=== PATIENT | male | born 1970 | race Caucasian/White ===

== ENCOUNTER → 2016-10-15 | Outpatient (CLI) | payer OTHER ==
[~2016-10-15] MED LIST: ALL300 PO; GLC500 PO; NAPR-1169 PO; [UNRECOGNIZED DRUG - CODE] PO
[2016-10-15 09:17] LABS: URINE APPEARANCE CLEAR (CLEAR); URINE BILIRUBIN NEG (NEG); URINE COLOR YELLOW; URINE EPITHELIAL CELL AUTO >30 /lpf (0-5); URINE NITRITE NEG (NEG); URINE SPECIFIC GRAVITY 1.029 (1.000-1.030); UROBILINOGEN NEG (NEG)
[2016-10-15 09:23] LABS: MANUAL MICROSCOPIC REQUIRED? NO; REVIEW REQ? NO
[2016-10-16 07:01] LABS: ESTIMATED AVERAGE GLUCOSE 249 mg/dl; HA1C FLAG Normal (Normal)
== END | disposition home or self-care (01) ==
LOC: C.LAB 08:41
PROVIDERS: ATTEND Internal Medicine
DX: N18.9 Chronic kidney disease, unspecified (principal); R05 Cough

== ENCOUNTER → 2017-09-14 | Outpatient (CLI) | payer OTHER ==
[2017-09-14 12:26] LABS: BLOOD UREA NITROGEN 13 mg/dl (7-18); BUN/CREATININE RATIO 10.1 (10-20)
[2017-09-14 12:32] LABS: ESTIMATED AVERAGE GLUCOSE 252 mg/dl; HA1C FLAG Normal (Normal)
== END | disposition home or self-care (01) ==
LOC: C.LABBFT 10:25
PROVIDERS: ATTEND Physician Assistant
DX: E11.9 Type 2 diabetes mellitus without complications (principal); E78.5 Hyperlipidemia, unspecified

== ENCOUNTER → 2017-12-24 | Outpatient (CLI) | payer OTHER ==
[2017-12-24 16:35] LABS: BASO % 0.3 %; BASO ABS # 0.03 K/uL (0-0.2); EOS % 4.2 %; EOS ABS # 0.48 K/uL (0-0.5); HEMATOCRIT 49.1 % (42-52); HEMOGLOBIN 16.9 g/dL (14.0-18.0); IG# 0.07 K/uL (0.00-0.02); LYMPH % 33.4 %; MEAN CELL VOLUME 89.8 fL (80-100); MEAN CORPUSCULAR HEMOGLOBIN 30.9 pg (25-34); MEAN CORPUSCULAR HGB CONC 34.4 g/dl (32-36); MEAN PLATELET VOLUME 10.3 fL (7.4-10.4); MONO % 5.5 %; MONO ABS # 0.63 K/uL (0.11-0.59); NEUT ABS # 6.38 K/uL (1.4-6.5); PLATELET COUNT 245 K/uL (130-400); RED CELL DISTRIBUTION WIDTH CV 13.9 % (11.5-14.5); RED CELL DISTRIBUTION WIDTH SD 45.3 fL (36.4-46.3); WHITE BLOOD COUNT 11.39 K/uL (4.8-10.8)
[2017-12-24 17:08] LABS: ALT/SGPT 30 U/L (12-78); AST/SGOT 12 U/L (15-37); BLOOD UREA NITROGEN 20 mg/dl (7-18); CALCIUM 9.6 mg/dl (8.5-10.1); CARBON DIOXIDE 25 mmol/L (21-32); CREATININE 1.31 mg/dl (0.60-1.40); GLUCOSE 181 mg/dl (70-99); POTASSIUM 3.9 mmol/L (3.5-5.1); SODIUM 135 mmol/L (136-145)
[2017-12-25 07:05] LABS: HEMOGLOBIN A1C 10.2 % (4.5-5.6)
== END | disposition home or self-care (01) ==
LOC: C.LAB1850 15:59
PROVIDERS: ATTEND Internal Medicine
DX: E11.9 Type 2 diabetes mellitus without complications (principal); E78.5 Hyperlipidemia, unspecified

== ENCOUNTER 2020-07-02 16:37 | Inpatient (IN) ==
[2020-07-02] MEDS ORDERED: MEROPENEM 500 MG in SYRINGE 0 ML IV STA (17:05)
[2020-07-02] MEDS ORDERED: SODIUM CHLORIDE 0.9% 1000ML 1,000 ML IV SCH ×2 (17:15→18:01)
[2020-07-02] MEDS ORDERED: VANCOMYCIN HCL 2,000 MG in SODIUM CHLORIDE 0.9% 500 ML IV ONE (17:15)
[2020-07-02] MEDS ORDERED: ONDANSETRON INJ 2 MG/ML 2 ML VIAL IV STA (17:25)
[2020-07-02 17:29] LABS: Hematocrit (blood only) 43.2 % (42-52); Hemoglobin 14.9 g/dL (14.0-18.0); Mean Corpuscular Hemoglobin 30.3 pg (25-34); Mean Corpuscular Hgb Conc 34.5 g/dL (32-36); Mean Corpuscular Volume 87.8 fL (80-100); Mean Platelet Volume 10.8 fL (7.4-10.4); Platelet Count 239 K/uL (130-400); RDW Standard Deviation 44.9 fL (36.4-46.3); Red Blood Count 4.92 M/uL (4.7-6.1); White Blood Count 15.45 K/uL (4.8-10.8)
[2020-07-02] MEDS: fentaNYL citrate 100 MCG/2 ML VIAL IV STA ×2 (17:30→21:57)
[2020-07-02] MEDS ORDERED: CLINDAMYCIN 900 MG in DEXTROSE 5% 50 ML IV ONE (17:30)
--- NOTE | 2020-07-02 17:30 | Emergency Department Note ---
History of Present Illness General Chief complaint: Skin Problem Stated complaint: ABSCESS Time Seen by Provider: 07/02/20 16:51 History of Present Illness Maximum Pain Intensity: 8 This is a 50-year-old male that presents to the emergency department via private vehicle referred by PCP with complaints of "abscess". 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 He then notes that there was some small drainage from the area and it seemed to drain little bit. He then notes that Sunday the drainage seemed to decrease and then Sunday and drained more. He notes that that was when it seemed to involve the scrotum. It has persisted quite quickly and spread quickly since that time he notes. As of about 7 PM yesterday the infection then really began to spread. He notes that he did have an appointment earlier today with PCP and referred here for further evaluation and management. The patient does note a history of Goodpastures syndrome as well as diabetes. Home Medications Home Medications Medication Instructions Recorded Confirmed Type lancets #50 ea 05/12/19 04/01/20 History allopurinol 300 mg tablet 300 mg PO DAILY #90 tab 06/30/19 07/02/20 Rx furosemide 40 mg tablet 40 mg PO DAILY PRN #90 tab 06/30/19 07/02/20 Rx indomethacin 50 mg capsule 50 mg PO DAILY PRN #90 cap 06/30/19 07/02/20 Rx losartan 100 1 tab PO DAILY #90 tab 06/30/19 07/02/20 Rx mg-hydrochlorothiazide 25 mg tablet pioglitazone 30 mg tablet 30 mg PO DAILY #90 tab 06/30/19 07/02/20 Rx glipizide 10 mg tablet 10 mg PO BID #180 tab 09/01/19 07/02/20 Rx metformin 1,000 mg tablet 1,000 mg PO BID #180 tab 09/01/19 07/02/20 Rx niacin 1,000 mg tablet,extended 1,000 mg PO DAILY #90 tab 09/01/19 07/02/20 Rx release 24 hr naproxen 500 mg tablet 500 mg PO BID PRN #180 tab 02/25/20 07/02/20 Rx tramadol 50 mg tablet 50 mg PO Q4H PRN #84 tab 04/01/20 07/02/20 Rx blood sugar diagnostic #180 ea 06/28/20 Rx Allergies Allergy/AdvReac Type Severity Reaction Status Date / Time amoxicillin [From Augmentin] Allergy Severe Anaphylaxis Verified 07/02/20 18:13 clavulanic acid Allergy Severe Anaphylaxis Verified 07/02/20 18:13 [From Augmentin] Past Med/Surg History Medical History Back pain Blurry vision, right eye Chronic kidney disease Diabetes mellitus Dyslipidemia Fourniers gangrene Goodpastures syndrome Gout, joint Hypertension Left lumbosacral radiculopathy Necrotizing fasciitis Obstructive sleep apnea Sepsis Social History Smoking Status: Former smoker Tobacco Type: Cigarettes Do You Dip or Chew Tobacco: No; Hx Alcohol Use: No Hx Substance Use: No Preferred Language: Telugu Communication Ability: Unable 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 Beliefs That Will Affect Care: None Current Living Situation: Significant Other Other Information That Helps Us Care for You: No Feels Safe at Home: Yes Safety Concerns: Feels Safe At This Time Assistive Devices: CPAP Review of Systems A total of 10 systems reviewed and were otherwise negative Physical Exam Vital Signs Vital Signs - 24 hr 07/02/20 16:46 07/02/20 17:11 07/02/20 17:16 Temperature 36.6 C Temperature Source Oral Pulse Rate 119 H 115 H 115 H Pulse Rate [Apical] Pulse Rate from SpO2 Sensor 114 H 115 H Pulse Rhythm [Apical] Respiratory Rate 20 14 21 Respiratory Effort / Characteristics Non-Labored Spontaneous Respiratory Depth Normal Respiratory Pattern Regular Blood Pressure 115/73 77/57 L 90/57 L Blood Pressure [Left Radial Artery] Blood Pressure [Right Arm] Blood Pressure Mean 87 62 72 Blood Pressure Mean [Left Radial Artery] Blood Pressure Mean [Right Arm] Blood Pressure Position Sitting Blood Pressure Position [Left Radial Artery] Blood Pressure Position [Right Arm] Pulse Oximetry 98 96 96 Oxygen Delivery Method Room Air Room Air Room Air Fraction of Inspired Oxygen SaO2/FiO2 Ratio Sepsis Recent Fever Within 48 Hours No Sepsis New/Unexplained Change in Mental Status N/A Sepsis Action Taken by Nursing No Action Required Arterial BP Systolic Arterial BP Diastolic Arterial BP Mean Arterial Pulse Rate End-Tidal CO2 07/02/20 17:30 07/02/20 17:32 07/02/20 17:36 Temperature Temperature Source Pulse Rate 104 H 101 H 105 H Pulse Rate [Apical] Pulse Rate from SpO2 Sensor 104 H 101 H 105 H Pulse Rhythm [Apical] Respiratory Rate 13 12 15 Respiratory Effort / Characteristics Respiratory Depth Respiratory Pattern Blood Pressure 66/51 L 89/68 L 95/59 L Blood Pressure [Left Radial Artery] Blood Pressure [Right Arm] Blood Pressure Mean 59 73 72 Blood Pressure Mean [Left Radial Artery] Blood Pressure Mean [Right Arm] Blood Pressure Position Blood Pressure Position [Left Radial Artery] Blood Pressure Position [Right Arm] Pulse Oximetry 96 96 95 Oxygen Delivery Method Room Air Room Air Room Air Fraction of Inspired Oxygen SaO2/FiO2 Ratio Sepsis Recent Fever Within 48 Hours Sepsis New/Unexplained Change in Mental Status Sepsis Action Taken by Nursing Arterial BP Systolic Arterial BP Diastolic Arterial BP Mean Arterial Pulse Rate End-Tidal CO2 07/02/20 17:41 07/02/20 17:42 07/02/20 17:45 Temperature Temperature Source Pulse Rate 98 H 99 H Pulse Rate [Apical] Pulse Rate from SpO2 Sensor 99 H 98 H Pulse Rhythm [Apical] Respiratory Rate 20 17 Respiratory Effort / Characteristics Respiratory Depth Respiratory Pattern Blood Pressure 95/70 L 96/59 L Blood Pressure [Left Radial Artery] Blood Pressure [Right Arm] Blood Pressure Mean 77 68 Blood Pressure Mean [Left Radial Artery] Blood Pressure Mean [Right Arm] Blood Pressure Position Blood Pressure Position [Left Radial Artery] Blood Pressure Position [Right Arm] Pulse Oximetry 95 95 95 Oxygen Delivery Method Room Air Room Air Fraction of Inspired Oxygen SaO2/FiO2 Ratio Sepsis Recent Fever Within 48 Hours Sepsis New/Unexplained Change in Mental Status Sepsis Action Taken by Nursing Arterial BP Systolic Arterial BP Diastolic Arterial BP Mean Arterial Pulse Rate End-Tidal CO2 07/02/20 17:50 07/02/20 17:55 07/02/20 18:00 Temperature Temperature Source Pulse Rate 96 H 97 H 100 H Pulse Rate [Apical] Pulse Rate from SpO2 Sensor 96 H 98 H 98 H Pulse Rhythm [Apical] Respiratory Rate 14 21 15 Respiratory Effort / Characteristics Respiratory Depth Respiratory Pattern Blood Pressure 97/52 L 95/55 L 108/62 Blood Pressure [Left Radial Artery] Blood Pressure [Right Arm] Blood Pressure Mean 68 62 74 Blood Pressure Mean [Left Radial Artery] Blood Pressure Mean [Right Arm] Blood Pressure Position Blood Pressure Position [Left Radial Artery] Blood Pressure Position [Right Arm] Pulse Oximetry 95 94 94 Oxygen Delivery Method Fraction of Inspired Oxygen SaO2/FiO2 Ratio Sepsis Recent Fever Within 48 Hours Sepsis New/Unexplained Change in Mental Status Sepsis Action Taken by Nursing Arterial BP Systolic Arterial BP Diastolic Arterial BP Mean Arterial Pulse Rate End-Tidal CO2 07/02/20 18:05 07/02/20 18:10 07/02/20 18:15 Temperature Temperature Source Pulse Rate 99 H 98 H 98 H Pulse Rate [Apical] Pulse Rate from SpO2 Sensor 100 H 98 H Pulse Rhythm [Apical] Respiratory Rate 14 16 15 Respiratory Effort / Characteristics Respiratory Depth Respiratory Pattern Blood Pressure 91/64 L 97/65 L 90/59 L Blood Pressure [Left Radial Artery] Blood Pressure [Right Arm] Blood Pressure Mean 75 77 76 Blood Pressure Mean [Left Radial Artery] Blood Pressure Mean [Right Arm] Blood Pressure Position Blood Pressure Position [Left Radial Artery] Blood Pressure Position [Right Arm] Pulse Oximetry 95 94 96 Oxygen Delivery Method Fraction of Inspired Oxygen SaO2/FiO2 Ratio Sepsis Recent Fever Within 48 Hours Sepsis New/Unexplained Change in Mental Status Sepsis Action Taken by Nursing Arterial BP Systolic Arterial BP Diastolic Arterial BP Mean Arterial Pulse Rate End-Tidal CO2 07/02/20 18:20 07/02/20 20:35 07/02/20 20:45 Temperature 36.6 C Temperature Source Axillary Pulse Rate 102 H Pulse Rate [Apical] 88 89 Pulse Rate from SpO2 Sensor Pulse Rhythm [Apical] Regular Regular Respiratory Rate 16 16 16 Respiratory Effort / Characteristics Non-Labored Spontaneous Non-Labored Spontaneous Respiratory Depth Normal Normal Respiratory Pattern Regular Regular Blood Pressure 104/72 Blood Pressure [Left Radial Artery] 136/61 101/53 L Blood Pressure [Right Arm] 116/74 104/69 Blood Pressure Mean 83 Blood Pressure Mean [Left Radial Artery] 86 69 Blood Pressure Mean [Right Arm] 88 80 Blood Pressure Position Blood Pressure Position [Left Radial Artery] Lying Lying Blood Pressure Position [Right Arm] Lying Lying Pulse Oximetry 100 95 Oxygen Delivery Method Mechanical Vent Mechanical Vent Fraction of Inspired Oxygen 30 30 SaO2/FiO2 Ratio 333 316 Sepsis Recent Fever Within 48 Hours Sepsis New/Unexplained Change in Mental Status Sepsis Action Taken by Nursing Arterial BP Systolic Arterial BP Diastolic Arterial BP Mean Arterial Pulse Rate End-Tidal CO2 07/02/20 20:55 07/02/20 21:00 07/02/20 21:05 Temperature Temperature Source Pulse Rate 97 H Pulse Rate [Apical] 89 90 Pulse Rate from SpO2 Sensor Pulse Rhythm [Apical] Regular Regular Respiratory Rate 16 18 16 Respiratory Effort / Characteristics Non-Labored Spontaneous Non-Labored Spontaneous Respiratory Depth Normal Normal Respiratory Pattern Regular Regular Blood Pressure Blood Pressure [Left Radial Artery] 101/50 L 102/48 L Blood Pressure [Right Arm] 106/63 103/60 Blood Pressure Mean Blood Pressure Mean [Left Radial Artery] 67 66 Blood Pressure Mean [Right Arm] 77 74 Blood Pressure Position Blood Pressure Position [Left Radial Artery] Lying Lying Blood Pressure Position [Right Arm] Lying Lying Pulse Oximetry 92 95 92 Oxygen Delivery Method Mechanical Vent Mechanical Vent Fraction of Inspired Oxygen 30 40 30 SaO2/FiO2 Ratio 306 306 Sepsis Recent Fever Within 48 Hours Sepsis New/Unexplained Change in Mental Status Sepsis Action Taken by Nursing Arterial BP Systolic Arterial BP Diastolic Arterial BP Mean Arterial Pulse Rate End-Tidal CO2 41 07/02/20 21:30 07/02/20 21:31 07/02/20 21:34 Temperature Temperature Source Pulse Rate 126 H 127 H 129 H Pulse Rate [Apical] Pulse Rate from SpO2 Sensor 125 H 128 H 129 H Pulse Rhythm [Apical] Respiratory Rate Respiratory Effort / Characteristics Mechanically Ventilated Respiratory Depth Respiratory Pattern Regular Blood Pressure 223/143 H 225/129 H Blood Pressure [Left Radial Artery] Blood Pressure [Right Arm] Blood Pressure Mean 176 183 Blood Pressure Mean [Left Radial Artery] Blood Pressure Mean [Right Arm] Blood Pressure Position Blood Pressure Position [Left Radial Artery] Blood Pressure Position [Right Arm] Pulse Oximetry 95 96 95 Oxygen Delivery Method Fraction of Inspired Oxygen 30 SaO2/FiO2 Ratio Sepsis Recent Fever Within 48 Hours Sepsis New/Unexplained Change in Mental Status Sepsis Action Taken by Nursing Arterial BP Systolic 250 269 300 Arterial BP Diastolic 95 99 109 Arterial BP Mean 142 151 168 Arterial Pulse Rate 125 H 127 H 129 H End-Tidal CO2 40 47 44 07/02/20 21:36 07/02/20 21:41 07/02/20 21:44 Temperature 36.8 C Temperature Source Oral Pulse Rate 125 H 131 H Pulse Rate [Apical] 126 H Pulse Rate from SpO2 Sensor 127 H 131 H Pulse Rhythm [Apical] Respiratory Rate 20 Respiratory Effort / Characteristics Respiratory Depth Normal Respiratory Pattern Blood Pressure 219/124 H 243/124 H Blood Pressure [Left Radial Artery] 237/94 H Blood Pressure [Right Arm] 243/124 H Blood Pressure Mean 185 176 Blood Pressure Mean [Left Radial Artery] 141 Blood Pressure Mean [Right Arm] 163 Blood Pressure Position Blood Pressure Position [Left Radial Artery] Blood Pressure Position [Right Arm] Pulse Oximetry 95 94 95 Oxygen Delivery Method Mechanical Vent Fraction of Inspired Oxygen SaO2/FiO2 Ratio Sepsis Recent Fever Within 48 Hours Sepsis New/Unexplained Change in Mental Status Sepsis Action Taken by Nursing Arterial BP Systolic 262 277 Arterial BP Diastolic 96 91 Arterial BP Mean 144 154 Arterial Pulse Rate 127 H 130 H End-Tidal CO2 45 41 07/02/20 21:47 Temperature Temperature Source Pulse Rate 125 H Pulse Rate [Apical] Pulse Rate from SpO2 Sensor 125 H Pulse Rhythm [Apical] Respiratory Rate Respiratory Effort / Characteristics Respiratory Depth Respiratory Pattern Blood Pressure 170/111 H Blood Pressure [Left Radial Artery] Blood Pressure [Right Arm] Blood Pressure Mean 138 Blood Pressure Mean [Left Radial Artery] Blood Pressure Mean [Right Arm] Blood Pressure Position Blood Pressure Position [Left Radial Artery] Blood Pressure Position [Right Arm] Pulse Oximetry 95 Oxygen Delivery Method Fraction of Inspired Oxygen SaO2/FiO2 Ratio Sepsis Recent Fever Within 48 Hours Sepsis New/Unexplained Change in Mental Status Sepsis Action Taken by Nursing Arterial BP Systolic 221 Arterial BP Diastolic 89 Arterial BP Mean 128 Arterial Pulse Rate 125 H End-Tidal CO2 40 VITAL SIGNS - Vital signs and nursing notes were reviewed. Stable and afebrile. GENERAL -50-year-old male appearing his stated age who is in no acute distress. Communicates well with provider and answers questions appropriately. SKIN -patient is mildly diaphoretic. Examination of the scrotal and suprapubic region reveals a tremendous amount of erythema, edema with left scrotal darkening with skin sloughing. The region is quite malodorous. HEAD - NC/AT. EYES - Sclera anicteric. Palpebral conjunctiva pink and moist with no injection noted. EARS - No deformities of external structures noted on gross examination bilaterally. NOSE - Midline and without cyanosis. MOUTH/OROPHARYNX - Without perioral cyanosis. Buccal mucosa pink and moist and without leukoplakia. Tongue midline with equal elevation of palate bilaterally. No tonsillar hypertrophy, erythema, or exudates noted. Good dentition noted. NECK - Neck with FROM. No nuchal rigidity. LUNGS - Chest wall symmetric without accessory muscle use, intercostals retractions, or central cyanosis. Normal vesicular breath sounds CTA B/L. No wheezes, rales, or rhonchi appreciated. CARDIAC - RRR with S1/S2. No murmur, rubs, or gallops appreciated. ABDOMEN - Abdominal contour normal without pulsations or visible masses. BS normoactive all four quadrants. Tenderness in the suprapubic and genital region. Skin as above. There is malodorous drainage noted EXTREMITIES - No clubbing or peripheral cyanosis. +5/5 strength noted in UE/LE bilaterally. NEUROLOGIC - Cranial nerves II through XII grossly intact. PSYCH - A&O, and cooperates fully with examiner. Pt is very pleasant and interacts well with examiner. Course Administered Medications Propofol (Diprivan) 1,000 mg in 100 mls @ 3.102 mls/hr IV .Q24H MITZI; Protocol Stop: 07/05/20 21:29 Last Admin: 07/03/20 12:42 Dose: 5 mcg/kg/min, 3.1 mls/hr Documented by: [id number] Cosigned by: [id number] Titration: 07/03/20 12:42 Dose: 15 mcg/kg/min, 9.3 mls/hr Documented by: [id number] Cosigned by: [id number] Titration: 07/03/20 00:45 Dose: 5 mcg/kg/min, 3.1 mls/hr Documented by: [id number] Titration: 07/03/20 00:15 Dose: 10 mcg/kg/min, 6.2 mls/hr Documented by: [id number] Titration: 07/03/20 00:01 Dose: 15 mcg/kg/min, 9.3 mls/hr Documented by: [id number] Titration: 07/02/20 23:30 Dose: 20 mcg/kg/min, 12.4 mls/hr Documented by: [id number] Titration: 07/02/20 23:15 Dose: 25 mcg/kg/min, 15.5 mls/hr Documented by: [id number] Titration: 07/02/20 22:30 Dose: 30 mcg/kg/min, 18.6 mls/hr Documented by: [id number] Titration: 07/02/20 22:00 Dose: 25 mcg/kg/min, 15.5 mls/hr Documented by: [id number] Admin: 07/02/20 21:30 Dose: 20 mcg/kg/min, 12.4 mls/hr Documented by: [id number] Cosigned by: [id number] Fentanyl Citrate (Fentanyl Drip) 1,250 mcg in 250 mls @ 5 mls/hr IV .Q50H MITZI; Protocol Stop: 07/16/20 21:29 Last Admin: 07/02/20 21:40 Dose: 25 mcg/hr, 5 mls/hr Documented by: [id number] Cosigned by: [id number] Sodium Chloride (Nss 1000ml) 1,000 mls @ 120 mls/hr IV .Q8H20M MITZI Stop: 08/01/20 21:29 Last Admin: 07/03/20 10:20 Dose: 120 mls/hr Documented by: [id number] Infusion: 07/03/20 06:21 Dose: 120 mls/hr Documented by: [id number] Admin: 07/02/20 22:01 Dose: 120 mls/hr Documented by: [id number] Vancomycin HCl 1,500 mg/ (Sodium Chloride) 530 mls @ 200 mls/hr IV Q18H [facility] Stop: 07/10/20 07:59 Last Admin: 07/03/20 08:49 Dose: 200 mls/hr Documented by: [id number] Insulin Aspart (Insulin Aspart 100 Units/Ml 3 Ml Pen) 0 units SC Q6 [facility] Stop: 08/01/20 21:59 Last Admin: 07/03/20 12:28 Dose: Not Given Documented by: [id number] Cosigned by: [id number] Admin: 07/03/20 05:56 Dose: Not Given Documented by: [id number] Cosigned by: [id number] Admin: 07/02/20 23:10 Dose: 3 units Documented by: [id number] Cosigned by: [id number] Discontinued Medications Bacitracin (Bacitracin Inj 50,000 Unit Vial) Confirm Administered Dose 50,000 units .ROUTE .STK-MED ONE Stop: 07/02/20 18:21 Last Admin: 07/02/20 20:12 Dose: 50,000 units Documented by: [id number] Fentanyl Citrate (Fentanyl Citrate 100 Mcg/2 Ml Vial) 50 mcg IV NOW [facility] Stop: 07/02/20 17:26 Last Admin: 07/02/20 21:57 Dose: Not Given Documented by: [id number] Fentanyl Citrate (Fentanyl Citrate 1250mcg/250ml Nss) Confirm Administered Dose 1,250 mcg IV .STK-MED ONE Stop: 07/02/20 21:31 Last Admin: 07/02/20 21:59 Dose: Not Given Documented by: [id number] Meropenem 500 mg/ Syringe 10 mls @ 2 mls/min IV NOW STA; Protocol Stop: 07/02/20 17:09 Last Admin: 07/02/20 17:30 Dose: 2 mls/min Documented by: [id number] Vancomycin HCl 2,000 mg/ (Sodium Chloride) 540 mls @ 200 mls/hr IV NOW ONE Stop: 07/02/20 19:56 Last Infusion: 07/02/20 21:40 Dose: 0 mls/hr Documented by: [id number] Admin: 07/02/20 17:19 Dose: 200 mls/hr Documented by: [id number] Clindamycin Phosphate 900 mg/ (Dextrose) 56 mls @ 112 mls/hr IV NOW ONE Stop: 07/02/20 17:59 Last Infusion: 07/02/20 17:49 Dose: 0 mls/hr Documented by: [id number] Admin: 07/02/20 17:19 Dose: 112 mls/hr Documented by: [id number] Sodium Chloride (Nss 1000ml) 1,000 mls @ 999 mls/hr IV .Q1H1M [facility] Stop: 07/02/20 18:01 Last Infusion: 07/02/20 18:20 Dose: 0 mls/hr Documented by: [id number] Admin: 07/02/20 17:19 Dose: 999 mls/hr Documented by: [id number] Sodium Chloride (Nss 1000ml) 1,000 mls @ 999 mls/hr IV .Q1H1M [facility] Stop: 07/02/20 19:00 Last Infusion: 07/02/20 21:40 Dose: 0 mls/hr Documented by: [id number] Admin: 07/02/20 18:21 Dose: 999 mls/hr Documented by: [id number] Clindamycin Phosphate 900 mg/ (Dextrose) 56 mls @ 112 mls/hr IV Q8H [facility] Stop: 07/10/20 01:59 Last Infusion: 07/03/20 03:34 Dose: 0 mls/hr Documented by: [id number] Admin: 07/03/20 02:20 Dose: 112 mls/hr Documented by: [id number] Meropenem 1,000 mg/ Syringe 20 mls @ 2 mls/min IV Q12H [facility]; Protocol Stop: 07/10/20 00:00 Last Admin: 07/03/20 12:28 Dose: 2 mls/min Documented by: [id number] Admin: 07/02/20 23:47 Dose: 2 mls/min Documented by: [id number] Potassium Chloride (K eSun / Wtr) 10 meq in 100 mls @ 100 mls/hr IV Q1H [facility] Stop: 07/03/20 01:14 Last Infusion: 07/03/20 02:33 Dose: 0 mls/hr Documented by: [id number] Admin: 07/03/20 00:34 Dose: 100 mls/hr Documented by: [id number] Infusion: 07/03/20 00:34 Dose: 100 mls/hr Documented by: [id number] Admin: 07/02/20 23:47 Dose: 100 mls/hr Documented by: [id number] Sodium Chloride (Nss 1000ml) 500 mls @ 999 mls/hr IV .Q31M ONE Stop: 07/03/20 01:22 Last Infusion: 07/03/20 02:34 Dose: 0 mls/hr Documented by: [id number] Admin: 07/03/20 01:00 Dose: 999 mls/hr Documented by: [id number] Potassium Chloride (K Seun / Wtr) 10 meq in 100 mls @ 100 mls/hr IV Q1H [facility] Stop: 07/03/20 08:39 Last Admin: 07/03/20 08:51 Dose: 100 mls/hr Documented by: [id number] Infusion: 07/03/20 07:50 Dose: 100 mls/hr Documented by: [id number] Admin: 07/03/20 06:50 Dose: 100 mls/hr Documented by: [id number] Calcium Gluconate 1,000 mg/ (Sodium Chloride) 60 mls @ 240 mls/hr IV NOW ONE Stop: 07/03/20 10:14 Last Admin: 07/03/20 10:19 Dose: 240 mls/hr Documented by: [id number] Lidocaine/Epinephrine (Lidocaine/Epinephrine 1% 20 Ml Vial) Confirm Administered Dose 20 ml .ROUTE .STK-MED ONE Stop: 07/02/20 18:21 Last Admin: 07/02/20 20:13 Dose: 14 ml Documented by: [id number] Ondansetron HCl (Ondansetron Inj 2 Mg/Ml 2 Ml Vial) 4 mg IV NOW STA Stop: 07/02/20 17:26 Last Admin: 07/02/20 17:30 Dose: 4 mg Documented by: [id number] Propofol (Propofol Iv Emulsion 10 Mg/Ml 100 Ml Vial) Confirm Administered Dose 1,000 mg IV .STK-MED ONE Stop: 07/02/20 21:22 Last Admin: 07/02/20 21:58 Dose: Not Given Documented by: [id number] Vancomycin HCl (Vancomycin Hcl 1000mg/20ml Vial) Confirm Administered Dose 50 mg .ROUTE .STK-MED ONE Stop: 07/02/20 18:21 Last Admin: 07/02/20 20:14 Dose: 1,000 mg Documented by: [id number] Vancomycin HCl (Vancomycin Hcl 1000mg/20ml Vial) Confirm Administered Dose 50 mg .ROUTE .STK-MED ONE Stop: 07/02/20 19:15 Last Admin: 07/02/20 20:15 Dose: Not Given Documented by: [id number] Critical Care Time Critical Care Time: Yes Patient presents with a life-threatening illness, 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 I have personally spent 45 minutes of critical care time in the direct management of this patient. This includes bedside care, interpretation of diagnostic studies, and testing, discussion with consultants, patient, and family members, and other required patient management activities. This 45 minutes is in excess of all separately billable procedures. Medical Decision Making Laboratory Data Result diagrams: 07/03/20 04:25 07/03/20 04:25 Lab Results 07/02/20 07/02/20 07/02/20 Range/Units 17:12 17:12 17:12 WBC 15.45 H (4.8-10.8) K/uL RBC 4.92 (4.7-6.1) M/uL Hgb 14.9 (14.0-18.0) g/dL POC Hgb (14.0-18.0) g/dl Hct 43.2 (42-52) % POC Hct (42-52) % MCV 87.8 (80-100) fL MCH 30.3 (25-34) pg MCHC 34.5 (32-36) g/dL RDW Std Deviation 44.9 (36.4-46.3) fL RDW Coeff of Sara 14.0 (11.5-14.5) % Plt Count 239 (130-400) K/uL MPV 10.8 H (7.4-10.4) fL Immature Gran % (Auto) 7.1 % Neut % (Auto) 75.1 % Lymph % (Auto) 7.8 % Glascock % (Auto) 8.7 % Eos % (Auto) 1.2 % Baso % (Auto) 0.1 % Neut # (Auto) 11.61 H (1.4-6.5) K/uL Lymph # (Auto) 1.20 (1.2-3.4) K/uL Glascock # (Auto) 1.34 H (0.11-0.59) K/uL Eos # (Auto) 0.19 (0-0.5) K/uL Baso # (Auto) 0.02 (0-0.2) K/uL Immature Gran # (Auto) 1.09 H (0.00-0.02) K/uL Toxic Granulation 1+ Toxic Vacuolation 1+ ESR (0-14) mm/hr PT 11.5 (9.0-12.0) Seconds INR 1.1 (0.9-1.1) APTT 34.2 H (21.0-31.0) Seconds PTT Ratio 1.2 Sample Site POC pH (7.35-7.45) POC pCO2 (35-46) mmHg POC pO2 (80-95) mmHg POC HCO3 (19-24) mina/L POC Base Excess (-9-1.8) mina/L POC ABG O2 Sat (90-95) % Lance Test O2 Delivery Device POC O2 Rate Minute Ventilation POC FiO2 % Tidal Volume PEEP POC Sodium (135-144) mmol/L Sodium 127 L (136-145) mmol/L POC Potassium (3.3-5.0) mmol/L Potassium 3.3 L (3.5-5.1) mmol/L POC Chloride (101-112) mmol/L Chloride 92 L (98-107) mmol/L Carbon Dioxide 24 (21-32) mmol/L POC Total CO2 (24-31) mmol/L Anion Gap 12.0 H (3-11) POC Anion Gap (16-25) mmol/L POC BUN (7-18) mg/dl BUN 38 H (7-18) mg/dl Creatinine 2.28 H (0.6-1.4) mg/dl POC Creatinine (0.6-1.3) mg/dl Est Cr Clr Drug Dosing 44.0 ml/min Est GFR ( Amer) 37.1 Est GFR (Non-Af Amer) 32.0 BUN/Creatinine Ratio 17.6 (10-20) Glucose 211 H (70-99) mg/dl POC Glucose (other) (70-99) mg/dl Lactate Calcium 9.7 (8.5-10.1) mg/dl POC Ioniz Calcium Zahira (1.12-1.32) mmol/l Magnesium 2.2 (1.8-2.4) mg/dl Total Bilirubin 1.3 H (0.2-1) mg/dl AST 21 (15-37) U/L ALT 28 (12-78) U/L Alkaline Phosphatase 167 H (45-117) U/L C-Reactive Protein 43.50 H (0-0.29) mg/dl Total Protein 7.5 (6.4-8.2) gm/dl Albumin 2.5 L (3.4-5.0) gm/dl Globulin 5.0 H (2.5-4.0) gm/dl Albumin/Globulin Ratio 0.5 L (0.9-2) Procalcitonin (0-0.5) ng/ml Specimen Hemolysis Blood Type Antibody Screen Crossmatch 07/02/20 07/02/20 07/02/20 Range/Units 17:12 17:12 17:12 WBC (4.8-10.8) K/uL RBC (4.7-6.1) M/uL Hgb (14.0-18.0) g/dL POC Hgb (14.0-18.0) g/dl Hct (42-52) % POC Hct (42-52) % MCV (80-100) fL MCH (25-34) pg MCHC (32-36) g/dL RDW Std Deviation (36.4-46.3) fL RDW Coeff of Sara (11.5-14.5) % Plt Count (130-400) K/uL MPV (7.4-10.4) fL Immature Gran % (Auto) % Neut % (Auto) % Lymph % (Auto) % Glascock % (Auto) % Eos % (Auto) % Baso % (Auto) % Neut # (Auto) (1.4-6.5) K/uL Lymph # (Auto) (1.2-3.4) K/uL Glascock # (Auto) (0.11-0.59) K/uL Eos # (Auto) (0-0.5) K/uL Baso # (Auto) (0-0.2) K/uL Immature Gran # (Auto) (0.00-0.02) K/uL Toxic Granulation Toxic Vacuolation ESR > 90 H (0-14) mm/hr PT (9.0-12.0) Seconds INR (0.9-1.1) APTT (21.0-31.0) Seconds PTT Ratio Sample Site POC pH (7.35-7.45) POC pCO2 (35-46) mmHg POC pO2 (80-95) mmHg POC HCO3 (19-24) mina/L POC Base Excess (-9-1.8) mina/L POC ABG O2 Sat (90-95) % Lance Test O2 Delivery Device POC O2 Rate Minute Ventilation POC FiO2 % Tidal Volume PEEP POC Sodium (135-144) mmol/L Sodium (136-145) mmol/L POC Potassium (3.3-5.0) mmol/L Potassium (3.5-5.1) mmol/L POC Chloride (101-112) mmol/L Chloride (98-107) mmol/L Carbon Dioxide (21-32) mmol/L POC Total CO2 (24-31) mmol/L Anion Gap (3-11) POC Anion Gap (16-25) mmol/L POC BUN (7-18) mg/dl BUN (7-18) mg/dl Creatinine (0.6-1.4) mg/dl POC Creatinine (0.6-1.3) mg/dl Est Cr Clr Drug Dosing ml/min Est GFR ( Amer) Est GFR (Non-Af Amer) BUN/Creatinine Ratio (10-20) Glucose (70-99) mg/dl POC Glucose (other) (70-99) mg/dl Lactate Cancelled Calcium (8.5-10.1) mg/dl POC Ioniz Calcium Zahira (1.12-1.32) mmol/l Magnesium (1.8-2.4) mg/dl Total Bilirubin (0.2-1) mg/dl AST (15-37) U/L ALT (12-78) U/L Alkaline Phosphatase (45-117) U/L C-Reactive Protein (0-0.29) mg/dl Total Protein (6.4-8.2) gm/dl Albumin (3.4-5.0) gm/dl Globulin (2.5-4.0) gm/dl Albumin/Globulin Ratio (0.9-2) Procalcitonin 11.88 H (0-0.5) ng/ml Specimen Hemolysis Blood Type Antibody Screen Crossmatch 07/02/20 07/02/20 07/02/20 Range/Units 18:17 19:24 21:25 WBC (4.8-10.8) K/uL RBC (4.7-6.1) M/uL Hgb (14.0-18.0) g/dL POC Hgb 13.9 L (14.0-18.0) g/dl Hct (42-52) % POC Hct 41 L (42-52) % MCV (80-100) fL MCH (25-34) pg MCHC (32-36) g/dL RDW Std Deviation (36.4-46.3) fL RDW Coeff of Sara (11.5-14.5) % Plt Count (130-400) K/uL MPV (7.4-10.4) fL Immature Gran % (Auto) % Neut % (Auto) % Lymph % (Auto) % Glascock % (Auto) % Eos % (Auto) % Baso % (Auto) % Neut # (Auto) (1.4-6.5) K/uL Lymph # (Auto) (1.2-3.4) K/uL Glascock # (Auto) (0.11-0.59) K/uL Eos # (Auto) (0-0.5) K/uL Baso # (Auto) (0-0.2) K/uL Immature Gran # (Auto) (0.00-0.02) K/uL Toxic Granulation Toxic Vacuolation ESR (0-14) mm/hr PT (9.0-12.0) Seconds INR (0.9-1.1) APTT (21.0-31.0) Seconds PTT Ratio Sample Site Art Line POC pH 7.23 L (7.35-7.45) POC pCO2 44 (35-46) mmHg POC pO2 83 (80-95) mmHg POC HCO3 18 L (19-24) mina/L POC Base Excess -9.0 (-9-1.8) mnia/L POC ABG O2 Sat 94.0 (90-95) % Lance Test NA O2 Delivery Device Ventilator POC O2 Rate 16 Minute Ventilation 8 POC FiO2 40 % Tidal Volume 500 PEEP 8 POC Sodium 129 L (135-144) mmol/L Sodium (136-145) mmol/L POC Potassium 3.3 (3.3-5.0) mmol/L Potassium (3.5-5.1) mmol/L POC Chloride 94 L (101-112) mmol/L Chloride (98-107) mmol/L Carbon Dioxide (21-32) mmol/L POC Total CO2 21 L 20 L (24-31) mmol/L Anion Gap (3-11) POC Anion Gap 19.0 (16-25) mmol/L POC BUN 34 H (7-18) mg/dl BUN (7-18) mg/dl Creatinine (0.6-1.4) mg/dl POC Creatinine 2.1 H (0.6-1.3) mg/dl Est Cr Clr Drug Dosing ml/min Est GFR ( Amer) Est GFR (Non-Af Amer) BUN/Creatinine Ratio (10-20) Glucose (70-99) mg/dl POC Glucose (other) 218 H (70-99) mg/dl Lactate Calcium (8.5-10.1) mg/dl POC Ioniz Calcium Zahira 1.05 L (1.12-1.32) mmol/l Magnesium (1.8-2.4) mg/dl Total Bilirubin (0.2-1) mg/dl AST (15-37) U/L ALT (12-78) U/L Alkaline Phosphatase (45-117) U/L C-Reactive Protein (0-0.29) mg/dl Total Protein (6.4-8.2) gm/dl Albumin (3.4-5.0) gm/dl Globulin (2.5-4.0) gm/dl Albumin/Globulin Ratio (0.9-2) Procalcitonin (0-0.5) ng/ml Specimen Hemolysis Blood Type A Positive Antibody Screen NEGATIVE Crossmatch See Detail Imaging Data Radiologist's Impression: XR chest 1V portable HISTORY: 50 years-old Male SEPSIS acute sepsis COMPARISON: Chest radiograph 01/16/2019 TECHNIQUE: Portable semierect AP view of the chest FINDINGS: Cardiac silhouette is upper limits of normal in size. No pneumothorax, pleural effusion, airspace consolidation or overt pulmonary edema. Healed remote fracture of the lateral right 10th rib. Degenerative changes of the shoulders and spine. IMPRESSION: No acute process. ACT 112: Negative or not required by law. The above report was generated using voice recognition software. It may contain grammatical, syntax or spelling errors. Electronically signed by: Emerson Mcneil M.D. 07/02/2020 5:37 PM [address] AND PELVIS CT WITHOUT CONTRAST CT DOSE: 1691.69 mGy.cm HISTORY: Acute left groin pain with soft tissue infection Infection in groin TECHNIQUE: Multiaxial CT images of the abdomen and pelvis were performed without contrast. A dose lowering technique was utilized adhering to the principles of ALARA. COMPARISON STUDY: Chest radiograph of same day, CT abdomen 04/24/2010 FINDINGS: Lung bases are generally clear. There is no pneumatosis or p neumoperitoneum. The imaged inferior cardiac chambers are unremarkable. Trace pericardial effusion. Hepatosplenomegaly with hepatic steatosis. The spleen measures up to 18.3 cm in length. Mild gallbladder distention. No biliary ductal dilation. Unremarkable pancreas and right adrenal gland. There is mild thickening of the left adrenal gland. Mild nonspecific bilateral perinephric stranding. No hydronephrosis. Unremarkable urinary bladder. Mildly prominent prostate. Calcified plaque of the aorta without aneurysm. Prominent inguinal and iliac chain lymph nodes measuring up to 9 mm, likely reactive. Small hiatal hernia. No bowel obstruction or bowel wall thickening. Mild colonic diverticulosis. Normal appendix. There are a few calcifications of the right lower quadrant mesentery measuring up to 3.3 cm. Moderate atrophy of the rectus sheath. There is moderate subcutaneous edema of the mons pubis, (CM and superior left hemiscrotum with associated skin thickening. Moderate subcutaneous/deep tissue emphysema. No focal fluid collection. Degenerative changes of the spine, pelvis and hips. Include severe left hip osteoarthritis with chronic remodeling changes. Mild superior plate compression deformity at L1, likely chronic. IMPRESSION: 1. Cellulitis of the left inguinal tissues, perineum and mons pubis extends into the superior left hemiscrotum. Moderate subcutaneous/deep tissue emphysema is suggestive of associated fasciitis. No fluid collection to suggest abscess. Surgical consultation is recommended. 2. No bowel obstruction or bowel wall thickening. Normal appendix. 3. Hepatosplenomegaly with hepatic steatosis. 4. Additional findings as above. ACT 112: Negative or not required by law. The above report was generated using voice recognition software. It may contain grammatical, syntax or spelling errors. Electronically signed by: Emerson Mcneil M.D. 07/02/2020 6:51 PM MDM Narrative Patient was seen and evaluated as above in room A2. Review was performed of nursing notes and vital signs. I did review pertinent previous visits and patient history. After obtaining a thorough history and physical examination the above work up was performed. He presents to us today over concern of groin infection. 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 Stat page was made to general surgery who came to bedside immediately. Recommendation was for urology evaluation and if urology felt he required a higher level of care than transfer would be recommended. I then immediately paged the urologist and Dr. Guy then came to bedside. Simultaneously while the pages were being made to specialists, sepsis order set was started noting multiple several large bore IVs, broad- spectrum antibiotics covering the suspected Ted's gangrene infection and fluid resuscitation. Care was taken so as to not give the patient too much fluid but he responded quite well to the fluids. Patient was taken to the CT suite and directly from there to the operative suite as it was felt that management ROSANNA was warranted by urology and depending upon findings while in the OR will determine level of care either ICU care here Transfer. Patient will then go to the ICU and I did speak with the ICU attending. In review of his labs, there is leukocytosis at 15.45 without significant anemia. There is hyponatremia, hypokalemia, creatinine of 2.28 as well as procalcitonin markedly elevated as well as CRP and ESR. While in the department, I personally reevaluated the patient several times. The patient and female at bedside were educated upon management, educated upon todays recommendation, educated upon the seriousness of today's findings and diagnosis. Questions were answered. Case was discussed with the attending physician who also personally evaluated the patient just minutes after my initial evaluation. EKG was obtained per sepsis order set and reveals sinus tachycardia rate of [address] elevation. QTc 438. In the evaluation and treatment of this patient the following differential diagnoses were entertained: Necrotizing fasciitis, Ted's gangrene, UTI, yeast infection, cellulitis, testicular torsion, among others. 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 I discussed the case with the physician regulatory affairs assistant, examined the patient, and agree with the findings and plan as documented in PAC Son's note.
--- NOTE | 2020-07-02 17:39 | XRay Report ---
XR chest 1V portable HISTORY: 50 years-old Male SEPSIS acute sepsis COMPARISON: Chest radiograph 01/16/2019 TECHNIQUE: Portable semierect AP view of the chest FINDINGS: Cardiac silhouette is upper limits of normal in size. No pneumothorax, pleural effusion, airspace con solidation or overt pulmonary edema. Healed remote fracture of the lateral right 10th rib. Degenerati ve changes of the shoulders and spine. IMPRESSION: No acute process. ACT 112: Negative or not required by law. The above report was generated using voice recognition software. It may contain grammatical, syntax o r spelling errors. Electronically signed by: Emerson Mcneil M.D. 07/02/2020 5:37 PM
[2020-07-02 17:43] LABS: INR 1.1 (0.9-1.1); Partial Thromboplastin Ratio 1.2; Partial Thromboplastin Time 34.2 Seconds (21.0-31.0); Prothrombin Time 11.5 Seconds (9.0-12.0)
[2020-07-02 17:58] LABS: Basophils # (auto) 0.02 K/uL (0-0.2); Basophils % (auto) 0.1 %; Eosinophils # (auto) 0.19 K/uL (0-0.5); Eosinophils % (auto) 1.2 %; Immature Granulocytes # (auto) 1.09 K/uL (0.00-0.02); Immature Granulocytes % (auto) 7.1 %; Lymphocytes % (auto) 7.8 %; Monocytes # (auto) 1.34 K/uL (0.11-0.59); Monocytes % (auto) 8.7 %; Neutrophils # (auto) 11.61 K/uL (1.4-6.5); Neutrophils % (auto) 75.1 %; Toxic Granulation 1+; Toxic Vacuolation 1+
[2020-07-02] MEDS ORDERED: ALBUMIN HUMAN 5% 12.5 GM/250 ML VIAL IV ONE (18:19)
[2020-07-02] MEDS ORDERED: BACITRACIN INJ 50,000 UNIT VIAL ONE (18:20)
[2020-07-02] MEDS ORDERED: LIDOCAINE/EPINEPHRINE 1% 20 ML VIAL ONE (18:20)
[2020-07-02] MEDS ORDERED: VANCOMYCIN HCL 1000MG/20ML VIAL ONE ×2 (18:20→19:14)
[2020-07-02] MEDS ORDERED: LIDOCAINE HCL 2% 2 ML VIAL/AMP(20MG/ML) INFIL ONE (18:23)
[2020-07-02] MEDS ORDERED: PROPOFOL IV EMULSION 10 MG/ML 20 ML VIAL IV ONE (18:23)
[2020-07-02] MEDS ORDERED: ONDANSETRON INJ 2 MG/ML 2 ML VIAL ONE (18:23)
[2020-07-02] MEDS ORDERED: fentaNYL citrate 100 MCG/2 ML VIAL ONE ×2 (18:24→19:47)
[2020-07-02] MEDS ORDERED: MIDAZOLAM HCL 1 MG/ML 2ML VIAL ONE ×2 (18:24→20:08)
[2020-07-02 18:30] LABS: iSTAT Creatinine 2.1 mg/dl (0.6-1.3); iSTAT Hemoglobin 13.9 g/dl (14.0-18.0); iSTAT Ionized Calcium 1.05 mmol/l (1.12-1.32); iSTAT Potassium 3.3 mmol/L (3.3-5.0)
--- NOTE | 2020-07-02 18:38 | Urology Consultation ---
Date of Consultation July 02, 2020 Assessment & Plan (1) Fourniers gangrene: Emergent transport to OR for immediate debridement washout and wound care. Risk and benefits were discussed verbally with patient and family who are present. Patient was agreeable. Critical care team and anesthesia alerted (2) Necrotizing fasciitis: (3) Sepsis: History of Present Illness History of Present Illness New consultation for patient with signs of necrotizing fasciitis/Severe skin infection of groin. Patient states this happened incredibly quickly he noticed worsening issue with a skin infection and thought he had some sort of abscess. This quickly developed into a more severe infection. Patient has a known history of chronic renal disease as well as diabetes and history of Goodpasture syndrome. Patient started to become hypotensive and increasing illness. Was seen in the ER where concern for a necrotizing fasciitis was immediately identified. General surgery was initially consulted and they recommended ur ologic assessment. Patient denies significant major issues. No bleeding issues or concerns. No previous major groin surgeries. Does have known history of renal disease and was near renal failure 20 years ago when he was first diagnosed with Goodpasture syndrome. Patient does have issues with discomfort going down and radiating into groin and back in waves comes and goes. Can be severe at times. Discussed and reviewed patient's family history for any history of issues, infections, and disease. Also, discussed patient's medical/surgery history especially related to any history of urinary issues or stone disease. No known family history of severe skin or groin infections Patient is being admitted to the critical care team for life-threatening illness with critical management with broad spectrum IV antibiotics and supportive care. Allergies Allergy/AdvReac Type Severity Reaction Status Date / Time amoxicillin [From Augmentin] Allergy Severe Anaphylaxis Verified 07/02/20 18:13 clavulanic acid Allergy Severe Anaphylaxis Verified 07/02/20 18:13 [From Augmentin] Home Medications Home Medications Medication Instructions Recorded Confirmed Type lancets #50 ea 05/12/19 04/01/20 History allopurinol 300 mg tablet 300 mg PO DAILY #90 tab 06/30/19 07/02/20 Rx furosemide 40 mg tablet 40 mg PO DAILY PRN #90 tab 06/30/19 07/02/20 Rx indomethacin 50 mg capsule 50 mg PO DAILY PRN #90 cap 06/30/19 07/02/20 Rx losartan 100 1 tab PO DAILY #90 tab 06/30/19 07/02/20 Rx mg-hydrochlorothiazide 25 mg tablet pioglitazone 30 mg tablet 30 mg PO DAILY #90 tab 06/30/19 07/02/20 Rx glipizide 10 mg tablet 10 mg PO BID #180 tab 09/01/19 07/02/20 Rx metformin 1,000 mg tablet 1,000 mg PO BID #180 tab 09/01/19 07/02/20 Rx niacin 1,000 mg tablet,extended 1,000 mg PO DAILY #90 tab 09/01/19 07/02/20 Rx release 24 hr naproxen 500 mg tablet 500 mg PO BID PRN #180 tab 02/25/20 07/02/20 Rx tramadol 50 mg tablet 50 mg PO Q4H PRN #84 tab 04/01/20 07/02/20 Rx blood sugar diagnostic #180 ea 06/28/20 Rx Patient History Medical History (Updated 07/02/20 @ 18:38 by Logan Guy, ) Back pain Blurry vision, right eye Chronic kidney disease Diabetes mellitus Dyslipidemia Goodpastures syndrome Gout, joint Hypertension Left lumbosacral radiculopathy Obstructive sleep apnea Social History Smoking Status: Current every day smoker Tobacco Type: Cigarettes Preferred Language: Persian Feels Safe at Home: Yes Review of Systems Review of Systems: All systems reviewed & are unremarkable except as noted in HPI & below and Unobtainable due to mental health condition Limited due to patient's acute illness Physical Exam Physical Exam: General: Alert but acutely ill. HEENT: Normocephalic Atraumatic. Inspection normal. Cranial Nerves 2-12 Grossly intact. Nares are clear. Neck is supple. Normal inspection of face. Normal inspection of neck. Neurologic: No deficits on inspection. Baseline for motor function and sensory. Psychologic: Normal affect. Respiratory: Nonlabored. No use of accessory muscles. Moderate tachypnea Cardiovascular: Mild tachycardia Skin: Necrotizing necrotic wound of groin/mons/penile tissue and erythema of scrotum Extremities: Moving without issues. No motor deficits on inspection Lymphatics: Mild lower extremity edema Abdomen: Morbid obesity. Mild distended. No acites. No rebound or guarding. : Large necrotic wounds throughout groin. Results & Data ([facility]) Vital Signs (Past 12 Hours) Vital Signs Temp Pulse Resp BP Pulse Ox 07/02/20 18:20 102 H 16 104/72 07/02/20 18:15 98 H 15 90/59 L 96 07/02/20 18:10 98 H 16 97/65 L 94 07/02/20 18:05 99 H 14 91/64 L 95 07/02/20 18:00 100 H 15 108/62 94 07/02/20 17:55 97 H 21 95/55 L 94 07/02/20 17:50 96 H 14 97/52 L 95 07/02/20 17:45 99 H 17 96/59 L 95 07/02/20 17:42 95 07/02/20 17:41 98 H 20 95/70 L 95 07/02/20 17:36 105 H 15 95/59 L 95 07/02/20 17:32 101 H 12 89/68 L 96 07/02/20 17:30 104 H 13 66/51 L 96 07/02/20 17:16 115 H 21 90/57 L 96 07/02/20 17:11 115 H 14 77/57 L 96 07/02/20 16:46 36.6 C 119 H 20 115/73 98 PG Care Time/CCT Total # of Minutes Spent Total Time Spent with Patient: Total time spent is greater than 50% in coordination of care (as documented) at patient's floor/unit and/or counseling patient: Coding Level of Care Code 69750 Inpt Consult Level 5 Diagnoses Fourniers gangrene N49.3 Necrotizing fasciitis M72.6 Sepsis A41.9
--- NOTE | 2020-07-02 18:53 | CT Scan Report ---
ABDOMEN AND PELVIS CT WITHOUT CONTRAST CT DOSE: 1691.69 mGy.cm HISTORY: Acute left groin pain with soft tissue infection Infection in groin TECHNIQUE: Multiaxial CT images of the abdomen and pelvis were performed without contrast. A dose lo wering technique was utilized adhering to the principles of ALARA. COMPARISON STUDY: Chest radiograph of same day, CT abdomen 04/24/2010 FINDINGS: Lung bases are generally clear. There is no pneumatosis or pneumoperitoneum. The imaged inf erior cardiac chambers are unremarkable. Trace pericardial effusion. Hepatosplenomegaly with hepatic steatosis. The spleen measures up to 18.3 cm in length. Mild gallbladder distention. No biliary ducta l dilation. Unremarkable pancreas and right adrenal gland. There is mild thickening of the left adren al gland. Mild nonspecific bilateral perinephric stranding. No hydronephrosis. Unremarkable urinary b ladder. Mildly prominent prostate. Calcified plaque of the aorta without aneurysm. Prominent inguinal and iliac chain lymph nodes measuring up to 9 mm, likely reactive. Small hiatal hernia. No bowel obstruction or bowel wall thickening. Mild colonic diverticulosis. Norm al appendix. There are a few calcifications of the right lower quadrant mesentery measuring up to 3.3 cm. Moderate atrophy of the rectus sheath. There is moderate subcutaneous edema of the mons pubis, ( CM and superior left hemiscrotum with associated skin thickening. Moderate subcutaneous/deep tissue e mphysema. No focal fluid collection. Degenerative changes of the spine, pelvis and hips. Include josse re left hip osteoarthritis with chronic remodeling changes. Mild superior plate compression deformity at L1, likely chronic. IMPRESSION: 1. Cellulitis of the left inguinal tissues, perineum and mons pubis extends into the superior left he miscrotum. Moderate subcutaneous/deep tissue emphysema is suggestive of associated fasciitis. No flui d collection to suggest abscess. Surgical consultation is recommended. 2. No bowel obstruction or bowel wall thickening. Normal appendix. 3. Hepatosplenomegaly with hepatic steatosis. 4. Additional findings as above. ACT 112: Negative or not required by law. The above report was generated using voice recognition software. It may contain grammatical, syntax o r spelling errors. Electronically signed by: Emerson Mcneil M.D. 07/02/2020 6:51 PM
[2020-07-02 19:02] LABS: BUN Creatinine Ratio 17.6 (10-20)
[2020-07-02] MEDS ORDERED: SODIUM CHLORIDE 0.9% 250 ML IV PRN (19:18)
--- NOTE | 2020-07-02 19:21 | Anesthesiology Consultation ---
Date of Service July 02, 2020 Assessment & Plan (1) Encounter for pre-operative examination: Chart Review Chart Review: Acceptable Risk for Surgery and Patient NOT seen in Pre Admission Testing Consults Requested none History Surgery Operation Date: 07/02/20 19:00 Proposed Procedures p Orchiectomy Inguinal Radical - Logan Guy, Height/Weight Height: 5 ft 4 in Weight: 103.4 kg Allergies Allergy/AdvReac Type Severity Reaction Status Date / Time amoxicillin [From Augmentin] Allergy Severe Anaphylaxis Verified 07/02/20 18:13 clavulanic acid Allergy Severe Anaphylaxis Verified 07/02/20 18:13 [From Augmentin] Medications Home Medications Medication Instructions Recorded Confirmed Last Taken lancets #50 ea 05/12/19 04/01/20 Unknown allopurinol 300 mg tablet 300 mg PO DAILY #90 tab 06/30/19 07/02/20 Unknown furosemide 40 mg tablet 40 mg PO DAILY PRN #90 tab 06/30/19 07/02/20 Unknown indomethacin 50 mg capsule 50 mg PO DAILY PRN #90 cap 06/30/19 07/02/20 Unknown losartan 100 1 tab PO DAILY #90 tab 06/30/19 07/02/20 Unknown mg-hydrochlorothiazide 25 mg tablet pioglitazone 30 mg tablet 30 mg PO DAILY #90 tab 06/30/19 07/02/20 Unknown glipizide 10 mg tablet 10 mg PO BID #180 tab 09/01/19 07/02/20 Unknown metformin 1,000 mg tablet 1,000 mg PO BID #180 tab 09/01/19 07/02/20 Unknown niacin 1,000 mg tablet,extended 1,000 mg PO DAILY #90 tab 09/01/19 07/02/20 Unknown release 24 hr naproxen 500 mg tablet 500 mg PO BID PRN #180 tab 02/25/20 07/02/20 Unknown tramadol 50 mg tablet 50 mg PO Q4H PRN #84 tab 04/01/20 07/02/20 Unknown blood sugar diagnostic #180 ea 06/28/20 Unknown Active Medications Generic Name Dose Route Start Last Admin Trade Name Freq PRN Reason Stop Dose Admin Vancomycin HCl 2,000 mg/ 540 mls @ 200 mls/hr 07/02/20 17:15 07/02/20 17:19 Sodium Chloride IV 07/02/20 19:56 200 mls/hr NOW ONE Administration Past Medical History Medical History (Updated 07/02/20 @ 19:22 by Yovanny Cantor MD) Back pain Blurry vision, right eye Chronic kidney disease Diabetes mellitus Dyslipidemia Fourniers gangrene Goodpastures syndrome Gout, joint Hypertension Left lumbosacral radiculopathy Necrotizing fasciitis Obstructive sleep apnea Sepsis Exercise / Class Metabolic Activity II 4-5 Yardwork/Stairs/Walk up hill Past Anesthesia History No Hx of Anesthesia Complications and No Family Hx of Anesthesia Complications History of PONV No Hx of PONV and No Hx of Motion Sickness Social History Smoking Status: Current every day smoker Do You Dip or Chew Tobacco: No Hx Alcohol Use: Yes Hx Substance Use: No Physical Exam Vital Signs Last Vital Signs Temp 36.6 C 07/02/20 16:46 Pulse 102 H 07/02/20 18:20 Resp 16 07/02/20 18:20 BP 104/72 07/02/20 18:20 Pulse Ox 96 07/02/20 18:15 Testing Laboratory Results 07/02/20 17:12 07/02/20 17:12 PT 11.5 Seconds (9.0-12.0) 07/02/20 17:12 INR 1.1 (0.9-1.1) 07/02/20 17:12 APTT 34.2 Seconds (21.0-31.0) H 07/02/20 17:12 07/02/20 18:17 POC Glucose (other) 218 H Chest X-Ray Date: 07/02/20 Findings: + NAD
[2020-07-02] MEDS ORDERED: PHENYLEPHRINE 100MCG/ML 5ML SYR ONE (19:26)
[2020-07-02 19:48] LABS: Albumin Globulin Ratio 0.5 (0.9-2); Albumin Level 2.5 gm/dl (3.4-5.0); Bilirubin,Total 1.3 mg/dl (0.2-1); C Reactive Protein 43.5 mg/dl (0-0.29); Calcium 9.7 mg/dl (8.5-10.1); Est GFR (African American) 37.1; Magnesium 2.2 mg/dl (1.8-2.4); Potassium 3.3 mmol/L (3.5-5.1); Total Protein 7.5 gm/dl (6.4-8.2)
[2020-07-02] MEDS ORDERED: ROCURONIUM BROMIDE 10 MG/ML 5 ML VIAL IV ONE (20:09)
[2020-07-02] MEDS ORDERED: SUCCINYLCHOLINE CHLORIDE 20 MG/ML 10 ML VIAL IV ONE (20:14)
--- NOTE | 2020-07-02 20:35 | Post Operative Brief Note ---
PG Immediate Post Op with CF Date of Surgery July 02, 2020 Pre & Post Diagnosis Operation Date: 07/02/20 19:00 Pre-Op Diagnosis: Gangrene, Ted's Gangrene/Fasciitis Post-Op Diagnosis: Same I identified the patient and participated in the time-out.: Yes Procedure Operation Date: 07/02/20 19:00 Actual Procedures p Excisional Debridement and washout of gangrene.(Bilateral) - Logan Guy, DO Surgeon Logan Guy, II, DO Effervescent Salts Compounder None Estimated Blood Loss 50 Findings Consistent with Post-Op Diagnosis Gangrene with large necrotic tissue. Total debridement 15.3 cm x 15.2 cm x 8.1 cm. Necrotic tissue along spermatic cord and adductor muscles. Specimens Specimen Description: Culture set #1 Deep wound scrotum. Aero/Carmen culture and gram stain. Culture set #2 Deep tissue scrotum. Aero/Carmen culture and gram stain. A. Necrotic tissue. Drains Enriquez Catheter Anesthesia Type General Complications none Disposition Disposition: Recovery Room Overlapping Procedure I was present for: the critical portions of procedure. I was immediately available: during the entire case. Back up surgeon: was not required during procedure.
--- NOTE | 2020-07-02 21:04 | Operative Report ---
PG Post Operative Report Pre & Post Diagnosis Operation Date: 07/02/20 19:00 Pre-Op Diagnosis: ABSCESS, Ted's Gangrene and necrotizing fasciitis Post-Op Diagnosis: Same I identified the patient and participated in the time-out.: Yes Procedure Operation Date: 07/02/20 19:00 Actual Procedures Excisional Debridement and washout of gangrene.(Bilateral) - Logan Guy DO Surgeon Logan Guy, II, DO Concrete Tile Machine Operator None Estimated Blood Loss 50 Findings Consistent with Post-Op Diagnosis Total debrided tissues from right mons pubis around base of penis to left inguinal region down to left buttocks including entire left hemiscrotum. Deep to adductor muscles. Specimens Deep Wound Tissue Culture Culture Wound Debridement of Necrotic Tissue Anesthesia Type General Complications none Disposition Disposition: Recovery Room Indications Necrotizing fasciitis of the left scrotum, mons pubis, and inguinal region. Sepsis and multiorgan failure. Emergent procedure. Description of Procedure Patient was consented verbally and emergently due to severe sepsis with necrotizing fasciitis. Patient was seen emergently in the ER and brought back to the operating room as soon as his imaging was completed. Patient was placed under general anesthesia in the supine position. Patient then placed in dorsal lithotomy. Patient was prepped and draped in the regular sterile fashion. A time out was completed. With the time out completed and the patient prepped, a jewell was placed. The necrotic tissue was assessed. Multiple areas had been noted. An incision was made with a scalpel and the deep tissues were dissected with bovie electrocautery. Necrotic tissue was found tracking under the skin between the individual areas. An extremely large area of nonviable, necrotic, and infected tissues were noted. Dissection started at the mons approximately 2 cm on the right lateral side and removing tissues up to the inguinal region of the left inguinal latia. This was dissected inferiorly and deep. The penile skin along the dorsum was resected and debrided. The underlying tissues were spared. The left hemiscrotum was resected from the midline and deep. The testicle was delivered and found to have necrotic tissues attached to the hydrocele sac surrounding the testicle. This was opened and the hydrocele sac debrided of necrotic tissues. The spermatic cord was cleared of necrotic tissues including necrotic tissue involving the cremasteric muscles. With the left testicle exposed, All important structures and landmarks were identified and Excess tissue was dissected and sent for analysis with the specimen. The entire testicle and epididymis were examined. It was wrapped in a towel soaked in warm saline with vancomycin and placed aside. The necrotic tissues were dissected deep along the cord. Dissection then continued inferior along the peritoneum and the left buttocks. Deep along the inguinal canal the necrotic tissues tracked down to the adductor muscles. Some necrotic tissue was noted to include muscle fibers from these groups. Throughout dissection, small vessels were cauterized. All bleeding was controlled. In the inguinal region some larger venous vessels were tied with silk ties. The bulk tissue was sent for pathologic analysis. The deep tissues near adductor muscle was sent for a deep tissue culture. Swabs were taken immediately upon opening the tissue at the beginning of the case. Additional tissues were freed that looked nonviable and removed. Clearly bleeding healthy tissues were exposed in all regions. The irrigating vacuum device with bacitracin irrigation was then used to pressure irrigate the entire wound bed. The scrotum was irrigated and all bleeding controlled. The right hemiscrotum was spared during the process. The edges of the tissues in the inguinal region was injected with local anesthetic. The entire area was examined. Small bleeding vessels were ligated with vicryl sutures. The right hemiscrotum was approximated to the mons. The right inferior and posterior hemiscrotum was approximated to the perineum. The area was washed out again. The testicle was wrapped in xeroform petroleum bandage and then in a kerlix bandage soaked in vancomycin solution. Kerlix bandage was then used to pack the wound. The area was then covered with fluff bandages and a scrotal support. The testicle had appeared viable without lesions or other areas of concern. The area was cleaned. The scrotal support was was adjusted to hold the dressings. The patient was cleaned, aroused from anesthesia, and transferred to the ICU in critical condition having tolerated the procedure well with no complications. I was present and participated in all aspects of the procedure. Total area was 15.3 cm x 15.2 cm and deep to the adductor muscles. The necrotic tissues did not appear to track towards the rectum. Patient will maintain packed dressing and likely change tomorrow afternoon. May need further washout and debridement in 24-48hours. Will likely need to be assessed with wound/plastics to discuss reconstruction due to loss of tissue. I attest to the content of the Intraoperative Record and any orders documented therein. Any exceptions are noted below.
[2020-07-02] MEDS ORDERED: STAT IV Infusion **Titration per Protocol STA (21:17)
[2020-07-02] MEDS ORDERED: PROPOFOL BOLUS FROM BAG IV PRN (21:17)
[2020-07-02] MEDS ORDERED: VANCOMYCIN CONSULT ACTIVE PRN (21:17)
--- NOTE | 2020-07-02 21:18 | Anesthesiology Progress Note ---
Date of Service July 02, 2020 Anesthesia Post Procedure Vital Signs Vital Signs: Temp Pulse Pulse Resp BP BP BP 07/02/20 21:05 90 16 102/48 L 103/60 07/02/20 20:55 89 16 101/50 L 106/63 07/02/20 20:45 89 16 101/53 L 104/69 07/02/20 20:35 36.6 C 88 16 136/61 116/74 07/02/20 18:20 102 H 16 104/72 07/02/20 18:15 98 H 15 90/59 L 07/02/20 18:10 98 H 16 97/65 L 07/02/20 18:05 99 H 14 91/64 L 07/02/20 18:00 100 H 15 108/62 07/02/20 17:55 97 H 21 95/55 L 07/02/20 17:50 96 H 14 97/52 L 07/02/20 17:45 99 H 17 96/59 L 07/02/20 17:42 07/02/20 17:41 98 H 20 95/70 L 07/02/20 17:36 105 H 15 95/59 L 07/02/20 17:32 101 H 12 89/68 L 07/02/20 17:30 104 H 13 66/51 L 07/02/20 17:16 115 H 21 90/57 L 07/02/20 17:11 115 H 14 77/57 L 07/02/20 16:46 36.6 C 119 H 20 115/73 Pulse Ox 07/02/20 21:05 92 07/02/20 20:55 92 07/02/20 20:45 95 07/02/20 20:35 100 07/02/20 18:20 07/02/20 18:15 96 07/02/20 18:10 94 07/02/20 18:05 95 07/02/20 18:00 94 07/02/20 17:55 94 07/02/20 17:50 95 07/02/20 17:45 95 07/02/20 17:42 95 07/02/20 17:41 95 07/02/20 17:36 95 07/02/20 17:32 96 07/02/20 17:30 96 07/02/20 17:16 96 07/02/20 17:11 96 07/02/20 16:46 98 Transfer of Care Handoff Completed per policy Notes Mental Status: see notes below Patient Amnestic to Procedure: Yes Nausea / Vomiting: adequately controlled Pain: adequately controlled Airway Patency, RR, SpO2: see Notes below BP & HR: stable & adequate Hydration State: stable & adequate Anesthetic Complications: no major complications apparent and Pt Satisfied with anesthetic care Notes: pt remained intubated in stable condition in ICU. report given to icu team.
[2020-07-02] MEDS ORDERED: PROPOFOL IV EMULSION 10 MG/ML 100 ML VIAL IV ONE (21:21)
[2020-07-02] MEDS ORDERED: MEROPENEM CONSULT ACITVE PRN (21:22)
[2020-07-02] MEDS ORDERED: ICU PROTOCOL FOR HYPERGLYCEMIA PRN ×2 (21:28→21:48)
[2020-07-02] MEDS ORDERED: ALBUT/IPRATROP 3MG/0.5MG NEB 3 ML VIAL INH PRN (21:28)
[2020-07-02] MEDS: propofoL 1,000 MG/100 ML VIAL IV SCH (21:30)
[2020-07-02] MEDS ORDERED: DEXTROSE 50% 50 ML SYRINGE IV PRN (21:33)
[2020-07-02] MEDS ORDERED: CARBOHYDRATES FOR HYPOGLYCEMIA PO PRN (21:33)
[2020-07-02] MEDS ORDERED: GLUCOSE 40% GEL 15 GM TUBE PO PRN (21:33)
[2020-07-02] MEDS ORDERED: GLUCAGON FOR INJ 1 MG VIAL SQ PRN (21:33)
[2020-07-02] MEDS ORDERED: GLUCOSE 10 TABS/TUBE PO PRN (21:33)
[2020-07-02 21:40] LABS: iSTAT Arterial Blood Gas HCO3 18 meg/L (19-24); iSTAT Arterial Blood Gas pCO2 44 mmHg (35-46); iSTAT Arterial Blood Gas pH 7.23 (7.35-7.45); iSTAT Arterial Blood Gas pO2 83 mmHg (80-95); iSTAT Carbon Dioxide 20 mmol/L (24-31); iSTAT FiO2 40 %; iSTAT Site Art Line
[2020-07-02] MEDS: fentaNYL DRIP 1,250 MCG/250 ML BAG IV SCH (21:40)
[2020-07-02] MEDS: SODIUM CHLORIDE 0.9% 1000ML 1,000 ML IV SCH (22:01)
--- NOTE | 2020-07-02 22:27 | Critical Care Consultation ---
Date of Consultation July 02, 2020 Assessment & Plan (1) Necrotizing fasciitis: Reason Critically Ill: 50-year-old male presents to the ICU mechanically ventilated, postoperatively following incision and debridement of gangrenous wound to the scrotum and groin. Neuro - Sedation: Propofol/fentanyl Cardiac - Currently hemodynamically stable without use of vasopressors Normal sinus rhythm on monitor Currently no signs of septic shock, would be low threshold for transfer to tertiary center in the event he were to decompensate Continuous monitoring on telemetry and continuous hemodynamic monitoring with a line Respiratory - Mechanically ventilatedhistory of TONIE and current smoker -Vent settings: 20/500/5/40 percent, trend ABGs and wean as indicated -PRN DuoNeb -Continuous monitoring pulse ox -Plan to leave intubated overnight, patient reported to be difficult airway due to his anatomy per anesthesia GI - N.p.o. RENAL/LYTES - YARA on CKD/Goodpasture's syndromecreatinine on prior admission 1.4, currently 2.28 -YARA likely prerenal as patient was hypotensive prior to fluid resuscitation and surgical intervention likely due to sepsis -Continue IV fluid resuscitation -Maintain maps greater than 65 -Avoid nephrotoxins and renally adjust meds -Trend creatinine with routine BMPs -Strict I's and O's - Enriquez-strict I's and this ENDO - DM type IIuncontrolled per prior hemoglobin A1c's, will repeat in a.m. -Normally takes glipizide, metformin; transition to sliding scale while inpatient -ICU hyperglycemic protocol HEME - H&H stable, monitor routine CBCs Reported EBL 50 in OR ID - Gangrenous wound of groin/scrotum -Abdominal/pelvis CTcellulitis of the left inguinal tissues, perineum, and mons pubis extending to the superior left hemiscrotum, subcu tissue emphysema suggesting associated fasciitis -Now post extensive excisional debridement and washout of gangrene per urology -Patient will likely require additional washouts and likely skin grafting requiring multiple procedures per conversation with urology -Surgical specimen cultures pending, blood cultures pending -Procalcitonin of 10, lactate pending, CPK within normal limits -Continue clindamycin, vancomycin, meropenem LINES/IV ACCESS - Peripheral IVs, A-line, ETT, OGT, Enriquez DVT PROPHYLAXIS - SCDs, hold anticoagulation for the time being following surgical intervention I have personally spent 45 minutes of critical care time in the direct management of this patient. This is a life/limb threatening event. This includes time spent evaluating patient, direct bedside care, chart review, placing orders, interpretation of diagnostic studies, discussion with consultants, patient, and family members, as well as other required patient management activities. This time is exclusive of all separately billable procedures, and teaching time and separate from and in addition to any other critical care service time. Thank you for allowing us to participate in the care of this patient. Please refer to my attending physician's documentation for any further recommendations. 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 Please see my documentation from 07/03/2020. History of Present Illness Attending Physician: Pablo Mar MD History of Present Illness 50-year-old male with past medical history Goodpasture syndrome, CKD, DM type II who presented to the emergency department earlier today with worsening of a skin infection/abscess of his groin area. Patient reported in the ED that he first noticed the infection on Sunday night and had some groin discomfort, and it became increasingly worse throughout the week. He was referred by his primary care provider to come to the emergency department at that time. CT abdomen pelvis showed subcutaneous tissue emphysema suggestive of fasciitis and cellulitis of left inguinal tissues, perineum and mons pubis and extending into the superior left hemiscrotum. General surgery initially consulted for concerns for necrotizing fasciitis but surgical intervention deferred to urology. He was given vancomycin, meropenem, clindamycin in the emergency department and taken to the OR for emergent debridement. Patient now presents to the ICU intubated, and sedated. He was reported by anesthesia to be a difficult airway due to anatomy. Patient to be left intubated overnight following surgical procedure to the groin. He is currently normotensive without use of vasopressors. Patient underwent excisional debridement and washout of gangrene/fasciitis to his groin. Patient to remain in ICU for further management at this time. Allergies Allergy/AdvReac Type Severity Reaction Status Date / Time amoxicillin [From Augmentin] Allergy Severe Anaphylaxis Verified 07/02/20 18:13 clavulanic acid Allergy Severe Anaphylaxis Verified 07/02/20 18:13 [From Augmentin] Home Medications Home Medications Medication Instructions Recorded Confirmed Type lancets #50 ea 05/12/19 04/01/20 History allopurinol 300 mg tablet 300 mg PO DAILY #90 tab 06/30/19 07/02/20 Rx furosemide 40 mg tablet 40 mg PO DAILY PRN #90 tab 06/30/19 07/02/20 Rx indomethacin 50 mg capsule 50 mg PO DAILY PRN #90 cap 06/30/19 07/02/20 Rx losartan 100 1 tab PO DAILY #90 tab 06/30/19 07/02/20 Rx mg-hydrochlorothiazide 25 mg tablet pioglitazone 30 mg tablet 30 mg PO DAILY #90 tab 06/30/19 07/02/20 Rx glipizide 10 mg tablet 10 mg PO BID #180 tab 09/01/19 07/02/20 Rx metformin 1,000 mg tablet 1,000 mg PO BID #180 tab 09/01/19 07/02/20 Rx niacin 1,000 mg tablet,extended 1,000 mg PO DAILY #90 tab 09/01/19 07/02/20 Rx release 24 hr naproxen 500 mg tablet 500 mg PO BID PRN #180 tab 02/25/20 07/02/20 Rx tramadol 50 mg tablet 50 mg PO Q4H PRN #84 tab 04/01/20 07/02/20 Rx blood sugar diagnostic #180 ea 06/28/20 Rx Patient History Medical History Back pain Blurry vision, right eye Chronic kidney disease Diabetes mellitus Dyslipidemia Fourniers gangrene Goodpastures syndrome Gout, joint Hypertension Left lumbosacral radiculopathy Necrotizing fasciitis Obstructive sleep apnea Sepsis Social History Smoking Status: Former smoker Tobacco Type: Cigarettes Do You Dip or Chew Tobacco: No; Hx Alcohol Use: No Hx Substance Use: No Preferred Language: Azerbaijani Communication Ability: Effective Regional Facilities Specialist Required: No Beliefs That Will Affect Care: None Current Living Situation: Significant Other Other Information That Helps Us Care for You: No Feels Safe at Home: Yes Safety Concerns: Feels Safe At This Time Assistive Devices: CPAP Review of Systems Review of Systems: Unobtainable due to endotracheal tube and Unobtainable due to reduced consciousness Physical Exam Constitutional: + mechanically ventilated Eyes: PERRL, conjunctivae normal, anicteric sclerae ENMT: external ear and nose normal, oropharynx normal Neck: trachea midline, no thyromegaly Respiratory: normal respiratory effort, lungs clear to auscultation symmetric chest movement Auscultation: no crackles and no wheezes Cardiovascular: RRR, no murmur, no edema Heart Sounds: normal S1 and normal S2 Vessels: no JVD Extremities: normal capillary refill; no edema Gastrointestinal (Abdomen): Abdomen obese and edematous, soft. Unable to assess tenderness due to sedation. Normal active bowel sounds Skin: no rashes, warm and dry Wound at groin site is currently packed, dressing intact Neurologic: Intubated and sedated, cough gag corneals intact, PERRLA Psychiatric: Unable to assess due to sedation Genitourinary: Indwelling Enriquez catheter present Results & Data Results & Data ([facility]) Vital Signs (Past 12 Hours) Vital Signs Temp Pulse Pulse Resp BP BP BP 07/02/20 21:44 36.8 C 126 H 20 237/94 H 243/124 H 07/02/20 21:05 90 16 102/48 L 103/60 07/02/20 21:00 97 H 18 07/02/20 20:55 89 16 101/50 L 106/63 07/02/20 20:45 89 16 101/53 L 104/69 07/02/20 20:35 36.6 C 88 16 136/61 116/74 07/02/20 18:20 102 H 16 104/72 07/02/20 18:15 98 H 15 90/59 L 07/02/20 18:10 98 H 16 97/65 L 07/02/20 18:05 99 H 14 91/64 L 07/02/20 18:00 100 H 15 108/62 07/02/20 17:55 97 H 21 95/55 L 07/02/20 17:50 96 H 14 97/52 L 07/02/20 17:45 99 H 17 96/59 L 07/02/20 17:42 07/02/20 17:41 98 H 20 95/70 L 07/02/20 17:36 105 H 15 95/59 L 07/02/20 17:32 101 H 12 89/68 L 07/02/20 17:30 104 H 13 66/51 L 07/02/20 17:16 115 H 21 90/57 L 07/02/20 17:11 115 H 14 77/57 L 07/02/20 16:46 36.6 C 119 H 20 115/73 Pulse Ox 07/02/20 21:44 95 07/02/20 21:05 92 07/02/20 21:00 95 07/02/20 20:55 92 07/02/20 20:45 95 07/02/20 20:35 100 07/02/20 18:20 07/02/20 18:15 96 07/02/20 18:10 94 07/02/20 18:05 95 07/02/20 18:00 94 07/02/20 17:55 94 07/02/20 17:50 95 07/02/20 17:45 95 07/02/20 17:42 95 07/02/20 17:41 95 07/02/20 17:36 95 07/02/20 17:32 96 07/02/20 17:30 96 07/02/20 17:16 96 07/02/20 17:11 96 07/02/20 16:46 98 Coding Level of Care Code Critical Care 1st 30-74 mins Diagnoses Necrotizing fasciitis M72.6 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
[2020-07-02 23:00] LABS: BUN Creatinine Ratio 18.6 (10-20); Calcium 7.4 mg/dl (8.5-10.1); Est GFR (African American) 40.8; Est GFR (Non-African American) 35.2; Magnesium 1.9 mg/dl (1.8-2.4); Potassium 3.6 mmol/L (3.5-5.1)
[2020-07-02 23:04] LABS: Basophils # (auto) 0.01 K/uL (0-0.2); Basophils % (auto) 0.1 %; Eosinophils # (auto) 0.16 K/uL (0-0.5); Eosinophils % (auto) 1.7 %; Hematocrit (blood only) 34.4 % (42-52); Hemoglobin 11.5 g/dL (14.0-18.0); Immature Granulocytes # (auto) 0.28 K/uL (0.00-0.02); Immature Granulocytes % (auto) 2.9 %; Lymphocytes # (auto) 0.89 K/uL (1.2-3.4); Lymphocytes % (auto) 9.3 %; Mean Corpuscular Hemoglobin 29.7 pg (25-34); Mean Corpuscular Hgb Conc 33.4 g/dL (32-36); Mean Corpuscular Volume 88.9 fL (80-100); Mean Platelet Volume 10.2 fL (7.4-10.4); Monocytes # (auto) 0.76 K/uL (0.11-0.59); Monocytes % (auto) 7.9 %; Neutrophils % (auto) 78.1 %; Platelet Count 199 K/uL (130-400); RDW Coefficient of Variation 14.1 % (11.5-14.5); RDW Standard Deviation 46.3 fL (36.4-46.3); Red Blood Count 3.87 M/uL (4.7-6.1)
[2020-07-02] MEDS: INSULIN ASPART 100 UNITS/ML 3 ML PEN SC SCH (23:10)
--- NOTE | 2020-07-02 23:34 | History & Physical Report ---
Date of Service July 02, 2020 Assessment & Plan (1) Admitted to intensive care unit: Admitted on ventilator status post urologic surgery and debridement. Consult test preparer Dr. Little and staff Present on Admission?: Yes (2) Necrotizing fasciitis: Status post surgical debridement by urology Dr. Guy. Broad-spectrum antibiotic coverage with clindamycin IV, meropenem IV and vancomycin IV. Present on Admission?: Yes (3) Sepsis: IV fluid rehydration. No need for pressors at this time. IV antibiotics as noted above. 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 Present on Admission?: Yes (6) Chronic kidney disease: See above Present on Admission?: Yes (7) Diabetes mellitus: Holding glipizide, metformin and pioglitazone while n.p.o. and on ventilator. Accu-Cheks and coverage per ICU protocol Present on Admission?: Yes (8) Dyslipidemia: Niacin on hold while n.p.o. Present on Admission?: Yes (9) Hypertension: Meds on hold while on ventilator Present on Admission?: Yes Admission and Anticipated Discharge Date Admission Date: July 02, 2020 History of Present Illness Chief Complaint: The patient presented to the emergency department after being referred by his PCP for complaint of an abscess with a small amount of drainage on the left side of his groin. 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 The patient notes that he initially developed some groin discomfort on his left side 4 days ago upon returning from a trip. Drainage was noted on that day, and improved the following day. 2 days after the initial symptom, there was additional drainage and then seemed to involve the scrotal area. He reports over the last 24 hours, in particular since 7 PM last evening, the infection has spread quickly, and was referred to the ED by his PCP. After being seen by the ED staff, the patient was taken by urology Dr. Guy to the OR, where he had significant debridement performed, and was then admitted to the ICU still intubated post surgery Allergies Allergy/AdvReac Type Severity Reaction Status Date / Time amoxicillin [From Augmentin] Allergy Severe Anaphylaxis Verified 07/02/20 18:13 clavulanic acid Allergy Severe Anaphylaxis Verified 07/02/20 18:13 [From Augmentin] Home Medications Home Medications Medication Instructions Recorded Confirmed Type lancets #50 ea 05/12/19 04/01/20 History allopurinol 300 mg tablet 300 mg PO DAILY #90 tab 06/30/19 07/02/20 Rx furosemide 40 mg tablet 40 mg PO DAILY PRN #90 tab 06/30/19 07/02/20 Rx indomethacin 50 mg capsule 50 mg PO DAILY PRN #90 cap 06/30/19 07/02/20 Rx losartan 100 1 tab PO DAILY #90 tab 06/30/19 07/02/20 Rx mg-hydrochlorothiazide 25 mg tablet pioglitazone 30 mg tablet 30 mg PO DAILY #90 tab 06/30/19 07/02/20 Rx glipizide 10 mg tablet 10 mg PO BID #180 tab 09/01/19 07/02/20 Rx metformin 1,000 mg tablet 1,000 mg PO BID #180 tab 09/01/19 07/02/20 Rx niacin 1,000 mg tablet,extended 1,000 mg PO DAILY #90 tab 09/01/19 07/02/20 Rx release 24 hr naproxen 500 mg tablet 500 mg PO BID PRN #180 tab 02/25/20 07/02/20 Rx tramadol 50 mg tablet 50 mg PO Q4H PRN #84 tab 04/01/20 07/02/20 Rx blood sugar diagnostic #180 ea 06/28/20 Rx Past Med/Surg History Medical History Back pain Blurry vision, right eye Chronic kidney disease Diabetes mellitus Dyslipidemia Fourniers gangrene Goodpastures syndrome Gout, joint Hypertension Left lumbosacral radiculopathy Necrotizing fasciitis Obstructive sleep apnea Sepsis Social History Smoking Status: Former smoker Tobacco Type: Cigarettes Do You Dip or Chew Tobacco: No; Hx Alcohol Use: No Hx Substance Use: No Preferred Language: Turkmen Communication Ability: Effective First Line Supervisor Required: No Beliefs That Will Affect Care: None Current Living Situation: Significant Other Other Information That Helps Us Care for You: No Feels Safe at Home: Yes Safety Concerns: Feels Safe At This Time Assistive Devices: CPAP Review of Systems Review of Systems: Unobtainable due to endotracheal tube Physical Exam Physical Exam: The patient is intubated and sedated, normocephalic and atraumatic, lying in bed on the ventilator. HEENT--PERRL, EOMI, mucous membranes and oropharynx normal. Neck--supple. No JVD. No bruits. Thyroid normal, trachea midline, no adenopathy. Heart--normal S1 and S2. No murmurs, rubs or gallops. Lungs--clear bilaterally, no respiratory distress, no accessory muscle use. Abdomen--normal bowel sounds and soft. Nondistended. Surgical area dressed. Extremities--no cyanosis or clubbing. No edema. Dermatologic--as noted Neurologic--deferred Rheumatologic--deferred Psychiatric--deferred. Results & Data Results & Data ([facility]) Vital Signs (Past 12 Hours) Vital Signs Temp Pulse Pulse Resp BP BP BP 07/02/20 22:55 99 H 28 H 07/02/20 21:44 98.2 F 126 H 20 237/94 H 243/124 H 07/02/20 21:05 90 16 102/48 L 103/60 07/02/20 21:00 97 H 18 07/02/20 20:55 89 16 101/50 L 106/63 07/02/20 20:45 89 16 101/53 L 104/69 07/02/20 20:35 97.9 F 88 16 136/61 116/74 07/02/20 18:20 102 H 16 104/72 07/02/20 18:15 98 H 15 90/59 L 07/02/20 18:10 98 H 16 97/65 L 07/02/20 18:05 99 H 14 91/64 L 07/02/20 18:00 100 H 15 108/62 07/02/20 17:55 97 H 21 95/55 L 07/02/20 17:50 96 H 14 97/52 L 07/02/20 17:45 99 H 17 96/59 L 07/02/20 17:42 07/02/20 17:41 98 H 20 95/70 L 07/02/20 17:36 105 H 15 95/59 L 07/02/20 17:32 101 H 12 89/68 L 07/02/20 17:30 104 H 13 66/51 L 07/02/20 17:16 115 H 21 90/57 L 07/02/20 17:11 115 H 14 77/57 L 07/02/20 16:46 97.9 F 119 H 20 115/73 Pulse Ox 07/02/20 22:55 100 07/02/20 21:44 95 07/02/20 21:05 92 07/02/20 21:00 95 07/02/20 20:55 92 07/02/20 20:45 95 07/02/20 20:35 100 07/02/20 18:20 07/02/20 18:15 96 07/02/20 18:10 94 07/02/20 18:05 95 07/02/20 18:00 94 07/02/20 17:55 94 07/02/20 17:50 95 07/02/20 17:45 95 07/02/20 17:42 95 07/02/20 17:41 95 07/02/20 17:36 95 07/02/20 17:32 96 07/02/20 17:30 96 07/02/20 17:16 96 07/02/20 17:11 96 07/02/20 16:46 98 Laboratory Results Laboratory Results WBC 9.60 K/uL (4.8-10.8) 07/02/20 22:22 RBC 3.87 M/uL (4.7-6.1) L 07/02/20 22:22 Hgb 11.5 g/dL (14.0-18.0) L D 07/02/20 22:22 POC Hgb 13.9 g/dl (14.0-18.0) L 07/02/20 18:17 Hct 34.4 % (42-52) L 07/02/20 22:22 POC Hct 41 % (42-52) L 07/02/20 18:17 MCV 88.9 fL (80-100) 07/02/20 22:22 MCH 29.7 pg (25-34) 07/02/20 22:22 MCHC 33.4 g/dL (32-36) 07/02/20 22: RDW Std Deviation 46.3 fL (36.4-46.3) 07/02/20: RDW Coeff of Sara 14.1 % (11.5-14.5) 07/02/20: Plt Count 199 K/uL (130-400) 07/02/20 22:22 MPV 10.2 fL (7.4-10.4) 07/02/20 22:22 Immature Gran % (Auto) 2.9 % 07/02/20 22:22 Neut % (Auto) 78.1 % 07/02/20:22 Lymph % (Auto) 9.3 % 07/02/20: Foard % (Auto) 7.9 % 07/02/20: Eos % (Auto) 1.7 % 07/02/20: Baso % (Auto) 0.1 % 07/02/20: Neut # (Auto) 7.50 K/uL (1.4-6.5) H 07/02/20 22:22 Lymph # (Auto) 0.89 K/uL (1.2-3.4) L 07/02/20 22:22 Foard # (Auto) 0.76 K/uL (0.11-0.59) H 07/02/20 22:22 Eos # (Auto) 0.16 K/uL (0-0.5) 07/02/20 22:22 Baso # (Auto) 0.01 K/uL (0-0.2) 07/02/20: Immature Gran # (Auto) 0.28 K/uL (0.00-0.02) H 07/02/20 22:22 Toxic Granulation 1+ 07/02/20 17:12 Toxic Vacuolation 1+ 07/02/20 17:12 ESR > 90 mm/hr (0-14) H 07/02/20 17:12 PT 11.5 Seconds (9.0-12.0) 07/02/20 17:12 INR 1.1 (0.9-1.1) 07/02/20 17:12 APTT 34.2 Seconds (21.0-31.0) H 07/02/20 17:12 PTT Ratio 1.2 07/02/20 17:12 Sample Site Art Line 07/02/20 21:25 POC pH 7.23 (7.35-7.45) L 07/02/20 21:25 POC pCO2 44 mmHg (35-46) 07/02/20 21:25 POC pO2 83 mmHg (80-95) 07/02/20 21:25 POC HCO3 18 mina/L (19-24) L 07/02/20 21:25 POC Total CO2 20 mmol/L (24-31) L 07/02/20 21:25 POC Base Excess -9.0 mina/L (-9-1.8) 07/02/20 21:25 POC ABG O2 Sat 94.0 % (90-95) 07/02/20 21:25 Lance Test NA 07/02/20 21:25 O2 Delivery Device Ventilator 07/02/20 21:25 POC O2 Rate 16 07/02/20 21:25 Minute Ventilation 8 07/02/20 21:25 POC FiO2 40 % 07/02/20 21:25 Tidal Volume 500 07/02/20 21:25 PEEP 8 07/02/20 21:25 POC Sodium 129 mmol/L (135-144) L 07/02/20 18:17 Sodium 131 mmol/L (136-145) L 07/02/20 22:22 POC Potassium 3.3 mmol/L (3.3-5.0) 07/02/20 18:17 Potassium 3.6 mmol/L (3.5-5.1) 07/02/20 22:22 POC Chloride 94 mmol/L (101-112) L 07/02/20 18:17 Chloride 101 mmol/L (98-107) 07/02/20 22:22 Carbon Dioxide 22 mmol/L (21-32) 07/02/20 22:22 POC Total CO2 21 mmol/L (24-31) L 07/02/20 18:17 Anion Gap 8.0 (3-11) 07/02/20 22:22 POC Anion Gap 19.0 mmol/L (16-25) 07/02/20 18:17 POC BUN 34 mg/dl (7-18) H 07/02/20 18:17 BUN 39 mg/dl (7-18) H 07/02/20 22:22 Creatinine 2.11 mg/dl (0.6-1.4) H 07/02/20 22:22 POC Creatinine 2.1 mg/dl (0.6-1.3) H 07/02/20 18:17 Est Cr Clr Drug Dosing 45.0 ml/min 07/02/20 22:22 Est GFR ( Amer) 40.8 07/02/20 22:22 Est GFR (Non-Af Amer) 35.2 07/02/20 22:22 BUN/Creatinine Ratio 18.6 (-20) 07/02/20 22:22 Glucose 235 mg/dl (70-99) H 07/02/20 22:22 POC Glucose 238 mg/dl (70-99) H 07/02/20 23:00 POC Glucose (other) 218 mg/dl (70-99) H 07/02/20 18:17 Lactate mmol/L (0.4-2.0) 07/02/20 23:42 Calcium 7.4 mg/dl (8.5-10.1) L D 07/02/20 22:22 POC Ioniz Calcium Zahira 1.05 mmol/l (1.12-1.32) L 07/02/20 18:17 Phosphorus 4.0 mg/dl (2.5-4.9) 07/02/20 22:22 Magnesium 1.9 mg/dl (1.8-2.4) 07/02/20 22:22 Total Bilirubin 1.3 mg/dl (0.2-1) H 07/02/20 17:12 AST 21 U/L (15-37) 07/02/20 17:12 ALT 28 U/L (12-78) 07/02/20 17:12 Alkaline Phosphatase 167 U/L (45-117) H 07/02/20 17:12 Total Creatine Kinase 49 U/L (39-308) 07/02/20 22:22 C-Reactive Protein 43.50 mg/dl (0-0.29) H 07/02/20 17:12 Total Protein 7.5 gm/dl (6.4-8.2) 07/02/20 17:12 Albumin 2.5 gm/dl (3.4-5.0) L 07/02/20 17:12 Globulin 5.0 gm/dl (2.5-4.0) H 07/02/20 17:12 Albumin/Globulin Ratio 0.5 (0.9-2) L 07/02/20 17:12 Procalcitonin 11.88 ng/ml (0-0.5) H 07/02/20 17:12 Specimen Hemolysis 07/02/20 17:12 Nasal Screen MRSA (PCR) Negative (Negative) 07/03/20 00:01 Blood Type A Positive 07/02/20 19:24 Antibody Screen NEGATIVE 07/02/20 19:24 Crossmatch See Detail 07/02/20 19:24 Diagnostic Findings [facility] [place], [place] [phone] XRay Report Patient: QUEENIE CRAWLEY Date: 07/02/20 MR#: [id number]: [address] Acct ID:[id number]: [address] Date: 1970City Zip: [place] [address] Age: 50Location: ED Sex: MRoom/Bed: Att Phy:Diagnosis: ABSCESS Radha Phy: Eber Kiran MDService Date: 07/02/20 Fam Phy:Interpreting Phy: Vu Mcneil Admit Phy: Ordering Phy: Tayo Cline PA-C cc: ~ XR chest 1V portable HISTORY: 50 years-old Male SEPSIS acute sepsis COMPARISON: Chest radiograph 01/16/2019 TECHNIQUE: Portable semierect AP view of the chest FINDINGS: Cardiac silhouette is upper limits of normal in size. No pneumothorax, pleural effusion, airspace consolidation or overt pulmonary edema. Healed remote fracture of the lateral right 10th rib. Degenerative changes of the shoulders and spine. IMPRESSION: No acute process. ACT 112: Negative or not required by law. The above report was generated using voice recognition software. It may contain grammatical, syntax or spelling errors. Electronically signed by: Emerson Mcneil M.D. 07/02/2020 5:37 PM Dictated: 07/02/201735 Transcribed: 07/02/201735 [facility] [place], [place] [phone] CT Scan Report Patient: QUEENIE CRAWLEY Date: 07/02/20 MR#: [id number]: [address] Acct ID:[id number]: [address] Date: 1970City Zip: [place] [address] Age: 50Location: OR Sex: MRoom/Bed: Att Phy: Logan Guy, II, DODiagnosis: ABSCESS Radha Phy: Eber Kiran MDService Date: 07/02/20 Fam Phy:Interpreting Phy: Vu Mcneil Admit Phy: Ordering Phy: Tayo Cline PA-C cc: ~ ABDOMEN AND PELVIS CT WITHOUT CONTRAST CT DOSE: 1691.69 mGy.cm HISTORY: Acute left groin pain with soft tissue infection Infection in groin TECHNIQUE: Multiaxial CT images of the abdomen and pelvis were performed without contrast. A dose lowering technique was utilized adhering to the principles of ALARA. COMPARISON STUDY: Chest radiograph of same day, CT abdomen 04/24/2010 FINDINGS: Lung bases are generally clear. There is no pneumatosis or pneumoperitoneum. The imaged inferior cardiac chambers are unremarkable. Trace pericardial effusion. Hepatosplenomegaly with hepatic steatosis. The spleen measures up to 18.3 cm in length. Mild gallbladder distention. No biliary ductal dilation. Unremarkable pancreas and right adrenal gland. There is mild thickening of the left adrenal gland. Mild nonspecific bilateral perinephric stranding. No hydronephrosis. Unremarkable urinary bladder. Mildly prominent prostate. Calcified plaque of the aorta without aneurysm. Prominent inguinal and iliac chain lymph nodes measuring up to 9 mm, likely reactive. Small hiatal hernia. No bowel obstruction or bowel wall thickening. Mild colonic diverticulosis. Normal appendix. There are a few calcifications of the right lower quadrant mesentery measuring up to 3.3 cm. Moderate atrophy of the rectus sheath. There is moderate subcutaneous edema of the mons pubis, (CM and superior left hemiscrotum with associated skin thickening. Moderate subcutaneous/deep tissue emphysema. No focal fluid collection. Degenerative changes of the spine, pelvis and hips. Include severe left hip osteoarthritis with chronic remodeling changes. Mild superior plate compression deformity at L1, likely chronic. IMPRESSION: 1. Cellulitis of the left inguinal tissues, perineum and mons pubis extends into the superior left hemiscrotum. Moderate subcutaneous/deep tissue emphysema is suggestive of associated fasciitis. No fluid collection to suggest abscess. Surgical consultation is recommended. 2. No bowel obstruction or bowel wall thickening. Normal appendix. 3. Hepatosplenomegaly with hepatic steatosis. 4. Additional findings as above. ACT 112: Negative or not required by law. The above report was generated using voice recognition software. It may contain grammatical, syntax or spelling errors. Electronically signed by: Emerson Mcneil M.D. 07/02/2020 6:51 PM Dictated: 07/02/201841 Transcribed: 07/02/201841 Code Status & VTE Plan Code Status Full code VTE Prophylaxis Plan VTE Prophylaxis will be ordered: Yes Critical Care Time Critical Care Time: Yes Total Critical Care Time: 35 PG Care Time/CCT Total # of Minutes Spent Total Time Spent with Patient: Total time spent is greater than 50% in coordination of care (as documented) at patient's floor/unit and/or counseling patient: Critical Care Time: Yes Total Critical Care Time: 35 Coding Level of Care Code 96389 Initial Inpt Care Lvl 3 Diagnoses Admitted to intensive care unit Z78.9 Necrotizing fasciitis M72.6 Sepsis A41.9 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
[2020-07-02] MEDS: MEROPENEM 1,000 MG in SYRINGE 0 ML IV SCH (23:47)
[2020-07-02] MEDS: POTASSIUM CHLORIDE / WTR 10 MEQ/100 ML PLCT IV SCH (23:47)
[2020-07-03] MEDS: POTASSIUM CHLORIDE / WTR 10 MEQ/100 ML PLCT IV SCH ×3 (00:34→08:51)
[2020-07-03] MEDS ORDERED: SODIUM CHLORIDE 0.9% 1000ML 500 ML IV ONE (00:52)
[2020-07-03] MEDS: CLINDAMYCIN 900 MG in DEXTROSE 5% 50 ML IV SCH (02:20)
[2020-07-03 04:35] LABS: Basophils # (auto) 0.01 K/uL (0-0.2); Basophils % (auto) 0.1 %; Eosinophils # (auto) 0.14 K/uL (0-0.5); Eosinophils % (auto) 1.6 %; Hematocrit (blood only) 31.7 % (42-52); Hemoglobin 10.7 g/dL (14.0-18.0); Immature Granulocytes # (auto) 0.15 K/uL (0.00-0.02); Immature Granulocytes % (auto) 1.7 %; Lymphocytes # (auto) 1.18 K/uL (1.2-3.4); Lymphocytes % (auto) 13.6 %; Mean Corpuscular Hemoglobin 29.9 pg (25-34); Mean Corpuscular Hgb Conc 33.8 g/dL (32-36); Mean Corpuscular Volume 88.5 fL (80-100); Mean Platelet Volume 9.5 fL (7.4-10.4); Monocytes # (auto) 0.57 K/uL (0.11-0.59); Monocytes % (auto) 6.6 %; Neutrophils # (auto) 6.64 K/uL (1.4-6.5); Neutrophils % (auto) 76.4 %; Platelet Count 185 K/uL (130-400); RDW Coefficient of Variation 14.1 % (11.5-14.5); Red Blood Count 3.58 M/uL (4.7-6.1); White Blood Count 8.69 K/uL (4.8-10.8)
[2020-07-03 04:54] LABS: Albumin Level 2.1 gm/dl (3.4-5.0); BUN Creatinine Ratio 19.5 (10-20); Calcium 7.4 mg/dl (8.5-10.1); Creatinine Clr Calc Pharmacy 44.4 ml/min; Est GFR (African American) 40.1; Est GFR (Non-African American) 34.6; Potassium 3.7 mmol/L (3.5-5.1)
[2020-07-03 04:56] LABS: Albumin Globulin Ratio 0.6 (0.9-2); Globulin 3.6 gm/dl (2.5-4.0); Phosphorus 4.3 mg/dl (2.5-4.9); Total Protein 5.7 gm/dl (6.4-8.2)
[2020-07-03 04:57] LABS: Appearance Urine Turbid (Clear); Bacteria Urine Automated Negative (Negative); Blood Urine 3+ (Negative); Color Urine Orange; Epithelial Cell Urine Auto >30 /lpf (0-5); Glucose Urine UA Negative (Negative); Ketones Urine Trace (Negative); Leukocyte Esterase Urine 1+ (Negative); Nitrite Urine Positive (Negative); Protein Urine 2+ (Negative); Urobilinogen Urine Positive (Negative)
[2020-07-03 05:18] LABS: iSTAT Art Bld Gas pCO2 Correct 38 mmHg (35-46); iSTAT Arterial Blood Gas HCO3 22 meg/L (19-24); iSTAT Arterial Blood Gas pCO2 38 mmHg (35-46); iSTAT Arterial Blood Gas pH 7.37 (7.35-7.45); iSTAT Arterial Blood Gas pO2 143 mmHg (80-95); iSTAT Arterial Blood Gas pO2 C 146; iSTAT Carbon Dioxide 23 mmol/L (24-31); iSTAT FiO2 40 %; iSTAT Hematocrit 31 % (42-52); iSTAT Hemoglobin 10.5 g/dl (14.0-18.0); iSTAT Potassium 3.6 mmol/L (3.3-5.0); iSTAT Site Art Line; iSTAT Sodium 131 mmol/L (135-144)
[2020-07-03 05:22] LABS: Bilirubin Urine Negative (Negative); Ictotest Urine Negative (Negative)
[2020-07-03 05:24] LABS: Amorphous Sediment Urine Present (None Prsent)
[2020-07-03] MEDS: INSULIN ASPART 100 UNITS/ML 3 ML PEN SC SCH ×3 (05:56→18:06)
[2020-07-03 07:35] LABS: Estimated Average Glucose 189 mg/dl; Hemoglobin A1C 8.2 % (4.5-5.6)
[2020-07-03] MEDS: VANCOMYCIN HCL 1,500 MG in SODIUM CHLORIDE 0.9% 500 ML IV SCH (08:49)
--- NOTE | 2020-07-03 09:18 | Critical Care Progress Note ---
Date of Service July 03, 2020 Assessment & Plan (1) Admitted to intensive care unit: Impression: 50-year-old diabetic with history of Goodpasture syndrome admitted with Ted's gangrene status post extensive debridement last night. He is remained intubated in the ICU. He is hemodynamically stable and not requiring vasopressor agents. 24-hour events: Patient presented to the emergency room. He was diagnosed with Ted's gangrene. He received antibiotics in the form of clindamycin, meropenem, and vancomycin. He was taken to the OR by urology and had wide debridement performed. The wound was packed and he returned to the ICU intubated. He has been hemodynamically stable overnight. Recommendations: 1. Neuro: Patient is currently sedated on propofol and fentanyl. He will require pain medications for the dressing changes. He appears able to wake up and follow commands. Will defer weaning sedation additionally until we have been able to define his surgical plan. 2. Cardiovascular: Patient is hemodynamically stable currently and not requiring vasopressor agents. He is certainly at risk of clinical deterioration. Holding all of his outpatient hypertensives as well as diuretics. He appears to be adequately volume resuscitated. We have been unable to get a lactate for reasons that are not entirely clear but may be complicated by his outpatient use of metformin. 3. Pulmonary: Initial chest x-ray was clear. His vent settings are currently minimal. Could consider extubation however I would like to define whether or not the patient is going back to the OR for additional debridement today prior to extubating him. I suspect his dressing changes may require significant sedation as well. We will have his family try and bring in his home CPAP unit as he does have underlying sleep disordered breathing. If we can get it, empiric settings will need to be used when the patient is sleeping. Narcotics may potentially worsen his sleep disordered breathing. Pulmonary toilet will also be required. 4. ID: Necrotizing fasciitis/Ted's gangrene status post initial debridement. Cultures are currently pending. Patient is currently day #2 clind amycin, meropenem, and vancomycin. Await cultures. Discussed with ID at [facility]. They recommended continuing meropenem and vancomycin pending cultures. Discussed with urology. Patient likely to return to the OR this evening or tomorrow for additional debridement. He will discuss with plastics as to whether or not we have capabilities to manage this wound long-term. Duration of antimicrobial therapy will likely be 10 days after optimal debridement has been conducted. 5. Renal: Renal function has been stable overnight here. He has a history of Goodpasture syndrome. Does not appear that he was on steroids in the outpatient setting. We will continue to follow with low threshold for involving nephrology should his kidney function worsen. Acid-base status, electrolytes, and volume status currently acceptable. 6. GI: N.p.o. for now. Will likely start enteral tube feeding relatively soon 7. Endo: Patient is currently being maintained on sliding scale insulin. Would like to target blood sugars less than 150. If we have difficulty maintaining this with sliding scale, would have low threshold for transitioning to insulin infusion. 8. Heme-onc: No current issues. Continue to trend hemoglobin hematocrit. Patient is critically ill with significant possibility of clinical deterioration at this point in time. Will follow closely in the ICU. No family currently available. Discussed with ICU nurse and urology at bedside. 45 minutes critical care time evaluating and managing life-threatening illness (2) Necrotizing fasciitis: (3) Sepsis: (4) Diabetes mellitus: (5) Renal failure: Admission and Anticipated Discharge Date Admission Date: July 02, 2020 Subjective Patient is intubated and sedated. Review of Systems Review of Systems: Unobtainable due to endotracheal tube Results & Data Results & [facility]) Vital Signs (Past 12 Hours) Vital Signs Temp Pulse Pulse Resp BP BP BP 07/03/20 06:18 37.7 C H 87 135/67 07/03/20 06:03 37.7 C H 87 106/95 07/03/20 06:00 37.7 C H 86 07/03/20 05:48 37.6 C H 87 127/74 07/03/20 05:33 37.5 C 85 108/60 07/03/20 05:30 37.5 C 87 07/03/20 05:18 37.4 C 88 122/71 07/03/20 05:03 37.4 C 94 H 117/95 07/03/20 05:00 37.4 C 86 07/03/20 04:58 84 21 07/03/20 04:49 37.3 C 85 07/03/20 04:48 37.3 C 81 110/58 L 07/03/20 04:33 37.3 C 86 114/55 L 07/03/20 04:30 37.3 C 85 07/03/20 04:18 37.2 C 89 114/70 07/03/20 04:03 37.1 C 83 107/68 07/03/20 04:00 37.1 C 84 07/03/20 03:48 37.0 C 81 101/66 07/03/20 03:33 36.9 C 83 110/64 07/03/20 03:30 36.9 C 83 07/03/20 03:18 36.9 C 81 93/66 L 07/03/20 03:03 36.8 C 81 100/61 07/03/20 03:00 36.8 C 82 07/03/20 02:48 36.8 C 80 107/69 07/03/20 02:33 36.7 C 81 93/63 L 07/03/20 02:30 36.7 C 80 07/03/20 02:19 36.8 C 82 07/03/20 02:18 36.8 C 82 98/63 L 07/03/20 02:04 81 23 07/03/20 02:03 87 125/77 07/03/20 02:00 99 H 07/03/20 01:48 82 126/81 07/03/20 01:32 76 131/83 07/03/20 01:30 77 07/03/20 01:19 78 07/03/20 01:18 77 118/80 07/03/20 01:03 77 114/79 07/03/20 01:00 77 07/03/20 00:47 77 112/73 07/03/20 00:32 74 106/71 07/03/20 00:30 76 07/03/20 00:18 77 105/66 07/03/20 00:02 85 129/82 07/03/20 00:00 36.7 C 87 07/02/20 23:47 77 112/73 07/02/20 23:32 78 93/58 L 07/02/20 23:30 80 07/02/20 23:17 82 86/57 L 07/02/20 23:02 96 H 112/78 07/02/20 23:00 94 H 07/02/20 22:57 98 H 138/98 07/02/20 22:55 99 H 28 H 07/02/20 22:51 95 H 99/63 L 07/02/20 22:46 90 97/63 L 07/02/20 22:41 91 H 90/59 L 07/02/20 22:36 91 H 95/55 L 07/02/20 22:31 89 87/52 L 07/02/20 22:30 90 07/02/20 22:26 92 H 84/53 L 07/02/20 22:21 92 H 90/54 L 07/02/20 22:16 94 H 90/54 L 07/02/20 22:11 103 H 127/75 07/02/20 22:09 96 H 94/54 L 07/02/20 22:06 97 H 87/56 L 07/02/20 22:01 106 H 116/72 07/02/20 22:00 118 H 07/02/20 21:56 115 H 156/127 H 07/02/20 21:51 115 H 159/104 H 07/02/20 21:47 125 H 170/111 H 07/02/20 21:44 36.8 C 126 H 20 237/94 H 243/124 H 07/02/20 21:41 131 H 243/124 H 07/02/20 21:36 125 H 219/124 H 07/02/20 21:34 129 H 225/129 H 07/02/20 21:31 127 H 223/143 H 07/02/20 21:30 126 H Pulse Ox 07/03/20 06:18 97 07/03/20 06:03 96 07/03/20 06:00 96 07/03/20 05:48 96 07/03/20 05:33 96 07/03/20 05:30 96 07/03/20 05:18 96 07/03/20 05:03 100 07/03/20 05:00 100 07/03/20 04:58 100 07/03/20 04:49 100 07/03/20 04:48 100 07/03/20 04:33 99 07/03/20 04:30 100 07/03/20 04:18 100 07/03/20 04:03 100 07/03/20 04:00 100 07/03/20 03:48 100 07/03/20 03:33 100 07/03/20 03:30 99 07/03/20 03:18 100 07/03/20 03:03 100 07/03/20 03:00 98 07/03/20 02:48 98 07/03/20 02:33 98 07/03/20 02:30 98 07/03/20 02:19 97 07/03/20 02:18 97 07/03/20 02:04 99 07/03/20 02:03 95 07/03/20 02:00 93 07/03/20 01:48 100 07/03/20 01:32 100 07/03/20 01:30 100 07/03/20 01:19 100 07/03/20 01:18 100 07/03/20 01:03 99 07/03/20 01:00 100 07/03/20 00:47 99 07/03/20 00:32 99 07/03/20 00:30 99 07/03/20 00:18 98 07/03/20 00:02 100 07/03/20 00:00 99 07/02/20 23:47 100 07/02/20 23:32 99 07/02/20 23:30 99 07/02/20 23:17 99 07/02/20 23:02 99 07/02/20 23:00 100 07/02/20 22:57 100 07/02/20 22:55 100 07/02/20 22:51 99 07/02/20 22:46 98 07/02/20 22:41 97 07/02/20 22:36 96 07/02/20 22:31 97 07/02/20 22:30 97 07/02/20 22:26 97 07/02/20 22:21 96 07/02/20 22:16 94 07/02/20 22:11 94 07/02/20 22:09 94 07/02/20 22:06 95 07/02/20 22:01 94 07/02/20 22:00 96 07/02/20 21:56 95 07/02/20 21:51 98 07/02/20 21:47 95 07/02/20 21:44 95 07/02/20 21:41 94 07/02/20 21:36 95 07/02/20 21:34 95 07/02/20 21:31 96 07/02/20 21:30 95 Laboratory Results 07/03/20 04:25 07/03/20 04:25 Cultures: No growth to date Most recent blood gas 7.3 7/143/22 Hemoglobin A1c 8.2 Calcium 7.4 Albumin 2.1 Procalcitonin down to 8.84 from Diagnostic Findings Chest x-ray from 07/02/2020 was reviewed. Portable film but no acute airspace opacities identified. CT the abdomen and pelvis from 07/02/2020 showed cellulitis of the left inguinal areas with subcutaneous and deep tissue emphysema Coding Level of Care Code Critical Care 1st 30-74 mins Diagnoses Admitted to intensive care unit Z78.9 Necrotizing fasciitis M72.6 Sepsis A41.9 Diabetes mellitus E11.9 Renal failure N19
[2020-07-03] MEDS ORDERED: CALCIUM GLUCONATE 10% 10 ML VIAL IV STA (09:35)
--- NOTE | 2020-07-03 09:52 | Urology Progress Note ---
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 Gangrene did cross midline superiorly. Patient is currently packed. Testicle had been exposed and is currently wrapped in bandage. Discussed with patient as well as critical care team different options. Will likely need to be washed out and possible further debridement either this evening or tomorrow. Patient is currently n.p.o. and intubated. Will monitor through day. Plan for likely debridement later this evening. May try to apply wound VAC with next debridement and washout. We will also try to reapproximate tissues in anticipation of repair and reconstruction. Will likely need to coordinate with plastics and/or general surgery for reconstruction. We will also need to monitor deep wound as it did seem to encroach upon the medial thigh musculature. We will need to watch closely for further advancement of necrotizing tissue along these planes. Maintain catheter. (2) Necrotizing fasciitis: (3) Sepsis: Admission and Anticipated Discharge Date Admission Date: July 02, 2020 Subjective Patient acutely ill in critical care unit after debridement and washout for foreign years gangrene. Patient is intubated with sedation. He is no longer on tolerating broad-spectrum antibiotics and supportive care. Patient is responsive and interactive. Unable to answer questions due to intubation. Vitals have stabilized. He is currently being volume support and monitor closely. pressors for hypotension. He has been Review of Systems Review of Systems: Unobtainable due to endotracheal tube Physical Exam Physical Exam: General: Alert but critically ill. Patient intubated with mild sedation. Responding to questions appropriately HEENT: Normocephalic. Inspection normal. Cranial Nerves 2-12 Grossly intact with some hearing issues. Normal inspection of face. Normal inspection of neck. Endotracheal tube in place. Mild facial edema. Psychologic: Normal affect and reacting and responding to questions appropriat shaw though limited due to intubation. Baseline issues with memory. Respiratory: Nonlabored. On ventilator with no use of accessory muscles. No tachypnea or dyspnea. Cardiovascular: No tachycardia Skin: [place] and Dry. No rashes or visible lesions. Extremities/Lymphatics: Minor Mobility issues. Patient restrained to protect lines. Mild edema of the extremities Abdomen: Obese with mild-distended. No rebound or guarding. : Wound open and packed. No obvious necrotic tissue on wound edges. Enriquez catheter in place draining clear yellow urine Results & Data ([facility]) Vital Signs (Past 12 Hours) Vital Signs Temp Pulse Resp BP Pulse Ox 07/03/20 06:18 37.7 C H 87 135/67 97 07/03/20 06:03 37.7 C H 87 106/95 96 07/03/20 06:00 37.7 C H 86 96 07/03/20 05:48 37.6 C H 87 127/74 96 07/03/20 05:33 37.5 C 85 108/60 96 07/03/20 05:30 37.5 C 87 96 07/03/20 05:18 37.4 C 88 122/71 96 07/03/20 05:03 37.4 C 94 H 117/95 100 07/03/20 05:00 37.4 C 86 100 07/03/20 04:58 84 21 100 07/03/20 04:49 37.3 C 85 100 07/03/20 04:48 37.3 C 81 110/58 L 100 07/03/20 04:33 37.3 C 86 114/55 L 99 07/03/20 04:30 37.3 C 85 100 07/03/20 04:18 37.2 C 89 114/70 100 07/03/20 04:03 37.1 C 83 107/68 100 07/03/20 04:00 37.1 C 84 100 07/03/20 03:48 37.0 C 81 101/66 100 07/03/20 03:33 36.9 C 83 110/64 100 07/03/20 03:30 36.9 C 83 99 07/03/20 03:18 36.9 C 81 93/66 L 100 07/03/20 03:03 36.8 C 81 100/61 100 07/03/20 03:00 36.8 C 82 98 07/03/20 02:48 36.8 C 80 107/69 98 07/03/20 02:33 36.7 C 81 93/63 L 98 07/03/20 02:30 36.7 C 80 98 07/03/20 02:19 36.8 C 82 97 07/03/20 02:18 36.8 C 82 98/63 L 97 07/03/20 02:04 81 23 99 07/03/20 02:03 87 125/77 95 07/03/20 02:00 99 H 93 07/03/20 01:48 82 126/81 100 07/03/20 01:32 76 131/83 100 07/03/20 01:30 77 100 07/03/20 01:19 78 100 07/03/20 01:18 77 118/80 100 07/03/20 01:03 77 114/79 99 07/03/20 01:00 77 100 07/03/20 00:47 77 112/73 99 07/03/20 00:32 74 106/71 99 07/03/20 00:30 76 99 07/03/20 00:18 77 105/66 98 07/03/20 00:02 85 129/82 100 07/03/20 00:00 36.7 C 87 99 07/02/20 23:47 77 112/73 100 07/02/20 23:32 78 93/58 L 99 07/02/20 23:30 80 99 07/02/20 23:17 82 86/57 L 99 07/02/20 23:02 96 H 112/78 99 07/02/20 23:00 94 H 100 07/02/20 22:57 98 H 138/98 100 07/02/20 22:55 99 H 28 H 100 07/02/20 22:51 95 H 99/63 L 99 07/02/20 22:46 90 97/63 L 98 07/02/20 22:41 91 H 90/59 L 97 07/02/20 22:36 91 H 95/55 L 96 07/02/20 22:31 89 87/52 L 97 07/02/20 22:30 90 97 07/02/20 22:26 92 H 84/53 L 97 07/02/20 22:21 92 H 90/54 L 96 07/02/20 22:16 94 H 90/54 L 94 07/02/20 22:11 103 H 127/75 94 07/02/20 22:09 96 H 94/54 L 94 07/02/20 22:06 97 H 87/56 L 95 07/02/20 22:01 106 H 116/72 94 07/02/20 22:00 118 H 96 07/02/20 21:56 115 H 156/127 H 95 07/02/20 21:51 115 H 159/104 H 98 PG Care Time/CCT Total # of Minutes Spent Total Time Spent with Patient: Total time spent is greater than 50% in coordination of care (as documented) at patient's floor/unit and/or counseling patient: Coding Level of Care Code 83865 Subseq Hosp Care Lvl 3 Diagnoses Fourniers gangrene N49.3 Necrotizing fasciitis M72.6 Sepsis A41.9
[2020-07-03] MEDS ORDERED: CALCIUM GLUCONATE 10% 1,000 MG in SODIUM CHLORIDE 0.9% 50 ML IV ONE (10:00)
[2020-07-03] MEDS: SODIUM CHLORIDE 0.9% 1000ML 1,000 ML IV SCH ×2 (10:20→22:07)
--- NOTE | 2020-07-03 11:10 | Pharmacy Report ---
Pharmacy Abx Initial Consult - Date of Service July 03, 2020 - Pharmacy Dosing Scope Date of Consult: 07/02 Consultation requested by: Tayo Neal Pharmacy is consulted to initiate vancomycin/meropenem IV/PO dosing therapy, order appropriate labs and adjust drug dose/frequency. - Subjective The patient is a 50 year old M admitted on 07/02/20 21:49. - Objective Height: 5 ft 4 in Weight: 118.6 kg Vital Signs (Past 12hrs): Vital Signs Temp Pulse Resp BP Pulse Ox 07/03/20 11:00 37.5 C 81 98 07/03/20 10:49 37.5 C 83 117/66 99 07/03/20 10:45 37.5 C 83 99 07/03/20 10:33 37.6 C H 86 89/70 L 98 07/03/20 10:30 37.6 C H 85 96 07/03/20 10:18 37.6 C H 88 118/83 96 07/03/20 10:15 37.6 C H 84 100 07/03/20 10:03 37.6 C H 84 124/66 100 07/03/20 10:00 37.6 C H 84 99 07/03/20 09:48 37.6 C H 84 131/69 99 07/03/20 09:45 37.6 C H 84 98 07/03/20 09:33 37.7 C H 83 124/69 98 07/03/20 09:30 37.7 C H 81 99 07/03/20 09:18 37.7 C H 86 104/63 99 07/03/20 09:15 37.7 C H 85 98 07/03/20 09:03 37.7 C H 84 112/69 99 07/03/20 09:00 37.7 C H 83 99 07/03/20 08:48 37.7 C H 83 127/65 99 07/03/20 08:45 37.7 C H 85 98 07/03/20 08:33 37.7 C H 85 104/62 98 07/03/20 08:30 37.8 C H 84 98 07/03/20 08:18 37.8 C H 83 125/71 99 07/03/20 08:15 37.8 C H 86 98 07/03/20 08:03 37.8 C H 88 115/71 99 07/03/20 08:00 37.8 C H 87 98 07/03/20 07:48 37.8 C H 87 127/69 99 07/03/20 07:45 37.8 C H 86 99 07/03/20 07:33 37.8 C H 87 117/72 99 07/03/20 07:30 37.8 C H 89 99 07/03/20 07:18 37.9 C H 87 105/75 98 07/03/20 07:15 37.9 C H 87 98 07/03/20 07:03 37.8 C H 84 115/58 L 98 07/03/20 07:00 37.8 C H 86 97 07/03/20 06:58 86 20 97 07/03/20 06:18 37.7 C H 87 135/67 97 07/03/20 06:03 37.7 C H 87 106/95 96 07/03/20 06:00 37.7 C H 86 96 07/03/20 05:48 37.6 C H 87 127/74 96 07/03/20 05:33 37.5 C 85 108/60 96 07/03/20 05:30 37.5 C 87 96 07/03/20 05:18 37.4 C 88 122/71 96 07/03/20 05:03 37.4 C 94 H 117/95 100 07/03/20 05:00 37.4 C 86 100 07/03/20 04:58 84 21 100 07/03/20 04:49 37.3 C 85 100 07/03/20 04:48 37.3 C 81 110/58 L 100 07/03/20 04:33 37.3 C 86 114/55 L 99 07/03/20 04:30 37.3 C 85 100 07/03/20 04:18 37.2 C 89 114/70 100 07/03/20 04:03 37.1 C 83 107/68 100 07/03/20 04:00 37.1 C 84 100 07/03/20 03:48 37.0 C 81 101/66 100 07/03/20 03:33 36.9 C 83 110/64 100 07/03/20 03:30 36.9 C 83 99 07/03/20 03:18 36.9 C 81 93/66 L 100 07/03/20 03:03 36.8 C 81 100/61 100 07/03/20 03:00 36.8 C 82 98 07/03/20 02:48 36.8 C 80 107/69 98 07/03/20 02:33 36.7 C 81 93/63 L 98 07/03/20 02:30 36.7 C 80 98 07/03/20 02:19 36.8 C 82 97 07/03/20 02:18 36.8 C 82 98/63 L 97 07/03/20 02:04 81 23 99 07/03/20 02:03 87 125/77 95 07/03/20 02:00 99 H 93 07/03/20 01:48 82 126/81 100 07/03/20 01:32 76 131/83 100 07/03/20 01:30 77 100 07/03/20 01:19 78 100 07/03/20 01:18 77 118/80 100 07/03/20 01:03 77 114/79 99 07/03/20 01:00 77 100 07/03/20 00:47 77 112/73 99 07/03/20 00:32 74 106/71 99 07/03/20 00:30 76 99 07/03/20 00:18 77 105/66 98 07/03/20 00:02 85 129/82 100 07/03/20 00:00 36.7 C 87 99 07/02/20 23:47 77 112/73 100 07/02/20 23:32 78 93/58 L 99 07/02/20 23:30 80 99 07/02/20 23:17 82 86/57 L 99 Lab Results (24hrs): Laboratory Tests (24 Hours) 07/03/20 07/03/20 07/03/20 04:25 04:25 04:25 WBC 8.69 Neut # (Auto) 6.64 H ESR Creatinine 2.14 H Est Cr Clr Drug Dosing 44.4 Total Creatine Kinase 73 C-Reactive Protein Procalcitonin 8.84 H 07/02/20 07/02/20 07/02/20 22:22 22:22 17:12 WBC 9.60 Neut # (Auto) 7.50 H ESR > 90 H Creatinine 2.11 H Est Cr Clr Drug Dosing 45.0 Total Creatine Kinase 49 C-Reactive Protein Procalcitonin 07/02/20 07/02/20 07/02/20 17:12 17:12 17:12 WBC 15.45 H Neut # (Auto) 11.61 H ESR Creatinine 2.28 H Est Cr Clr Drug Dosing 44.0 Total Creatine Kinase C-Reactive Protein 43.50 H Procalcitonin 11.88 H Micro Results: 07/02/20 19:05 Gram Stain - Final Scrotum 07/02/20 19:41 Gram Stain - Final Scrotum Aerobic and Anaerobic Culture - Pending 07/03/20 04:18 Urine Culture - Pending Urine,Clean Catch 07/02/20 17:19 Aerobic Blood Culture - Pending Blood Anaerobic Blood Culture - Pending 07/02/20 17:12 Aerobic Blood Culture - Pending Blood Anaerobic Blood Culture - Pending - Assessment & Plan Assessment 50 year old male with concern for necrotizing fasciitis/lakhwinder's gangrene s/p debridement, POD 1. Cultures still pending. Per provider notes, case discussed with ID and they recommend continuing meropenem and vancomycin pending cultures. Patient in ICU/intubated at this time. Likely will return to OR this evening or tomorrow for additional debridement Plan Vancomycin IV * Received 2000 mg (~20 mg/kg) x 1 loading dose yesterday * Started on vancomycin 1500 (~13 mg/kg) iv q 18 hrs dosing to achieve estimated trough ~15-20 mcg/ml * Estimated kinetics: t 1/2~16 hrs, ke~0.044, CrCl ~47 ml/min * Patient's weight reported today increasing - had nurse reweigh patient to confirm weight accurate. Vancomycin dosing appropriate with updated weight, will continue same dosing for now Pharmacy will continue to follow and will adjust dose/frequency as necessary. Thank you.
--- NOTE | 2020-07-03 12:04 | Electrocardiogram Report ---
Test Reason : Blood Pressure : / mmHG Vent. Rate : 114 BPM Atrial Rate : 114 BPM P-R Int : 144 ms QRS Dur : 082 ms QT Int : 318 ms P-R-T Axes : 048 041 040 degrees QTc Int : 438 ms Poor data quality, interpretation may be adversely affected Sinus tachycardia Possible Left atrial enlargement Borderline ECG When compared with ECG of 26-FEB-2009 03:13, No significant change was found Confirmed by Lars Wu ([id number]) on 07/03/2020 12:04:04 PM Referred By: REFERRED SELF Confirmed By:Lars Wu
[2020-07-03] MEDS: MEROPENEM 1,000 MG in SYRINGE 0 ML IV SCH (12:28)
[2020-07-03] MEDS: propofoL 1,000 MG/100 ML VIAL IV SCH (12:42)
[2020-07-03] MEDS: fentaNYL DRIP 1,250 MCG/250 ML BAG IV SCH (18:07)
--- NOTE | 2020-07-03 18:15 | Anesthesiology Consultation ---
Date of Service July 03, 2020 Assessment & Plan Chart Review Chart Review: Acceptable Risk for Surgery and Patient NOT seen in Pre Admission Testing Consults Requested none ASA ASA4 Proposed Anesthesia Anesthesia Type: General History Surgery Operation Date: 07/02/20 19:00 Proposed Procedures p Orchiectomy Inguinal Radical - Logan Guy DO Operation Date: 07/03/20 18:00 Proposed Procedures p Orchiectomy Inguinal Radical - Logan Guy DO Height/Weight Height: 5 ft 4 in Weight: 117.3 kg Allergies Allergy/AdvReac Type Severity Reaction Status Date / Time amoxicillin [From Augmentin] Allergy Severe Anaphylaxis Verified 07/02/20 18:13 clavulanic acid Allergy Severe Anaphylaxis Verified 07/02/20 18:13 [From Augmentin] Medications Home Medications Medication Instructions Recorded Confirmed Last Taken lancets #50 ea 05/12/19 04/01/20 Unknown allopurinol 300 mg tablet 300 mg PO DAILY #90 tab 06/30/19 07/02/20 Unknown furosemide 40 mg tablet 40 mg PO DAILY PRN #90 tab 06/30/19 07/02/20 Unknown indomethacin 50 mg capsule 50 mg PO DAILY PRN #90 cap 06/30/19 07/02/20 Unknown losartan 100 1 tab PO DAILY #90 tab 06/30/19 07/02/20 Unknown mg-hydrochlorothiazide 25 mg tablet pioglitazone 30 mg tablet 30 mg PO DAILY #90 tab 06/30/19 07/02/20 Unknown glipizide 10 mg tablet 10 mg PO BID #180 tab 09/01/19 07/02/20 Unknown metformin 1,000 mg tablet 1,000 mg PO BID #180 tab 09/01/19 07/02/20 Unknown niacin 1,000 mg tablet,extended 1,000 mg PO DAILY #90 tab 09/01/19 07/02/20 Unknown release 24 hr naproxen 500 mg tablet 500 mg PO BID PRN #180 tab 02/25/20 07/02/20 Unknown tramadol 50 mg tablet 50 mg PO Q4H PRN #84 tab 04/01/20 07/02/20 Unknown blood sugar diagnostic #180 ea 06/28/20 Unknown Active Medications Generic Name Dose Route Start Last Admin Trade Name Freq PRN Reason Stop Dose Admin Propofol 1,000 mg in 100 mls @ 3.102 mls/hr 07/02/20 21:30 07/03/20 12:42 Diprivan IV 07/05/20 21:29 5 mcg/kg/min .Q24H MITZI 3.1 mls/hr Administration Protocol 5 MCG/KG/MIN Fentanyl Citrate 1,250 mcg in 250 mls @ 5 mls/hr 07/02/20 21:30 07/03/20 18:07 Fentanyl Drip IV 07/16/20 21:29 25 mcg/hr .Q50H MITZI 5 mls/hr Administration Protocol 25 MCG/HR Sodium Chloride 1,000 mls @ 120 mls/hr 07/02/20 21:30 07/03/20 10:20 Nss 1000ml IV 08/01/20 21:29 120 mls/hr .Q8H20M MITZI Administration Vancomycin HCl 1,500 mg/ 530 mls @ 200 mls/hr 07/03/20 08:00 07/03/20 11:55 Sodium Chloride IV 07/10/20 07:59 Infused Q18H MITZI Infusion Insulin Aspart 0 units 07/02/20 22:00 07/03/20 18:06 Insulin Aspart 100 Units/Ml 3 Ml Pen SC 08/01/20 21:59 Not Given Q6 MITZI NPO Date Last Intake of Fluids: 07/02/20 Time Last Intake of Fluids: 16:00 Date Last Intake of Solids: 07/02/20 Time Last Intake of Solids: 15:00 Past Medical History Medical History Back pain Blurry vision, right eye Chronic kidney disease Diabetes mellitus Dyslipidemia Fourniers gangrene Goodpastures syndrome Gout, joint Hypertension Left lumbosacral radiculopathy Necrotizing fasciitis Obstructive sleep apnea Sepsis Exercise / Class Metabolic Activity III < 4 Walking/Shop/Light housework Past Anesthesia History No Hx of Anesthesia Complications and No Family Hx of Anesthesia Complications History of PONV No Hx of PONV and No Hx of Motion Sickness Social History Smoking Status: Former smoker tobacco type: cigarettes Do You Dip or Chew Tobacco: No Hx Alcohol Use: No Hx Substance Use: No Physical Exam Vital Signs Last Vital Signs Temp 36.8 C 07/03/20 17:30 Pulse 79 07/03/20 17:30 Resp 26 H 07/03/20 13:26 BP 131/101 H 10/10/20 11:33 Pulse Ox 100 07/03/20 17:30 Constitutional + morbidly obese, + altered mental status (sedated) and + mechanically ventilated ENMT Mouth: + dentition abnormality and + poor dentition Thyromental Distance: < 3.5 Finger Breadths Mallampati Class: IV Neck normal visual inspection, trachea midline, + shortened thyromental distance, + short neck, + thick neck and + facial hair; neck extension not limited Respiratory normal respiratory effort Auscultation: + diminished lung sounds Cardiovascular Rate/Rhythm: regular rate and regular rhythm Heart Sounds: no murmur Musculoskeletal Spine: normal cervical ROM Extremities: full ROM of extremities Neurologic moves all extremities Motor/Sensory: + sensory deficit Psychiatric Orientation: + not alert (sedated) and + not oriented x 3 Testing Laboratory Results 07/03/20 04:25 07/03/20 04:25 PT 11.5 Seconds (9.0-12.0) 07/02/20 17:12 INR 1.1 (0.9-1.1) 07/02/20 17:12 APTT 34.2 Seconds (21.0-31.0) H 07/02/20 17:12 Hemoglobin A1c 8.2 % (4.5-5.6) H 07/03/20 04:25 Urine Color [place] 07/03/20 04:18 Urine Appearance Turbid (Clear) A 07/03/20 04:18 Urine pH 5.0 (4.5-7.5) 07/03/20 04:18 Ur Specific [place] 1.030 (1.000-1.030) 07/03/20 04:18 Urine Protein 2+ (Negative) H 07/03/20 04:18 Urine Glucose (UA) Negative (Negative) 07/03/20 04:18 Urine Ketones Trace (Negative) H 07/03/20 04:18 Urine Nitrite Positive (Negative) A 07/03/20 04:18 Ur Leukocyte Esterase 1+ (Negative) H 07/03/20 04:18 Urine WBC (Auto) 10-30 /hpf (0-5) H 07/03/20 04:18 Urine RBC (Auto) 10-30 /hpf (0-4) H 07/03/20 04:18 U Hyaline Cast (Auto) 1-5 /lpf (0-5) 07/03/20 04:18 U Epithel Cells (Auto) >30 /lpf (0-5) H 07/03/20 04:18 Urine Bacteria (Auto) Negative (Negative) 07/03/20 04:18 Blood Type A Positive 07/02/20 19:24 Antibody Screen NEGATIVE 07/02/20 19:24 07/02/20 17:19 Aerobic Blood Culture - Preliminary Blood No growth in Aerobic bottle after 24 hours. Anaerobic Blood Culture - Preliminary No growth in Anaerobic bottle after 24 hours. 07/02/20 17:12 Aerobic Blood Culture - Preliminary Blood No growth in Aerobic bottle after 24 hours. Anaerobic Blood Culture - Preliminary No growth in Anaerobic bottle after 24 hours. 07/02/20 19:41 Gram Stain - Final Scrotum Aerobic and Anaerobic Culture - Preliminary Pin-point growth present, reincubating. 07/02/20 19:05 Gram Stain - Final Scrotum Aerobic and Anaerobic Culture - Preliminary No growth to date. 07/03/20 07/03/20 17:42 12:10 POC Glucose 110 H 114 H
[2020-07-03] MEDS ORDERED: MIDAZOLAM HCL 1 MG/ML 2ML VIAL ONE ×2 (18:28→18:30)
[2020-07-03] MEDS ORDERED: CISATRACURIUM BESYLATE IV SOLN 2 MG/ML 10 ML VIAL IV ONE ×2 (18:28→20:40)
[2020-07-03] MEDS ORDERED: PROPOFOL IV EMULSION 10 MG/ML 20 ML VIAL IV ONE (18:28)
[2020-07-03] MEDS ORDERED: ePHEDrine sulfate 50 MG/ML SYR ONE (18:28)
[2020-07-03] MEDS ORDERED: BACITRACIN INJ 50,000 UNIT VIAL ONE ×2 (18:36→19:18)
[2020-07-03] MEDS ORDERED: fentaNYL citrate 100 MCG/2 ML VIAL ONE ×2 (19:01→20:28)
[2020-07-03] MEDS ORDERED: HYDROmorphone INJ 1 MG/ML SYRINGE IV PRN (19:06)
[2020-07-03] MEDS ORDERED: FLUMAZENIL 0.1 MG/1 ML 10 ML VIAL IV PRN (19:06)
[2020-07-03] MEDS ORDERED: ATROPINE SULFATE 0.1 MG/ML 10ML SYR IV PRN (19:06)
[2020-07-03] MEDS ORDERED: NALOXONE HCL 0.4 MG/1 ML VIAL/CARP IV PRN (19:06)
[2020-07-03] MEDS ORDERED: ePHEDrine sulfate 50 MG/ML AMP IV PRN (19:06)
[2020-07-03] MEDS ORDERED: LABETALOL HCL IV 5 MG/ML 20ML IV PRN (19:06)
[2020-07-03] MEDS ORDERED: PROMETHAZINE HCL 12.5 MG in SODIUM CHLORIDE 0.9% 50 ML IV PRN (19:06)
[2020-07-03] MEDS ORDERED: ONDANSETRON INJ 2 MG/ML 2 ML VIAL IV PRN (19:06)
[2020-07-03] MEDS ORDERED: fentaNYL citrate 100 MCG/2 ML VIAL IV PRN (19:06)
--- NOTE | 2020-07-03 21:08 | Operative Report ---
PG Post Operative Report Pre & Post Diagnosis Operation Date: 07/02/20 19:00 Pre-Op Diagnosis: ABSCESS Post-Op Diagnosis: ABSCESS Operation Date: 07/03/20 18:00 Pre-Op Diagnosis: TED'S GANGRENE Post-Op Diagnosis: TED'S GANGRENE I identified the patient and participated in the time-out.: Yes Procedure Operation Date: 07/03/20 18:00 Actual Procedures p Irrigation and Debridement and washout of necrotizing fasciitis and gangrene with reconstruction and placement of wound VAC - Logan Guy DO Surgeon Logan Guy, II, DO Workforce Planner None Estimated Blood Loss 10 Findings Consistent with Post-Op Diagnosis Necrotic tissue found superiorly into the inguinal region, deep along the abductor muscles, laterally on the right to scrotum around base of penis, and inferior/posteriorly along left buttocks. Wound dimensions were triangular configuration with a superior length of 21 cm by laterally 24 cm by oblique along the scrotum 9 cm with a depth of approximately 7 cm Specimens 1.) Deep tissue for culture 2.) Necrotic tissue 3.) Culture swab of deep tissues Drains Wound VAC placed with multiple pieces of foam. 20 silicone catheter. Xeroform and Adaptic dressing wrapped around testicle and spermatic cord and the penile tissues Anesthesia Type General Complications none Disposition Disposition: Recovery Room Indications Ted's gangrene with a second look for washout and further debridement as well as attempted wound VAC and initiation of reconstruction. Patient's fianc and mother both consented and agreeable to proceed after discussing risk and benefits. Patient is sedated and intubated and unable to give consent Description of Procedure Patient transferred from ICU after discussing consent with the patient's fianc and mother who are both agreeable to proceeding with second look with washout and further debridement and possible reconstruction and VAC placement. Patient was brought back to the operating room. Patient was already intubated and sedated and was transitioned to general anesthesia in the supine position. Patient was then placed in dorsal lithotomy. The wound packing and dressings were removed. Patient was prepped and draped in the regular sterile fashion. A time out was completed. With the time out completed and the patient painted/reprepped with Betadine. The entire wound was assessed. Necrotic tissue on the borders superior and right laterally and inferiorly/posteriorly were all further debrided. Deep along the abductor muscles necrotic tissue was once again appreciated. This was resected and sent as a deep tissue culture and further debridement tissue was sent separately for pathologic analysis. A deep culture was taken from the inguinal region by swab. Washout was then commenced with the Pleur-evac and bacitracin solution. The on-call general surgeon Dr. Celaya was notified and came to the OR to assess the necrotic tissue along the adductor muscles. At this point adequate adequate debridement had been completed. After final washout. The scrotal tissues as well as the inferior perineal tissue were brought into closer proximity utilizing a 1-0 Vicryl suture. The tissue on the right mons, base of the penis, right scrotum, and midline mons pubis were approximated. The skin around the buttocks was reapproximated as well. These tissues were placed in such a way to be under minimal tension. This allowed better placement of the wound VAC at the end of the procedure. No further necrotic or concerning areas were noted. A 20 [place] Enriquez catheter had been exchange at the very beginning of the case. This was done in the sterile fashion and this new catheter was attached to a Enriquez bag. The wound was measured and as noted above had a triangular shape with dimensions as noted above. The spermatic cord and testicle were assessed. No considerable areas of concern or other bother. Attempts were made to partially cover/place the left testicle testicle within a dartos fascial pocket utilizing tissue and skin from the right hemiscrotum. This was moderately successful. The testicle had been wrapped in Adaptic dressing and then a Xeroform dressing. The deep portions of the wound were then packed with the wound VAC foam. Care was taken to ensure the testicle was completely covered so no testicular or other tissue of the spermatic cord were placed directly against the wound VAC foam. Multiple small pieces of the foam tissue were utilized to adequately fill wound. After placement of the wrapping the wound VAC was placed on and small regions of leak or assessed and dealt with. The perineum and tissues around the penis or reinforced with Tegaderms. This allowed a good seal and suction. The wound VAC was then placed on. The patient was further cleaned. The patient was cleaned, aroused from general anesthesia and converted to a sedation anesthesia, and transferred to the ICU in stable condition having tolerated the procedure well with no complications. I was present and participated in all aspects of the procedure. I attest to the content of the Intraoperative Record and any orders documented therein. Any exceptions are noted below.
--- NOTE | 2020-07-03 21:11 | Hospitalist Progress Note ---
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 Consult autocad draftsman Dr. Little and staff Defer all management to ICU and urology Remains on ventilator and went back to surgery this evening (2) Necrotizing fasciitis: Status post surgical debridement by urology Dr. Guy on 07/02 emergently. Returned for repeat debridement on the evening of 07/03 Continue broad-spectrum antibiotic coverage with clindamycin IV, meropenem IV and vancomycin IV. Follow-up on wound cultures-Gram stain's with gram-negative bacilli and gram- positive cocci Follow-up blood cultures Pain control with fentanyl and Dilaudid as needed (3) Sepsis: Blood pressures are stable not on vasopressors Secondary to Ted's gangrene as above Continue IV antibiotics broad-spectrum as above Continue IV fluid rehydration. 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 and on ventilator. Accu-Cheks and coverage per ICU protocol (8) Dyslipidemia: Niacin on hold while n.p.o. (9) Hypertension: Meds from home to include furosemide, losartan/HCT on hold while on ventilator (10) Gout, joint: Holding home allopurinol (11) Obstructive sleep apnea: Will need CPAP once of ventilator (12) DVT prophylaxis: SCDs Disposition-continued stay in ICU Admission and Anticipated Discharge Date Admission Date: July 02, 2020 Subjective Patient not seen today as he remains in intensive care unit. Review of Systems Review of Systems: Unobtainable due to endotracheal tube Physical Exam Constitutional: + mechanically ventilated Results & Data Results & Data ([facility]) Vital Signs (Past 12 Hours) Vital Signs Temp Pulse Resp BP Pulse Ox 07/03/20 17:30 36.8 C 79 100 07/03/20 17:00 36.9 C 76 97 07/03/20 16:40 81 21 96 07/03/20 16:30 37.3 C 81 98 07/03/20 16:00 37.3 C 83 100 07/03/20 15:30 37.1 C 82 99 07/03/20 15:00 37.0 C 79 100 07/03/20 14:30 37.1 C 83 99 07/03/20 14:00 37.1 C 82 98 07/03/20 13:30 37.2 C 86 97 07/03/20 13:26 81 26 H 98 07/03/20 13:00 37.2 C 87 96 07/03/20 12:30 36.1 C L 88 95 07/03/20 12:00 28.8 C L 107 H 93 07/03/20 11:33 37.6 C H 93 H 131/101 H 99 07/03/20 11:30 37.5 C 81 98 07/03/20 11:18 37.5 C 82 122/66 97 07/03/20 11:03 37.5 C 81 125/69 97 07/03/20 11:00 37.5 C 81 98 07/03/20 10:49 37.5 C 83 117/66 99 07/03/20 10:45 37.5 C 83 99 07/03/20 10:33 37.6 C H 86 89/70 L 98 07/03/20 10:32 85 23 98 07/03/20 10:30 37.6 C H 85 96 07/03/20 10:18 37.6 C H 88 118/83 96 07/03/20 10:15 37.6 C H 84 100 07/03/20 10:03 37.6 C H 84 124/66 100 07/03/20 10:00 37.6 C H 84 99 07/03/20 09:48 37.6 C H 84 131/69 99 07/03/20 09:45 37.6 C H 84 98 07/03/20 09:33 37.7 C H 83 124/69 98 07/03/20 09:30 37.7 C H 81 99 07/03/20 09:18 37.7 C H 86 104/63 99 07/03/20 09:15 37.7 C H 85 98 07/03/20 09:03 37.7 C H 84 112/69 99 Laboratory Results Laboratory results reviewed PG Care Time/CCT Total # of Minutes Spent Total Time Spent with Patient: Total time spent is greater than 50% in coordination of care (as documented) at patient's floor/unit and/or counseling patient: Coding Level of Care Code None Diagnoses Admitted to intensive care unit Z78.9 Necrotizing fasciitis M72.6 Sepsis A41.9 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
[2020-07-03] MEDS: MEROPENEM 500 MG in SYRINGE 0 ML IV SCH (22:08)
[2020-07-04] MEDS: INSULIN ASPART 100 UNITS/ML 3 ML PEN SC SCH ×5 (00:19→20:15)
[2020-07-04] MEDS: VANCOMYCIN HCL 1,500 MG in SODIUM CHLORIDE 0.9% 500 ML IV SCH ×2 (01:48→16:29)
[2020-07-04] MEDS: propofoL 1,000 MG/100 ML VIAL IV SCH (01:49)
[2020-07-04] MEDS: MEROPENEM 500 MG in SYRINGE 0 ML IV SCH ×4 (03:36→23:06)
[2020-07-04 05:14] LABS: Basophils # (auto) 0.02 K/uL (0-0.2); Basophils % (auto) 0.3 %; Eosinophils # (auto) 0.13 K/uL (0-0.5); Eosinophils % (auto) 1.6 %; Immature Granulocytes # (auto) 0.13 K/uL (0.00-0.02); Immature Granulocytes % (auto) 1.6 %; Lymphocytes # (auto) 1.12 K/uL (1.2-3.4); Lymphocytes % (auto) 14.1 %; Mean Corpuscular Hemoglobin 29.9 pg (25-34); Mean Corpuscular Hgb Conc 33.3 g/dL (32-36); Mean Corpuscular Volume 89.6 fL (80-100); Mean Platelet Volume 9.5 fL (7.4-10.4); Monocytes # (auto) 0.56 K/uL (0.11-0.59); Neutrophils # (auto) 6.01 K/uL (1.4-6.5); Neutrophils % (auto) 75.4 %; Platelet Count 193 K/uL (130-400); RDW Coefficient of Variation 14.5 % (11.5-14.5); RDW Standard Deviation 47.9 fL (36.4-46.3); Red Blood Count 3.35 M/uL (4.7-6.1); White Blood Count 7.97 K/uL (4.8-10.8)
[2020-07-04 05:27] LABS: iSTAT Art Bld Gas pCO2 Correct 39 mmHg (35-46); iSTAT Arterial Blood Gas HCO3 21 meg/L (19-24); iSTAT Arterial Blood Gas pCO2 37 mmHg (35-46); iSTAT Arterial Blood Gas pH 7.37 (7.35-7.45); iSTAT Arterial Blood Gas pO2 84 mmHg (80-95); iSTAT Arterial Blood Gas pO2 C 91; iSTAT Carbon Dioxide 22 mmol/L (24-31); iSTAT FiO2 30 %; iSTAT Hematocrit 30 % (42-52); iSTAT Hemoglobin 10.2 g/dl (14.0-18.0); iSTAT Potassium 3.7 mmol/L (3.3-5.0); iSTAT Site Art Line; iSTAT Sodium 134 mmol/L (135-144)
[2020-07-04] MEDS: SODIUM CHLORIDE 0.9% 1000ML 1,000 ML IV SCH ×3 (05:37→22:15)
[2020-07-04 06:05] LABS: Albumin Globulin Ratio 0.4 (0.9-2); Albumin Level 1.7 gm/dl (3.4-5.0); Calcium 7.7 mg/dl (8.5-10.1); Creatinine Clr Calc Pharmacy 84.7 ml/min; Est GFR (African American) 79.1; Est GFR (Non-African American) 68.2; Globulin 4.1 gm/dl (2.5-4.0); Magnesium 2.1 mg/dl (1.8-2.4); Phosphorus 3.6 mg/dl (2.5-4.9); Potassium 3.8 mmol/L (3.5-5.1); Total Protein 5.8 gm/dl (6.4-8.2)
--- NOTE | 2020-07-04 07:28 | XRay Report ---
XR chest 1V portable CLINICAL HISTORY: hypoxia COMPARISON STUDY: Chest radiograph July 02, 2020. FINDINGS: Tip of endotracheal tube is 6.8 cm above the klaudia. Tip of nasogastric tube is below lower aspect of this image but at least within the proximal body of the stomach. Mild cardiomegaly is note d. There is no pneumothorax or pleural effusion. Interstitial thickening and mild bilateral opacities have developed. There is no pneumothorax. IMPRESSION: 1. Tip of endotracheal tube 6.8 cm above the klaudia. 2. Interval development of interstitial thickening and bilateral opacities. The findings may reflect pulmonary edema or an infectious process. ACT 112: Negative or not required by law. Electronically signed by: Victor Hugo Shah M.D. 07/04/2020 7:27 AM
--- NOTE | 2020-07-04 08:37 | Pharmacy Report ---
Pharmacy Abx Dose Short Note - Date of Service July 04, 2020 - Assessment & Plan Assessment 50 year old M receiving vancomycin and meropenem for necrotizing fascitis/lakhwinder's gangrene Day #3 of antimicrobial therapy. Plan Vancomycin * Scr rapidly changing from 2.14 to 1.22 mg/dL - appears to be closer to baseline Scr. Plan to hold doses and get a random level ~12 hours after last vancomycin dose to ensure therapeutic / plan to redose if <20 mcg/ml. Anticip ate dosing interval will need adjusted * Appears patient went to OR last night for 2nd debridement - cultures pending. ID following case * Level came back this afternoon at ~11 mcg/ml - plan to adjust vancomycin dosing to start now and adjust interval to Q12 hr dosing since clearance much improved * Patient with elevated BMI, therefore anticipate vancomycin to accumulate - could consider changing to daptomycin if plan is to continue for extended period of time. Cultures however only positive for Gm neg species, group B strep. Will determine if vancomycin coverage necessary once cultures finalize Meropenem * adjusted to 500 mg iv q 6 hrs - targeting dose of 1gm iv q 8 hrs (appropriate for CrCl >50) Pharmacy will continue to follow and will adjust dose/frequency as necessary. Thank you.
--- NOTE | 2020-07-04 10:09 | Critical Care Progress Note ---
Date of Service July 04, 2020 Assessment & Plan (1) Admitted to intensive care unit: Impression: 50-year-old diabetic with history of Goodpasture syndrome admitted with Ted's gangrene status post extensive debridement last night. He is remained intubated in the ICU. He is hemodynamically stable and not requiring vasopressor agents. 24-hour events: Patient remained hemodynamically stable. Elected to keep him intubated as he was going back to the OR yesterday for a second look and additional debridement. Please refer to urology's note. Additional necrotic tissue was debrided and a wound VAC was placed. He was brought back to the ICU intubated last evening. He is hemodynamically stable with normal lactate and improved kidney function. Discussed case with ID at [facility] and antibiotics were adjusted. Currently on SBT and doing well Recommendations: 1. Neuro: Patient is currently sedated on propofol and fentanyl. Sedation now on hold for SBT and anticipate we will be able to extubate the patient later today. Will reassess neuro status off sedatives and narcotics although he will likely require some pain medications for dressing changes and his significant wound. 2. Cardiovascular: Patient is hemodynamically stable currently and not requiring vasopressor agents. He is certainly at risk of clinical deterioration. Lactate is now normal. He may be slightly volume up. Kidney function is normal. Will start low-dose of diuretics. Keep Enriquez catheter for now. Okay to discontinue arterial line 3. Pulmonary: SBT and probable extubation. He has a history of sleep disordered breathing and will continue CPAP empirically at 12 cm of water when sleeping and nightly. The patient's x-ray does demonstrate asymmetric densities, right greater than left of unclear etiology. This could be atypical pulmonary edema. Pulmonary vascular disease would also be on the differential but the patient is oxygenating well with no hemodynamic instability. Will diurese and follow x-ray in the a.m. 4. ID: Necrotizing fasciitis/Ted's gangrene status post initial debridement. Cultures are currently pending. Patient is currently day #3 meropenem, and vancomycin. Await cultures. Discussed with ID at [facility]. Depending when cultures are finalized, can likely discontinue vancomycin. It appears that the patient has been adequately debrided so we will likely need 10 days of antimicrobial therapy going forward. Urology will discuss with plastics as to whether or not we have capabilities to manage this wound long-term. 5. Renal: Renal function has been stable overnight here. He has a history of Goodpasture syndrome. Does not appear that he was on steroids in the outpatient setting. Start low-dose diuretics 6. GI: N.p.o. for now. If he does well, can likely advance to liquid diet later today 7. Endo: Patient is currently being maintained on sliding scale insulin. Would like to target blood sugars less than 150. If we have difficulty maintaining this with sliding scale, would have low threshold for transitioning to insulin infusion. 8. Heme-onc: No current issues. Continue to trend hemoglobin hematocrit. We will observe in the ICU today but if he does well, we may be able to transition him out of the ICU within the next 24 hours depending on surgical plans (2) Necrotizing fasciitis: (3) Sepsis: (4) Diabetes mellitus: (5) Renal failure: Admission and Anticipated Discharge Date Admission Date: July 02, 2020 Subjective Patient seen and examined. EMR reviewed. Discussed with critical care [place]. Patient was sedated and intubated this morning. Review of Systems Review of Systems: Unobtainable due to endotracheal tube Physical Exam Constitutional: + morbidly obese and + mechanically ventilated Intubated and sedated Neck: trachea midline, no thyromegaly Respiratory: normal respiratory effort, lungs clear to auscultation Cardiovascular: RRR, no murmur, no edema Gastrointestinal (Abdomen): normal bowel sounds, soft, nontender, no hepatosplenomegaly Musculoskeletal: Extremities: extremities normal to inspection Skin: Wound VAC in place Neurologic: Nonfocal exam Lymphatic: no cervical lymphadenopathy Results & Data Results & Data ([facility]) Vital Signs (Past 12 Hours) Vital Signs Temp Pulse Resp BP Pulse Ox 07/04/20 09:17 92 H 24 170/98 H 99 07/04/20 09:00 94 H 95 07/04/20 08:47 93 H 20 141/81 H 98 07/04/20 08:30 94 H 100 07/04/20 08:17 94 H 150/79 H 97 07/04/20 08:00 92 H 93 07/04/20 07:47 91 H 133/88 97 07/04/20 07:42 92 H 23 96 07/04/20 07:30 83 98 07/04/20 07:17 84 145/77 H 98 10/11/20 07:00 89 97 07/04/20 06:47 86 128/65 97 07/04/20 06:30 86 20 127/65 98 07/04/20 06:00 87 108/60 98 07/04/20 05:30 88 125/71 96 07/04/20 05:05 85 21 96 07/04/20 05:00 86 20 106/63 97 07/04/20 04:30 89 20 130/84 95 07/04/20 04:00 36.8 C 89 20 103/62 96 07/04/20 03:30 93 H 20 109/62 97 07/04/20 03:00 81 20 112/67 97 07/04/20 02:30 79 20 109/67 98 07/04/20 02:00 79 20 113/61 98 07/04/20 01:30 77 20 105/64 98 07/04/20 01:00 74 20 115/64 97 07/04/20 00:43 77 22 98 07/04/20 00:30 75 20 120/76 99 07/04/20 00:00 36.7 C 75 20 116/71 98 07/03/20 23:30 77 20 121/60 98 07/03/20 23:00 77 20 118/68 98 07/03/20 22:30 81 20 117/70 98 Laboratory Results 07/04/20 05:04 07/04/20 05:04 Blood gas this morning showed pH 7.37 with PCO2 37 PO2 of 84 and bicarb of 21 Lactate normal Calcium 7.7 LFTs normal with exception of alk phos elevated at 149 Albumin 1.7 Procalcitonin down to 3.59 Surgical cultures pending. Gram stain's with polymicrobial gram-positive cocci and gram-negative rods Diagnostic Findings Chest x-ray from today was reviewed. Endotracheal tube was in good position. Elevation of the left hemidiaphragm was noted. Hazy opacities throughout the right lung field which were asymmetric were noted however the diaphragm was well visualized without any silhouetting. Coding Level of Care Code 11659 Subseq Hosp Care Lvl 3 Diagnoses Admitted to intensive care unit Z78.9 Necrotizing fasciitis M72.6 Sepsis A41.9 Diabetes mellitus E11.9 Renal failure N19
--- NOTE | 2020-07-04 13:21 | Urology Progress Note ---
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 Gangrene did cross midline superiorly. Further tissue had been resected on second washout. Mainly in the perineal/left buttocks as well as the deep tissue along the abductor muscles as well as the superior margin at the inguinal region. Wound VAC is functioning well. Testicle had been exposed and is currently wrapped in bandage with Adaptic and Xeroform dressing. Discussed with patient and patient's family as well as critical care team different options. Will likely need to be washed out and wound VAC replaced either this tomorrow evening or Sunday. Patient has been started on diet. He has tolerated extubation well without major issues or problems. Overall has been clinically improving drastically. Need to begin planning for possible reconstruction with plans to reapproximate tissues in anticipation of repair and reconstruction. The entire right hemiscrotum had been preserved which should allow development of a dartos pocket to place testicle. Will likely need to coordinate with plastics and/or general surgery for reconstruction. We will also need to monitor deep wound as it did seem to encroach upon the medial thigh musculature. We will need to watch closely for further advancement of necrotizing tissue along these planes. Maintain catheter. (2) Necrotizing fasciitis: (3) Sepsis: Admission and Anticipated Discharge Date Admission Date: July 02, 2020 Subjective Postop day 1 from debridement and washout with closure and wound VAC placement and postop day 2 status post debridement and washout for foreign years gangrene/necrotizing fasciitis. Patient is in ICU. Has been extubated. Is responding appropriately to questions. Is dealing with pain and discomfort. Has been positionally having some issues. Wound VAC is functioning well without leak. Patient had extremely large area debrided in total. The majority of the left mons pubis, perineal, inguinal, and left hemiscrotum. No considerable pain. Patient has not had bowel movement. Is been improving. Blood pressures and vitals are considerably better. Is undergoing broad- spectrum antibiotics. Is bedside with his fiance Review of Systems Review of Systems: All systems reviewed & are unremarkable except as noted in HPI & below Physical Exam Physical Exam: General: Alert in no acute distress. Obese chronic Medical issues. HEENT: Normocephalic. Inspection normal. Cranial Nerves 2-12 Grossly intact with some hearing issues. Normal inspection of face. Normal inspection of neck. Psychologic: Normal affect. Baseline issues with memory. Respiratory: Nonlabored. No use of accessory muscles. No tachypnea or dyspnea. Cardiovascular: No tachycardia Skin: [place] and Dry. No rashes or visible lesions. Extremities/Lymphatics: Minor Mobility issues. Slow Gait. Abdomen: Obese and moderately distended. No rebound or guarding. : Wound VAC in place without issues Results & Data ([facility]) Vital Signs (Past 12 Hours) Vital Signs Temp Pulse Resp BP Pulse Ox 07/04/20 09:17 92 H 24 170/98 H 99 07/04/20 09:00 94 H 95 07/04/20 08:47 93 H 20 141/81 H 98 07/04/20 08:30 94 H 100 07/04/20 08:17 94 H 150/79 H 97 07/04/20 08:00 92 H 93 07/04/20 07:47 91 H 133/88 97 07/04/20 07:42 92 H 23 96 07/04/20 07:30 83 98 07/04/20 07:17 84 145/77 H 98 07/04/20 07:00 89 97 07/04/20 06:47 86 128/65 97 07/04/20 06:30 86 20 127/65 98 07/04/20 06:00 87 108/60 98 07/04/20 05:30 88 125/71 96 07/04/20 05:05 85 21 96 07/04/20 05:00 86 20 106/63 97 07/04/20 04:30 89 20 130/84 95 07/04/20 04:00 36.8 C 89 20 103/62 96 07/04/20 03:30 93 H 20 109/62 97 07/04/20 03:00 81 20 112/67 97 07/04/20 02:30 79 20 109/67 98 07/04/20 02:00 79 20 113/61 98 07/04/20 01:30 77 20 105/64 98 PG Care Time/CCT Total # of Minutes Spent Total Time Spent with Patient: Total time spent is greater than 50% in coordination of care (as documented) at patient's floor/unit and/or counseling patient: Coding Level of Care Code 09142 Subseq Hosp Care Lvl 3 Diagnoses Fourniers gangrene N49.3 Necrotizing fasciitis M72.6 Sepsis A41.9
[2020-07-04] MEDS: HEPARIN SOD 5,000 UNIT/0.5 ML VIAL SQ SCH ×2 (14:44→20:16)
[2020-07-04] MEDS ORDERED: Nursing to Pharmacy Communication SCH (16:45)
--- NOTE | 2020-07-04 18:59 | Hospitalist Progress Note ---
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 Consult therapy tech Dr. Little and staff Defer all management to ICU and urology Was kept on ventilator for repeat debridement in the OR on the evening of 07/03, but has since been extubated on 07/04 Remains in ICU for overnight but will likely be stable for downgrade to PCU on Sunday (2) Necrotizing fasciitis: Status post surgical debridement by urology Dr. Guy on 07/02 emergently. 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 His left testicle is exposed and currently wrapped in a dressing. He returned for repeat debridement on the evening of 07/03 and had wound VAC placed -Plans for return to OR again on 07/05 for further debridement, possible plastic surgery evaluation, and replacement of wound VAC Hvac/R Instructor consulted infectious disease at [facility] and recommended continued meropenem and vancomycin for now, but will likely discontinue vancomycin after cultures returned Wound culture growing probable anaerobic gram-negative bacilli and group B beta strep-final ID and sensitivity pending Follow-up blood cultures-no growth to date Urine culture negative Pain control with fentanyl and oxycodone as needed Greatly appreciate urology management (3) Sepsis: Blood pressures are stable not on vasopressors Secondary to Ted's gangrene as above Continue IV antibiotics as above Continue IV fluid rehydration. 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 as noted Follow culture and sensitivities (5) Acute respiratory failure with hypoxia: Was on the ventilator mostly for pain control and management of repeated surgeries for Ted's gangrene as above Now extubated and on oxygen 3 L nasal cannula, BiPAP at night for sleep apnea Chest x-ray with interstitial thickening in bilateral asymmetric densities, right greater than left-could be atypical pulmonary edema (6) Chronic kidney disease: With acute kidney injury in the setting of CKD stage II-III Hypotension and sepsis Now much improved Creatinine down to 1.22 which is around his baseline after IV fluids and improvement of blood pressure, placement of Enriquez catheter Follow BMP Renally dose medications (7) Goodpastures syndrome: Goodpasture's syndrome/CKD-creatinine back to baseline today, other electrolytes fairly stable Making urine (8) Diabetes mellitus: Holding glipizide, metformin and pioglitazone from home Continue basal and bolus insulin Accu-Cheks and diabetic diet when tolerating p.o. (9) Dyslipidemia: Niacin on hold while n.p.o.-restart when able to (10) Hypertension: Blood pressures were low initially and are now moderately elevated since extubation -Meds from home to include furosemide, losartan/HCT remain on hold due to acute kidney injury Follow blood pressures (11) Gout, joint: Holding home allopurinol (12) Obstructive sleep apnea: Can use home nasal CPAP (13) Anemia: Hemoglobin now 10.0 down from 14.9 on admission, normocytic, RDW mildly elevated Some likely due to blood loss from surgery and some is hemodilution as he was hemoconcentrated when he presented Follow CBC (14) DVT prophylaxis: SCDs, SQ heparin added today Disposition-continued stay in ICU, but possible downgrade out of the ICU tomorrow if remains stable Admission and Anticipated Discharge Date Admission Date: July 02, 2020 Subjective Patient was extubated earlier today and is doing well. He was on nasal cannula and on his nasal BiPAP for nighttime. He denies any pain at this time. Review of Systems Review of Systems: All systems reviewed & are unremarkable except as noted in HPI & below Physical Exam Constitutional: WD/WN, vitals as above + morbidly obese Eyes: + anicteric sclerae ENMT: Ears: no hearing impairment Hoarse voice, nasal CPAP in place Obese neck Neck: trachea midline, no thyromegaly Respiratory: normal respiratory effort, lungs clear to auscultation Cardiovascular: Rate/Rhythm: regular rate and regular rhythm Heart Sounds: no murmur Extremities: + edema (1+ pitting edema of the feet and legs bilaterally) Chest (Breasts): Chest: normal inspection of chest Gastrointestinal (Abdomen): normal bowel sounds, soft, nontender, no hepatosplenomegaly Musculoskeletal: Extremities: extremities normal to inspection; no cyanosis and no clubbing Skin: no rashes, warm and dry Neurologic: moves all extremities and awake; no focal motor deficits Psychiatric: A+Ox3, euthymic affect Genitourinary: Enriquez catheter in place draining dark yellow clear urine, wound VAC visible in the perineum Results & Data Results & Data ([facility]) Vital Signs (Past 12 Hours) Vital Signs Temp Pulse Resp BP Pulse Ox 07/04/20 17:00 94 H 29 H 92 07/04/20 16:48 96 H 17 170/101 H 95 07/04/20 16:30 89 13 100 07/04/20 16:17 37.1 C 86 23 143/89 H 99 07/04/20 16:00 95 H 23 99 07/04/20 15:47 91 H 18 154/85 H 100 07/04/20 15:30 87 20 100 07/04/20 15:17 88 10 L 135/83 97 07/04/20 15:00 86 25 H 100 07/04/20 14:47 84 137/82 100 07/04/20 14:30 85 100 07/04/20 14:18 85 147/90 H 100 07/04/20 14:00 87 99 07/04/20 13:48 87 192/98 H 99 07/04/20 13:30 91 H 100 07/04/20 13:17 92 H 169/100 H 99 07/04/20 13:00 93 H 99 07/04/20 12:48 93 H 146/71 H 100 07/04/20 12:30 94 H 99 07/04/20 12:18 94 H 140/96 99 07/04/20 12:00 36.9 C 96 H 99 07/04/20 11:30 89 97 07/04/20 11:17 87 186/94 H 91 07/04/20 11:00 87 94 07/04/20 10:47 90 150/91 H 100 07/04/20 10:30 89 07/04/20 10:17 90 128/78 97 07/04/20 10:00 89 94 07/04/20 09:47 91 H 136/88 100 07/04/20 09:30 93 H 100 07/04/20 09:17 92 H 24 170/98 H 99 07/04/20 09:00 94 H 95 07/04/20 08:47 93 H 20 141/81 H 98 07/04/20 08:30 94 H 100 07/04/20 08:17 94 H 150/79 H 97 07/04/20 08:00 92 H 93 07/04/20 07:47 91 H 133/88 97 07/04/20 07:42 92 H 23 96 07/04/20 07:30 83 98 07/04/20 07:17 84 145/77 H 98 07/04/20 07:00 89 97 Laboratory Results 07/04/20 07/04/20 07/04/20 Range/Units 16:33 13:55 11:33 WBC (4.8-10.8) K/uL RBC (4.7-6.1) M/uL Hgb (14.0-18.0) g/dL POC Hgb (14.0-18.0) g/dl Hct (42-52) % POC Hct (42-52) % MCV (80-100) fL MCH (25-34) pg MCHC (32-36) g/dL RDW Std Deviation (36.4-46.3) fL RDW Coeff of Sara (11.5-14.5) % Plt Count (130-400) K/uL MPV (7.4-10.4) fL Immature Gran % (Auto) % Neut % (Auto) % Lymph % (Auto) % [place] % (Auto) % Eos % (Auto) % Baso % (Auto) % Neut # (Auto) (1.4-6.5) K/uL Lymph # (Auto) (1.2-3.4) K/uL [place] # (Auto) (0.11-0.59) K/uL Eos # (Auto) (0-0.5) K/uL Baso # (Auto) (0-0.2) K/uL Immature Gran # (Auto) (0.00-0.02) K/uL Sample Site POC pH (7.35-7.45) POC pCO2 (35-46) mmHg POC pO2 (80-95) mmHg POC HCO3 (19-24) mian/L POC Total CO2 (24-31) mmol/L POC Base Excess (-9-1.8) mina/L ABG pH (Temp Correct) (7.35-7.45) ABG pCO2 (Temp Corrct (35-46) mmHg POC ABG pO2 at Pt Temp POC ABG O2 Sat (90-95) % Lance Test O2 Delivery Device POC O2 Rate Minute Ventilation POC FiO2 % Tidal Volume PEEP POC Sodium (135-144) mmol/L Sodium (136-145) mmol/L POC Potassium (3.3-5.0) mmol/L Potassium (3.5-5.1) mmol/L Chloride (98-107) mmol/L Carbon Dioxide (21-32) mmol/L Anion Gap (3-11) BUN (7-18) mg/dl Creatinine (0.6-1.4) mg/dl Est Cr Clr Drug Dosing ml/min Est GFR ( Amer) Est GFR (Non-Af Amer) BUN/Creatinine Ratio (-20) Glucose (70-99) mg/dl POC Glucose 177 H 138 H (70-99) mg/dl Lactate (0.4-2.0) mmol/L Calcium (8.5-10.1) mg/dl Phosphorus (2.5-4.9) mg/dl Magnesium (1.8-2.4) mg/dl Total Bilirubin (0.2-1) mg/dl AST (15-37) U/L ALT (12-78) U/L Alkaline Phosphatase (45-117) U/L Total Protein (6.4-8.2) gm/dl Albumin (3.4-5.0) gm/dl Globulin (2.5-4.0) gm/dl Albumin/Globulin Ratio (0.9-2) Procalcitonin (0-0.5) ng/ml Random Vancomycin 10.9 mcg/ml 07/04/20 07/04/20 07/04/20 Range/Units 05:13 05:07 05:04 WBC (4.8-10.8) K/uL RBC (4.7-6.1) M/uL Hgb (14.0-18.0) g/dL POC Hgb 10.2 L (14.0-18.0) g/dl Hct (42-52) % POC Hct 30 L (42-52) % MCV (80-100) fL MCH (25-34) pg MCHC (32-36) g/dL RDW Std Deviation (36.4-46.3) fL RDW Coeff of Sara (11.5-14.5) % Plt Count (130-400) K/uL MPV (7.4-10.4) fL Immature Gran % (Auto) % Neut % (Auto) % Lymph % (Auto) % [place] % (Auto) % Eos % (Auto) % Baso % (Auto) % Neut # (Auto) (1.4-6.5) K/uL Lymph # (Auto) (1.2-3.4) K/uL [place] # (Auto) (0.11-0.59) K/uL Eos # (Auto) (0-0.5) K/uL Baso # (Auto) (0-0.2) K/uL Immature Gran # (Auto) (0.00-0.02) K/uL Sample Site Art Line POC pH 7.37 (7.35-7.45) POC pCO2 37 (35-46) mmHg POC pO2 84 (80-95) mmHg POC HCO3 21 (19-24) mina/L POC Total CO2 22 L (24-31) mmol/L POC Base Excess -4.0 (-9-1.8) mina/L ABG pH (Temp Correct) 7.350 (7.35-7.45) ABG pCO2 (Temp Corrct 39 (35-46) mmHg POC ABG pO2 at Pt Temp 91 POC ABG O2 Sat 96.0 H (90-95) % Lance Test NA O2 Delivery Device Ventilator POC O2 Rate 20 Minute Ventilation 10 POC FiO2 30 % Tidal Volume 500 PEEP 5 POC Sodium 134 L (135-144) mmol/L Sodium (136-145) mmol/L POC Potassium 3.7 (3.3-5.0) mmol/L Potassium (3.5-5.1) mmol/L Chloride (98-107) mmol/L Carbon Dioxide (21-32) mmol/L Anion Gap (3-11) BUN (7-18) mg/dl Creatinine (0.6-1.4) mg/dl Est Cr Clr Drug Dosing ml/min Est GFR ( Amer) Est GFR (Non-Af Amer) BUN/Creatinine Ratio (10-20) Glucose (70-99) mg/dl POC Glucose 133 H (70-99) mg/dl Lactate (0.4-2.0) mmol/L Calcium (8.5-10.1) mg/dl Phosphorus (2.5-4.9) mg/dl Magnesium (1.8-2.4) mg/dl Total Bilirubin (0.2-1) mg/dl AST (15-37) U/L ALT (12-78) U/L Alkaline Phosphatase (45-117) U/L Total Protein (6.4-8.2) gm/dl Albumin (3.4-5.0) gm/dl Globulin (2.5-4.0) gm/dl Albumin/Globulin Ratio (0.9-2) Procalcitonin 3.59 H (0-0.5) ng/ml Random Vancomycin mcg/ml 07/04/20 07/04/20 07/04/20 Range/Units 05:04 05:04 05:04 WBC 7.97 (4.8-10.8) K/uL RBC 3.35 L (4.7-6.1) M/uL Hgb 10.0 L (14.0-18.0) g/dL POC Hgb (14.0-18.0) g/dl Hct 30.0 L (42-52) % POC Hct (42-52) % MCV 89.6 (80-100) fL MCH 29.9 (25-34) pg MCHC 33.3 (32-36) g/dL RDW Std Deviation 47.9 H (36.4-46.3) fL RDW Coeff of Sara 14.5 (11.5-14.5) % Plt Count 193 (130-400) K/uL MPV 9.5 (7.4-10.4) fL Immature Gran % (Auto) 1.6 % Neut % (Auto) 75.4 % Lymph % (Auto) 14.1 % [place] % (Auto) 7.0 % Eos % (Auto) 1.6 % Baso % (Auto) 0.3 % Neut # (Auto) 6.01 (1.4-6.5) K/uL Lymph # (Auto) 1.12 L (1.2-3.4) K/uL [place] # (Auto) 0.56 (0.11-0.59) K/uL Eos # (Auto) 0.13 (0-0.5) K/uL Baso # (Auto) 0.02 (0-0.2) K/uL Immature Gran # (Auto) 0.13 H (0.00-0.02) K/uL Sample Site POC pH (7.35-7.45) POC pCO2 (35-46) mmHg POC pO2 (80-95) mmHg POC HCO3 (19-24) mina/L POC Total CO2 (24-31) mmol/L POC Base Excess (-9-1.8) mina/L ABG pH (Temp Correct) (7.35-7.45) ABG pCO2 (Temp Corrct (35-46) mmHg POC ABG pO2 at Pt Temp POC ABG O2 Sat (90-95) % Lance Test O2 Delivery Device POC O2 Rate Minute Ventilation POC FiO2 % Tidal Volume PEEP POC Sodium (135-144) mmol/L Sodium 135 L (136-145) mmol/L POC Potassium (3.3-5.0) mmol/L Potassium 3.8 (3.5-5.1) mmol/L Chloride 106 (98-107) mmol/L Carbon Dioxide 23 (21-32) mmol/L Anion Gap 6.0 (3-11) BUN 28 H (7-18) mg/dl Creatinine 1.22 D (0.6-1.4) mg/dl Est Cr Clr Drug Dosing 84.7 ml/min Est GFR ( Amer) 79.1 Est GFR (Non-Af Amer) 68.2 BUN/Creatinine Ratio 23.0 H (10-20) Glucose 120 H (70-99) mg/dl POC Glucose (70-99) mg/dl Lactate < 0.1 L (0.4-2.0) mmol/L Calcium 7.7 L (8.5-10.1) mg/dl Phosphorus 3.6 (2.5-4.9) mg/dl Magnesium 2.1 (1.8-2.4) mg/dl Total Bilirubin 1.0 (0.2-1) mg/dl AST 37 (15-37) U/L ALT 30 (12-78) U/L Alkaline Phosphatase 149 H (45-117) U/L Total Protein 5.8 L (6.4-8.2) gm/dl Albumin 1.7 L (3.4-5.0) gm/dl Globulin 4.1 H (2.5-4.0) gm/dl Albumin/Globulin Ratio 0.4 L (0.9-2) Procalcitonin (0-0.5) ng/ml Random Vancomycin mcg/ml 07/03/20 Range/Units 23:19 WBC (4.8-10.8) K/uL RBC (4.7-6.1) M/uL Hgb (14.0-18.0) g/dL POC Hgb (14.0-18.0) g/dl Hct (42-52) % POC Hct (42-52) % MCV (80-100) fL MCH (25-34) pg MCHC (32-36) g/dL RDW Std Deviation (36.4-46.3) fL RDW Coeff of Sara (11.5-14.5) % Plt Count (130-400) K/uL MPV (7.4-10.4) fL Immature Gran % (Auto) % Neut % (Auto) % Lymph % (Auto) % [place] % (Auto) % Eos % (Auto) % Baso % (Auto) % Neut # (Auto) (1.4-6.5) K/uL Lymph # (Auto) (1.2-3.4) K/uL [place] # (Auto) (0.11-0.59) K/uL Eos # (Auto) (0-0.5) K/uL Baso # (Auto) (0-0.2) K/uL Immature Gran # (Auto) (0.00-0.02) K/uL Sample Site POC pH (7.35-7.45) POC pCO2 (35-46) mmHg POC pO2 (80-95) mmHg POC HCO3 (19-24) mina/L POC Total CO2 (24-31) mmol/L POC Base Excess (-9-1.8) mina/L ABG pH (Temp Correct) (7.35-7.45) ABG pCO2 (Temp Corrct (35-46) mmHg POC ABG pO2 at Pt Temp POC ABG O2 Sat (90-95) % Lance Test O2 Delivery Device POC O2 Rate Minute Ventilation POC FiO2 % Tidal Volume PEEP POC Sodium (135-144) mmol/L Sodium (136-145) mmol/L POC Potassium (3.3-5.0) mmol/L Potassium (3.5-5.1) mmol/L Chloride (98-107) mmol/L Carbon Dioxide (21-32) mmol/L Anion Gap (3-11) BUN (7-18) mg/dl Creatinine (0.6-1.4) mg/dl Est Cr Clr Drug Dosing ml/min Est GFR ( Amer) Est GFR (Non-Af Amer) BUN/Creatinine Ratio (10-20) Glucose (70-99) mg/dl POC Glucose 155 H (70-99) mg/dl Lactate (0.4-2.0) mmol/L Calcium (8.5-10.1) mg/dl Phosphorus (2.5-4.9) mg/dl Magnesium (1.8-2.4) mg/dl Total Bilirubin (0.2-1) mg/dl AST (15-37) U/L ALT (12-78) U/L Alkaline Phosphatase (45-117) U/L Total Protein (6.4-8.2) gm/dl Albumin (3.4-5.0) gm/dl Globulin (2.5-4.0) gm/dl Albumin/Globulin Ratio (0.9-2) Procalcitonin (0-0.5) ng/ml Random Vancomycin mcg/ml PG Care Time/CCT Total # of Minutes Spent Total Time Spent with Patient: Total time spent is greater than 50% in coordination of care (as documented) at patient's floor/unit and/or counseling patient: Coding Level of Care Code 10851 Subseq Hosp Care Lvl 3 Diagnoses Admitted to intensive care unit Z78.9 Necrotizing fasciitis M72.6 Sepsis A41.9 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
[2020-07-04] MEDS: fentaNYL citrate 100 MCG/2 ML VIAL IV PRN (20:02)
[2020-07-04] MEDS ORDERED: HYDROCORTISONE 1% CRM 30 GM TUBE EXT PRN (20:05)
[2020-07-04] MEDS ORDERED: hydrOXYzine HCl 25 MG TAB PO STA (20:05)
[2020-07-04] MEDS: oxyCODONE/ACETAMINOPHEN 5mg/325mg TAB PO PRN (23:05)
[2020-07-05] MEDS: VANCOMYCIN HCL 1,500 MG in SODIUM CHLORIDE 0.9% 500 ML IV SCH (02:30)
[2020-07-05 04:36] LABS: Hematocrit (blood only) 33.4 % (42-52); Mean Corpuscular Hemoglobin 29.5 pg (25-34); Mean Corpuscular Hgb Conc 32.9 g/dL (32-36); Mean Corpuscular Volume 89.5 fL (80-100); Mean Platelet Volume 9.3 fL (7.4-10.4); Platelet Count 206 K/uL (130-400); RDW Coefficient of Variation 14.6 % (11.5-14.5); Red Blood Count 3.73 M/uL (4.7-6.1); White Blood Count 9.98 K/uL (4.8-10.8)
[2020-07-05 05:10] LABS: Basophils # (auto) 0.02 K/uL (0-0.2); Basophils % (auto) 0.2 %; Eosinophils # (auto) 0.17 K/uL (0-0.5); Eosinophils % (auto) 1.7 %; Immature Granulocytes # (auto) 0.49 K/uL (0.00-0.02); Immature Granulocytes % (auto) 4.9 %; Monocytes # (auto) 0.71 K/uL (0.11-0.59); Monocytes % (auto) 7.1 %; Neutrophils # (auto) 6.79 K/uL (1.4-6.5); Neutrophils % (auto) 68.1 %; RBC Morphology Unremarkable
[2020-07-05 05:12] LABS: Albumin Globulin Ratio 0.4 (0.9-2); Albumin Level 1.7 gm/dl (3.4-5.0); BUN Creatinine Ratio 19.3 (10-20); Bilirubin,Total 0.7 mg/dl (0.2-1); Calcium 8.1 mg/dl (8.5-10.1); Creatinine Clr Calc Pharmacy 118.7 ml/min; Est GFR (African American) 115.8; Est GFR (Non-African American) 99.9; Globulin 4.4 gm/dl (2.5-4.0); Magnesium 1.7 mg/dl (1.8-2.4); Phosphorus 2.7 mg/dl (2.5-4.9); Potassium 3.7 mmol/L (3.5-5.1); Total Protein 6.1 gm/dl (6.4-8.2)
[2020-07-05] MEDS: fentaNYL citrate 100 MCG/2 ML VIAL IV PRN ×5 (05:15→21:11)
[2020-07-05] MEDS: MEROPENEM 500 MG in SYRINGE 0 ML IV SCH ×4 (05:50→23:43)
[2020-07-05] MEDS: HEPARIN SOD 5,000 UNIT/0.5 ML VIAL SQ SCH ×3 (05:50→20:32)
[2020-07-05] MEDS: SODIUM CHLORIDE 0.9% 1000ML 1,000 ML IV SCH (06:40)
[2020-07-05] MEDS: MAGNESIUM SULFATE / D5W 1 GM/100 ML BAG IV SCH ×2 (06:52→09:51)
--- NOTE | 2020-07-05 07:38 | XRay Report ---
XR chest 1V portable CLINICAL HISTORY: hypoxemia COMPARISON STUDY: 07/04/2020 FINDINGS: The nasogastric tube and endotracheal tubes have been removed. The heart is mildly enlarged . There are minor left basilar opacities, likely atelectatic. There is no failure. There are no signi ficant pleural effusions.[ IMPRESSION: 1. Minor left basilar opacities likely atelectatic 2. Interval removal of the endotracheal tube and nasogastric tubes. ACT 112: Negative or not required by law. Electronically signed by: William Zabala M.D. 07/05/2020 7:37 AM
[2020-07-05] MEDS: INSULIN ASPART 100 UNITS/ML 3 ML PEN SC SCH ×4 (08:27→20:31)
--- NOTE | 2020-07-05 08:34 | Anesthesiology Consultation ---
Date of Service July 05, 2020 Assessment & Plan (1) Encounter for pre-operative examination: Chart Review Chart Review: Acceptable Risk for Surgery and Patient NOT seen in Pre Admission Testing Consults Requested none ASA ASA3 History Surgery Operation Date: 07/02/20 19:00 Proposed Procedures p Orchiectomy Inguinal Radical - Logan Guy DO Operation Date: 07/03/20 18:00 Proposed Procedures p Orchiectomy Inguinal Radical - Logan Guy DO Operation Date: 07/05/20 08:05 Proposed Procedures p Scrotal Debridement and Washout with Change of Wound Vac - Logan Guy DO Height/Weight Height: 5 ft 4 in Weight: 118.4 kg Allergies Allergy/AdvReac Type Severity Reaction Status Date / Time amoxicillin [From Augmentin] Allergy Severe Anaphylaxis Verified 07/02/20 18:13 clavulanic acid Allergy Severe Anaphylaxis Verified 07/02/20 18:13 [From Augmentin] Medications Home Medications Medication Instructions Recorded Confirmed Last Taken lancets #50 ea 05/12/19 04/01/20 Unknown allopurinol 300 mg tablet 300 mg PO DAILY #90 tab 06/30/19 07/02/20 Unknown furosemide 40 mg tablet 40 mg PO DAILY PRN #90 tab 06/30/19 07/02/20 Unknown indomethacin 50 mg capsule 50 mg PO DAILY PRN #90 cap 06/30/19 07/02/20 Unknown losartan 100 1 tab PO DAILY #90 tab 06/30/19 07/02/20 Unknown mg-hydrochlorothiazide 25 mg tablet pioglitazone 30 mg tablet 30 mg PO DAILY #90 tab 06/30/19 07/02/20 Unknown glipizide 10 mg tablet 10 mg PO BID #180 tab 09/01/19 07/02/20 Unknown metformin 1,000 mg tablet 1,000 mg PO BID #180 tab 09/01/19 07/02/20 Unknown niacin 1,000 mg tablet,extended 1,000 mg PO DAILY #90 tab 09/01/19 07/02/20 Unknown release 24 hr naproxen 500 mg tablet 500 mg PO BID PRN #180 tab 02/25/20 07/02/20 Unknown tramadol 50 mg tablet 50 mg PO Q4H PRN #84 tab 04/01/20 07/02/20 Unknown blood sugar diagnostic #180 ea 06/28/20 Unknown Active Medications Generic Name Dose Route Start Last Admin Trade Name Freq PRN Reason Stop Dose Admin Fentanyl Citrate 25 mcg 07/04/20 10:19 07/05/20 05:15 Fentanyl Citrate 100 Mcg/2 Ml Vial IV 07/18/20 10:18 25 mcg Q4 PRN Administration Pain Heparin Sodium (Porcine) 5,000 units 07/04/20 14:00 07/05/20 05:50 Heparin Sod 5,000 Unit/0.5 Ml Vial SQ 08/03/20 13:59 5,000 units Q8 MITZI Administration Hydrocortisone 1 appln 07/04/20 20:05 07/04/20 20:31 Hydrocortisone 1% Crm 30 Gm Tube EXT 08/03/20 20:04 1 appln BID PRN Administration Rash Meropenem 500 mg/ Syringe 10 mls @ 2 mls/min 07/04/20 10:00 07/05/20 05:50 IV 07/10/20 09:59 2 mls/min Q6H MITZI Administration Protocol Magnesium Sulfate/Dextrose 1 gm in 100 mls @ 50 mls/hr 07/05/20 06:45 07/05/20 09:51 Magnesium Sulfate / D5w IV 07/05/20 10:44 50 mls/hr Q2H MITZI Administration Insulin Aspart 0 units 07/04/20 21:00 07/05/20 08:27 Insulin Aspart 100 Units/Ml 3 Ml Pen SC 08/03/20 20:59 1 units ACHS MITZI Administration Oxycodone/Acetaminophen 1 tab 07/04/20 10:19 07/04/20 23:05 Oxycodone/Acetaminophen 5mg/325mg Tab PO 07/18/20 10:18 1 tab Q4H PRN Administration Pain NPO Date Last Intake of Fluids: 07/02/20 Time Last Intake of Fluids: 16:00 Date Last Intake of Solids: 07/02/20 Time Last Intake of Solids: 15:00 Past Medical History Medical History Back pain Blurry vision, right eye Chronic kidney disease Diabetes mellitus Dyslipidemia [place] gangrene Goodpastures syndrome Gout, joint Hypertension Left lumbosacral radiculopathy Necrotizing fasciitis Obstructive sleep apnea Sepsis Social History Smoking Status: Former smoker tobacco type: cigarettes Do You Dip or Chew Tobacco: No Hx Alcohol Use: No Hx Substance Use: No Physical Exam Vital Signs Last Vital Signs Temp 37.2 C 07/05/20 04:00 Pulse 88 07/05/20 06:30 Resp 19 07/05/20 06:30 BP 151/88 H 07/05/20 06:00 Pulse Ox 95 07/05/20 06:30 Testing Laboratory Results 07/05/20 04:22 07/05/20 04:22 PT 11.5 Seconds (9.0-12.0) 07/02/20 17:12 INR 1.1 (0.9-1.1) 07/02/20 17:12 APTT 34.2 Seconds (21.0-31.0) H 07/02/20 17:12 Hemoglobin A1c 8.2 % (4.5-5.6) H 07/03/20 04:25 Urine Color [place] 07/03/20 04:18 Urine Appearance Turbid (Clear) A 07/03/20 04:18 Urine pH 5.0 (4.5-7.5) 07/03/20 04:18 Ur Specific [place] 1.030 (1.000-1.030) 07/03/20 04:18 Urine Protein 2+ (Negative) H 07/03/20 04:18 Urine Glucose (UA) Negative (Negative) 07/03/20 04:18 Urine Ketones Trace (Negative) H 07/03/20 04:18 Urine Nitrite Positive (Negative) A 07/03/20 04:18 Ur Leukocyte Esterase 1+ (Negative) H 07/03/20 04:18 Urine WBC (Auto) 10-30 /hpf (0-5) H 07/03/20 04:18 Urine RBC (Auto) 10-30 /hpf (0-4) H 07/03/20 04:18 U Hyaline Cast (Auto) 1-5 /lpf (0-5) 07/03/20 04:18 U Epithel Cells (Auto) >30 /lpf (0-5) H 07/03/20 04:18 Urine Bacteria (Auto) Negative (Negative) 07/03/20 04:18 Blood Type A Positive 07/02/20 19:24 Antibody Screen NEGATIVE 07/02/20 19:24 07/03/20 Unknown Gram Stain - Final Scrotum Aerobic and Anaerobic Culture - Preliminary Pin-point growth present, reincubating. 07/03/20 Unknown Gram Stain - Final Scrotum Aerobic and Anaerobic Culture - Preliminary Pin-point growth present, reincubating. 07/03/20 04:18 Urine Culture - Final Urine,Clean Catch No growth - less than 1,000 colonies/mL. 07/02/20 19:41 Gram Stain - Final Scrotum Aerobic and Anaerobic Culture - Preliminary Group B Beta Strep Probable jordin gram neg bacilli 07/02/20 17:19 Aerobic Blood Culture - Preliminary Blood No growth in Aerobic bottle after 48 hours. Anaerobic Blood Culture - Preliminary No growth in Anaerobic bottle after 48 hours. 07/02/20 17:12 Aerobic Blood Culture - Preliminary Blood No growth in Aerobic bottle after 48 hours. Anaerobic Blood Culture - Preliminary No growth in Anaerobic bottle after 48 hours. 07/02/20 19:05 Gram Stain - Final Scrotum Aerobic and Anaerobic Culture - Preliminary Probable jordin gram neg bacilli 07/05/20 07:23 POC Glucose 194 H Electrocardiogram Date: 07/02/20 Findings: + ST @ (114) Possible Left atrial enlargement Borderline ECG When compared with ECG of 26-FEB-2009 03:13, No significant change was found
--- NOTE | 2020-07-05 09:28 | Critical Care Progress Note ---
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 He is remained intubated in the ICU. He is hemodynamically stable and not requiring vasopressor agents. 24-hour events: Hemodynamically stable. Making good amount of urine. 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 Hypomagnesemia being replaced. Patient is supposed to go for debridement today. We will get plastics involved for possible intervention as per urology recommendation Patient is +11 L since coming to the hospital. We will start the patient on Lasix on a daily basis. I have personally spent 41 minutes of critical care time in the direct management of this patient. This is a life/limb threatening event. This includes time spent evaluating patient, direct bedside care, chart review, placing orders, interpretation of diagnostic studies, discussion with consultants, patient, and family members, as well as other required patient management activities. This time is exclusive of all separately billable procedures, and teaching time and separate from and in addition to any other critical care service time. Please note the above document was generated using voice recognition software. It may contain grammatical, syntax or spelling errors. (2) Necrotizing fasciitis: (3) Sepsis: (4) Diabetes mellitus: (5) Renal failure: Admission and Anticipated Discharge Date Admission Date: July 02, 2020 Subjective Patient seen and examined at bedside. No acute distress, no adverse events overnight. Patient was on CPAP at the time of examination. Patient denies any significant pain. Denies any abdominal pain, no nausea vomiting. No chest pain, no shortness of breath. Patient having bowel movements. Review of Systems Review of Systems: All systems reviewed & are unremarkable except as noted in Subjective Physical Exam Physical Exam: Constitutional: No acute distress HEENT: EOMI, PERRLA Respiratory system: Decreased air entry bilaterally, no wheeze, no rhonchi, no crackles CVS: S1-S2 positive, no murmurs or gallops Abdomen: Soft, nontender, nondistended, positive bowel sounds x4, obese Extremities: +2 pulses bilaterally radialis/ dorsalis pedis, no cyanosis, no edema Neuro: Awake alert oriented x3 Psych: Normal mood and affect G/U: Positive Enriquez Skin: no rashes, warm and dry Lymphatic: no cervical or axillary lymphadenopathy Results & Data Results & Data ([facility]) Vital Signs (Past 12 Hours) Vital Signs Temp Pulse Resp BP Pulse Ox 07/05/20 06:30 88 19 95 07/05/20 06:00 87 20 151/88 H 96 07/05/20 05:30 93 H 18 148/94 H 95 07/05/20 05:00 88 20 152/92 H 94 07/05/20 04:30 87 21 144/92 H 97 07/05/20 04:00 37.2 C 86 19 147/88 H 96 07/05/20 03:30 87 14 150/91 H 95 07/05/20 03:00 85 19 150/86 H 96 07/05/20 02:30 88 17 143/85 H 96 07/05/20 02:00 89 17 142/84 H 95 07/05/20 01:30 87 18 157/91 H 94 07/05/20 01:00 86 20 151/90 H 94 07/05/20 00:30 89 17 156/91 H 94 07/05/20 00:00 37.7 C H 91 H 13 161/88 H 93 07/04/20 23:30 92 H 17 146/92 H 97 07/04/20 23:00 95 H 19 165/95 H 95 07/04/20 22:30 97 H 19 95 07/04/20 22:00 96 H 13 93 07/04/20 21:30 94 H 20 154/88 H 93 07/05/20 04:22 07/05/20 04:22 Coding Level of Care Code Critical Care 1st 30-74 mins Diagnoses Admitted to intensive care unit Z78.9 Necrotizing fasciitis M72.6 Sepsis A41.9 Diabetes mellitus E11.9 Renal failure N19 Time Spent (min) 41
[2020-07-05] MEDS ORDERED: FUROSEMIDE 20 MG in SYRINGE 0 ML IV ONE (09:30)
[2020-07-05] MEDS ORDERED: PHARMACY GLYCEMIC MGMT CONSULT PRN (10:20)
[2020-07-05] MEDS ORDERED: INSULIN GLARGINE SOLOSTAR 100 UNITS/ML 3 ML PEN SC ONE (10:30)
--- NOTE | 2020-07-05 10:30 | Hospitalist Progress Note ---
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 POD #2 s/p Irrigation/Debridement and washout of necrotizing fasciitis and gangrene with reconstruction and placement of wound VAC - also by Dr Guy. To OR today for additional debridement and closure by Dr Guy. Wound cultures with group B strep and anaerobes -- continue meropenem IV. Await final results. Blood cultures negative. (2) Necrotizing fasciitis: Scrotum/lower abdominal wall - as above in "Ted's". (3) Sepsis: 2nd to Ted's Gangrene. Continue IV Meropenem. Continue supportive care. Appreciate patient safety coordinator and urology management/assistance. (4) ATN (acute tubular necrosis): YARA 2nd to sepsis-associated ATN. IMPROVING. Cr now 0.87; peak 2.2. Cont supportive care. (5) Acute respiratory failure with hypoxia: 2nd to volume overload in setting of significant volume resuscitation for sepsis/Ted's. Also [facility] ventilation was performed due to multiple surgeries being required. s/p extubation yesterday to NC O2 during the day and nasal CPAP at HS. 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 Creatinine normal today. BMP in am. (7) Goodpastures syndrome: (8) Diabetes mellitus: Holding glipizide, metformin and pioglitazone. Continue basal and bolus insulin with pharmacy managing. (9) Dyslipidemia: Niacin on hold (10) Hypertension: Incrementally resume home meds now that sepsis/hypotension are improved (11) Gout, joint: Resume allopurinol when taking PO (12) Obstructive sleep apnea: nasal CPAP (13) Anemia: some acute blood loss anemia in setting of multiple surgeries for Ted's CBC in am (14) Abdominal distension: severe on exam but patient had multiple BMs overnight. follow carefully. could still be ileus or aerophagia from nasal CPAP. Keep K and mag wnl. (15) DVT prophylaxis: heparin 5000 TID Admission and Anticipated Discharge Date Admission Date: July 02, 2020 Subjective patient resting comfortably on nasal CPAP this am during my rounds. he c/o being thirsty and wanting water. he was quite groggy. he denied chest pain, abd pain. mild scrotal pain. Review of Systems Constitutional: + fatigue Respiratory: no cough and no dyspnea Cardiovascular: no chest pain Gastrointestinal: no abdominal pain, no nausea and no vomiting Physical Exam Constitutional: + morbidly obese; no acute distress and no altered mental status (but sleepy/groggy) ENMT: external ear and nose normal, oropharynx normal Respiratory: normal respiratory effort, lungs clear to auscultation Cardiovascular: Rate/Rhythm: regular rate and regular rhythm Heart Sounds: normal S1 and normal S2; no murmur Vessels: posterior tibial pulses present and dorsalis pedis pulses present; no JVD Extremities: no edema Gastrointestinal (Abdomen): Inspection/Auscultation: + abdomen distended (marked ); + abnormal bowel sounds (decreased ) Percussion/Palpation: + abdomen tender (lower abdomen ); no guarding and no hepatosplenomegaly Skin: evidence of prior debridement lower left abdominal wall, scrotal region; wound vac in place Results & Data Results & Data ([facility]) Vital Signs (Past 12 Hours) Vital Signs Temp Pulse Resp BP Pulse Ox 07/05/20 06:30 88 19 95 07/05/20 06:00 87 20 151/88 H 96 07/05/20 05:30 93 H 18 148/94 H 95 07/05/20 05:00 88 20 152/92 H 94 07/05/20 04:30 87 21 144/92 H 97 07/05/20 04:00 37.2 C 86 19 147/88 H 96 07/05/20 03:30 87 14 150/91 H 95 07/05/20 03:00 85 19 150/86 H 96 07/05/20 02:30 88 17 143/85 H 96 07/05/20 02:00 89 17 142/84 H 95 07/05/20 01:30 87 18 157/91 H 94 07/05/20 01:00 86 20 151/90 H 94 07/05/20 00:30 89 17 156/91 H 94 07/05/20 00:00 37.7 C H 91 H 13 161/88 H 93 07/04/20 23:30 92 H 17 146/92 H 97 07/04/20 23:00 95 H 19 165/95 H 95 Laboratory Results Laboratory Results - last 24 hr 07/04/20 07/04/20 07/04/20 11:33 13:55 16:33 WBC RBC Hgb Hct MCV MCH MCHC RDW Std Deviation RDW Coeff of Sara Plt Count MPV Immature Gran % (Auto) Neut % (Auto) Lymph % (Auto) Bucks % (Auto) Eos % (Auto) Baso % (Auto) Neut # (Auto) Lymph # (Auto) Bucks # (Auto) Eos # (Auto) Baso # (Auto) Immature Gran # (Auto) RBC Morphology Sodium Potassium Chloride Carbon Dioxide Anion Gap BUN Creatinine Est Cr Clr Drug Dosing Est GFR ( Amer) Est GFR (Non-Af Amer) BUN/Creatinine Ratio Glucose POC Glucose 138 H 177 H Calcium Phosphorus Magnesium Total Bilirubin AST ALT Alkaline Phosphatase Total Protein Albumin Globulin Albumin/Globulin Ratio Random Vancomycin 10.9 07/04/20 07/05/20 07/05/20 20:11 04:22 04:22 WBC 9.98 RBC 3.73 L Hgb 11.0 L Hct 33.4 L MCV 89.5 MCH 29.5 MCHC 32.9 RDW Std Deviation 48.0 H RDW Coeff of Sara 14.6 H Plt Count 206 MPV 9.3 Immature Gran % (Auto) 4.9 Neut % (Auto) 68.1 Lymph % (Auto) 18.0 Bucks % (Auto) 7.1 Eos % (Auto) 1.7 Baso % (Auto) 0.2 Neut # (Auto) 6.79 H Lymph # (Auto) 1.80 Bucks # (Auto) 0.71 H Eos # (Auto) 0.17 Baso # (Auto) 0.02 Immature Gran # (Auto) 0.49 H RBC Morphology Unremarkable Sodium 134 L Potassium 3.7 Chloride 103 Carbon Dioxide 24 Anion Gap 7.0 BUN 17 Creatinine 0.87 D Est Cr Clr Drug Dosing 118.7 Est GFR ( Amer) 115.8 Est GFR (Non-Af Amer) 99.9 BUN/Creatinine Ratio 19.3 Glucose 149 H POC Glucose 178 H Calcium 8.1 L Phosphorus 2.7 Magnesium 1.7 L Total Bilirubin 0.7 AST 35 ALT 35 Alkaline Phosphatase 188 H Total Protein 6.1 L Albumin 1.7 L Globulin 4.4 H Albumin/Globulin Ratio 0.4 L Random Vancomycin 07/05/20 07:23 WBC RBC Hgb Hct MCV MCH MCHC RDW Std Deviation RDW Coeff of Sara Plt Count MPV Immature Gran % (Auto) Neut % (Auto) Lymph % (Auto) Bucks % (Auto) Eos % (Auto) Baso % (Auto) Neut # (Auto) Lymph # (Auto) Bucks # (Auto) Eos # (Auto) Baso # (Auto) Immature Gran # (Auto) RBC Morphology Sodium Potassium Chloride Carbon Dioxide Anion Gap BUN Creatinine Est Cr Clr Drug Dosing Est GFR ( Amer) Est GFR (Non-Af Amer) BUN/Creatinine Ratio Glucose POC Glucose 194 H Calcium Phosphorus Magnesium Total Bilirubin AST ALT Alkaline Phosphatase Total Protein Albumin Globulin Albumin/Globulin Ratio Random Vancomycin wound cultures from scrotum - group B strep, gram negative anaerobes blood cultures negative PG Care Time/CCT Total # of Minutes Spent Total Time Spent with Patient: Total time spent is greater than 50% in coordination of care (as documented) at patient's floor/unit and/or counseling patient: Coding Level of Care Code 99119 Subseq Hosp Care Lvl 1 Diagnoses 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
--- NOTE | 2020-07-05 11:24 | Urology Progress Note ---
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 Patient does have wound VAC in place. Discussed options moving forward. Plan will be to consider different options for surgical reconstruction and plans moving forward for further management of wound and further wound care. Major considerations include plans for reconstruction of scrotum and placement of testicle. Discuss further management. Discussed possible interventions. Discussed further reconstruction options. Plan will be to take patient to the OR later today for another washout possible debridement and possible reconstruction. We will plan for wound VAC exchange. Risks and benefits were discussed at length. All questions were answered. Patient and family are in agreement. No concerns or issues. Maintain catheter. (2) Necrotizing fasciitis: (3) Sepsis: Admission and Anticipated Discharge Date Admission Date: July 02, 2020 Subjective Postop day 2 from debridement and washout with closure and wound VAC placement and postop day 3 status post debridement and washout for foreign years gangrene/necrotizing fasciitis. Patient is in ICU. Has been extubated. Is responding appropriately to questions. Is dealing with pain and discomfort. Has been positionally having some issues. Wound VAC is functioning well without leak. Patient had extremely large area debrided in total. The majority of the left mons pubis, perineal, inguinal, and left hemiscrotum. No considerable pain. Patient has not had bowel movement. Is been improving. Blood pressures and vitals are considerably better. Is undergoing broad- spectrum antibiotics. Is bedside with his fiance Discussed shortly different options for reconstruction. Patient and family are cautiously improving. Review of Systems Review of Systems: Limited due to patient's acute illness Physical Exam Physical Exam: General: Alert in no acute distress. Obese chronic Medical issues. HEENT: Normocephalic. Inspection normal. Cranial Nerves 2-12 Grossly intact with some hearing issues. Normal inspection of face. Normal inspection of neck. Psychologic: Normal affect. Baseline issues with memory. Respiratory: Nonlabored. No use of accessory muscles. No tachypnea or dyspnea. Cardiovascular: No tachycardia Skin: [place] and Dry. No rashes or visible lesions. Extremities/Lymphatics: Minor Mobility issues. Slow Gait. Abdomen: Obese and moderately distended. No rebound or guarding. : Wound VAC in place without issues Results & Data ([facility]) Vital Signs (Past 12 Hours) Vital Signs Temp Pulse Resp BP Pulse Ox 10/12/20 06:30 88 19 95 07/05/20 06:00 87 20 151/88 H 96 07/05/20 05:30 93 H 18 148/94 H 95 07/05/20 05:00 88 20 152/92 H 94 07/05/20 04:30 87 21 144/92 H 97 07/05/20 04:00 37.2 C 86 19 147/88 H 96 07/05/20 03:30 87 14 150/91 H 95 07/05/20 03:00 85 19 150/86 H 96 07/05/20 02:30 88 17 143/85 H 96 07/05/20 02:00 89 17 142/84 H 95 07/05/20 01:30 87 18 157/91 H 94 07/05/20 01:00 86 20 151/90 H 94 07/05/20 00:30 89 17 156/91 H 94 07/05/20 00:00 37.7 C H 91 H 13 161/88 H 93 07/04/20 23:30 92 H 17 146/92 H 97 PG Care Time/CCT Total # of Minutes Spent Total Time Spent with Patient: Total time spent is greater than 50% in coordination of care (as documented) at patient's floor/unit and/or counseling patient: Coding Level of Care Code 73911 Subseq Hosp Care Lvl 3 Diagnoses Fourniers gangrene N49.3 Necrotizing fasciitis M72.6 Sepsis A41.9
[2020-07-05] MEDS ORDERED: fentaNYL citrate 100 MCG/2 ML VIAL ONE (12:24)
[2020-07-05] MEDS ORDERED: ONDANSETRON INJ 2 MG/ML 2 ML VIAL ONE (12:24)
[2020-07-05] MEDS ORDERED: LIDOCAINE HCL 2% 2 ML VIAL/AMP(20MG/ML) INFIL ONE (12:24)
[2020-07-05] MEDS ORDERED: MIDAZOLAM HCL 1 MG/ML 2ML VIAL ONE (12:24)
[2020-07-05] MEDS ORDERED: PROPOFOL IV EMULSION 10 MG/ML 20 ML VIAL IV ONE (12:24)
[2020-07-05] MEDS ORDERED: ATROPINE SULFATE 0.1 MG/ML 10ML SYR IV PRN (12:29)
[2020-07-05] MEDS ORDERED: ONDANSETRON INJ 2 MG/ML 2 ML VIAL IV PRN (12:29)
[2020-07-05] MEDS ORDERED: ePHEDrine sulfate 50 MG/ML AMP IV PRN (12:29)
[2020-07-05] MEDS ORDERED: BACITRACIN INJ 50,000 UNIT VIAL ONE (12:34)
--- NOTE | 2020-07-05 13:11 | Surgery Consultation ---
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 Pictures will be taken intraoperatively so Dr. Ozuna can better asses the wound. Will discuss findings with urology following surgery and follow along with patient. Ideally, wound can be partially closed today and wound vac will allow for additional granulation tissue allowing for patient to be a skin graft candidate in the future. (3) Admitted to intensive care unit: (4) Goodpastures syndrome: Supervising Physician Co-Signing Physician Notes Agree with Ms. Haider's history, physical and plan. I personally discussed the case with Dr. Guy, feel that we can adequately reconstruct the patient here locally assuming no critical structures are exposed. Would plan for a wound VAC, followed by split-thickness skin graft in the future to close the wound. Plan was briefly discussed with the patient's fianc and mother at the bedside and will depend on intraoperative findings today. History of Present Illness Attending Physician: Colt is being seen today in consultation regarding Ted's gangrene. He presented to the ED on 07/02/2020 with concerns of an abscess in his left groin area. 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 He has comorbidities of DM, Goodpastures syndrome, TONIE, tobacco use and obesity. The patient was emergently taken to the OR with urology for immediate debridement, washout and wound care. Findings during first debridement include: Gangrene with large necrotic tissue. Total debridement 15.3 cm x 15.2 cm x 8.1 cm. Necrotic tissue along spermatic cord and adductor muscles. Patient was transferred to ICU and kept intubated. He returned to the OR on 07/03 with urology for second washout and debridement. Necrotic tissue found superiorly into the inguinal region, deep along the abductor muscles, laterally on the right to scrotum around base of penis, and inferior/posteriorly along left buttocks. Wound dimensions were triangular configuration with a superior length of 21 cm by laterally 24 cm by oblique along the scrotum 9 cm with a depth of approximately 7 cm. Left testicle is out and covered with dressing. Patient extubated due to intolerance of sedation. He is scheduled to return to the OR today with urology for additional washout and debridement, possible tucking of testicle into right scrotum and replacement of wound vac. He is responsive at bedside but patient's level of pain limits his ability to converse. Allergies Allergy/AdvReac Type Severity Reaction Status Date / Time amoxicillin [From Augmentin] Allergy Severe Anaphylaxis Verified 07/02/20 18:13 clavulanic acid Allergy Severe Anaphylaxis Verified 07/02/20 18:13 [From Augmentin] Home Medications Home Medications Medication Instructions Recorded Confirmed Type lancets #50 ea 05/12/19 04/01/20 History allopurinol 300 mg tablet 300 mg PO DAILY #90 tab 06/30/19 07/02/20 Rx furosemide 40 mg tablet 40 mg PO DAILY PRN #90 tab 06/30/19 07/02/20 Rx indomethacin 50 mg capsule 50 mg PO DAILY PRN #90 cap 06/30/19 07/02/20 Rx losartan 100 1 tab PO DAILY #90 tab 06/30/19 07/02/20 Rx mg-hydrochlorothiazide 25 mg tablet pioglitazone 30 mg tablet 30 mg PO DAILY #90 tab 06/30/19 07/02/20 Rx glipizide 10 mg tablet 10 mg PO BID #180 tab 09/01/19 07/02/20 Rx metformin 1,000 mg tablet 1,000 mg PO BID #180 tab 09/01/19 07/02/20 Rx niacin 1,000 mg tablet,extended 1,000 mg PO DAILY #90 tab 09/01/19 07/02/20 Rx release 24 hr naproxen 500 mg tablet 500 mg PO BID PRN #180 tab 02/25/20 07/02/20 Rx tramadol 50 mg tablet 50 mg PO Q4H PRN #84 tab 04/01/20 07/02/20 Rx blood sugar diagnostic #180 ea 06/28/20 Rx Patient History Medical History Back pain Blurry vision, right eye Chronic kidney disease Diabetes mellitus Dyslipidemia Fourniers gangrene Goodpastures syndrome Gout, joint Hypertension Left lumbosacral radiculopathy Necrotizing fasciitis Obstructive sleep apnea Sepsis Social History Smoking Status: Former smoker Tobacco Type: Cigarettes Do You Dip or Chew Tobacco: No; Hx Alcohol Use: No Hx Substance Use: No Preferred Language: Polish Communication Ability: Unable Whiskey Regauger Required: No Beliefs That Will Affect Care: None Current Living Situation: Significant Other Other Information That Helps Us Care for You: No Feels Safe at Home: Yes Safety Concerns: Feels Safe At This Time Assistive Devices: Oxygen - Continuous Review of Systems Review of Systems: All systems reviewed & are unremarkable except as noted in HPI & below Physical Exam Physical Exam: wound vac in place with significant output in container. Constitutional: WD/WN, vitals as above Skin: no rashes, warm and dry Results & Data ([facility]) Vital Signs (Past 12 Hours) Vital Signs Temp Pulse Pulse Resp BP BP Pulse Ox 07/05/20 12:47 37.1 C 88 20 163/100 H 97 07/05/20 06:30 88 19 95 07/05/20 06:00 87 20 151/88 H 96 07/05/20 05:30 93 H 18 148/94 H 95 07/05/20 05:00 88 20 152/92 H 94 07/05/20 04:30 87 21 144/92 H 97 07/05/20 04:00 37.2 C 86 19 147/88 H 96 07/05/20 03:30 87 14 150/91 H 95 07/05/20 03:00 85 19 150/86 H 96 07/05/20 02:30 88 17 143/85 H 96 07/05/20 02:00 89 17 142/84 H 95 07/05/20 01:30 87 18 157/91 H 94 PG Care Time/CCT Total # of Minutes Spent Total Time Spent with Patient: Total time spent is greater than 50% in coordination of care (as documented) at patient's floor/unit and/or counseling patient: Coding Level of Care Code 79499 Inpt Consult Level 2 Diagnoses Necrotizing fasciitis M72.6 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
[2020-07-05] MEDS ORDERED: HYDROmorphone INJ 2 MG/ML SYR/VIAL ONE (13:18)
[2020-07-05] MEDS ORDERED: LABETALOL HCL IV 5 MG/ML 20ML IV ONE (14:02)
[2020-07-05] MEDS ORDERED: HYDROmorphone INJ 1 MG/ML SYRINGE IV PRN (14:03)
--- NOTE | 2020-07-05 15:35 | Operative Report ---
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 Change of Wound Vac(Not Applicable) - Logan Guy DO Surgeon Logan Guy, II, DO Data Warehousing Engineer None Estimated Blood Loss 5 Findings Consistent with Post-Op Diagnosis Placement of wound VAC. Closure of the scrotum by flap from right hemiscrotum. Closures of left buttocks and perineum. Closure of right mons pubis. Wound dimensions after closure were 17 cm superior x 20 cm lateral by 8 cm deep and 13 cm oblique. The wound tract inferiorly under closure/tissue approximately 12 cm. Along the right scrotum 4 cm. 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 Patient was agreeable. Family who were at bedside also agreeable. Description of Procedure Patient transferred from ICU after discussing consent with the patient as well as the patient's fianc who are both agreeable to proceeding with another look with washout and further debridement and possible reconstruction and VAC exchange/placement. Patient was brought back to the operating room. Patient was intubated and placed under general anesthesia in the supine position. Patient was then placed in dorsal lithotomy. The wound packing and VAC dressings were removed. Patient was prepped and draped in the regular sterile fashion. A time out was completed. Images were taken per the request of the plastic surgeon to assist with reconstruction and planning. Images were taken throughout the pr ocess with final closure images taken. With the time out completed and the patient painted/reprepped with Betadine. The entire wound was assessed. Very minor amounts of necrotic tissue and fibrinous exudate on the borders superior and right laterally and inferiorly/posteriorly were all further debrided. Very minimal dissection was necessary. Deep along the abductor muscles a minimal amount of necrotic tissue was once again appreciated. The tissue resected was sent for pathologic analysis. Washout was then commenced with the Pulsavac and bacitracin solution. At this point no further debridement. Necessary. After final washout. The scrotal tissues as well as the inferior perineal tissue were brought into closer proximity utilizing a 1-0 Vicryl suture. The tissue on the right mons, base of the penis, right scrotum, and midline mons pubis were approximated. The skin around the buttocks was reapproximated as well. These tissues were placed in such a way to be under minimal tension. The right hemiscrotum was then assessed and a dartos fascia pouch was formed. The underlying tissues were bluntly dissected. The testicle was washed out and fully assessed. This was placed inside the formed pouch. The excess inferior of scrotal tissue were then assessed and marked. This was then mobilized and a flap was created to form a scrotal covering. Once placed inside the dartos pouch additional scrotal subcutaneous tissues were also mobilized and the testicle was covered using a running 0 Vicryl. The skin edges of the flap right hemiscrotum were then approximated to the median raphae to allow closure and formation of a scrotal. Subcutaneous and adipose tissue in the mons region was also approximated as a covering along the spermatic cord. Tissue along the base of the penis was also tacked into position. The Catheter which is been replaced with an 20 [place]an silicone was attached drainage and the penis wrapped in Coban. This was done in the sterile fashion and this new catheter was attached to a Enriquez bag. The entire area after closure of the scrotum, right scrotum, perineum, left buttocks, and inferior portion of the inguinal area was further assessed and further imaging was taken. No further necrotic or concerning areas were noted. The wound was measured and as noted above had a triangular shape with dimensions as noted above. The spermatic cord and testicle were assessed and found to be covered and not under any considerable tension. No considerable areas of concern or other bother. The exposed portion of the base of the penis had been wrapped in Adaptic dressing. The deep portions of the wound were then packed with the wound VAC foam. Care was taken to ensure the testicle was completely covered so no testicular or other tissue of the spermatic cord were placed directly against the wound VAC foam. One larger piece and 4 small pieces of the foam tissue were utilized to adequately fill wound. After placement of the wrapping the wound VAC was placed on and small regions of leak or assessed and dealt with. The perineum and tissues around the penis or reinforced with Tegaderms. This allowed a good seal and suction. The wound VAC was then placed on. The patient was further cleaned. Final images were captured after placement of the VAC. The patient was cleaned, aroused from general anesthesia, and transferred to the ICU in stable condition having tolerated the procedure well with no complications. I was present and participated in all aspects of the procedure. I attest to the content of the Intraoperative Record and any orders documented therein. Any exceptions are noted below. I attest to the content of the Intraoperative Record and any orders documented therein. Any exceptions are noted below.
[2020-07-05] MEDS: HYDROmorphone INJ 1 MG/ML SYRINGE IV PRN ×4 (16:05→16:20)
--- NOTE | 2020-07-05 16:16 | Anesthesiology Progress Note ---
Date of Service July 05, 2020 Anesthesia Post Procedure Vital Signs Vital Signs: Temp Pulse Pulse Resp BP BP BP 07/05/20 15:41 36.1 C L 96 H 20 193/119 H 07/05/20 12:47 37.1 C 88 20 163/100 H 07/05/20 06:30 88 19 07/05/20 06:00 87 20 151/88 H 07/05/20 05:30 93 H 18 148/94 H 07/05/20 05:00 88 20 152/92 H 07/05/20 04:30 87 21 144/92 H 07/05/20 04:00 37.2 C 86 19 147/88 H 07/05/20 03:30 87 14 150/91 H 07/05/20 03:00 85 19 150/86 H 07/05/20 02:30 88 17 143/85 H 07/05/20 02:00 89 17 142/84 H 07/05/20 01:30 87 18 157/91 H 07/05/20 01:00 86 20 151/90 H 07/05/20 00:30 89 17 156/91 H 07/05/20 00:00 37.7 C H 91 H 13 161/88 H 07/04/20 23:30 92 H 17 146/92 H 07/04/20 23:00 95 H 19 165/95 H 07/04/20 22:30 97 H 19 07/04/20 22:00 96 H 13 07/04/20 21:30 94 H 20 154/88 H 07/04/20 21:00 89 12 146/91 H 07/04/20 20:30 93 H 20 147/98 H 07/04/20 20:00 37.3 C 88 18 161/93 H 07/04/20 19:30 86 22 07/04/20 19:00 84 18 150/94 H 07/04/20 17:00 94 H 29 H 07/04/20 16:48 96 H 17 170/101 H 07/04/20 16:30 89 13 07/04/20 16:17 37.1 C 86 23 143/89 H Pulse Ox 07/05/20 15:41 98 07/05/20 12:47 97 07/05/20 06:30 95 07/05/20 06:00 96 07/05/20 05:30 95 07/05/20 05:00 94 07/05/20 04:30 97 07/05/20 04:00 96 07/05/20 03:30 95 07/05/20 03:00 96 07/05/20 02:30 96 07/05/20 02:00 95 07/05/20 01:30 94 07/05/20 01:00 94 07/05/20 00:30 94 07/05/20 00:00 93 07/04/20 23:30 97 07/04/20 23:00 95 07/04/20 22:30 95 07/04/20 22:00 93 07/04/20 21:30 93 07/04/20 21:00 97 07/04/20 20:30 95 07/04/20 20:00 97 07/04/20 19:30 96 07/04/20 19:00 95 07/04/20 17:00 92 07/04/20 16:48 95 07/04/20 16:30 100 07/04/20 16:17 99 Pain Intensity Generalized: Pain Intensity: 5 Scrotal: Pain Intensity: 8 Transfer of Care Handoff Completed per policy Notes Mental Status: alert / awake / arousable Patient Amnestic to Procedure: Yes Nausea / Vomiting: adequately controlled Pain: adequately controlled Airway Patency, RR, SpO2: stable & adequate BP & HR: stable & adequate Hydration State: stable & adequate Anesthetic Complications: no major complications apparent
[2020-07-05] MEDS: DOCUSATE SODIUM/SENNA 50/8.6MG TAB PO SCH (18:09)
[2020-07-05] MEDS: INSULIN GLARGINE SOLOSTAR 100 UNITS/ML 3 ML PEN SC SCH (20:30)
[2020-07-05] MEDS: oxyCODONE/ACETAMINOPHEN 5mg/325mg TAB PO PRN (22:27)
[2020-07-05] MEDS ORDERED: LABETALOL HCL IV 5 MG/ML 20ML IV STA (23:03)
[2020-07-06] MEDS: fentaNYL citrate 100 MCG/2 ML VIAL IV PRN (01:04)
[2020-07-06] MEDS ORDERED: hydrALAZINE HCL 20 MG/ML VIAL IV STA (01:58)
[2020-07-06] MEDS: oxyCODONE/ACETAMINOPHEN 5mg/325mg TAB PO PRN ×4 (04:02→21:26)
[2020-07-06 04:33] LABS: Hematocrit (blood only) 35.2 % (42-52); Hemoglobin 11.8 g/dL (14.0-18.0); Mean Corpuscular Hemoglobin 29.9 pg (25-34); Mean Corpuscular Hgb Conc 33.5 g/dL (32-36); Mean Corpuscular Volume 89.1 fL (80-100); Mean Platelet Volume 9.2 fL (7.4-10.4); Platelet Count 196 K/uL (130-400); RDW Coefficient of Variation 14.2 % (11.5-14.5); RDW Standard Deviation 46.5 fL (36.4-46.3); Red Blood Count 3.95 M/uL (4.7-6.1); White Blood Count 12.12 K/uL (4.8-10.8)
[2020-07-06 05:05] LABS: BUN Creatinine Ratio 18.9 (10-20); Calcium 8.5 mg/dl (8.5-10.1); Creatinine Clr Calc Pharmacy 129.7 ml/min; Est GFR (African American) 120.5; Magnesium 1.8 mg/dl (1.8-2.4); Potassium 3.8 mmol/L (3.5-5.1)
[2020-07-06 05:21] LABS: Basophils # (auto) 0.03 K/uL (0-0.2); Basophils % (auto) 0.2 %; Dohle Bodies Occasional; Eosinophils # (auto) 0.15 K/uL (0-0.5); Eosinophils % (auto) 1.2 %; Immature Granulocytes # (auto) 0.82 K/uL (0.00-0.02); Immature Granulocytes % (auto) 6.8 %; Lymphocytes # (auto) 1.76 K/uL (1.2-3.4); Lymphocytes % (auto) 14.5 %; Monocytes # (auto) 0.82 K/uL (0.11-0.59); Monocytes % (auto) 6.8 %; Neutrophils # (auto) 8.54 K/uL (1.4-6.5); Neutrophils % (auto) 70.5 %
[2020-07-06] MEDS: MEROPENEM 500 MG in SYRINGE 0 ML IV SCH ×4 (05:58→23:47)
[2020-07-06] MEDS: HEPARIN SOD 5,000 UNIT/0.5 ML VIAL SQ SCH ×3 (05:59→21:53)
[2020-07-06] MEDS ORDERED: MAGNESIUM SULFATE / D5W 1 GM/100 ML BAG IV ONE (06:07)
[2020-07-06] MEDS: POTASSIUM CHLORIDE / WTR 10 MEQ/100 ML PLCT IV SCH ×2 (06:17→08:01)
[2020-07-06] MEDS ORDERED: POTASSIUM CHLORIDE 20 MEQ TABCR PO ONE (07:45)
[2020-07-06] MEDS ORDERED: FUROSEMIDE 40 MG in SYRINGE 0 ML IV ONE (07:45)
[2020-07-06] MEDS: INSULIN GLARGINE SOLOSTAR 100 UNITS/ML 3 ML PEN SC SCH ×2 (08:04→21:52)
[2020-07-06] MEDS: DOCUSATE SODIUM/SENNA 50/8.6MG TAB PO SCH (08:04)
[2020-07-06] MEDS: INSULIN ASPART 100 UNITS/ML 3 ML PEN SC SCH ×4 (08:08→21:51)
--- NOTE | 2020-07-06 09:13 | Critical Care Progress Note ---
Date of Service July 06, 2020 Assessment & Plan (1) Admitted to intensive care unit: Impression: 50-year-old diabetic with history of Goodpasture syndrome admitted with Ted's gangrene status post extensive debridement last night. He is remained intubated in the ICU. He is hemodynamically stable and not requiring vasopressor agents. 24-hour events: Hemodynamically stable. Making good amount of urine. --Sepsis Secondary to Ted's gangrene Status post debridement by urology Continue with antibiotics meropenem Wound VAC in place Plastics to be consulted Pain management --TONIE Patient compliant with CPAP --Diabetes type 2 Continue with ICU hypoglycemic protocol --History of Goodpasture syndrome --Morbid obesity --Prophylaxis VTE: Heparin GI: None Lines: Peripheral Diet: Cardiac Plan: In/out: -2.2 L, urine output 4.4 L Magnesium and potassium being replaced. We will give another dose of Lasix today. Patient is hemodynamically stable to be sent to a medical floor today. Resume patient's antihypertensive medications. Please note the above document was generated using voice recognition software. It may contain grammatical, syntax or spelling errors. (2) Necrotizing fasciitis: (3) Sepsis: (4) Diabetes mellitus: (5) Renal failure: Admission and Anticipated Discharge Date Admission Date: July 02, 2020 Subjective Patient seen and examined at bedside. No acute distress, no adverse events overnight. Patient was again taken to the OR on 07/05/2020 debridement and changing of wound VAC Patient denies any significant pain. No shortness of breath, no chest pain, no nausea or vomiting. He has good appetite, good bowel movements. Patient has been hypertensive. Review of Systems Review of Systems: All systems reviewed & are unremarkable except as noted in Subjective Physical Exam Physical Exam: Constitutional: No acute distress HEENT: EOMI, PERRLA Respiratory system: Decreased air entry bilaterally, no wheeze, no rhonchi, no crackles CVS: S1-S2 positive, no murmurs or gallops Abdomen: Soft, nontender, nondistended, positive bowel sounds x4, obese Extremities: +2 pulses bilaterally radialis/ dorsalis pedis, no cyanosis, no edema Neuro: Awake alert oriented x3 Psych: Normal mood and affect G/U: Positive Enriquez, wound VAC in place Skin: no rashes, warm and dry Lymphatic: no cervical or axillary lymphadenopathy Results & Data Results & Data ([facility] Vital Signs (Past 12 Hours) Vital Signs Temp Pulse Resp BP Pulse Ox 07/06/20 08:52 88 11 L 144/101 H 98 07/06/20 08:30 96 H 12 98 07/06/20 08:00 89 25 H 93 07/06/20 07:57 36.5 C 07/06/20 07:52 82 16 173/97 H 98 07/06/20 07:30 88 21 96 07/06/20 07:00 87 26 H 95 07/06/20 06:00 87 22 178/99 H 95 07/06/20 05:30 89 21 95 07/06/20 05:00 95 H 19 165/92 H 94 07/06/20 04:30 96 H 18 95 07/06/20 04:00 90 22 151/88 H 95 07/06/20 03:30 87 21 96 07/06/20 03:00 86 19 146/85 H 97 07/06/20 02:30 87 16 95 07/06/20 02:00 85 17 185/107 H 94 07/06/20 01:30 87 17 94 07/06/20 01:00 86 20 171/101 H 96 07/06/20 00:30 83 15 95 07/06/20 00:00 37.7 C H 86 17 164/104 H 96 07/05/20 23:30 86 16 92 07/05/20 23:00 94 H 16 181/108 H 94 07/05/20 22:30 97 H 18 97 07/05/20 22:00 94 H 19 159/94 H 95 07/05/20 21:30 95 H 18 94 07/06/20 04:21 07/06/20 04:21 Coding Level of Care Code 64402 Subseq Hosp Care Lvl 3 Diagnoses Admitted to intensive care unit Z78.9 Necrotizing fasciitis M72.6 Sepsis A41.9 Diabetes mellitus E11.9 Renal failure N19
[2020-07-06] MEDS ORDERED: LOSARTAN POTASSIUM 50 MG TAB PO ONE (09:45)
--- NOTE | 2020-07-06 10:00 | Urology Progress Note ---
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: Has been to the operating room 3 times now for treatment Seems to be progressing appropriately Incisions/dressings holding suction, no signs of expanding or recurring infection Continue supportive care, ultimately will likely require additional surgery for closure/wound VAC changes Admission and Anticipated Discharge Date Admission Date: July 02, 2020 Subjective He reports he is feeling somewhat better today Still with significant discomfort He reports he also was not particularly ambulatory prior to this hospitalization and fears that he will be completely incapacitated after the surgeries Tolerated return to the OR well yesterday Physical Exam Physical Exam: Inspection of his perineum/scrotum reveals a VAC holding suction, no surrounding erythema or crepitus Scrotal closure appears to be holding appropriately and healing appropriately Somewhat tender, no skin discoloration, no purulent drainage No skin sloughing Results & Data ([facility]) Vital Signs (Past 12 Hours) Vital Signs Temp Pulse Resp BP Pulse Ox 07/06/20 08:52 88 11 L 144/101 H 98 07/06/20 08:30 96 H 12 98 07/06/20 08:00 89 25 H 93 07/06/20 07:57 36.5 C 07/06/20 07:52 82 16 173/97 H 98 07/06/20 07:30 88 21 96 07/06/20 07:00 87 26 H 95 07/06/20 06:00 87 22 178/99 H 95 07/06/20 05:30 89 21 95 07/06/20 05:00 95 H 19 165/92 H 94 07/06/20 04:30 96 H 18 95 07/06/20 04:00 90 22 151/88 H 95 07/06/20 03:30 87 21 96 07/06/20 03:00 86 19 146/85 H 97 07/06/20 02:30 87 16 95 07/06/20 02:00 85 17 185/107 H 94 07/06/20 01:30 87 17 94 07/06/20 01:00 86 20 171/101 H 96 07/06/20 00:30 83 15 95 07/06/20 00:00 37.7 C H 86 17 164/104 H 96 07/05/20 23:30 86 16 92 07/05/20 23:00 94 H 16 181/108 H 94 07/05/20 22:30 97 H 18 97 07/05/20 22:00 94 H 19 159/94 H 95 PG Care Time/CCT Total # of Minutes Spent Total Time Spent with Patient: Total time spent is greater than 50% in coordination of care (as documented) at patient's floor/unit and/or counseling patient: Coding Level of Care Code 15542 Subseq Hosp Care Lvl 2 Diagnoses 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
[2020-07-06] MEDS ORDERED: PHARMACY GLYCEMIC MGMT CONSULT PRN (10:23)
--- NOTE | 2020-07-06 10:47 | Pharmacy Report ---
Pharmacy Glycemic Short Note 2 - Date of Service July 06, 2020 - Glycemic Short BSG Results (Last 24 hours): 07/05/20 07/05/20 07/05/20 11:55 15:50 20:25 Glucose POC Glucose 201 H 162 H 185 H 07/06/20 07/06/20 07/06/20 04:21 06:26 07:38 Glucose 177 H POC Glucose 234 H 214 H OUTPATIENT ANTIDIABETIC REGIMEN: * Glipizide 10mg PO BID * Metformin 1gm PO BID * Pioglitazone 30mg PO daily * A1c = 8.2% 07/03/20 ASSESSMENT: * Type 2 diabetic admitted with Ted's gangrene requiring extensive debridement x 3 and IV abx therapy * Patient's last debridement yesterday * BSGs have been trending up over the last 48 hrs, however pt's diet has also advanced * Fasting BSGs > 180 yesterday prompting addition of basal insulin. Fasting BSG 214 this AM with 25 units basal on board. I am told however that the patient was given ice cream last evening. Regardless, will titrate basal insulin upwards but dose BID per scale using weight and moderate-severe stress levels. Novolog doses will also be adjusted, again based upon weight and mod-severe stress level PLAN FOR INPATIENT GLYCEMIC CONTROL: * Hold outpatient oral diabetes medications (glipizide, metformin, pioglitazone) * Basal insulin * Lantus, give 10 units x 1 w/ next BSG check then SQ BID per scale: * 0 units if BSG less than 110 * 10 units if BSG 110-139 * 20 units if BSG 140-200 * 25 units if BSG greater than 200 * Bolus insulin * NovoLog per scale ACHS or Q6hrs while NPO * Goal Range: Low 110 mg/dL - High 140 mg/dL * Correction Factor: 20 mg/dL/unit * Nutritional / Prandial insulin per carb ratio of 1 unit per 7 grams CHO consumed PLAN FOR DISCHARGE: * to be determined.
[2020-07-06] MEDS ORDERED: INSULIN GLARGINE SOLOSTAR 100 UNITS/ML 3 ML PEN SC ONE (11:30)
--- NOTE | 2020-07-06 20:24 | Hospitalist Progress Note ---
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 POD #2 s/p Irrigation/Debridement and washout of necrotizing fasciitis and gangrene with reconstruction and placement of wound VAC - also by Dr Guy. POD #1 s/p Scrotal Debridement and Washout with Complex closure and creation of dartos pouch with flap from right hemiscrotum. Change of Wound Vac - Dr Guy. Continue meropenem IV. Blood cultures negative. Likely to need additional debridement and other procedures later on. (2) Necrotizing fasciitis: Scrotum/lower abdominal wall - as above in "Ted's". s/p 3 debridement procedures as noted above. (3) Sepsis: 2nd to Ted's Gangrene. Improving. Continue IV Meropenem. Continue supportive care. Appreciate battery charger tester and urology management/assistance. (4) ATN (acute tubular necrosis): YARA 2nd to sepsis-associated ATN. Resolved. Cr now 0.7; peak 2.2. (5) Acute respiratory failure with hypoxia: 2nd to volume overload in setting of significant volume resuscitation for sepsis/Ted's. Also [facility] ventilation was performed due to multiple surgeries being required. s/p extubation 07/04/20. Stable in RA. Using Nasal CPAP for sleep (chronic, uses at home). 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 Creatinine normal again today. BMP in am. (7) Goodpastures syndrome: Goodpasture's syndrome/CKD. Known diagnosis. (8) Diabetes mellitus: Holding glipizide, metformin and pioglitazone. Continue basal and bolus insulin with pharmacy managing. appreciate their assistance. (9) Dyslipidemia: Niacin on hold (10) Hypertension: Resume losartan. Add metoprolol 25mg BID. (11) Gout, joint: Resume allopurinol. (12) Obstructive sleep apnea: nasal CPAP (13) Anemia: some acute blood loss anemia in setting of multiple surgeries for Ted's Hb 11.8 and stable. CBC am. (14) Abdominal distension: much improved. moving bowels. no emesis. (15) DVT prophylaxis: heparin 5000 TID spoke with battery charger tester - ok to d/c ICU status and move to PCU spoke with pt's significant other by phone, gave update today Admission and Anticipated Discharge Date Admission Date: July 02, 2020 Subjective patient c/o pain in operative sites. otherwise breathing is comfortable. using his nasal CPAP for naps/sleep. no chest pain. moving bowels. no nausea. eating w/o difficulty. tele normal overnight. Review of Systems Constitutional: + fatigue; no fever Respiratory: no cough and no dyspnea Cardiovascular: no chest pain Gastrointestinal: as per Subjective / HPI and + abdominal pain; no nausea, no vomiting, no constipation and no diarrhea/loose stools Physical Exam Constitutional: + morbidly obese; no acute distress and no altered mental sta tus ENMT: external ear and nose normal, oropharynx normal Respiratory: normal respiratory effort, lungs clear to auscultation Auscultation: + diminished lung sounds (right base only ) Cardiovascular: Rate/Rhythm: regular rate and regular rhythm Heart Sounds: normal S1 and normal S2; no murmur Vessels: posterior tibial pulses present and dorsalis pedis pulses present; no JVD Extremities: no edema Gastrointestinal (Abdomen): Inspection/Auscultation: + abdomen distended (much improved today ); + abnormal bowel sounds (decreased ) Percussion/Palpation: + abdomen tender (LLQ near the operative sites ); no guarding and no hepatosplenomegaly Skin: areas of skin debridement in left groin extending onto the left scrotum; wound vac in place Psychiatric: Orientation: alert and oriented x 3 Results & Data Results & Data ([facility]) Vital Signs (Past 12 Hours) Vital Signs Temp Pulse Pulse Resp BP BP Pulse Ox 07/06/20 18:00 91 H 24 98 07/06/20 17:52 94 H 25 H 156/115 H 99 07/06/20 17:00 96 H 13 97 07/06/20 16:56 93 H 16 152/102 H 97 07/06/20 16:00 88 21 96 07/06/20 15:52 85 20 178/111 H 97 07/06/20 15:43 36.6 C 85 22 159/94 H 96 07/06/20 15:00 87 19 97 07/06/20 14:52 89 10 L 159/94 H 98 07/06/20 14:00 87 21 97 07/06/20 13:52 88 18 150/105 H 96 07/06/20 13:00 88 9 L 97 07/06/20 12:52 89 12 165/102 H 97 07/06/20 12:06 37.3 C 90 18 150/97 H 96 07/06/20 12:00 96 H 17 97 07/06/20 11:52 93 H 21 147/98 H 97 07/06/20 11:27 93 H 16 150/97 H 96 07/06/20 11:25 89 16 183/114 H 97 07/06/20 11:00 97 H 21 97 07/06/20 10:52 91 H 17 163/62 H 98 07/06/20 10:00 91 H 19 97 07/06/20 09:52 88 13 157/95 H 98 07/06/20 09:00 91 H 10 L 99 07/06/20 08:52 88 11 L 144/101 H 98 07/06/20 08:30 96 H 12 98 Laboratory Results Laboratory Results - last 24 hr 07/05/20 07/06/20 07/06/20 20:25 04:21 04:21 WBC 12.12 H RBC 3.95 L Hgb 11.8 L Hct 35.2 L MCV 89.1 MCH 29.9 MCHC 33.5 RDW Std Deviation 46.5 H RDW Coeff of Sara 14.2 Plt Count 196 MPV 9.2 Immature Gran % (Auto) 6.8 Neut % (Auto) 70.5 Lymph % (Auto) 14.5 [place] % (Auto) 6.8 Eos % (Auto) 1.2 Baso % (Auto) 0.2 Neut # (Auto) 8.54 H Lymph # (Auto) 1.76 [place] # (Auto) 0.82 H Eos # (Auto) 0.15 Baso # (Auto) 0.03 Immature Gran # (Auto) 0.82 H Dohle Bodies Occasional Sodium 131 L Potassium 3.8 Chloride 98 Carbon Dioxide 26 Anion Gap 7.0 BUN 15 Creatinine 0.79 Est Cr Clr Drug Dosing 129.7 Est GFR ( Amer) 120.5 Est GFR (Non-Af Amer) 104.0 BUN/Creatinine Ratio 18.9 Glucose 177 H POC Glucose 185 H Calcium 8.5 Magnesium 1.8 07/06/20 07/06/20 07/06/20 06:26 07:38 11:30 WBC RBC Hgb Hct MCV MCH MCHC RDW Std Deviation RDW Coeff of Sara Plt Count MPV Immature Gran % (Auto) Neut % (Auto) Lymph % (Auto) [place] % (Auto) Eos % (Auto) Baso % (Auto) Neut # (Auto) Lymph # (Auto) [place] # (Auto) Eos # (Auto) Baso # (Auto) Immature Gran # (Auto) Dohle Bodies Sodium Potassium Chloride Carbon Dioxide Anion Gap BUN Creatinine Est Cr Clr Drug Dosing Est GFR ( Amer) Est GFR (Non-Af Amer) BUN/Creatinine Ratio Glucose POC Glucose 234 H 214 H 193 H Calcium Magnesium 07/06/20 16:18 WBC RBC Hgb Hct MCV MCH MCHC RDW Std Deviation RDW Coeff of Sara Plt Count MPV Immature Gran % (Auto) Neut % (Auto) Lymph % (Auto) [place] % (Auto) Eos % (Auto) Baso % (Auto) Neut # (Auto) Lymph # (Auto) [place] # (Auto) Eos # (Auto) Baso # (Auto) Immature Gran # (Auto) Dohle Bodies Sodium Potassium Chloride Carbon Dioxide Anion Gap BUN Creatinine Est Cr Clr Drug Dosing Est GFR ( Amer) Est GFR (Non-Af Amer) BUN/Creatinine Ratio Glucose POC Glucose 166 H Calcium Magnesium wound cultures - group B strep; Prevotella; Peptoniphilus asaccharolyticus blood cultures negative PG Care Time/CCT Total # of Minutes Spent Total Time Spent with Patient: Total time spent is greater than 50% in coordination of care (as documented) at patient's floor/unit and/or counseling patient: Coding Level of Care Code 46205 Subseq Hosp Care Lvl 3 Diagnoses 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
[2020-07-06] MEDS: METOPROLOL TARTRATE 25 MG TAB PO SCH (21:49)
[2020-07-06] MEDS: LACTOBACILLUS ACIDOPHILUS (FLORANEX) TAB PO SCH (21:52)
[2020-07-06] MEDS: allopurinoL 300 MG TAB PO SCH (21:53)
[2020-07-06] MEDS: propofoL 1,000 MG/100 ML VIAL IV SCH (22:32)
[2020-07-06] MEDS: CLINDAMYCIN 900 MG in DEXTROSE 5% 50 ML IV SCH (22:33)
[2020-07-07 05:06] LABS: Hematocrit (blood only) 36.6 % (42-52); Hemoglobin 12.2 g/dL (14.0-18.0); Mean Corpuscular Hemoglobin 29.6 pg (25-34); Mean Corpuscular Hgb Conc 33.3 g/dL (32-36); Mean Corpuscular Volume 88.8 fL (80-100); Mean Platelet Volume 9.6 fL (7.4-10.4); Platelet Count 217 K/uL (130-400); RDW Standard Deviation 45.8 fL (36.4-46.3); Red Blood Count 4.12 M/uL (4.7-6.1); White Blood Count 12.51 K/uL (4.8-10.8)
[2020-07-07 05:34] LABS: BUN Creatinine Ratio 20.6 (10-20); Calcium 8.5 mg/dl (8.5-10.1); Creatinine Clr Calc Pharmacy 131.8 ml/min; Est GFR (African American) 121.8; Est GFR (Non-African American) 105.1; Magnesium 1.8 mg/dl (1.8-2.4); Potassium 3.7 mmol/L (3.5-5.1)
[2020-07-07] MEDS: HEPARIN SOD 5,000 UNIT/0.5 ML VIAL SQ SCH ×3 (06:34→21:05)
[2020-07-07] MEDS: MEROPENEM 500 MG in SYRINGE 0 ML IV SCH ×3 (06:35→17:21)
[2020-07-07] MEDS: LOSARTAN POTASSIUM 50 MG TAB PO SCH (09:02)
[2020-07-07] MEDS: METOPROLOL TARTRATE 25 MG TAB PO SCH (09:03)
[2020-07-07] MEDS: INSULIN GLARGINE SOLOSTAR 100 UNITS/ML 3 ML PEN SC SCH ×2 (09:03→21:02)
[2020-07-07] MEDS: LACTOBACILLUS ACIDOPHILUS (FLORANEX) TAB PO SCH ×3 (09:03→17:21)
[2020-07-07] MEDS: allopurinoL 300 MG TAB PO SCH (09:03)
[2020-07-07] MEDS: FUROSEMIDE 40 MG TAB PO SCH (09:03)
[2020-07-07] MEDS: INSULIN ASPART 100 UNITS/ML 3 ML PEN SC SCH ×4 (09:04→21:04)
[2020-07-07] MEDS: DOCUSATE SODIUM/SENNA 50/8.6MG TAB PO SCH (09:05)
[2020-07-07] MEDS: METOPROLOL TARTRATE 50 MG TAB PO SCH ×2 (09:19→21:03)
--- NOTE | 2020-07-07 09:34 | Urology Progress Note ---
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 - Pt has been to the operating room three times for treatment - Seems to be progressing appropriately - Incisions/dressings appropriate, holding suction - Continue pain management and supportive care - Make NPO at midnight for procedure tomorrow - Plan for washout, debridement and wound VAC exchange tomorrow with Dr. Mullins ps - Will continue to monitor Admission and Anticipated Discharge Date Admission Date: July 02, 2020 Subjective Pt examined at bedside this AM. Appears comfortable. Sleeping with nasal CPAP in place. Arouses to speech. No issues overnight. Offers no complaints at present. Reports some pain in operative sites, 3/10 at present. Utilizing PO Percocet with moderate relief, last dose last evening. Tolerating Enriquez catheter. Enriquez intact, patent, draining clear yellow urine. No nausea or vomiting. Appetite good. Bowel movement this AM. No fever or chills. Chart review: Afebrile. WBC 12.51, Creatinine 0.77, Hgb 12.2. On IV Meropenem. Review of Systems Constitutional: as per Subjective / HPI Gastrointestinal: as per Subjective / HPI Genitourinary: + as per Subjective / HPI Physical Exam Constitutional: + obese and comfortable; no acute distress Respiratory: able to speak in complete sentences; no respiratory distress and no labored breathing Nasal CPAP in place Cardiovascular: Extremities: no pedal edema Gastrointestinal (Abdomen): Inspection/Auscultation: abdomen normal to inspection; abdomen not distended Percussion/Palpation: abdomen soft; abdomen nontender Musculoskeletal: Head/Neck/Chest: normocephalic and head atraumatic Skin: warm and dry Genitourinary: Wound VAC intact, holding suction, no significant surrounding erythema or crepitus Some tenderness to palpation, no significant skin discoloration, no purulent drainage Results & Data ([facility]) Vital Signs (Past 12 Hours) Vital Signs Temp Pulse Pulse Resp BP 07/07/20 08:12 37.2 C 90 20 166/110 H 07/07/20 08:00 80 07/06/20 23:59 80 PG Care Time/CCT Total # of Minutes Spent Total Time Spent with Patient: Total time spent is greater than 50% in coordination of care (as documented) at patient's floor/unit and/or counseling patient: Coding Level of Care Code 74384 Subseq Hosp Care Lvl 3 Diagnoses 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
[2020-07-07] MEDS: oxyCODONE/ACETAMINOPHEN 5mg/325mg TAB PO PRN ×2 (09:35→17:30)
--- NOTE | 2020-07-07 11:03 | Pharmacy Report ---
Pharmacy Glycemic Short Note 2 - Date of Service July 07, 2020 - Glycemic Short BSG Results (Last 24 hours): 07/06/20 07/06/20 07/06/20 11:30 16:18 21:47 Glucose POC Glucose 193 H 166 H 171 H 07/07/20 07/07/20 04:32 07:33 Glucose 163 H POC Glucose 178 H OUTPATIENT ANTIDIABETIC REGIMEN: * Glipizide 10mg PO BID * Metformin 1gm PO BID * Pioglitazone 30mg PO daily * A1c = 8.2% 07/03/20 ASSESSMENT: 07/07 * 53 units SQ insulin administered over the last 24 hrs. Patient has been eating poorly. * Fasting BSG 163-178 this AM with 45 units basal insulin on board - will continue with similar Lantus scale today as we have not yet achieved steady- state and with poor PO intake his basal needs may decrease. Of note, he will be NPO after midnight for return to OR tomorrow. Will reassess Lantus dose tomorrow AM. * Post-prandial BSGs well controlled with current Novolog CF/CR - no change 07/06 * Type 2 diabetic admitted with Ted's gangrene requiring extensive debridement x 3 and IV abx therapy * Patient's last debridement yesterday * BSGs have been trending up over the last 48 hrs, however pt's diet has also advanced * Fasting BSGs > 180 yesterday prompting addition of basal insulin. Fasting BSG 214 this AM with 25 units basal on board. I am told however that the patient was given ice cream last evening. Regardless, will titrate basal insulin upwards but dose BID per scale using weight and moderate-severe stress levels. Novolog doses will also be adjusted, again based upon weight and mod-severe stress level PLAN FOR INPATIENT GLYCEMIC CONTROL: * Hold outpatient oral diabetes medications (glipizide, metformin, pioglitazone) * Basal insulin * Lantus SQ BID per scale: * 0 units if BSG less than 110 * 10 units if BSG 110-139 * 20 units if BSG 140-180 * 25 units if BSG greater than 180 * Bolus insulin * NovoLog per scale ACHS or Q6hrs while NPO * Goal Range: Low 110 mg/dL - High 140 mg/dL * Correction Factor: 20 mg/dL/unit * Nutritional / Prandial insulin per carb ratio of 1 unit per 7 grams CHO consumed PLAN FOR DISCHARGE: * to be determined.
[2020-07-07] MEDS ORDERED: amLODIPine BESYLATE 5 MG TAB PO ONE (19:27)
--- NOTE | 2020-07-07 19:39 | Hospitalist Progress Note ---
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 POD #4 s/p Irrigation/Debridement and washout of necrotizing fasciitis and gangrene with reconstruction and placement of wound VAC - also by Dr Guy. POD #2 s/p Scrotal Debridement and Washout with Complex closure and creation of dartos pouch with flap from right hemiscrotum. Change of Wound Vac - Dr Guy. Continue meropenem IV. Blood cultures negative. Wound cx with group B strep and anaerobes. Back to OR tomorrow with Dr Guy for additional debridement and exchange of wound vac. Formal wound care consult placed as well. Will f/u with [facility] about final selection of abx. (2) Necrotizing fasciitis: Scrotum/lower abdominal wall - as above in "Ted's". s/p 3 debridement procedures as noted above. Back to OR tomorrow for additional debridement. (3) Sepsis: 2nd to Ted's Gangrene. sepsis resolved. Continue IV Meropenem. Continue supportive care. Appreciate urology management/assistance. (4) ATN (acute tubular necrosis): YARA 2nd to sepsis-associated ATN. Resolved. Cr 0.7 today. Peak 2.2. BMP am for stability. (5) Acute respiratory failure with hypoxia: RESOLVED. 2nd to volume overload in setting of significant volume resuscitation for sepsis/Ted's. [facility] surgeries being required. s/p extubation 07/04/20. Stable in RA. Using Nasal CPAP for sleep (chronic, uses at home). 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 Creatinine normal again today. BMP in am. (7) Goodpastures syndrome: Goodpasture's syndrome/CKD. Known diagnosis. (8) Diabetes mellitus: Holding glipizide, metformin and pioglitazone. Continue basal and bolus insulin with pharmacy managing. appreciate their assistance. Mildly uncontrolled; pharmacy adjusting insulins. (9) Dyslipidemia: Niacin on hold (10) Hypertension: Uncontrolled. Increase metoprolol to 50mg BID. May need CCB as well. Cont losartan and lasix. (11) Gout, joint: Cont allopurinol. (12) Obstructive sleep apnea: nasal CPAP (13) Anemia: some mild acute blood loss anemia in setting of multiple surgeries for Ted's Hb 12.2 today and stable. (14) Abdominal distension: improved. moving bowels. no emesis. no evidence of ileus. (15) Morbid obesity with BMI of 40.0-44.9, adult: BMI 44.1 (16) DVT prophylaxis: heparin 5000 TID PT/OT evaluations spoke with pt's significant other and mother at bedside today - update with plan of care given tele status Admission and Anticipated Discharge Date Admission Date: July 02, 2020 Subjective patient's significant other and mother were at bedside during the visit. he was awake and answering questions. no new complaints today. continued soreness in left pelvic region and scrotum. if he moves wrong in bed he gets pain. no dyspnea. no orthopnea. ongoing use of CPAP for TONIE. eating ok without any nausea. has not been out of bed since hospital admission. Review of Systems Constitutional: + fatigue; no fever and no chills Respiratory: no cough and no dyspnea Cardiovascular: no chest pain Gastrointestinal: as per Subjective / HPI and + abdominal pain; no nausea and no vomiting Physical Exam 2 Constitutional: + morbidly obese; no acute distress and no altered mental status ENMT: external ear and nose normal, oropharynx normal Respiratory: normal respiratory effort, lungs clear to auscultation Cardiovascular: Rate/Rhythm: regular rate and regular rhythm Heart Sounds: normal S1 and normal S2; no murmur Vessels: posterior tibial pulses present and dorsalis pedis pulses present; no JVD Extremities: no edema Gastrointestinal (Abdomen): Inspection/Auscultation: + abdomen distended (no change from prior exam) and normal bowel sounds Percussion/Palpation: + abdomen tender (LLQ near the operative sites ); no guarding and no hepatosplenomegaly Skin: erythema over left groin extending onto left scrotum; wound vac in place Psychiatric: Orientation: alert and oriented x 3 Results & Data Results & Data ([facility]) Vital Signs (Past 12 Hours) Vital Signs Temp Pulse Pulse Resp BP Pulse Ox 07/07/20 18:00 86 20 163/108 H 95 07/07/20 16:00 37.4 C 80 82 20 150/108 H 96 07/07/20 14:04 78 160/96 H 07/07/20 12:00 37.2 C 80 78 22 155/99 H 96 07/07/20 08:12 37.2 C 90 20 166/110 H 07/07/20 08:00 80 Laboratory Results Laboratory Results - last 24 hr 07/06/20 07/06/20 07/07/20 21:40 21:47 04:32 WBC 12.51 H RBC 4.12 L Hgb 12.2 L Hct 36.6 L MCV 88.8 MCH 29.6 MCHC 33.3 RDW Std Deviation 45.8 RDW Coeff of Sara 14.0 Plt Count 217 MPV 9.6 Sodium Potassium Chloride Carbon Dioxide Anion Gap BUN Creatinine Est Cr Clr Drug Dosing Est GFR ( Amer) Est GFR (Non-Af Amer) BUN/Creatinine Ratio Glucose POC Glucose 171 H Calcium Magnesium Stl C. diff Tox B Gene Negative Cdiff Gene 07/07/20 07/07/20 07/07/20 04:32 07:33 11:11 WBC RBC Hgb Hct MCV MCH MCHC RDW Std Deviation RDW Coeff of Sara Plt Count MPV Sodium 133 L Potassium 3.7 Chloride 99 Carbon Dioxide 29 Anion Gap 5.0 BUN 16 Creatinine 0.77 Est Cr Clr Drug Dosing 131.8 Est GFR ( Amer) 121.8 Est GFR (Non-Af Amer) 105.1 BUN/Creatinine Ratio 20.6 H Glucose 163 H POC Glucose 178 H 210 H Calcium 8.5 Magnesium 1.8 Stl C. diff Tox B Gene 07/07/20 15:45 WBC RBC Hgb Hct MCV MCH MCHC RDW Std Deviation RDW Coeff of Sara Plt Count MPV Sodium Potassium Chloride Carbon Dioxide Anion Gap BUN Creatinine Est Cr Clr Drug Dosing Est GFR ( Amer) Est GFR (Non-Af Amer) BUN/Creatinine Ratio Glucose POC Glucose 178 H Calcium Magnesium Stl C. 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
[2020-07-08] MEDS: MEROPENEM 500 MG in SYRINGE 0 ML IV SCH ×4 (00:06→17:48)
[2020-07-08 05:24] LABS: BUN Creatinine Ratio 22.2 (10-20); Calcium 8.5 mg/dl (8.5-10.1); Creatinine Clr Calc Pharmacy 126.9 ml/min; Est GFR (African American) 119.9; Est GFR (Non-African American) 103.4; Potassium 3.3 mmol/L (3.5-5.1)
[2020-07-08] MEDS: HEPARIN SOD 5,000 UNIT/0.5 ML VIAL SQ SCH ×3 (06:09→20:30)
[2020-07-08] MEDS: FUROSEMIDE 40 MG TAB PO SCH ×2 (08:36→16:29)
[2020-07-08] MEDS: METOPROLOL TARTRATE 50 MG TAB PO SCH ×2 (08:36→20:31)
[2020-07-08] MEDS: allopurinoL 300 MG TAB PO SCH (08:36)
[2020-07-08] MEDS: LOSARTAN POTASSIUM 50 MG TAB PO SCH (08:37)
[2020-07-08] MEDS: INSULIN ASPART 100 UNITS/ML 3 ML PEN SC SCH ×4 (08:37→20:35)
[2020-07-08] MEDS: INSULIN GLARGINE SOLOSTAR 100 UNITS/ML 3 ML PEN SC SCH ×2 (08:38→20:35)
[2020-07-08] MEDS: DOCUSATE SODIUM/SENNA 50/8.6MG TAB PO SCH (08:38)
[2020-07-08] MEDS: LACTOBACILLUS ACIDOPHILUS (FLORANEX) TAB PO SCH ×2 (08:39→13:19)
[2020-07-08] MEDS: POTASSIUM CHLORIDE / WTR 10 MEQ/100 ML PLCT IV SCH ×3 (08:49→16:29)
--- NOTE | 2020-07-08 09:05 | Urology Progress Note ---
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 No major changes or issues. Is improving over time. No major changes or problems. Is tolerating broad- spectrum antibiotics and close monitoring. Has been been to the OR 3 times for washouts and debridements. Plan is to take back for further reconstruction, washout, possible debridement, and replacement of VAC. We will be planning to coordinate further with plastic surgery to plan further reconstruction and possible grafting. Risks and benefits of albumin discussed at length. Risks and benefits discussed at length for procedure. These include bleeding, infection, injury to surrounding tissues or organs, and risks associated with anesthesia. Patient states understanding and agrees to proceed. Will sign consent and schedule. Admission and Anticipated Discharge Date Admission Date: July 02, 2020 Subjective Patient with 4 years gangrene status post debridement and washout with reconstruction. Will be set up for fourth washout later today. No major changes or issues. Patient has been improving overall. Patient had severe sepsis at admission with respiratory failure and multiorgan issues. Patient has improved. Kidney functions improving. Patient is tolerating catheterization. He is tolerating wound VAC. Is tolerating diet but is n.p.o. for procedure later today. Review of Systems Review of Systems: All systems reviewed & are unremarkable except as noted in HPI & below Physical Exam Physical Exam: General: Alert in no acute distress. HEENT: Normocephalic Atraumatic. Inspection normal. Cranial Nerves 2-12 Grossly intact. Normal inspection of face. Normal inspection of neck. Psychologic: Normal affect. Respiratory: Nonlabored. No use of accessory muscles. No tachypnea or dyspnea. Cardiovascular: No tachycardia Skin: [place] and Dry. No rashes or visible lesions. Extremities/Lymphatics: No edema Abdomen: Soft Non-distended. No rebound or guarding. Obese : Wound VAC in place without issues. Silicone catheter in place. 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
--- NOTE | 2020-07-08 09:20 | Hospitalist Progress Note ---
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 POD #5 s/p Irrigation/Debridement and washout of necrotizing fasciitis and gangrene with reconstruction and placement of wound VAC - also by Dr Guy. POD #3 s/p Scrotal Debridement and Washout with Complex closure and creation of dartos pouch with flap from right hemiscrotum. Change of Wound Vac - Dr Guy. Continue meropenem IV. Blood cultures negative. Wound cx with group B strep and anaerobes. To OR today with Dr Guy for additional debridement and exchange of wound vac. Wound care following for assistance with wound vac. Will contact [facility] today about final selection of abx, length of IV abx, when to switch to PO abx, etc. (2) Necrotizing fasciitis: Scrotum/lower abdominal wall - as above in "Ted's". s/p 3 debridement procedures as noted above. To OR today for additional debridement. (3) Sepsis: 2nd to Ted's Gangrene. sepsis resolved. Continue IV Meropenem. Appreciate urology management/assistance. (4) ATN (acute tubular necrosis): YARA 2nd to sepsis-associated ATN. Resolved. Cr 0.9 today. Peak 2.2. (5) Acute respiratory failure with hypoxia: RESOLVED. 2nd to volume overload in setting of significant volume resuscitation for sepsis/Ted's. Also [facility] ventilation was performed due to multiple surgeries being required over short period of time. s/p extubation 07/04/20. Stable in RA. Using Nasal CPAP for sleep (chronic, uses at home). 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 Creatinine stable. YARA resolved. (7) Goodpastures syndrome: Goodpasture's syndrome/CKD. Known diagnosis. (8) Diabetes mellitus: Holding glipizide, metformin and pioglitazone. Continue basal and bolus insulin with pharmacy managing. Improved control last 24 hours. (9) Dyslipidemia: Niacin on hold (10) Hypertension: Cont metoprolol to 50mg BID. Cont losartan and lasix. Added 5mg of norvasc last pm. Cont such at HS each night. BPs improving. (11) Gout, joint: Cont allopurinol. No flares. (12) Obstructive sleep apnea: nasal CPAP (13) Anemia: mild acute blood loss anemia in setting of multiple surgeries for Ted's. H/H stable last few days. (14) Abdominal distension: with diarrhea. recheck c diff toxin. some of the distension may be aerophagia from frequent use of nasal CPAP. (15) Morbid obesity with BMI of 40.0-44.9, adult: BMI 42.1 (16) Hypokalemia: 2nd to lasix and diarrhea. KCL 10meq IV x 3 riders. BMP in am. mag 07/07 1.8. recheck mag in am. (17) DVT prophylaxis: heparin 5000 TID PT/OT evaluations requested on 07/07 spoke with pt's significant other and mother at bedside 07/07 - updated with plan of care cont tele status Admission and Anticipated Discharge Date Admission Date: July 02, 2020 Subjective during the visit patient was receiving IV KCL. c/o burning at the site. nursing states he has had 5 liquid stools this am alone. pt denies dyspnea. no abd pain. NPO for further debridement today. Review of Systems Constitutional: + fatigue; no fever Respiratory: no cough and no dyspnea Cardiovascular: no chest pain Gastrointestinal: + diarrhea/loose stools; no abdominal pain and no nausea Physical Exam Constitutional: + morbidly obese; no acute distress and no altered mental status ENMT: Mouth: + oral mucosal abnormality (suspected thrush plaques ) and + dry oral mucous membranes Respiratory: normal respiratory effort, lungs clear to auscultation Cardiovascular: Rate/Rhythm: regular rate and regular rhythm Heart Sounds: normal S1 and normal S2; no murmur Vessels: posterior tibial pulses present and dorsalis pedis pulses present; no JVD Extremities: no edema Gastrointestinal (Abdomen): Inspection/Auscultation: + abdomen distended (worse relative to 07/07 exam); + abnormal bowel sounds (high pitched ) Percussion/Palpation: abdomen nontender, no guarding and no hepatosplenomegaly Skin: wound vac in place left groin; resolving erythema left groin/left scrotum Psychiatric: Orientation: alert and oriented x 3 Results & Data Results & Data ([facility]) Vital Signs (Past 12 Hours) Vital Signs Temp Pulse Pulse Resp BP BP Pulse Ox 07/07/20 19:38 36.8 C 86 0 L 158/104 H 96 07/07/20 18:00 86 20 163/108 H 95 07/07/20 16:00 37.4 C 80 82 20 150/108 H 96 07/07/20 14:04 78 160/96 H 07/07/20 12:00 37.2 C 80 78 22 155/99 H 96 Intake and Output 07/07/20 07/08/20 07/08/20 22:59 06:59 14:59 Output Total 875 / 1932 Balance -875 / -1432 Output: Urine Amount (Catheter) 875 / 1575 Enriquez/Indwelling 875 / 1575 Other: Weight 116.5 kg 111.3 kg Weight Measurement Method Built in [facility] Laboratory Results Laboratory Results - last 24 hr 07/07/20 07/07/20 07/07/20 11:11 15:45 21:01 Sodium Potassium Chloride Carbon Dioxide Anion Gap BUN Creatinine Est Cr Clr Drug Dosing Est GFR ( Amer) Est GFR (Non-Af Amer) BUN/Creatinine Ratio Glucose POC Glucose 210 H 178 H 163 H Calcium 07/08/20 07/08/20 04:28 07:30 Sodium 134 L Potassium 3.3 L Chloride 99 Carbon Dioxide 30 Anion Gap 5.0 BUN 18 Creatinine 0.80 Est Cr Clr Drug Dosing 126.9 Est GFR ( Amer) 119.9 Est GFR (Non-Af Amer) 103.4 BUN/Creatinine Ratio 22.2 H Glucose 150 H POC Glucose 150 H Calcium 8.5 repeat wound cx 07/03 with [facility] - pending previous cultures - group B strep; anaerobes PG Care Time/CCT Total # of Minutes Spent Total Time Spent with Patient: Total time spent is greater than 50% in coordination of care (as documented) at patient's floor/unit and/or counseling patient: Coding Level of Care Code 92769 Subseq Hosp Care Lvl 2 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
[2020-07-08] MEDS ORDERED: fentaNYL citrate 100 MCG/2 ML VIAL ONE ×2 (10:22→12:04)
[2020-07-08] MEDS ORDERED: PROPOFOL IV EMULSION 10 MG/ML 20 ML VIAL IV ONE ×2 (10:22→13:40)
[2020-07-08] MEDS ORDERED: LIDOCAINE HCL 2% 2 ML VIAL/AMP(20MG/ML) INFIL ONE (10:22)
[2020-07-08] MEDS ORDERED: MIDAZOLAM HCL 1 MG/ML 2ML VIAL ONE (10:23)
[2020-07-08] MEDS: NYSTATIN SUSP 500,000 U/5 ML UDC PO SCH ×4 (10:33→20:30)
--- NOTE | 2020-07-08 10:48 | Pharmacy Report ---
Pharmacy Glycemic Short Note 2 - Date of Service July 08, 2020 - Glycemic Short BSG Results (Last 24 hours): 07/07/20 07/07/20 07/07/20 11:11 15:45 21:01 Glucose POC Glucose 210 H 178 H 163 H 07/08/20 07/08/20 04:28 07:30 Glucose 150 H POC Glucose 150 H OUTPATIENT ANTIDIABETIC REGIMEN: * Glipizide 10mg PO BID * Metformin 1gm PO BID * Pioglitazone 30mg PO daily * A1c = 8.2% 07/03/20 ASSESSMENT: 07/08 * BSGs well controlled over last 24 hrs, only one > 180 * 53 units SQ insulin administered over the last 24 hrs, and again he has been eating very little * Fasting BSG 150 this AM with 40 units basal on board - will continue same Lantus scale. OK to admin 20 units this AM despite NPO status as pt still required correctional insulin over last 24 hrs despite basal that was administ ered while essentially NPO. 07/07 * 53 units SQ insulin administered over the last 24 hrs. Patient has been eating poorly. * Fasting BSG 163-178 this AM with 45 units basal insulin on board - will con tinue with similar Lantus scale today as we have not yet achieved steady-state and with poor PO intake his basal needs may decrease. Of note, he will be NPO after midnight for return to OR tomorrow. Will reassess Lantus dose tomorrow AM. 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 Fasting BSG 214 this AM with 25 units basal on board. I am told however that the patient was given ice cream last evening. Regardless, will titrate basal insulin upwards but dose BID per scale using weight and moderate-severe stress levels. Novolog doses will also be adjusted, again based upon weight and mod-severe stress level PLAN FOR INPATIENT GLYCEMIC CONTROL: * Hold outpatient oral diabetes medications (glipizide, metformin, pioglitazone) * Basal insulin * Lantus SQ BID per scale: * 0 units if BSG less than 110 * 10 units if BSG 110-139 * 20 units if BSG 140-180 * 25 units if BSG greater than 180 * Bolus insulin * NovoLog per scale ACHS or Q6hrs while NPO * Goal Range: Low 110 mg/dL - High 140 mg/dL * Correction Factor: 15 mg/dL/unit * Nutritional / Prandial insulin per carb ratio of 1 unit per 5 grams CHO consumed PLAN FOR DISCHARGE: * to be determined.
[2020-07-08] MEDS ORDERED: BACITRACIN INJ 50,000 UNIT VIAL ONE (11:07)
--- NOTE | 2020-07-08 11:28 | Anesthesiology Consultation ---
Date of Service July 08, 2020 Assessment & Plan (1) Encounter for pre-operative examination: Chart Review Chart Review: Acceptable Risk for Surgery and Patient NOT seen in Pre Admission Testing Consults Requested none ASA ASA4 Proposed Anesthesia Anesthesia Type: General Risk / Benefits Reviewed With: PT / POA / Parent / Guardian, Accepts Plan and Informed Consent Obtained History Surgery Operation Date: 07/02/20 19:00 Proposed Procedures p Orchiectomy Inguinal Radical - Logan Guy DO Operation Date: 07/03/20 18:00 Proposed Procedures p Orchiectomy Inguinal Radical - Logan Guy DO Operation Date: 07/05/20 08:05 Proposed Procedures p Scrotal Debridement and Washout with Change of Wound Vac - Logan Guy DO Operation Date: 07/08/20 11:05 Proposed Procedures p Washout and Debridement and Wound Vac Exchange Groin Area - Logan Guy DO Height/Weight Height: 5 ft 4 in Weight: 111.3 kg Allergies Allergy/AdvReac Type Severity Reaction Status Date / Time amoxicillin [From Augmentin] Allergy Severe Anaphylaxis Verified 07/02/20 18:13 clavulanic acid Allergy Severe Anaphylaxis Verified 07/02/20 18:13 [From Augmentin] Medications Home Medications Medication Instructions Recorded Confirmed Last Taken lancets #50 ea 05/12/19 04/01/20 Unknown furosemide 40 mg tablet 40 mg PO DAILY PRN #90 tab 06/30/19 07/02/20 Unknown indomethacin 50 mg capsule 50 mg PO DAILY PRN #90 cap 06/30/19 07/02/20 Unknown losartan 100 1 tab PO DAILY #90 tab 06/30/19 07/02/20 Unknown mg-hydrochlorothiazide 25 mg tablet pioglitazone 30 mg tablet 30 mg PO DAILY #90 tab 06/30/19 07/02/20 Unknown glipizide 10 mg tablet 10 mg PO BID #180 tab 09/01/19 07/02/20 Unknown metformin 1,000 mg tablet 1,000 mg PO BID #180 tab 09/01/19 07/02/20 Unknown niacin 1,000 mg tablet,extended 1,000 mg PO DAILY #90 tab 09/01/19 07/02/20 Unknown release 24 hr naproxen 500 mg tablet 500 mg PO BID PRN #180 tab 02/25/20 07/02/20 Unknown tramadol 50 mg tablet 50 mg PO Q4H PRN #84 tab 04/01/20 07/02/20 Unknown blood sugar diagnostic #180 ea 06/28/20 Unknown allopurinol 300 mg tablet 300 mg PO DAILY #90 tab 07/06/20 Unknown Active Medications Generic Name Dose Route Start Last Admin Trade Name Freq PRN Reason Stop Dose Admin Allopurinol 300 mg 07/06/20 21:00 07/08/20 08:36 Allopurinol 300 Mg Tab PO 08/05/20 20:59 300 mg DAILY MITZI Administration Furosemide 40 mg 07/07/20 09:00 07/07/20 09:03 Furosemide 40 Mg Tab PO 07/09/20 09:01 40 mg DAILY MITZI Administration Heparin Sodium (Porcine) 5,000 units 07/04/20 14:00 07/08/20 06:09 Heparin Sod 5,000 Unit/0.5 Ml Vial SQ 08/03/20 13:59 5,000 units Q8 MITIZ Administration Hydrocortisone 1 appln 07/04/20 20:05 07/04/20 20:31 Hydrocortisone 1% Crm 30 Gm Tube EXT 08/03/20 20:04 1 appln BID PRN Administration Rash Meropenem 500 mg/ Syringe 10 mls @ 2 mls/min 07/04/20 10:00 07/08/20 06:09 IV 07/10/20 09:59 2 mls/min Q6H MITZI Administration Protocol Potassium Chloride 10 meq in 100 mls @ 100 mls/hr 07/08/20 08:45 07/08/20 10:33 K Seun / Wtr IV 07/08/20 11:44 100 mls/hr Q1H MITZI Administration Insulin Aspart 0 units 07/04/20 21:00 07/08/20 08:37 Insulin Aspart 100 Units/Ml 3 Ml Pen SC 08/03/20 20:59 1 units ACHS MITZI Administration Protocol Insulin Glargine 0 units 07/05/20 21:00 07/08/20 08:38 Insulin Glargine Solostar 100 Units/Ml 3 Ml Pen SC 08/04/20 20:59 20 units BID MITZI Administration Protocol Lactobacillus Acidophilus 4 tab 07/06/20 21:00 07/08/20 08:39 Lactobacillus Acidophilus (Floranex) Tab PO 07/08/20 13:00 Not Given TIDM MITZI Losartan Potassium 100 mg 07/07/20 09:00 07/08/20 08:37 Losartan Potassium 50 Mg Tab PO 08/06/20 08:59 100 mg QAM MITZI Administration Metoprolol Tartrate 50 mg 07/07/20 09:00 07/08/20 08:36 Metoprolol Tartrate 50 Mg Tab PO 08/06/20 08:59 50 mg BID MITZI Administration Nystatin 5 ml 07/08/20 09:30 07/08/20 10:33 Nystatin Susp 500,000 U/5 Ml Udc PO 07/18/20 09:29 Not Given QID MITZI Oxycodone/Acetaminophen 1 tab 07/04/20 10:19 07/07/20 17:30 Oxycodone/Acetaminophen 5mg/325mg Tab PO 07/18/20 10:18 1 tab Q4H PRN Administration Pain Senna/Docusate Sodium 1 tab 07/05/20 18:00 07/08/20 08:38 Docusate Sodium/Senna 50/8.6mg Tab PO 08/04/20 17:59 Not Given QAM MITZI NPO Date Last Intake of Fluids: 07/08/20 Time Last Intake of Fluids: 00:01 Date Last Intake of Solids: 07/08/20 Time Last Intake of Solids: 00:01 Past Medical History Medical History Back pain Blurry vision, right eye Chronic kidney disease Diabetes mellitus Dyslipidemia Fourniers gangrene Goodpastures syndrome Gout, joint Hypertension Left lumbosacral radiculopathy Necrotizing fasciitis Obstructive sleep apnea Sepsis Exercise / Class Metabolic Activity III < 4 Walking/Shop/Light housework Past Surgical History Surgical History History of orchiectomy Past Anesthesia History No Hx of Anesthesia Complications History of PONV No Hx of PONV Social History Smoking Status: Former smoker tobacco type: cigarettes Do You Dip or Chew Tobacco: No Hx Alcohol Use: No Hx Substance Use: No Review of Systems Positive for diarrhea Physical Exam Vital Signs Last Vital Signs Temp 36.8 C 07/07/20 19:38 Pulse 86 07/07/20 19:38 Resp 0 L 07/07/20 19:38 BP 158/104 H 07/07/20 19:38 Pulse Ox 96 07/07/20 19:38 Constitutional + morbidly obese ENMT Mouth: no TMJ abnormality and oral opening not small Thyromental Distance: < 3.5 Finger Breadths Mallampati Class: II Neck normal visual inspection and + facial hair; neck extension not limited Respiratory normal respiratory effort Auscultation: lungs clear to auscultation bilaterally Cardiovascular Rate/Rhythm: regular rate and regular rhythm Heart Sounds: no murmur Neurologic moves all extremities Psychiatric Orientation: alert and oriented x 3 Testing Laboratory Results 07/07/20 04:32 07/08/20 04:28 PT 11.5 Seconds (9.0-12.0) 07/02/20 17:12 INR 1.1 (0.9-1.1) 07/02/20 17:12 APTT 34.2 Seconds (21.0-31.0) H 07/02/20 17:12 Hemoglobin A1c 8.2 % (4.5-5.6) H 07/03/20 04:25 Urine Color [place] 07/03/20 04:18 Urine Appearance Turbid (Clear) A 07/03/20 04:18 Urine pH 5.0 (4.5-7.5) 07/03/20 04:18 Ur Specific [place] 1.030 (1.000-1.030) 07/03/20 04:18 Urine Protein 2+ (Negative) H 07/03/20 04:18 Urine Glucose (UA) Negative (Negative) 07/03/20 04:18 Urine Ketones Trace (Negative) H 07/03/20 04:18 Urine Nitrite Positive (Negative) A 07/03/20 04:18 Ur Leukocyte Esterase 1+ (Negative) H 07/03/20 04:18 Urine WBC (Auto) 10-30 /hpf (0-5) H 07/03/20 04:18 Urine RBC (Auto) 10-30 /hpf (0-4) H 07/03/20 04:18 U Hyaline Cast (Auto) 1-5 /lpf (0-5) 07/03/20 04:18 U Epithel Cells (Auto) >30 /lpf (0-5) H 07/03/20 04:18 Urine Bacteria (Auto) Negative (Negative) 07/03/20 04:18 Blood Type A Positive 07/02/20 19:24 Antibody Screen NEGATIVE 07/02/20 19:24 07/02/20 17:19 Aerobic Blood Culture - Final Blood No growth in Aerobic bottle after 5 days. Anaerobic Blood Culture - Final No growth in Anaerobic bottle after 5 days. 07/02/20 17:12 Aerobic Blood Culture - Final Blood No growth in Aerobic bottle after 5 days. Anaerobic Blood Culture - Final No growth in Anaerobic bottle after 5 days. 07/02/20 19:41 Gram Stain - Final Scrotum Aerobic and Anaerobic Culture - Final Group B Beta Strep Prevotella disiens Peptoniphilus asaccharolyticus Prevotella species 07/03/20 Unknown Gram Stain - Final Scrotum Aerobic and Anaerobic Culture - Preliminary Pin-point growth present, reincubating. 07/03/20 Unknown Gram Stain - Final Scrotum Aerobic and Anaerobic Culture - Preliminary Gram positive cocci 07/02/20 19:05 Gram Stain - Final Scrotum Aerobic and Anaerobic Culture - Preliminary Prevotella disiens 07/03/20 04:18 Urine Culture - Final Urine,Clean Catch No growth - less than 1,000 colonies/mL. 07/08/20 07:30 POC Glucose 150 H Electrocardiogram Date: 07/02/20 Findings: + ST @ (114) Possible Left atrial enlargement Borderline ECG When compared with ECG of 26-FEB-2009 03:13, No significant change was found Chest X-Ray Date: 07/02/20 Findings: + NAD
[2020-07-08] MEDS ORDERED: ePHEDrine sulfate 50 MG/ML AMP IV PRN (11:44)
[2020-07-08] MEDS ORDERED: ONDANSETRON INJ 2 MG/ML 2 ML VIAL IV PRN (11:44)
[2020-07-08] MEDS ORDERED: ATROPINE SULFATE 0.1 MG/ML 10ML SYR IV PRN (11:44)
[2020-07-08] MEDS ORDERED: HYDROmorphone INJ 1 MG/ML SYRINGE IV PRN (11:44)
[2020-07-08] MEDS ORDERED: fentaNYL citrate 100 MCG/2 ML VIAL IV PRN (11:44)
[2020-07-08] MEDS ORDERED: HYDROmorphone INJ 2 MG/ML SYR/VIAL ONE (12:05)
[2020-07-08] MEDS ORDERED: PHENYLEPHRINE HCL 10 MG/ML VIAL ONE (12:24)
[2020-07-08] MEDS ORDERED: ONDANSETRON INJ 2 MG/ML 2 ML VIAL ONE (12:24)
--- NOTE | 2020-07-08 14:19 | Operative Report ---
PG Post Operative Report Pre & Post Diagnosis Operation Date: 07/08/20 11:05 Pre-Op Diagnosis: Ted's gangrene status post washout, debridement and wound VAC Post-Op Diagnosis: Ted's gangrene status post washout, debridement and wound VAC I identified the patient and participated in the time-out.: Yes Procedure Operation Date: 07/08/20 11:05 Actual Procedures p Washout, Debridement, Reconstruction, and Wound Vac Exchange Groin Area(Not Applicable) - Logan Guy, Surgeon Logan Guy, II, DO Tuber Machine Cutter ANASTASIIA Rehman and Meliza, PAC Estimated Blood Loss 5 Findings Consistent with Post-Op Diagnosis Recurrence of necrotic tissue on the left buttocks region purulent draining material. Deep necrotic tissue still along adductor muscles. Specimens Debrided necrotic tissue. Drains Wound VAC with 2 vacuum tubings 1 inferior/posterior and the other 1 anterior. Left dartos pouch 10 Trinidadian drain. Right penoscrotal junction 10 Trinidadian drain Anesthesia Type General Complications none Disposition Disposition: Recovery Room Indications Ted's gangrene with need for wash out and wound dressing change. Risks and benefits had been discussed at length. Description of Procedure Patient transferred from ICU after discussing consent with the patient as well as the patient's fianc and mother who are both agreeable to proceeding with washout and further debridement and possible further reconstruction and VAC placement/exchange. Patient was brought back to the operating room. Patient was intubated and placed under general anesthesia in the supine position. Patient was then placed in dorsal lithotomy. The wound packing and dressings were removed. Patient was prepped and draped in the regular sterile fashion. A time out was completed. With the time out completed and the patient painted/reprepped with Betadine. The entire wound was assessed. Necrotic tissue with purulent drainage was noted on the wound in the inferior portion along the left buttocks. Feculent material appeared to have contaminated the dressing. This was opened and drained and necrotic tissue was resected. The entire area was washed out. Tissue was resected to clean and bleeding tissue. This area was washed a second time. This was opened further. To allow full drainage. No areas of tracking was noted. No other areas of concern were noted. Moving anteriorly no tracking or signs of infectious material. Deep within the wound along the adductor muscles additional necrotic tissue was resected away. Minimal tissue was resected. No major or concerning lesions or other areas were noted. This area was also washed out. The right penoscrotal region was further assessed and reconstructed. A 10 Trinidadian flat drain was placed in this region and tissues were closed. The reconstructed scrotum was then also assessed. The spermatic cord was then completely covered at this point. The testicle was well covered and placed within the dartos pouch with the flapped tissue covering and appearing to be healthy without issue. This was further closed. The area was then further assessed and reconstructed. A additional 10 Trinidadian flat drain was placed in the dartos pouch and set to drainage. Washout was then commenced with the Pulsavac device and bacitracin solution. The entire area was then assessed. No concerning areas. No major issues or problems. Images were captured for assessment and planning for future reconstruction of management. The LAYLA drains were set to drainage. The wound bed was assessed a final time. A 20 Trinid[place] Enriquez catheter had been exchange at the very beginning of the case. This was done in the sterile fashion and this new catheter was attached to a Enriquez bag. Two pieces of the wound VAC foam were placed in the inguinal wound. These were positioned. After placement of the wrapping the wound VAC was placed on and small regions of leak or assessed and dealt with. A second area of the recently debrided left buttocks was washed out a final time. A wound VAC was placed over this as well. The small bridging/tunneling region connecting the 2 was connected utilizing the piece of foam placed within the inferior wound. This was set to its own vacuum drainage tubing. These were connected in tandem. The perineum and tissues around the penis or reinforced with Tegaderms. This allowed a good seal and suction. The wound VAC was then placed on. The patient was further cleaned. The patient was cleaned, aroused from general anesthesia and converted to a sedation anesthesia, and transferred to the ICU in stable condition having tolerated the procedure well with no complications. I was present and participated in all aspects of the procedure. I attest to the content of the Intraoperative Record and any orders documented therein. Any exceptions are noted below. Assistance from the plastic surgery advance care practitioner ROLAND Haider as well as from the urology nurse practitioner Guera LAURENT. Both assisted with significant portions including the washout, resection, wound VAC placement, and management. I attest to the content of the Intraoperative Record and any orders documented therein. Any exceptions are noted below.
[2020-07-08] MEDS ORDERED: LABETALOL HCL IV 5 MG/ML 20ML IV ONE (14:36)
[2020-07-08] MEDS ORDERED: LABETALOL HCL IV 5 MG/ML 20ML IV PRN (14:44)
--- NOTE | 2020-07-08 16:03 | Anesthesiology Progress Note ---
Date of Service July 08, 2020 Anesthesia Post Procedure Vital Signs Vital Signs: Temp Pulse Pulse Resp BP BP Pulse Ox 07/08/20 15:40 94 H 16 165/104 H 93 07/08/20 15:30 91 H 16 142/99 H 93 07/08/20 15:23 36.4 C L 92 H 18 166/101 H 94 07/08/20 14:45 94 H 18 139/93 92 07/08/20 14:35 92 H 16 168/126 H 91 07/08/20 14:25 93 H 18 161/101 H 100 07/08/20 14:19 36.2 C L 85 16 159/103 H 100 07/08/20 11:31 37.0 C 77 20 144/88 H 99 07/07/20 19:38 36.8 C 86 0 L 158/104 H 96 07/07/20 18:00 86 20 163/108 H 95 Pain Intensity Generalized: Pain Intensity: 5 Scrotal: Pain Intensity: 4 Transfer of Care Handoff Completed per policy Notes Mental Status: alert / awake / arousable and see notes below Patient Amnestic to Procedure: Yes Nausea / Vomiting: adequately controlled Pain: adequately controlled Airway Patency, RR, SpO2: stable & adequate BP & HR: stable & adequate Hydration State: stable & adequate Anesthetic Complications: no major complications apparent and Pt Satisfied with anesthetic care Notes: The patient was combative to the PACU nurses upon wakening. He told them not to put oxygen on and to leave him alone. The patient was eventually calmed down and agreed to receive oxygen by nasal cannula. He had some hypertension that was treated with labetalol. The patient's vital signs are now stable. He is now more awake and cooperative. He will be monitored overnight in the ICU.
[2020-07-08] MEDS: oxyCODONE/ACETAMINOPHEN 5mg/325mg TAB PO PRN ×2 (16:28→20:39)
--- NOTE | 2020-07-08 19:21 | XRay Report ---
KUB HISTORY: severe abd distension; ileus? COMPARISON: Abdomen and pelvis CT 07/02/2020. FINDINGS: Mild gaseous distention of the stomach. Mildly dilated gas-filled loops of large or small b owel seen within the abdomen. The small bowel is primarily located within the deep pelvis and measure s up to 3.2 cm in diameter. The colon measures up to 8.5 cm in diameter. No renal calculi. No ureter al calculi. No pneumoperitoneum or pneumatosis. IMPRESSION: Mildly dilated gas-filled loops of large and small bowel seen within the abdomen. This favors an ileu s. ACT 112: Negative or not required by law. Electronically signed by: Froilan Lugo M.D. 07/08/2020 7:20 PM
[2020-07-08] MEDS: amLODIPine BESYLATE 5 MG TAB PO SCH (20:31)
[2020-07-09] MEDS: MEROPENEM 500 MG in SYRINGE 0 ML IV SCH ×4 (01:08→18:46)
[2020-07-09] MEDS: HYDROmorphone INJ 0.5 MG/0.5 ML SYR IV PRN ×2 (05:26→10:27)
[2020-07-09] MEDS: HEPARIN SOD 5,000 UNIT/0.5 ML VIAL SQ SCH ×3 (05:26→21:19)
[2020-07-09] MEDS: INSULIN ASPART 100 UNITS/ML 3 ML PEN SC SCH ×4 (08:44→21:22)
[2020-07-09] MEDS: INSULIN GLARGINE SOLOSTAR 100 UNITS/ML 3 ML PEN SC SCH ×2 (08:48→21:23)
[2020-07-09] MEDS: NYSTATIN SUSP 500,000 U/5 ML UDC PO SCH ×4 (08:49→21:18)
[2020-07-09] MEDS: DOCUSATE SODIUM/SENNA 50/8.6MG TAB PO SCH (08:49)
[2020-07-09] MEDS: LOSARTAN POTASSIUM 50 MG TAB PO SCH (08:49)
[2020-07-09] MEDS: allopurinoL 300 MG TAB PO SCH (08:50)
[2020-07-09] MEDS: METOPROLOL TARTRATE 50 MG TAB PO SCH ×2 (08:50→21:18)
[2020-07-09] MEDS: ADVANCED PROBIOTIC 1250 MG CAPSULE PO SCH (08:50)
[2020-07-09] MEDS: FUROSEMIDE 40 MG TAB PO SCH (08:50)
[2020-07-09 09:02] LABS: Hemoglobin 11.8 g/dL (14.0-18.0); Mean Corpuscular Hemoglobin 29.6 pg (25-34); Mean Corpuscular Hgb Conc 32.8 g/dL (32-36); Mean Corpuscular Volume 90.2 fL (80-100); Mean Platelet Volume 9.8 fL (7.4-10.4); Platelet Count 237 K/uL (130-400); RDW Standard Deviation 46.3 fL (36.4-46.3); Red Blood Count 3.99 M/uL (4.7-6.1); White Blood Count 11.91 K/uL (4.8-10.8)
[2020-07-09] MEDS: oxyCODONE/ACETAMINOPHEN 5mg/325mg TAB PO PRN (09:10)
[2020-07-09 09:28] LABS: Basophils # (auto) 0.02 K/uL (0-0.2); Basophils % (auto) 0.2 %; Eosinophils # (auto) 0.19 K/uL (0-0.5); Eosinophils % (auto) 1.6 %; Immature Granulocytes # (auto) 0.66 K/uL (0.00-0.02); Immature Granulocytes % (auto) 5.5 %; Monocytes # (auto) 0.71 K/uL (0.11-0.59); Neutrophils # (auto) 8.43 K/uL (1.4-6.5); Neutrophils % (auto) 70.7 %
[2020-07-09 09:32] LABS: BUN Creatinine Ratio 17.9 (10-20); Calcium 8.5 mg/dl (8.5-10.1); Creatinine Clr Calc Pharmacy 116.3 ml/min; Est GFR (African American) 116.4; Est GFR (Non-African American) 100.4; Magnesium 1.9 mg/dl (1.8-2.4); Potassium 3.5 mmol/L (3.5-5.1)
[2020-07-09] MEDS ORDERED: TPN/PPN CONSULT PHARMACY PRN (10:28)
--- NOTE | 2020-07-09 10:29 | Hospitalist Progress Note ---
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 POD #6 s/p Irrigation/Debridement and washout of necrotizing fasciitis and gangrene with reconstruction and placement of wound VAC - also by Dr Guy. POD #4 s/p Scrotal Debridement and Washout with Complex closure and creation of dartos pouch with flap from right hemiscrotum. Change of Wound Vac - Dr Guy. POD #1 s/p Washout, Debridement, Reconstruction, and Wound Vac Exchange Groin Area - Dr Guy. Continue meropenem IV. Blood cultures negative. Wound cx with group B strep and anaerobes. Wound care following for assistance with wound vac - this will be taken off today for inspection of wound. [facility] consult obtained today. Recs per ID attending: * cont IV meropenem while hospitalized * "Anticipate total 7-14 days of abx therapy from final debridement, depending on the degree of residual soft tissue infection. May transition to clindamycin 300 mg po tid (or linezolid 600 mg po bid) and Metronidazole 500 mg po tid to cover the identified organisms when patient is ready to be discharged." (2) Necrotizing fasciitis: Scrotum/lower abdominal wall - as above in "Ted's". s/p 4 debridement procedures as noted above. Wound vac is now a silver foam wound VAC as recommended by wound care nurse & plastics. Plastics does not feel he needs to be transferred to tertiary care at this time. Hyperbaric Oxygen treatment also deferred. See note from plastics today. (3) Sepsis: 2nd to Ted's Gangrene. sepsis resolved. Continue IV Meropenem. Appreciate urology management/assistance. Appreciate [facility] ID consult. Appreciate Wound care team. Appreciate plastics consult. (4) ATN (acute tubular necrosis): YARA 2nd to sepsis-associated ATN. Resolved. Cr 0.8 today. Peak 2.2. BMP am. (5) Acute respiratory failure with hypoxia: RESOLVED. 2nd to volume overload in setting of significant volume resuscitation for sepsis/Ted's. Also [facility] ventilation was performed due to multiple surgeries being required over short period of time. s/p extubation 07/04/20. Stable in RA. Using Nasal CPAP for sleep (chronic, uses at home). 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 Creatinine stable. YARA resolved. (7) Goodpastures syndrome: Goodpasture's syndrome/CKD. Known diagnosis. (8) Diabetes mellitus: Holding glipizide, metformin and pioglitazone. Continue basal and bolus insulin with pharmacy managing. Excellent control last 24 hours. (9) Dyslipidemia: Niacin on hold (10) Hypertension: BPs much improved with metoprolol 50mg BID, 5mg norvasc at HS, and losar rush 100mg daily. (11) Gout, joint: Cont allopurinol. No flares. (12) Obstructive sleep apnea: cont nasal CPAP (13) Anemia: mild acute blood loss anemia in setting of multiple surgeries for Ted's. H/H stable last few days. Hb today 11.8. (14) Morbid obesity with BMI of 40.0-44.9, adult: BMI 42 (15) Ileus: patient's abdominal exam and KUB x-rays c/w ileus. ileus is due to critical illness and multiple surgeries for his Ted's gangrene. restrict diet to full liquids. keep K and mag wnl. I encouraged him OOB to chair. PT, OT. daily BMP/mag. in light of severe anorexia, ileus, and copious use of nasal CPAP I started him on PPN today to help with nutrition and enhance his wound healing. (16) Hypokalemia: replaced/resolved. recheck mag and K in am. (17) Anorexia: add MVI, vit C 500mg, zinc 220mg, and vit D 2000 IU to enhance wound healing & immunity. PPN for nutrition. anorexia is 2nd to ileus, severe infection, etc (18) DVT prophylaxis: heparin 5000 TID PT/OT cesar hull spoke with pt's significant other and mother at bedside 07/07 - updated with plan of care spoke with yassine Arce other, on 07/09 by phone cont tele status Admission and Anticipated Discharge Date Admission Date: July 02, 2020 Subjective patient resting on his nasal CPAP upon my arrival. reported poor appetite, weakness, fatigue. mild pain in operative sites - no worse than yesterday. still with liquid stool, abdominal bloating -- but no vomiting. PT had come by this am -- he declined participation but was willing to try after his wound vac exchange was done. Review of Systems Constitutional: + fatigue and + anorexia; no fever and no chills Respiratory: no cough and no dyspnea Cardiovascular: no chest pain and no orthopnea Gastrointestinal: + abdominal pain and + diarrhea/loose stools; no nausea and no vomiting Physical Exam Constitutional: + morbidly obese; no acute distress and no altered mental status ENMT: Mouth: + dry oral mucous membranes thrush plaques improved Respiratory: normal respiratory effort, lungs clear to auscultation Cardiovascular: Rate/Rhythm: regular rate and regular rhythm Heart Sounds: normal S1 and normal S2; no murmur Vessels: posterior tibial pulses present and dorsalis pedis pulses present; no JVD Extremities: no edema Gastrointestinal (Abdomen): Inspection/Auscultation: + abdomen distended (severe); + abnormal bowel sounds (high pitched ) Percussion/Palpation: + abdomen tender (LLQ near the groin); no guarding and no hepatosplenomegaly Skin: wound vac in place over left scrotal region Psychiatric: Orientation: alert and oriented x 3 Results & Data Results & Data ([facility]) Vital Signs (Past 12 Hours) Vital Signs Temp Pulse Pulse Resp BP BP Pulse Ox 07/09/20 10:26 67 20 125/80 94 07/09/20 08:44 37.2 C 76 20 122/72 93 07/09/20 08:00 73 07/09/20 02:57 77 18 149/85 H 97 07/09/20 01:57 68 18 126/84 97 07/09/20 01:08 68 18 130/82 96 07/09/20 00:00 83 07/08/20 23:55 70 16 137/89 96 07/08/20 22:56 72 16 142/89 H 99 Laboratory Results Laboratory Results - last 24 hr 07/08/20 07/08/20 07/08/20 10:25 14:20 16:22 WBC RBC Hgb Hct MCV MCH MCHC RDW Std Deviation RDW Coeff of Sara Plt Count MPV Immature Gran % (Auto) Neut % (Auto) Lymph % (Auto) [place] % (Auto) Eos % (Auto) Baso % (Auto) Neut # (Auto) Lymph # (Auto) [place] # (Auto) Eos # (Auto) Baso # (Auto) Immature Gran # (Auto) Sodium Potassium Chloride Carbon Dioxide Anion Gap BUN Creatinine Est Cr Clr Drug Dosing Est GFR ( Amer) Est GFR (Non-Af Amer) BUN/Creatinine Ratio Glucose POC Glucose 154 H 170 H Calcium Magnesium Stl C. diff Tox B Gene Negative Cdiff Gene 07/08/20 07/09/20 07/09/20 20:33 07:40 08:49 WBC 11.91 H RBC 3.99 L Hgb 11.8 L Hct 36.0 L MCV 90.2 MCH 29.6 MCHC 32.8 RDW Std Deviation 46.3 RDW Coeff of Sara 14.0 Plt Count 237 MPV 9.8 Immature Gran % (Auto) 5.5 Neut % (Auto) 70.7 Lymph % (Auto) 16.0 [place] % (Auto) 6.0 Eos % (Auto) 1.6 Baso % (Auto) 0.2 Neut # (Auto) 8.43 H Lymph # (Auto) 1.90 [place]ascade # (Auto) 0.71 H Eos # (Auto) 0.19 Baso # (Auto) 0.02 Immature Gran # (Auto) 0.66 H Sodium Potassium Chloride Carbon Dioxide Anion Gap BUN Creatinine Est Cr Clr Drug Dosing Est GFR ( Amer) Est GFR (Non-Af Amer) BUN/Creatinine Ratio Glucose POC Glucose 239 H 160 H Calcium Magnesium Stl C. diff Tox B Gene 07/09/20 08:49 WBC RBC Hgb Hct MCV MCH MCHC RDW Std Deviation RDW Coeff of Sara Plt Count MPV Immature Gran % (Auto) Neut % (Auto) Lymph % (Auto) [place] % (Auto) Eos % (Auto) Baso % (Auto) Neut # (Auto) Lymph # (Auto) Cascade # (Auto) Eos # (Auto) Baso # (Auto) Immature Gran # (Auto) Sodium 134 L Potassium 3.5 Chloride 98 Carbon Dioxide 32 Anion Gap 3.0 BUN 15 Creatinine 0.86 Est Cr Clr Drug Dosing 116.3 Est GFR ( Amer) 116.4 Est GFR (Non-Af Amer) 100.4 BUN/Creatinine Ratio 17.9 Glucose 160 H POC Glucose Calcium 8.5 Magnesium 1.9 Stl C. 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
[2020-07-09] MEDS ORDERED: KETOROLAC 30 MG/ML VIAL IV ONE (11:00)
--- NOTE | 2020-07-09 11:33 | Surgery Progress Note ---
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 Will continue to follow and consider for eventual skin graft when surgical candidate. Supervising Physician Co-Signing Physician Notes Patient seen and examined at bedside with Dr. Woods, wound care team. Wound overall looks healthy, no further necrotic tissue noted. Suspect the posterior portion of the wound will be able to be closed primarily as edema resolves, no critical structures involved and wound would be amenable to split-thickness skin grafting in the future. At this point, wound bed is not ready to accept a graft. Would recommend using a silver foam wound VAC due to bacterial contam ination and need for prior debridements due to infection. Discussed whether hyperbaric oxygen would be of any benefit, at this point there is no role as it would only be useful in the acute infected stage and would need to be performed 3 times per day in an acute care facility. As wound is progressing nicely, no need to consider transferring patient at this stage. Subjective Colt is seen bedside today with Dr. Ozuna and wound care team for wound vac change. He was taken back to the OR yesterday fur further debridement and washout, partial wound closure and placement of wound vac. He is having pain at the wound site. Review of Systems Review of Systems: All systems reviewed & are unremarkable except as noted in HPI & below Physical Exam Constitutional: WD/WN, vitals as above Skin: wound vac left groin removed, wound base appears healthy with good, beefy red granulation tissue. measurements per wound care. spermatic cord covered and testicle remains in dartos pouch Psychiatric: A+Ox3, euthymic affect [facility] & [facility] ([facility]) Vital Signs (Past 12 Hours) Vital Signs Temp Pulse Pulse Resp BP BP Pulse Ox 07/09/20 10:26 67 20 125/80 94 07/09/20 08:44 37.2 C 76 20 122/72 93 07/09/20 08:00 73 07/09/20 02:57 77 18 149/85 H 97 07/09/20 01:57 68 18 126/84 97 07/09/20 01:08 68 18 130/82 96 07/09/20 00:00 83 07/08/20 23:55 70 16 137/89 96 PG Care Time/CCT Total # of Minutes Spent Total Time Spent with Patient: Total time spent is greater than 50% in coordination of care (as documented) at patient's floor/unit and/or counseling patient: Coding Level of Care Code 85143 Subseq Hosp Care Lvl 2 Diagnoses 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
--- NOTE | 2020-07-09 11:43 | Pharmacy Report ---
Pharmacy PN Initial Consult - Date of Service July 09, 2020 - Scope Pharmacy has been consulted to manage parenteral nutrition orders and order appropriate labs. As part of the Nutrition Support Team guidelines, pharmacy will work in conjunction with dietary when determining the patients caloric needs. - Subjective The patient is a 50 year old M admitted on 07/02/20 21:49 for Ted's gangrene. Patient is to receive parenteral nutrition for poor PO intake x 7 days, new ileus, inability to place NGT today because use would create loss of CPAP seal. Pertinent PMH: T2DM Dyslipidemia CKD2-3 - Objective Height: 5 ft 4 in Weight: 113.4 kg Diet: Clear Liquid Vascular Access:: peripheral 18g antecubital Intake & Output (Last 24Hrs): Intake & Output 07/07/20 07/08/20 07/09/20 07/10/20 06:59 06:59 06:59 06:59 Intake Total 1200 / 1200 500 / 500 1520 / 1520 Output Total 1652 / 1652 1932 / 1932 1413 / 1413 Balance -452 / -452 -1432 / -1432 107 / 107 Weight 111.3 kg 113.4 kg Laboratory Data (Last 24 Hrs):: 07/09/20 08:49 Sodium 134 L Potassium 3.5 Chloride 98 Carbon Dioxide 32 BUN 15 Creatinine 0.86 Glucose 160 H Calcium 8.5 Magnesium 1.9 Recent Pertinent Medications:: Lantus BID per scale Novolog ACHS w/ carb and correctional coverage Vit D3 PO 2000 units Q AM Ascorbic Acid 500mg PO daily Docusate/Senna 1 tab Q AM MVI 1 tab PO Q AM Dilaudid IV PRN pain Oxycodone 5/325PO PRN pain Furosemide 40mg PO x 1 today 07/09 Nutrition Assessment:: Please refer to the Notes section of the EMR for the 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 - Assessment Patient admitted ~1 wk ago for sepsis from Ted's gangrene. He was has been taken to the OR multiple times for debridement. Since admission he has had minimal PO intake and has been NPO many times due to repeat surgical needs. There was discussion of placing NGT to supplement caloric needs however the patient is requiring CPAP today, preventing NGT use. In addition, there are concerns for new ileus. He has required multiple surgeries and has been receiving narcotic analgesics routinely. Patient currently only has peripheral IV access. If patient unable to tolerate clear liquid diet over next 24 hrs, consideration will be given to central line placement for ongoing parenteral nutrition. He is 7.6L fluid positive since admission. He has had a negative net fluid balance the last several days however. Per provider's assessment: no JVD, no edema, and lungs CTA. He is requiring CPAP however to maintain 94% O2 sat currently. UOP has been good. SCr stable despite diuresis. Discussed volume of today's PPN bag with provider. Today's bag to contain 2L with reassessment tomorrow. Labs reviewed: Mild hyponatremia noted however this may be chronic based upon review of prior labs - will need to monitor Na closely due to hypotonic nature of PPN, today's bag will provide Na equivalent to ~1/2 NS. K+ borderline low and patient did receive furosemide this AM, will provide generous K ~1mEq/kg in today's bag. Last phos check 4 days ago. Will check phos level now. Will provide 0.25mmol/kg in 1st bag. Patient is diabetic, will add 2 units per 10gm CHO incorporated into PPN bag. Novolog and Lantus SQ orders will continue as written to provider coverage of PO carbs and basal needs. Given limitation of PPN osmolality, patient will likely only receive ~10- 11kcal/kg/day via PPN if total volume remains ~2L. - Plan For day 1 of PN administration, the following will be ordered: Macronutrients Amino acids 87 grams/day Dextrose 100 grams/day Lipids 50 grams/day Micronutrients Combined electrolytes 0 mL - contains 35 mEq Na, 20 meq K, 4.5 mEq Ca, 5 mEq Mg, 35 mEq Cl, 29.5 mEq acetate per 20 mL Sodium phosphate 0 MMol Sodium chloride 120 mEq Sodium acetate 0 mEq Potassium phosphate 30 mMol Potassium chloride 10 mEq Potassium acetate 60 mEq Magnesium sulfate 16.24 mEq Calcium gluconate 0 mEq Multivitamins 10 mL Trace Elements 1 mL Additional additives: Thiamine 100mg Total volume 2000 mL to be infused over 24 hrs will provide 1188 kcal/day (~10.5kcal/kg) Final osmolarity 899 mOsm/L (maximum for PPN is 900 mOsm/L) Labs to be ordered per PN order protocol Pharmacy will follow and adjust parenteral nutrition orders on a daily basis. Thank you.
--- NOTE | 2020-07-09 11:57 | Pharmacy Report ---
Pharmacy Glycemic Short Note 2 - Date of Service July 09, 2020 - Glycemic Short BSG Results (Last 24 hours): 07/08/20 07/08/20 07/08/20 14:20 16:22 20:33 Glucose POC Glucose 154 H 170 H 239 H 07/09/20 07/09/20 07:40 08:49 Glucose 160 H POC Glucose 160 H OUTPATIENT ANTIDIABETIC REGIMEN: * Glipizide 10mg PO BID * Metformin 1gm PO BID * Pioglitazone 30mg PO daily * A1c = 8.2% 07/03/20 ASSESSMENT: 07/09 * BSGs well controlled, only one > 180 (post-op BSG) * Fasting BSG 160 this AM with 45 units basal on board - and while patient NPO - will continue somewhat higher dose going forward as he still requires correctional insulin despite NPO status * Patient is still ordered clears, so will continue Novolog CF/CR as written - not enough experience with utilization of carb coverage to state dose should be changed * PPN to begin today, will add 20 units regular insulin to bag to cover the 100gm dextrose in the bag 07/08 * BSGs well controlled over last 24 hrs, only one > 180 * 53 units SQ insulin administered over the last 24 hrs, and again he has been eating very little * Fasting BSG 150 this AM with 40 units basal on board - will continue same Lantus scale. OK to admin 20 units this AM despite NPO status as pt still required correctional insulin over last 24 hrs despite basal that was administered while essentially NPO. 07/07 * 53 units SQ insulin administered over the last 24 hrs. Patient has been eating poorly. * Fasting BSG 163-178 this AM with 45 units basal insulin on board - will continue with similar Lantus scale today as we have not yet achieved steady- state and with poor PO intake his basal needs may decrease. Of note, he will be NPO after midnight for return to OR tomorrow. Will reassess Lantus dose tomorrow AM. * Post-prandial BSGs well controlled with current Novolog CF/CR - no change 07/06 * Type 2 diabetic admitted with Ted's gangrene requiring extensive debridement x 3 and IV abx therapy * Patient's last debridement yesterday * BSGs have been trending up over the last 48 hrs, however pt's diet has also advanced * Fasting BSGs > 180 yesterday prompting addition of basal insulin. Fasting BSG 214 this AM with 25 units basal on board. I am told however that the patient was given ice cream last evening. Regardless, will titrate basal insulin upwards but dose BID per scale using weight and moderate-severe stress levels. Novolog doses will also be adjusted, again based upon weight and mod-severe stress level PLAN FOR INPATIENT GLYCEMIC CONTROL: * Hold outpatient oral diabetes medications (glipizide, metformin, pioglitazone) * Basal insulin * Lantus SQ BID per scale: * 0 units if BSG less than 110 * 10 units if BSG 110-139 * 25 units if BSG 140-180 * 28 units if BSG greater than 180 * Bolus insulin * NovoLog per scale ACHS (at at 0200 tonight due to start of new PPN) * Goal Range: Low 110 mg/dL - High 140 mg/dL * Correction Factor: 15 mg/dL/unit * Nutritional / Prandial insulin per carb ratio of 1 unit per 5 grams CHO consumed PLAN FOR DISCHARGE: * to be determined.
[2020-07-09] MEDS: CEROVITE ADV FORMULA TAB PO SCH (12:07)
--- NOTE | 2020-07-09 12:18 | Urology Progress Note ---
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 - Pt has been to the operating room four times for treatment - Wound vac exchange today at bedside by wound nurse, tolerated well - Seems to be progressing appropriately - Continue pain management and supportive care - Will continue to monitor Admission and Anticipated Discharge Date Admission Date: July 02, 2020 Subjective Awake, eating breakfast. Mother and fiance at bedside. No issues overnight, offers no complaints at present. Wound vac exchange completed this AM at bedside with wound nurse. Tolerated procedure well. Given IV Dilaudid prior to wound vac exchange procedure. No pain at present. Enriquez catheter intact, patent, and draining clear yellow urine. No dysuria. Tolerating Enriquez. No fever or chills. No nausea or vomiting. Chart review: Creatinine 0.86, WBC 11.91, Hgb 11.8, C. diff negative No additional concerns. Review of Systems Constitutional: as per Subjective / HPI Gastrointestinal: as per Subjective / HPI Genitourinary: + as per Subjective / HPI Physical Exam Constitutional: + obese; no acute distress Respiratory: normal respiratory effort and able to speak in complete sentences; no respiratory distress and no labored breathing Gastrointestinal (Abdomen): Inspection/Auscultation: abdomen normal to inspection; abdomen not distended Percussion/Palpation: abdomen soft; abdomen nontender Skin: warm and dry Neurologic: awake Psychiatric: Orientation: alert and oriented x 3 Genitourinary: Wound vac intact, holding suction, no significant erythema, no purulent drainage Enriquez intact, patent and draining clear yellow urine Results & Data ([facility]) Vital Signs (Past 12 Hours) Vital Signs Temp Pulse Pulse Resp BP BP Pulse Ox 07/09/20 12:11 36.5 C 71 20 128/82 96 07/09/20 10:26 67 20 125/80 94 07/09/20 08:44 37.2 C 76 20 122/72 93 07/09/20 08:00 73 07/09/20 02:57 77 18 149/85 H 97 07/09/20 01:57 68 18 126/84 97 07/09/20 01:08 68 18 130/82 96 PG Care Time/CCT Total # of Minutes Spent Total Time Spent with Patient: Total time spent is greater than 50% in coordination of care (as documented) at patient's floor/unit and/or counseling patient: Coding Level of Care Code 91132 Subseq Hosp Care Lvl 2 Diagnoses 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
[2020-07-09] MEDS: ZINC SULFATE 220 MG CAPSULE PO SCH (12:31)
[2020-07-09] MEDS: ASCORBIC ACID 500 MG TAB PO SCH (12:31)
[2020-07-09] MEDS: CHOLECALCIFEROL 1,000 UNITS 25 MCG TAB PO SCH (12:31)
[2020-07-09] MEDS ORDERED: Custom Peripheral Pn 2,000 ML in TPN BAG 0 ML IV SCH (16:00)
[2020-07-09] MEDS: amLODIPine BESYLATE 5 MG TAB PO SCH (21:18)
[2020-07-10] MEDS: MEROPENEM 500 MG in SYRINGE 0 ML IV SCH ×4 (00:55→20:39)
[2020-07-10] MEDS ORDERED: INSULIN ASPART 100 UNITS/ML 3 ML PEN SC ONE (02:00)
[2020-07-10 05:30] LABS: BUN Creatinine Ratio 22.8 (10-20); Creatinine Clr Calc Pharmacy 149.2 ml/min; Est GFR (African American) 128.9; Est GFR (Non-African American) 111.3; Magnesium 2.2 mg/dl (1.8-2.4); Potassium 3.5 mmol/L (3.5-5.1)
[2020-07-10 05:31] LABS: Phosphorus 2.7 mg/dl (2.5-4.9)
[2020-07-10] MEDS: HEPARIN SOD 5,000 UNIT/0.5 ML VIAL SQ SCH ×3 (06:14→20:33)
[2020-07-10] MEDS: oxyCODONE/ACETAMINOPHEN 5mg/325mg TAB PO PRN ×2 (06:15→12:03)
[2020-07-10] MEDS: INSULIN ASPART 100 UNITS/ML 3 ML PEN SC SCH ×4 (08:27→20:32)
[2020-07-10] MEDS: INSULIN GLARGINE SOLOSTAR 100 UNITS/ML 3 ML PEN SC SCH ×2 (08:28→20:32)
[2020-07-10] MEDS: NYSTATIN SUSP 500,000 U/5 ML UDC PO SCH ×4 (08:29→20:37)
[2020-07-10] MEDS: ASCORBIC ACID 500 MG TAB PO SCH (08:30)
[2020-07-10] MEDS: LOSARTAN POTASSIUM 50 MG TAB PO SCH (08:30)
[2020-07-10] MEDS: CHOLECALCIFEROL 1,000 UNITS 25 MCG TAB PO SCH (08:30)
[2020-07-10] MEDS: METOPROLOL TARTRATE 50 MG TAB PO SCH ×2 (08:30→20:37)
[2020-07-10] MEDS: ZINC SULFATE 220 MG CAPSULE PO SCH (08:30)
[2020-07-10] MEDS: DOCUSATE SODIUM/SENNA 50/8.6MG TAB PO SCH (08:31)
[2020-07-10] MEDS: allopurinoL 300 MG TAB PO SCH (08:31)
[2020-07-10] MEDS: ADVANCED PROBIOTIC 1250 MG CAPSULE PO SCH (08:32)
--- NOTE | 2020-07-10 09:35 | Hospitalist Progress Note ---
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 May transition to clindamycin 300 mg po tid (or linezolid 600 mg po bid) and Metronidazole 500 mg po tid to cover the identified organisms when patient is ready to be discharged." Patient currently with 2 large-bore IVs May benefit from PICC line as he is currently getting PPN (day 2) (2) Necrotizing fasciitis: Secondary to above Continue with wound VAC and antibiotics as listed above (3) Diabetes mellitus: Oral control at home Hemoglobin A1c is 8.2 Started on Lantus in addition to sliding scale insulin Pharmacy consult for glycemic control in place (4) Goodpastures syndrome: Chronic condition with associated chronic kidney disease Continue outpatient follow-up (5) Obstructive sleep apnea: Patient with known CPAP machine with nasal pillow Reports compliance Continue HS and as needed (6) Chronic kidney disease: Secondary to diabetes mellitus and Goodpasture syndrome Presented with acute tubular necrosis on admission Now resolved Continues with some uremia with a BUN of 15 but creatinine is corrected to 0.67 Follow serial lab Continue PPN and fluid hydration (7) Hypokalemia: Magnesium is 2.2 Potassium was 3.5 Continue to replete in PPN (8) Ileus: Patient is primarily bedbound secondary to wound VAC and scrotal reconstruction We will repeat KUB in the morning Currently tolerating full liquid diet We will plan on a least 1 more day of PPN I did speak with pharmacy and we will again shoot for 2 L and replete electrolytes including potassium chloride and phosphorus and check repeat labs in the morning (9) Morbid obesity with BMI of 40.0-44.9, adult: 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 De Anda's addendum for further recommendations. Admission and Anticipated Discharge Date Admission Date: July 02, 2020 Subjective Attending: Dr. 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 Last Sunday the patient noticed sores on his scrotum. He was able to pop the sores and had a significant mount of pus. He then went over the road and traveled to [place] and work throughout the week. When he arrived back home the infection was worse. He was seen and admitted and an urgent urology consultation was requested. He was found to have Ted's gangrene and necrotizing fasciitis. He was taken the operating room for immediate debridement and washout by Dr. Logan Guy. Total debridement area is 15.3 cm x 15.2 cm x 8.1 cm. There was found to be necrotic tissue along the spermatic cord and abductor muscles. Patient did well with no complications during surgery and was transferred to intensive care unit for monitoring. Patient was then taken back to the operating theater 07/08/2024 washout, debridement, reconstruction, and wound VAC exchange. Wound VAC most recently changed 07/09/2020. Blood cultures are negative x2. Tissue from debridement shows group B beta strep, Prevotella disiens, Peptoniphilus asaccharolyticus, and Prevotella species, and Porphyromonas endodontalis. Patient is currently on meropenem. Patient reports the pain is generally controlled with analgesia. He has been afebrile with a T-max this admission of 37.9 C. He is able to get up to bedside commode. Otherwise he is to not sit in a chair for prolonged periods. He is tolerating his diet. He has no abdominal pain. He has no nausea or vomiting. He is using his home CPAP with a nasal pillow and tolerating well. He has no shortness of breath. He has no other complaints of illness. Review of Systems Review of Systems: All systems reviewed & are unremarkable except as noted in Subjective Physical Exam Physical Exam: GENERAL : No acute distress. Pleasant. Talkative EYES: No icterus, gaze conjugate. NOSE: No evidence of epistaxis. MOUTH: No lesions or candidiasis. NECK: Supple. LUNGS: CTA B/L, no wheezes, rales or rhonchi HEART: Regular, rate controlled ABDOMEN: Soft, NT, ND, BS Present EXTREMITIES: No LE edema, pedal pulses intact and equal bilaterally : Patient does have wound VAC in place at left side of scrotum. There appear to be 2 LAYLA drains with some cloudy yellow drainage with no serosanguineous evidence. Coban is around the penis and swelling of the penis is controlled. Patient does have scrotal swelling. Wound VAC dressing appears to be intact with drainage to the wound VAC canister. NEURO: A&OX3 Results & Data Results & Data ([facility]) Vital Signs (Past 12 Hours) Vital Signs Temp Pulse Pulse Resp BP BP Pulse Ox 07/10/20 08:24 36.4 C L 68 20 136/90 99 07/10/20 05:06 68 13 143/92 H 97 07/10/20 04:56 69 18 143/92 H 97 07/10/20 04:00 36.7 C 07/10/20 03:56 68 16 141/83 H 97 07/10/20 02:56 68 18 134/80 96 07/10/20 01:56 68 16 122/73 96 07/10/20 00:56 81 18 126/72 96 07/10/20 00:09 36.6 C 66 23 137/77 97 07/09/20 23:59 66 07/09/20 21:16 74 133/74 Laboratory Results 07/09/20 08:49 07/10/20 04:42 Diagnostic Findings No diagnostic imaging completed since 07/08/2020 PG Care Time/CCT Total # of Minutes Spent Total Time Spent with Patient: Total time spent is greater than 50% in coordination of care (as documented) at patient's floor/unit and/or counseling patient: 40 minutes including discussion with patient, pharmacy, additional providers. 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
[2020-07-10] MEDS ORDERED: PERIPHERAL PN IV SCH (16:00)
[2020-07-10] MEDS ORDERED: TPN IV SCH (16:00)
[2020-07-10] MEDS: amLODIPine BESYLATE 5 MG TAB PO SCH (20:37)
--- NOTE | 2020-07-10 21:23 | Urology Progress Note ---
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 - Pt has been to the operating room four times for treatment - Wound vac function appropriately - Seems to be progressing - Continue pain management and supportive care - Will continue to monitor Admission and Anticipated Discharge Date Admission Date: July 02, 2020 Subjective No acute events. Would vac in place and fx well. No fevers. No chills. Overall showing improvement. Physical Exam Physical Exam: GENERAL : No acute distress. Pleasant. Talkative EYES: No icterus, gaze conjugate. NOSE: No evidence of epistaxis. MOUTH: No lesions or candidiasis. NECK: Supple. LUNGS: CTA B/L, no wheezes, rales or rhonchi HEART: Regular, rate controlled ABDOMEN: Soft, NT, ND, BS Present EXTREMITIES: No LE edema, pedal pulses intact and equal bilaterally : Patient does have wound VAC in place at left side of scrotum. There appear to be 2 LAYLA drains with some cloudy yellow drainage with no serosanguineous evidence. Coban is around the penis and swelling of the penis is controlled. Patient does have scrotal swelling. Wound VAC dressing appears to be intact with drainage to the wound VAC canister. 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
[2020-07-11] MEDS: MEROPENEM 500 MG in SYRINGE 0 ML IV SCH ×4 (02:43→19:43)
[2020-07-11] MEDS: HEPARIN SOD 5,000 UNIT/0.5 ML VIAL SQ SCH ×3 (05:53→21:40)
--- NOTE | 2020-07-11 06:19 | Hospitalist Progress Note ---
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 07/02 - Excisional Debridement and washout of gangrene by Dr. Guy. 07/03 - Irrigation/Debridement and washout of necrotizing fasciitis and gangrene with reconstruction and placement of wound VAC - also by Dr. Guy. 07/05 - Scrotal Debridement and Washout with Complex closure and creation of dartos pouch with flap from right hemiscrotum. Change of Wound Vac - Dr. Guy. 07/08 - Washout, Debridement, Reconstruction, and Wound Vac Exchange Groin Area - Dr. Guy. Continue meropenem IV. Blood cultures negative. Wound cxs from all his surgeries grew group B strep and anaerobes (Peptostreptococcus anaerobius, Staphylococcus saccharolyticus, Prevotella disiens, Finegoldia magna, Peptoniphilus asaccharolyticus, Porphyromonas endodontalis). Wound care following for assistance with wound vac. [facility] ID consult obtained on 07/09. Recs per ID attending: * cont IV meropenem while hospitalized * "Anticipate total 7-14 days of abx therapy from final debridement, depending on the degree of residual soft tissue infection. May transition to clindamycin 300 mg po tid (or linezolid 600 mg po bid) and Metronidazole 500 mg po tid to cover the identified organisms when patient is ready to be discharged." -> Stable today. No fever, no indication of worsening infection. Wound care coming to adjust wound vac. Will transfer to med/surg so he can hopefully see his family and move around a bit more. (2) Necrotizing fasciitis: Scrotum/lower abdominal wall - as above in "Ted's". S/p 4 debridement procedures as noted above. Wound vac is now a silver foam wound VAC as recommended by wound care nurse & plastics. Plastics does not feel he needs to be transferred to tertiary care at this time. Hyperbaric Oxygen treatment also deferred. (3) Ileus: Patient had abdominal exam and KUB x-rays c/w ileus due to critical illness and multiple surgeries for his Ted's gangrene. - Restricted diet to full liquids. Was on PPN x 3 days. - As of 07/11, he is eating more, feeling better. Resumed normal diet. (4) Diabetes mellitus: A1c was 8.2% this admission. - Holding glipizide, metformin and pioglitazone. - Continue basal and bolus insulin with pharmacy managing. - Sugars stable today. May need to tighten now that we're improving his diet. (5) Chronic kidney disease: Baseline Cr. ~0.8 - 1.0. 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 - Creatinine stable on 07/10 at 0.67. (6) Goodpastures syndrome: Goodpasture's syndrome/CKD. Known diagnosis. (7) Obstructive sleep apnea: cont nasal CPAP (8) Morbid obesity with BMI of 40.0-44.9, adult: BMI 42 (9) Dyslipidemia: - Niacin on hold (10) Anorexia: - Added MVI, vit C 500mg, zinc 220mg, and vit D 2000 IU to enhance wound healing & immunity. (11) DVT prophylaxis: Heparin 5,000 units SQ Q12h Admission and Anticipated Discharge Date Admission Date: July 02, 2020 Subjective Doing better today. Not a lot of pain. His wound vac is malfunctioning while we spoke, and Wound Care is coming in to fix it. Reports no fevers/chills, chest pain, shortness of breath, abdominal pain, nausea, or vomiting. Physical Exam Constitutional: WD/WN, vitals as above + obese Eyes: EOM intact bilaterally; no conjunctival abnormality ENMT: external ear and nose normal, oropharynx normal Neck: trachea midline, no thyromegaly normal visual inspection Respiratory: normal respiratory effort, lungs clear to auscultation no respiratory distress Cardiovascular: RRR, no murmur, no edema Gastrointestinal (Abdomen): Inspection/Auscultation: abdomen normal to inspection; abdomen not distended Musculoskeletal: no cyanosis or clubbing, extremities motor strength 5/5 Skin: + wound (Enormous wound with wound vac around groin) Neurologic: moves all extremities and awake Psychiatric: Orientation: alert, oriented to person and cooperative Results & Data Results & Data ([facility]) Vital Signs (Past 12 Hours) Vital Signs Temp Pulse Pulse Resp BP BP Pulse Ox 07/11/20 00:00 36.9 C 68 16 129/81 97 07/10/20 20:53 36.5 C 07/10/20 19:57 68 18 120/73 98 10/17/20 18:56 69 16 136/82 100 PG Care Time/CCT Total # of Minutes Spent Total Time Spent with Patient: Total time spent is greater than 50% in coordination of care (as documented) at patient's floor/unit and/or counseling patient: Coding Level of Care Code 31075 Subseq Hosp Care Lvl 2 Diagnoses 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
[2020-07-11] MEDS: CHOLECALCIFEROL 1,000 UNITS 25 MCG TAB PO SCH (08:20)
[2020-07-11] MEDS: allopurinoL 300 MG TAB PO SCH (08:20)
[2020-07-11] MEDS: ASCORBIC ACID 500 MG TAB PO SCH (08:20)
[2020-07-11] MEDS: NYSTATIN SUSP 500,000 U/5 ML UDC PO SCH ×5 (08:20→21:15)
[2020-07-11] MEDS: METOPROLOL TARTRATE 50 MG TAB PO SCH ×2 (08:20→21:15)
[2020-07-11] MEDS: DOCUSATE SODIUM/SENNA 50/8.6MG TAB PO SCH (08:20)
[2020-07-11] MEDS: LOSARTAN POTASSIUM 50 MG TAB PO SCH (08:20)
[2020-07-11] MEDS: ZINC SULFATE 220 MG CAPSULE PO SCH (08:20)
[2020-07-11] MEDS: INSULIN GLARGINE SOLOSTAR 100 UNITS/ML 3 ML PEN SC SCH ×2 (08:21→21:39)
[2020-07-11] MEDS: ADVANCED PROBIOTIC 1250 MG CAPSULE PO SCH (08:21)
[2020-07-11] MEDS: INSULIN ASPART 100 UNITS/ML 3 ML PEN SC SCH ×4 (08:23→21:40)
--- NOTE | 2020-07-11 08:49 | Urology Progress Note ---
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 - Pt has been to the operating room four times for treatment - Wound vac function appropriately. Vac change planned for Sunday - Continue pain management and supportive care - Will continue to monitor Admission and Anticipated Discharge Date Admission Date: July 02, 2020 Subjective No acute events Pt awake and conversing at the bedside No fevers/chills Wound vac/drains functioning well Limited activity out of bed Physical Exam Physical Exam: GENERAL : No acute distress. Pleasant. Talkative EYES: No icterus, gaze conjugate. NOSE: No evidence of epistaxis. MOUTH: No lesions or candidiasis. NECK: Supple. LUNGS: CTA B/L, no wheezes, rales or rhonchi HEART: Regular, rate controlled ABDOMEN: Soft, NT, ND, BS Present EXTREMITIES: No LE edema, pedal pulses intact and equal bilaterally : Patient does have wound VAC in place at left side of scrotum. There appear to be 2 LAYLA drains with some cloudy yellow drainage with no serosanguineous evidence. Coban is around the penis and swelling of the penis is controlled. Patient does have scrotal swelling. Wound VAC dressing appears to be intact with drainage to the wound VAC canister. 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
--- NOTE | 2020-07-11 10:16 | Pharmacy Report ---
Pharmacy Glycemic Short Note 2 - Date of Service July 11, 2020 - Glycemic Short BSG Results (Last 24 hours): 07/10/20 07/10/20 07/10/20 10:58 16:21 20:28 POC Glucose 140 H 161 H 167 H 07/11/20 07:25 POC Glucose 141 H OUTPATIENT ANTIDIABETIC REGIMEN: * Glipizide 10mg PO BID * Metformin 1gm PO BID * Pioglitazone 30mg PO daily * A1c = 8.2% 07/03/20 ASSESSMENT: 07/11 * BSGs well controlled, no changes needed in insulin regimen at this time * PPN day 2 to complete at 1600, includes 20 units regular insulin to cover the 100gm dextrose in the bag * Patient tolerating full liquid diet, no further PPN after this bag 07/09 * BSGs well controlled, only one > 180 (post-op BSG) * Fasting BSG 160 this AM with 45 units basal on board - and while patient NPO - will continue somewhat higher dose going forward as he still requires correctional insulin despite NPO status * Patient is still ordered clears, so will continue Novolog CF/CR as written - not enough experience with utilization of carb coverage to state dose should be changed * PPN to begin today, will add 20 units regular insulin to bag to cover the 100gm dextrose in the bag 07/08 * BSGs well controlled over last 24 hrs, only one > 180 * 53 units SQ insulin administered over the last 24 hrs, and again he has been eating very little * Fasting BSG 150 this AM with 40 units basal on board - will continue same Lantus scale. OK to admin 20 units this AM despite NPO status as pt still required correctional insulin over last 24 hrs despite basal that was administered while essentially NPO. 07/07 * 53 units SQ insulin administered over the last 24 hrs. Patient has been eating poorly. * Fasting BSG 163-178 this AM with 45 units basal insulin on board - will continue with similar Lantus scale today as we have not yet achieved steady-state and with poor PO intake his basal needs may decrease. Of note, he will be NPO after midnight for return to OR tomorrow. Will reassess Lantus dose tomorrow AM. * Post-prandial BSGs well controlled with current Novolog CF/CR - no change 07/06 * Type 2 diabetic admitted with Ted's gangrene requiring extensive debridement x 3 and IV abx therapy * Patient's last debridement yesterday * BSGs have been trending up over the last 48 hrs, however pt's diet has also advanced * Fasting BSGs > 180 yesterday prompting addition of basal insulin. Fasting BSG 214 this AM with 25 units basal on board. I am told however that the patient was given ice cream last evening. Regardless, will titrate basal insulin upwards but dose BID per scale using weight and moderate-severe stress levels. Novolog doses will also be adjusted, again based upon weight and mod-severe stress level PLAN FOR INPATIENT GLYCEMIC CONTROL: * Hold outpatient oral diabetes medications (glipizide, metformin, pioglitazone) * Basal insulin * Lantus SQ BID per scale: * 0 units if BSG less than 110 * 10 units if BSG 110-139 * 25 units if BSG 140-180 * 28 units if BSG greater than 180 * Bolus insulin * NovoLog per scale ACHS (at at 0200 tonight due to start of new PPN) * Goal Range: Low 110 mg/dL - High 140 mg/dL * Correction Factor: 15 mg/dL/unit * Nutritional / Prandial insulin per carb ratio of 1 unit per 5 grams CHO consumed PLAN FOR DISCHARGE: * to be determined.
[2020-07-11] MEDS: HYDROmorphone INJ 0.5 MG/0.5 ML SYR IV PRN (10:45)
[2020-07-11] MEDS: amLODIPine BESYLATE 5 MG TAB PO SCH (21:15)
[2020-07-11] MEDS ORDERED: MELATONIN 3 MG TAB PO PRN (23:56)
[2020-07-12] MEDS: oxyCODONE/ACETAMINOPHEN 5mg/325mg TAB PO PRN ×3 (00:08→17:25)
[2020-07-12] MEDS: MEROPENEM 500 MG in SYRINGE 0 ML IV SCH ×4 (02:32→20:37)
[2020-07-12 08:37] LABS: Hematocrit (blood only) 32.3 % (42-52); Hemoglobin 10.3 g/dL (14.0-18.0); Mean Corpuscular Hemoglobin 29.2 pg (25-34); Mean Corpuscular Hgb Conc 31.9 g/dL (32-36); Mean Corpuscular Volume 91.5 fL (80-100); Mean Platelet Volume 10.2 fL (7.4-10.4); Platelet Count 333 K/uL (130-400); RDW Coefficient of Variation 14.5 % (11.5-14.5); RDW Standard Deviation 48.6 fL (36.4-46.3); Red Blood Count 3.53 M/uL (4.7-6.1); White Blood Count 7.62 K/uL (4.8-10.8)
--- NOTE | 2020-07-12 09:04 | Urology Progress Note ---
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 - Pt has been to the operating room four times for treatment. - Clinically progressing with minimal pain. - Patient afebrile, labs reviewed and stable. - Plan for wound VAC dressing change today by wound care team. - Continue with supportive care, pain management, and IV antibiotics. - Will continue to follow while inpatient. Admission and Anticipated Discharge Date Admission Date: July 02, 2020 Subjective Patient awake, alert, appears comfortable. Feels "great" today. Experiencing very minimal pain. Denies fevers or chills. Denies nausea or vomiting. Has been able to get out of bed with assistance. Enriquez catheter intact draining clear yellow urine. Plans for wound vac change today with wound care team. Chart review: Afebrile Wbc 7.62 Hgb 10.3 Creatinine 0.88 LAYLA x1 with 10 cc output overnight. LAYLA x2 with 0 cc output overngight. Wound specimen positive for Peptostreptococcus anaerobius, Staphylococcus saccharolyticus, Prevotella disiens, finegoldia magna. Patient currently on IV Meropenem. Review of Systems Constitutional: as per Subjective / HPI; no fever and no chills Gastrointestinal: as per Subjective / HPI; no nausea and no vomiting Genitourinary: + as per Subjective / HPI Integumentary: as per Subjective / HPI Physical Exam Constitutional: well developed and well nourished; no acute distress and not ill appearing Respiratory: normal respiratory effort and able to speak in complete sentences; no respiratory distress and no audible wheezes Gastrointestinal (Abdomen): Inspection/Auscultation: abdomen normal to inspection; abdomen not distended Percussion/Palpation: abdomen soft; abdomen nontender and no guarding Psychiatric: Orientation: alert, oriented x 3 and cooperative Affect: euthymic affect Genitourinary: no CVA tenderness Wound vac intact, suctioning appropriately without evidence of leak. LAYLA x2 intact to scrotum area draining serosanguineous drainage. Coban is around the penis and swelling of the penis is controlled. Moderate amount of scrotal swelling present. Enriquez catheter intact draining clear yellow urine. 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
[2020-07-12 09:06] LABS: BUN Creatinine Ratio 24.2 (10-20); Calcium 8.5 mg/dl (8.5-10.1); Creatinine Clr Calc Pharmacy 113.3 ml/min; Est GFR (African American) 115.3; Est GFR (Non-African American) 99.5; Magnesium 2.2 mg/dl (1.8-2.4); Potassium 3.9 mmol/L (3.5-5.1)
[2020-07-12] MEDS: LOSARTAN POTASSIUM 50 MG TAB PO SCH (10:08)
[2020-07-12] MEDS: CHOLECALCIFEROL 1,000 UNITS 25 MCG TAB PO SCH (10:09)
[2020-07-12] MEDS: DOCUSATE SODIUM/SENNA 50/8.6MG TAB PO SCH (10:09)
[2020-07-12] MEDS: allopurinoL 300 MG TAB PO SCH (10:10)
[2020-07-12] MEDS: ZINC SULFATE 220 MG CAPSULE PO SCH (10:10)
[2020-07-12] MEDS: ASCORBIC ACID 500 MG TAB PO SCH (10:10)
[2020-07-12] MEDS: ADVANCED PROBIOTIC 1250 MG CAPSULE PO SCH (10:11)
[2020-07-12] MEDS: NYSTATIN SUSP 500,000 U/5 ML UDC PO SCH ×5 (10:12→20:37)
[2020-07-12] MEDS: METOPROLOL TARTRATE 50 MG TAB PO SCH ×2 (10:12→20:37)
[2020-07-12] MEDS: HEPARIN SOD 5,000 UNIT/0.5 ML VIAL SQ SCH ×2 (10:19→20:43)
[2020-07-12] MEDS: INSULIN GLARGINE SOLOSTAR 100 UNITS/ML 3 ML PEN SC SCH ×2 (10:23→20:43)
[2020-07-12] MEDS: INSULIN ASPART 100 UNITS/ML 3 ML PEN SC SCH ×4 (10:23→20:44)
--- NOTE | 2020-07-12 12:32 | Pharmacy Report ---
Pharmacy Glycemic Short Note 2 - Date of Service July 12, 2020 - Glycemic Short BSG Results (Last 24 hours): 07/11/20 07/11/20 07/12/20 17:08 20:42 07:30 Glucose 108 H POC Glucose 120 H 103 H 07/12/20 07/12/20 08:02 12:13 Glucose POC Glucose 117 H 143 H OUTPATIENT ANTIDIABETIC REGIMEN: * Glipizide 10mg PO BID * Metformin 1gm PO BID * Pioglitazone 30mg PO daily * A1c = 8.2% 07/03/20 ASSESSMENT: 07/12: * Patient received total of 49 units of insulin yesterday (plus an additional 20 units from TPN bag - to cover 100 gm CHO from TPN). Received 35 units of basal yesterday * Fasting BSG w/in range at 108 mg/dL - BSGs yesterday trending down with TPN discontinuation. From 151-120-103 mg/dL * Plan to scale back on basal insulin since TPN stopped. Patient appears to be tolerating diet this AM. Will start lower with basal insulin and scale up slowly to ensure tolerating diet and PO intake continues * Plan for scale for basal insulin at PLAN FOR INPATIENT GLYCEMIC CONTROL: * Hold outpatient oral diabetes medications (glipizide, metformin, pioglitazone) * Basal insulin * Lantus SQ BID per scale: * 15 units if BSG less than 120 * 20 units if BSG 120-180 * 25 units if BSG greater than 180 * Bolus insulin * NovoLog per scale ACHS * Goal Range: Low 110 mg/dL - High 140 mg/dL * Correction Factor: 15 mg/dL/unit * Nutritional / Prandial insulin per carb ratio of 1 unit per 6 grams CHO consumed PLAN FOR DISCHARGE: * to be determined.
[2020-07-12] MEDS: CEROVITE ADV FORMULA TAB PO SCH (12:41)
[2020-07-12] MEDS: HYDROmorphone INJ 0.5 MG/0.5 ML SYR IV PRN (14:17)
--- NOTE | 2020-07-12 14:34 | Hospitalist Progress Note ---
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 07/02 - Excisional Debridement and washout of gangrene by Dr. Guy. 07/03 - Irrigation/Debridement and washout of necrotizing fasciitis and gangrene with reconstruction and placement of wound VAC - also by Dr. Guy. 07/05 - Scrotal Debridement and Washout with Complex closure and creation of dartos pouch with flap from right hemiscrotum. Change of Wound Vac - Dr. Guy. 07/08 - Washout, Debridement, Reconstruction, and Wound Vac Exchange Groin Area - Dr. Guy. Continue meropenem IV. Blood cultures negative. Wound cxs from all his surgeries grew group B strep and anaerobes (Peptostreptococcus anaerobius, Staphylococcus saccharolyticus, Prevotella disiens, Finegoldia magna, Peptoniphilus asaccharolyticus, Porphyromonas endodontalis). Wound care following for assistance with wound vac. [facility] ID consult obtained on 07/09. Recs per ID attending: * cont IV meropenem while hospitalized * "Anticipate total 7-14 days of abx therapy from final debridement, depending on the degree of residual soft tissue infection. May transition to clindamycin 300 mg po tid (or linezolid 600 mg po bid) and Metronidazole 500 mg po tid to cover the identified organisms when patient is ready to be discharged." -> Stable today. No fever, no indication of worsening infection. Wound care replacing wound vac and recommending against home care for his continued wound vac changes-needs inpatient rehab -continue pain control especially for wound vac changes (2) Necrotizing fasciitis: Scrotum/lower abdominal wall - as above in "Ted's". S/p 4 debridement procedures as noted above. Wound vac is now a silver foam wound VAC as recommended by wound care nurse & plastics. Plastics does not feel he needs to be transferred to tertiary care at this time. Hyperbaric Oxygen treatment also deferred. Will check with Urology about activity level-they said ok to be OOB for activity (3) Ileus: Patient had abdominal exam and KUB x-rays c/w ileus due to critical illness and multiple surgeries for his Ted's gangrene. - Restricted diet to full liquids. Was on PPN x 3 days. - As of 07/11, he is eating more, feeling better. Resumed normal diet. (4) Diabetes mellitus: A1c was 8.2% this admission. - Holding glipizide, metformin and pioglitazone. - Continue basal and bolus insulin with pharmacy managing. - Sugars stable today (5) Chronic kidney disease: Baseline Cr. ~0.8 - 1.0. 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 - Creatinine stable 0.88 -Avoid nephrotoxins -renally dose meds when appropriate -follow BMP (6) Goodpastures syndrome: Goodpasture's syndrome/CKD. Known diagnosis. (7) Obstructive sleep apnea: cont nasal CPAP (8) Morbid obesity with BMI of 40.0-44.9, adult: BMI 42 needs weight loss counseling (9) Dyslipidemia: - Niacin on hold (10) Anorexia: - Added MVI, vit C 500mg, zinc 220mg, and vit D 2000 IU to enhance wound healing & immunity. Anorexia improving (11) Hypertension: controlled continue amlodipine, losartan (12) DVT prophylaxis: Heparin 5,000 units SQ Q12h Dispo-continued stay Admission and Anticipated Discharge Date Admission Date: July 02, 2020 Subjective Pt in middle of having his wound vac changed when I saw him but reports no problems Pain controlled with meds. Denies CP or SOB Review of Systems Review of Systems: All systems reviewed & are unremarkable except as noted in HPI & below Physical Exam Constitutional: WD/WN, vitals as above + morbidly obese Eyes: + anicteric sclerae ENMT: Ears: no hearing impairment Neck: trachea midline, no thyromegaly Respiratory: normal respiratory effort, lungs clear to auscultation Cardiovascular: RRR, no murmur, no edema Rate/Rhythm: regular rate and regular rhythm Heart Sounds: no murmur Extremities: + edema (1+ pitting edema of the feet and legs bilaterally) Chest (Breasts): Chest: normal inspection of chest Gastrointestinal (Abdomen): normal bowel sounds, soft, nontender, no hepatosplenomegaly Musculoskeletal: Extremities: extremities normal to inspection; no cyanosis and no clubbing Skin: no rashes, warm and dry Neurologic: moves all extremities and awake; no focal motor deficits Psychiatric: A+Ox3, euthymic affect Genitourinary: + scrotum abnormality (left groin wound open,no necrosis,left scrotum edema) Lymphatic: no lymphedema Results & Data Results & Data ([facility]) Vital Signs (Past 12 Hours) Vital Signs Temp Pulse Resp BP Pulse Ox 07/12/20 07:51 36.8 C 66 18 134/84 97 Laboratory Results 07/12/20 07/12/20 07/12/20 Range/Units 12:13 08:02 07:30 WBC (4.8-10.8) K/uL RBC (4.7-6.1) M/uL Hgb (14.0-18.0) g/dL Hct (42-52) % MCV (80-100) fL MCH (25-34) pg MCHC (32-36) g/dL RDW Std Deviation (36.4-46.3) fL RDW Coeff of Sara (11.5-14.5) % Plt Count (130-400) K/uL MPV (7.4-10.4) fL Sodium 139 (136-145) mmol/L Potassium 3.9 (3.5-5.1) mmol/L Chloride 107 (98-107) mmol/L Carbon Dioxide 28 (21-32) mmol/L Anion Gap 4.0 (3-11) BUN 21 H (7-18) mg/dl Creatinine 0.88 (0.6-1.4) mg/dl Est Cr Clr Drug Dosing 113.3 ml/min Est GFR ( Amer) 115.3 Est GFR (Non-Af Amer) 99.5 BUN/Creatinine Ratio 24.2 H (10-20) Glucose 108 H (70-99) mg/dl POC Glucose 143 H 117 H (70-99) mg/dl Calcium 8.5 (8.5-10.1) mg/dl Magnesium 2.2 (1.8-2.4) mg/dl 07/12/20 07/11/20 07/11/20 Range/Units 07:30 20:42 17:08 WBC 7.62 (4.8-10.8) K/uL RBC 3.53 L (4.7-6.1) M/uL Hgb 10.3 L (14.0-18.0) g/dL Hct 32.3 L (42-52) % MCV 91.5 (80-100) fL MCH 29.2 (25-34) pg MCHC 31.9 L (32-36) g/dL RDW Std Deviation 48.6 H (36.4-46.3) fL RDW Coeff of Sara 14.5 (11.5-14.5) % Plt Count 333 (130-400) K/uL MPV 10.2 (7.4-10.4) fL Sodium (136-145) mmol/L Potassium (3.5-5.1) mmol/L Chloride (98-107) mmol/L Carbon Dioxide (21-32) mmol/L Anion Gap (3-11) BUN (7-18) mg/dl Creatinine (0.6-1.4) mg/dl Est Cr Clr Drug Dosing ml/min Est GFR ( Amer) Est GFR (Non-Af Amer) BUN/Creatinine Ratio (10-20) Glucose (70-99) mg/dl POC Glucose 103 H 120 H (70-99) mg/dl Calcium (8.5-10.1) mg/dl Magnesium (1.8-2.4) mg/dl PG Care Time/CCT Total # of Minutes Spent Total Time Spent with Patient: Total time spent is greater than 50% in coordination of care (as documented) at patient's floor/unit and/or counseling patient: Coding Level of Care Code 87818 Subseq Hosp Care Lvl 2 Diagnoses 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
[2020-07-12] MEDS: amLODIPine BESYLATE 5 MG TAB PO SCH (20:37)
[2020-07-13] MEDS: MEROPENEM 500 MG in SYRINGE 0 ML IV SCH ×4 (01:53→21:02)
[2020-07-13 07:03] LABS: Basophils # (auto) 0.03 K/uL (0-0.2); Basophils % (auto) 0.3 %; Eosinophils # (auto) 0.18 K/uL (0-0.5); Eosinophils % (auto) 2.1 %; Hematocrit (blood only) 33.5 % (42-52); Hemoglobin 10.7 g/dL (14.0-18.0); Immature Granulocytes # (auto) 0.11 K/uL (0.00-0.02); Immature Granulocytes % (auto) 1.3 %; Lymphocytes # (auto) 2.08 K/uL (1.2-3.4); Mean Corpuscular Hemoglobin 29.1 pg (25-34); Mean Corpuscular Hgb Conc 31.9 g/dL (32-36); Monocytes # (auto) 0.48 K/uL (0.11-0.59); Monocytes % (auto) 5.5 %; Neutrophils # (auto) 5.78 K/uL (1.4-6.5); Neutrophils % (auto) 66.8 %; Platelet Count 373 K/uL (130-400); RDW Coefficient of Variation 14.3 % (11.5-14.5); Red Blood Count 3.68 M/uL (4.7-6.1); White Blood Count 8.66 K/uL (4.8-10.8)
[2020-07-13 07:29] LABS: Albumin Level 2.2 gm/dl (3.4-5.0); BUN Creatinine Ratio 20.6 (10-20); Creatinine Clr Calc Pharmacy 118.7 ml/min; Est GFR (African American) 117.5; Est GFR (Non-African American) 101.4; Potassium 3.9 mmol/L (3.5-5.1)
[2020-07-13 07:32] LABS: Albumin Globulin Ratio 0.6 (0.9-2); Bilirubin,Total 0.3 mg/dl (0.2-1); Total Protein 6.2 gm/dl (6.4-8.2)
[2020-07-13] MEDS: INSULIN GLARGINE SOLOSTAR 100 UNITS/ML 3 ML PEN SC SCH ×2 (09:29→21:06)
[2020-07-13] MEDS: HEPARIN SOD 5,000 UNIT/0.5 ML VIAL SQ SCH ×2 (09:30→21:02)
[2020-07-13] MEDS: INSULIN ASPART 100 UNITS/ML 3 ML PEN SC SCH ×4 (09:30→21:05)
[2020-07-13] MEDS: DOCUSATE SODIUM/SENNA 50/8.6MG TAB PO SCH (09:31)
[2020-07-13] MEDS: NYSTATIN SUSP 500,000 U/5 ML UDC PO SCH ×4 (09:31→21:04)
[2020-07-13] MEDS: CHOLECALCIFEROL 1,000 UNITS 25 MCG TAB PO SCH (09:32)
[2020-07-13] MEDS: METOPROLOL TARTRATE 50 MG TAB PO SCH ×2 (09:32→21:04)
[2020-07-13] MEDS: ADVANCED PROBIOTIC 1250 MG CAPSULE PO SCH (09:32)
[2020-07-13] MEDS: LOSARTAN POTASSIUM 50 MG TAB PO SCH (09:32)
[2020-07-13] MEDS: allopurinoL 300 MG TAB PO SCH (09:32)
[2020-07-13] MEDS: CEROVITE ADV FORMULA TAB PO SCH (09:33)
[2020-07-13] MEDS: ASCORBIC ACID 500 MG TAB PO SCH (09:33)
[2020-07-13] MEDS: ZINC SULFATE 220 MG CAPSULE PO SCH (09:34)
--- NOTE | 2020-07-13 09:46 | Urology Progress Note ---
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 - Pt has been to the operating room four times for treatment. - Clinically progressing with minimal pain. - Patient afebrile, labs reviewed and stable. - Recommend continue PT/OT, OOB - Continue wound VAC dressing change every 3 days by wound care team. - Continue with supportive care, pain management, and IV antibiotics. - Will continue to follow while inpatient. Admission and Anticipated Discharge Date Admission Date: July 02, 2020 Subjective Pt examined at bedside this AM. Sleeping with nasal CPAP in place. Appears comfortable, arouses easily to speech. No issues overnight, offers no complaints at present. Wound VAC changed yesterday at bedside by Wound Nurse. Minimal output from LAYLA drains - LAYLA#1 0 mL, LAYLA #2 5 mL. Reports minimal pain. Last pain medication was PO Percocet last evening. Tolerating diet, no nausea or vomiting. Reports BM this AM. No abdominal pain. Enriquez intact, patent, draining clear yellow urine. Tolerating catheter. No fever or chills. Chart review: Afebrile. Creatinine 0.84, WBC 8.66, Hgb 10.7. On IV Meropenem. No additional concerns today. Review of Systems Constitutional: as per Subjective / HPI Gastrointestinal: as per Subjective / HPI Genitourinary: + as per Subjective / HPI Integumentary: as per Subjective / HPI Physical Exam Constitutional: well developed, well nourished and + obese; no acute distress Respiratory: normal respiratory effort and able to speak in complete sentences; no respiratory distress and no labored breathing Nasal CPAP in place Cardiovascular: Extremities: no pedal edema Gastrointestinal (Abdomen): Inspection/Auscultation: abdomen normal to inspection; abdomen not distended Percussion/Palpation: abdomen soft; abdomen nontender and no guarding Musculoskeletal: Head/Neck/Chest: normocephalic and head atraumatic Extremities: extremities normal to inspection Neurologic: moves all extremities and awake Psychiatric: Orientation: alert, oriented x 3 and cooperative Genitourinary: Wound vac intact, suctioning appropriately without evidence of leak. LAYLA x 2 intact to scrotum area draining scant serosanguineous drainage. Coban is around the penis and swelling of the penis is controlled. Moderate amount of scrotal swelling present. Enriquez catheter intact draining clear yellow urine. 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
[2020-07-13] MEDS: oxyCODONE/ACETAMINOPHEN 5mg/325mg TAB PO PRN ×2 (11:07→21:14)
--- NOTE | 2020-07-13 17:54 | Hospitalist Progress Note ---
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 07/02 - Excisional Debridement and washout of gangrene by Dr. Guy. 07/03 - Irrigation/Debridement and washout of necrotizing fasciitis and gangrene with reconstruction and placement of wound VAC - also by Dr. Guy. 07/05 - Scrotal Debridement and Washout with Complex closure and creation of dartos pouch with flap from right hemiscrotum. Change of Wound Vac - Dr. Guy. 07/08 - Washout, Debridement, Reconstruction, and Wound Vac Exchange Groin Area - Dr. Guy. Doing well, no areas of necrosis seen during wound VAC exchange on 07/12. Remains afebrile, no leukocytosis Continue meropenem IV until time of discharge. Blood cultures negative. Wound cxs from all his surgeries grew group B strep and anaerobes (Peptostreptococcus anaerobius, Staphylococcus saccharolyticus, Prevotella disiens, Finegoldia magna, Peptoniphilus asaccharolyticus, Porphyromonas endodontalis). Wound care following for assistance with wound vac which needs to be changed every 3 days after discharge. [facility] ID consult obtained on 07/09. Recs per ID attending: * cont IV meropenem while hospitalized * "Anticipate total 7-14 days of abx therapy from final debridement, depending on the degree of residual soft tissue infection. May transition to clindamycin 300 mg po tid (or linezolid 600 mg po bid) and Metronidazole 500 mg po tid to cover the identified organisms when patient is ready to be discharged." - From urology standpoint, stable for discharge to acute rehab Will need wound care clinic follow-up once weekly and plastic surgery can see him at the same time there Will need urology follow-up within 1 week after discharge (2) Necrotizing fasciitis: Scrotum/lower abdominal wall - as above in "Ted's". S/p 4 debridement procedures as noted above. Wound vac is now a silver foam wound VAC as recommended by wound care nurse & plastics. Plastics does not feel he needs to be transferred to tertiary care at this time. Hyperbaric Oxygen treatment also deferred. (3) Ileus: Now resolved well, moving bowels (4) Diabetes mellitus: A1c was 8.2% this admission. - Holding glipizide, metformin and pioglitazone from home. - Continue basal and bolus insulin with pharmacy managing. - Sugars stable today (5) Chronic kidney disease: Baseline Cr. ~0.8 - 1.0. 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 - Creatinine stable 0.88 -Avoid nephrotoxins -renally dose meds when appropriate -follow BMP (6) Goodpastures syndrome: Goodpasture's syndrome/CKD. Known diagnosis. (7) Obstructive sleep apnea: cont nasal CPAP at bedtime and with naps (8) Morbid obesity with BMI of 40.0-44.9, adult: BMI 42 needs weight loss counseling (9) Dyslipidemia: - Niacin on hold (10) Anorexia: - Added MVI, vit C 500mg, zinc 220mg, and vit D 2000 IU to enhance wound healing & immunity. Anorexia resolved (11) Hypertension: controlled continue amlodipine, losartan (12) Current smoker: Encouraged continued smoking cessation after discharge He declines nicotine replacement therapy (13) Gout, joint: No acute issues Continue home allopurinol for prophylaxis (14) DVT prophylaxis: Heparin 5,000 units SQ Q12h Dispo-medically stable for discharge, awaiting acceptance at [facility] for acute rehab Admission and Anticipated Discharge Date Admission Date: July 02, 2020 Subjective Patient reports some pain in the groin but is controlled with Percocet. He did get out of bed and walk to the doorway and back with great fatigue as per PT notes. This is the for this she is walked the whole time he has been in the hospital. He understands and agrees with going to rehab at this point because of the complexity of his wound care as well as significant deconditioning from his baseline. Denies any other concerns. Is moving his bowels, no diarrhea or constipation. No nausea and is eating well. Review of Systems Review of Systems: All systems reviewed & are unremarkable except as noted in HPI & below Physical Exam Constitutional: WD/WN, vitals as above + morbidly obese Eyes: + anicteric sclerae ENMT: Ears: no hearing impairment Neck: trachea midline, no thyromegaly Respiratory: normal respiratory effort, lungs clear to auscultation Cardiovascular: Rate/Rhythm: regular rate and regular rhythm Heart Sounds: no murmur Extremities: + edema (1+ pitting edema of the feet and legs bilaterally) Chest (Breasts): Chest: normal inspection of chest Gastrointestinal (Abdomen): normal bowel sounds, soft, nontender, no hepatosplenomegaly Musculoskeletal: Extremities: extremities normal to inspection; no cyanosis and no clubbing Skin: no rashes, warm and dry Neurologic: moves all extremities and awake; no focal motor deficits Psychiatric: A+Ox3, euthymic affect Genitourinary: + testicular swelling (On the right, with wound VAC present in the perineum) Lymphatic: no lymphedema Results & Data Results & Data ([facility]) Vital Signs (Past 12 Hours) Vital Signs Temp Pulse Pulse Resp BP Pulse Ox 07/13/20 15:51 36.7 C 67 16 162/95 H 98 07/13/20 06:57 37.0 C 68 24 164/92 H 98 Laboratory Results 07/13/20 07/13/20 07/13/20 Range/Units 17:20 12:07 08:19 WBC (4.8-10.8) K/uL RBC (4.7-6.1) M/uL Hgb (14.0-18.0) g/dL Hct (42-52) % MCV (80-100) fL MCH (25-34) pg MCHC (32-36) g/dL RDW Std Deviation (36.4-46.3) fL RDW Coeff of Sara (11.5-14.5) % Plt Count (130-400) K/uL MPV (7.4-10.4) fL Immature Gran % (Auto) % Neut % (Auto) % Lymph % (Auto) % Dewey % (Auto) % Eos % (Auto) % Baso % (Auto) % Neut # (Auto) (1.4-6.5) K/uL Lymph # (Auto) (1.2-3.4) K/uL Dewey # (Auto) (0.11-0.59) K/uL Eos # (Auto) (0-0.5) K/uL Baso # (Auto) (0-0.2) K/uL Immature Gran # (Auto) (0.00-0.02) K/uL Sodium (136-145) mmol/L Potassium (3.5-5.1) mmol/L Chloride (98-107) mmol/L Carbon Dioxide (21-32) mmol/L Anion Gap (3-11) BUN (7-18) mg/dl Creatinine (0.6-1.4) mg/dl Est Cr Clr Drug Dosing ml/min Est GFR ( Amer) Est GFR (Non-Af Amer) BUN/Creatinine Ratio (10-20) Glucose (70-99) mg/dl POC Glucose 215 H 151 H 191 H (70-99) mg/dl Calcium (8.5-10.1) mg/dl Total Bilirubin (0.2-1) mg/dl AST (15-37) U/L ALT (12-78) U/L Alkaline Phosphatase (45-117) U/L Total Protein (6.4-8.2) gm/dl Albumin (3.4-5.0) gm/dl Globulin (2.5-4.0) gm/dl Albumin/Globulin Ratio (0.9-2) 07/13/20 07/13/20 07/12/20 Range/Units 06:29 06:29 20:41 WBC 8.66 (4.8-10.8) K/uL RBC 3.68 L (4.7-6.1) M/uL Hgb 10.7 L (14.0-18.0) g/dL Hct 33.5 L (42-52) % MCV 91.0 (80-100) fL MCH 29.1 (25-34) pg MCHC 31.9 L (32-36) g/dL RDW Std Deviation 48.0 H (36.4-46.3) fL RDW Coeff of Sara 14.3 (11.5-14.5) % Plt Count 373 (130-400) K/uL MPV 10.0 (7.4-10.4) fL Immature Gran % (Auto) 1.3 % Neut % (Auto) 66.8 % Lymph % (Auto) 24.0 % Dewey % (Auto) 5.5 % Eos % (Auto) 2.1 % Baso % (Auto) 0.3 % Neut # (Auto) 5.78 (1.4-6.5) K/uL Lymph # (Auto) 2.08 (1.2-3.4) K/uL Dewey # (Auto) 0.48 (0.11-0.59) K/uL Eos # (Auto) 0.18 (0-0.5) K/uL Baso # (Auto) 0.03 (0-0.2) K/uL Immature Gran # (Auto) 0.11 H (0.00-0.02) K/uL Sodium 138 (136-145) mmol/L Potassium 3.9 (3.5-5.1) mmol/L Chloride 105 (98-107) mmol/L Carbon Dioxide 30 (21-32) mmol/L Anion Gap 3.0 (3-11) BUN 17 (7-18) mg/dl Creatinine 0.84 (0.6-1.4) mg/dl Est Cr Clr Drug Dosing 118.7 ml/min Est GFR ( Amer) 117.5 Est GFR (Non-Af Amer) 101.4 BUN/Creatinine Ratio 20.6 H (10-20) Glucose 187 H (70-99) mg/dl POC Glucose 150 H (70-99) mg/dl Calcium 8.0 L (8.5-10.1) mg/dl Total Bilirubin 0.3 (0.2-1) mg/dl AST 17 (15-37) U/L ALT 26 (12-78) U/L Alkaline Phosphatase 120 H (45-117) U/L Total Protein 6.2 L (6.4-8.2) gm/dl Albumin 2.2 L (3.4-5.0) gm/dl Globulin 4.0 (2.5-4.0) gm/dl Albumin/Globulin Ratio 0.6 L (0.9-2) PG Care Time/CCT Total # of Minutes Spent Total Time Spent with Patient: Total time spent is greater than 50% in coordination of care (as documented) at patient's floor/unit and/or counseling patient: Coding Level of Care Code 89647 Subseq Hosp Care Lvl 3 Diagnoses 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
[2020-07-13] MEDS: amLODIPine BESYLATE 5 MG TAB PO SCH (21:04)
[2020-07-14] MEDS: MEROPENEM 500 MG in SYRINGE 0 ML IV SCH ×4 (02:43→18:40)
[2020-07-14] MEDS: INSULIN GLARGINE SOLOSTAR 100 UNITS/ML 3 ML PEN SC SCH (08:30)
[2020-07-14] MEDS: HEPARIN SOD 5,000 UNIT/0.5 ML VIAL SQ SCH (08:31)
--- NOTE | 2020-07-14 08:34 | Urology Progress Note ---
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 - Pt has been to the operating room four times for treatment. - Clinically progressing with minimal pain. - Patient remains afebrile, labs reviewed and stable. - Recommend continuing PT/OT and encourage OOB. - Continue wound VAC dressing change every 3 days by wound care team. - Continue with recommendations from reconstructive surgery. - Continue with supportive care, pain management, and antibiotic therapy. - Okay from perspective for patient to be discharged to acute rehab for continued care and wound care management. - Will need close follow-up outpatient with urology service once discharged. - Will plan to continue to follow while inpatient. Admission and Anticipated Discharge Date Admission Date: July 02, 2020 Subjective Pt examined at bedside this morning, alert and comfortable. No issues overnight, offers no complaints at present. Wound VAC changed 07/12 without complications. Minimal output from LAYLA drains - LAYLA#1 0 mL, LAYLA #2 10 mL. Reports pain is tolerable with PO pain medication. Tolerating diet, no nausea or vomiting. Denies abdominal pain. Enriquez intact, patent, draining clear yellow urine. Tolerating catheter without issues. Denies fevers or chills. Chart review: Afebrile. Labs reviewed from yesterday, stable. Currently on IV Meropenem. No additional concerns today. Review of Systems Constitutional: as per Subjective / HPI; no fever and no chills Gastrointestinal: as per Subjective / HPI; no nausea and no vomiting Genitourinary: + as per Subjective / HPI Integumentary: as per Subjective / HPI Physical Exam Constitutional: well developed, well nourished and + obese; no acute distress Respiratory: normal respiratory effort and able to speak in complete sentences; no respiratory distress and no audible wheezes Cardiovascular: Extremities: no pedal edema Gastrointestinal (Abdomen): Inspection/Auscultation: abdomen normal to inspection; abdomen not distended Percussion/Palpation: abdomen soft; abdomen nontender and no guarding Musculoskeletal: Head/Neck/Chest: normocephalic and head atraumatic Extremities: extremities normal to inspection Neurologic: moves all extremities and awake Psychiatric: Orientation: alert, oriented x 3 and cooperative Genitourinary: Wound vac intact, suctioning appropriately without evidence of leak. LAYLA x 2 intact to scrotum area draining scant serosanguineous drainage. Coban is around the penis and swelling of the penis is controlled. Moderate amount of scrotal swelling present. Enriquez catheter intact draining clear yellow urine. 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
[2020-07-14] MEDS: INSULIN ASPART 100 UNITS/ML 3 ML PEN SC SCH ×3 (09:40→18:04)
[2020-07-14] MEDS: METOPROLOL TARTRATE 50 MG TAB PO SCH (09:42)
[2020-07-14] MEDS: ZINC SULFATE 220 MG CAPSULE PO SCH (09:42)
[2020-07-14] MEDS: CEROVITE ADV FORMULA TAB PO SCH (09:42)
[2020-07-14] MEDS: ASCORBIC ACID 500 MG TAB PO SCH (09:42)
[2020-07-14] MEDS: allopurinoL 300 MG TAB PO SCH (09:42)
[2020-07-14] MEDS: NYSTATIN SUSP 500,000 U/5 ML UDC PO SCH ×4 (09:43→16:56)
[2020-07-14] MEDS: ADVANCED PROBIOTIC 1250 MG CAPSULE PO SCH (09:43)
[2020-07-14] MEDS: LOSARTAN POTASSIUM 50 MG TAB PO SCH (09:43)
[2020-07-14] MEDS: DOCUSATE SODIUM/SENNA 50/8.6MG TAB PO SCH (09:44)
[2020-07-14] MEDS: CHOLECALCIFEROL 1,000 UNITS 25 MCG TAB PO SCH (09:45)
[2020-07-14] MEDS: oxyCODONE/ACETAMINOPHEN 5mg/325mg TAB PO PRN ×2 (12:07→16:12)
--- NOTE | 2020-07-14 13:03 | Discharge Summary ---
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 The patient notes that he initially developed some groin discomfort on his left side 4 days ago upon returning from a trip. Drainage was noted on that day, and improved the following day. 2 days after the initial symptom, there was additional drainage and then seemed to involve the scrotal area. He reports over the last 24 hours, in particular since 7 PM last evening, the infection has spread quickly, and was referred to the ED by his PCP. After being seen by the ED staff, the patient was taken by urology Dr. Guy to the OR, where he had significant debridement performed, and was then admitted to the ICU still intubated post surgery Principal Diagnosis Ted's gangrene Discharge Exam Constitutional WD/WN, vitals as above + morbidly obese Eyes + anicteric sclerae ENMT Ears: no hearing impairment Neck trachea midline, no thyromegaly Respiratory normal respiratory effort, lungs clear to auscultation Cardiovascular Rate/Rhythm: regular rate and regular rhythm Heart Sounds: no murmur Extremities: + edema (1+ pitting edema of the feet and legs bilaterally) Chest (Breasts) Chest: normal inspection of chest Gastrointestinal (Abdomen) normal bowel sounds, soft, nontender, no hepatosplenomegaly (Obese) Musculoskeletal Extremities: extremities normal to inspection; no cyanosis and no clubbing Skin no rashes, warm and dry Neurologic moves all extremities and awake; no focal motor deficits Psychiatric A+Ox3, euthymic affect Genitourinary + testicular swelling (On the right, with wound VAC present in the perineum) Lymphatic no lymphedema Discharge Data Allergies Allergy/AdvReac Type Severity Reaction Status Date / Time amoxicillin [From Augmentin] Allergy Severe Anaphylaxis Verified 07/02/20 18:13 clavulanic acid Allergy Severe Anaphylaxis Verified 07/02/20 18:13 [From Augmentin] Consultations 07/02/20 21:05 Consult Golf Sales Manager Stat 07/02/20 21:28 Consult Case Management - Discharge Planning Routine 07/02/20 21:49 Consult Case Management - Discharge Planning Routine Consult Golf Sales Manager Routine 07/03/20 09:35 Consult Infectious Diseases Routine 07/05/20 09:37 Consult Plastic Surgery Routine 07/06/20 16:56 Consult Urology Routine 07/09/20 08:29 Consult Infectious Diseases Routine 07/13/20 11:53 Consult Patient Rep / Service Excellence [Consult Patient Services] Routine Procedures Performed Operation Date: 07/02/20 19:00 Actual Procedures p Debridement and washout of gangrene.(Bilateral) - Logan Guy DO Operation Date: 07/03/20 18:00 Actual Procedures p Debridement(Not Applicable) - Logan Guy DO Operation Date: 07/05/20 08:05 Actual Procedures p Scrotal Debridement and Washout with Change of Wound Vac(Not Applicable) - Logan Guy DO Operation Date: 07/08/20 11:05 Actual Procedures p Washout, Debridement, Reconstruction and Wound Vac Exchange Groin Area(Not Applicable) - Logan Guy DO Ordered Studies 07/02/20 17:02 CT abd pelvis wo con Stat KUB Chest x-ray x3 Hospital Course (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 07/02 - Excisional Debridement and washout of gangrene by Dr. Guy. 07/03 - Irrigation/Debridement and washout of necrotizing fasciitis and gangrene with reconstruction and placement of wound VAC - also by Dr. Guy. 07/05 - Scrotal Debridement and Washout with Complex closure and creation of dartos pouch with flap from right hemiscrotum. Change of Wound Vac - Dr. Guy. 07/08 - Washout, Debridement, Reconstruction, and Wound Vac Exchange Groin Area - Dr. Guy. Doing well, no areas of necrosis seen during wound VAC exchange on 07/12. Due for next wound VAC exchange on 07/15 Remains afebrile, no leukocytosis Remained on meropenem IV until time of discharge. Will now be discharged on linezolid and metronidazole as below Blood cultures negative. Wound cxs from all his surgeries grew group B strep and anaerobes (Peptostreptococcus anaerobius, Staphylococcus saccharolyticus, Prevotella disiens, Finegoldia magna, Peptoniphilus asaccharolyticus, Porphyromonas en dodontalis). Wound care following for assistance with wound vac which needs to be changed every 3 days after discharge. [facility] ID consult obtained on 07/09. Recs per ID attending: * cont IV meropenem while hospitalized * "Anticipate total 7-14 days of abx therapy from final debridement, depending on the degree of residual soft tissue infection. May transition to clindamycin 300 mg po tid (or linezolid 600 mg po bid) and Metronidazole 500 mg po tid to cover the identified organisms when patient is ready to be discharged." - From urology standpoint, stable for discharge to acute rehab Will need wound care clinic follow-up once weekly and plastic surgery can see him at the same time there Will need urology follow-up within 1 to 2 weeks after discharge (2) Necrotizing fasciitis: Scrotum/lower abdominal wall - as above in "Ted's". S/p 4 debridement procedures as noted above. Wound vac is now a silver foam wound VAC as recommended by wound care nurse & plastics. Plastics does not feel he needs to be transferred to tertiary care at this time. Hyperbaric Oxygen treatment also deferred. (3) Ileus: Now resolved well, moving bowels Continue senna/docusate (4) Diabetes mellitus: A1c was 8.2% this admission. -Discontinue home glipizide and pioglitazone from home. -Restart home Metformin upon discharge - Continue basal and bolus insulin upon discharge Needs excellent control blood sugars for proper wound healing (5) Chronic kidney disease: Baseline Cr. ~0.8 - 1.0. 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 - Creatinine stable 0.88 -Avoid nephrotoxins -renally dose meds when appropriate -follow BMP (6) Goodpastures syndrome: Goodpasture's syndrome/CKD. Known diagnosis. (7) Obstructive sleep apnea: cont nasal CPAP at bedtime and with naps (8) Morbid obesity with BMI of 40.0-44.9, adult: BMI 42 needs weight loss counseling (9) Dyslipidemia: - Niacin on hold but can be restarted on discharge (10) Anorexia: - Added MVI, vit C 500mg, zinc 220mg, and vit D 2000 IU to enhance wound healing & immunity. Anorexia resolved (11) Hypertension: controlled continue amlodipine, losartan Home hydrochlorothiazide was discontinued Metoprolol was added (12) Current smoker: Encouraged continued smoking cessation after discharge He declines nicotine replacement therapy (13) Gout, joint: No acute issues Continue home allopurinol for prophylaxis (14) DVT prophylaxis: Heparin 5,000 units SQ Q12h Dispo-medically stable for discharge, [facility] today Total Time Total Time Spent Total Time Spent (In Minutes): 40 minutes Total Time Includes: Examination of the Patient, Discharge Planning, Medication Reconciliation and Communication With Other Providers (Urology, wound care nurse) Discharge Plan Discharge Items Patient Disposition: Transfer Inpatient Rehab Fac Reason For Visit: TED'S GANGRENE Discharge Diagnosis: Ted's gangrene Condition on Discharge: Fair Activity: As commented below Lifting: Gradually increase as tolerated Bathing: Keep incision dry Exercise/Sports: Gradually increase as tolerated Weightbearing: Full weightbearing Non-emergency contact: Primary Care Provider, Surgeon and Urologist Call non-emergency contact if: you have any medication questions, your symptoms worsen, your pain is not controlled, your pain is worsening, your pain is unusual for you, your pain is concerning for you, you have a fever, your temperature is above 101, your wound has increased redness, your wound has increased drainage and your wound pain has increased Follow-up/Referrals: Soledad Ozuna MD [Physician] - (Please follow-up in 1 week in conjunction with your wound care clinic visit.) Eber Kiran MD [Primary Care Provider] - (Follow-up within 2 weeks after discharge from rehab) Logan Guy DO [Physician] - (Follow-up within 2 weeks) Diet: Carb Consistent or DM2 and Heart Healthy Addtl Attending Provider Instructions: You are admitted with a severe infection of the groin and scrotum called Ted's gangrene. You had multiple surgeries to remove the infected tissue and now have a wound vacuum in place. Please continue on the oral antibiotics as prescribed. You will need to have the wound vacuum changed every 3 days. It is also recommended that you follow-up at the [facility] wound care clinic once a week. The plastic surgeon, Dr. Ozuna, should also coordinate to see you at the same time once weekly at the wound care clinic as you may end up needing skin graft. Please also follow-up with urology, Dr. Guy, within 1 to 2 weeks. You can continue to take pain control with Percocet as needed. It is important that you continue to not smoke cigarettes and to control your diabetes to best help with wound healing. Pending Studies at Discharge: No Stand-Alone Forms: My [facility] Skilled Items Patient informed of condition?: Yes DNR: No Discharge Level of Care: Acute rehab Communicable Disease: No Discharge Prognosis: Improving Lines: None Urinary Catheter: Yes Medications and DC Order Prescriptions: New nystatin 100,000 unit/mL Suspension 5 ml PO QID 7 Days Qty: 140 RF: 0 amlodipine [Norvasc] 5 mg Tablet 5 mg PO HS Qty: 30 RF: 0 losartan 100 mg tablet 100 mg PO DAILY Qty: 30 RF: 0 sennosides-docusate sodium [Senokot-S] 8.6-50 mg Tablet 1 tab PO QAM Qty: 30 RF: 0 oxycodone-acetaminophen [Percocet] 5-325 mg Tablet 1 tab PO Q4H PRN (Reason: pain) Qty: 10 RF: 0 metoprolol tartrate 50 mg Tablet 50 mg PO BID Qty: 60 RF: 0 zinc sulfate [Orazinc] 220 (50) mg Capsule 220 mg PO QAM Qty: 30 RF: 0 Lantus Solostar U-100 Insulin 100 unit/mL (3 mL) Insulin Pen 15 unit SC BID Qty: 3 RF: 0 Advanced Probiotic 625 mg (10 billion cell) Capsule 2 cap PO DAILY Qty: 60 RF: 0 ascorbic acid (vitamin C) [Vitamin C] 500 mg Tablet 500 mg PO QAM Qty: 30 RF: 0 cholecalciferol (vitamin D3) 25 mcg (1,000 unit) Capsule 2,000 unit PO QAM Qty: 60 RF: 0 Certavite-Antioxidant 18-400 mg-mcg Tablet 1 tab PO QAM Qty: 30 RF: 0 linezolid 600 mg tablet 600 mg PO BID 8 Days Qty: 16 RF: 0 metronidazole 500 mg tablet 500 mg PO TID 8 Days Qty: 24 RF: 0 Continued metformin 1,000 mg tablet 1,000 mg PO BID Qty: 180 RF: 3 niacin 1,000 mg tablet extended release 24 hr 1,000 mg PO DAILY Qty: 90 RF: 3 (DME) Beddituch Ultra Blue Test Strip Strip See Dose Instructions .ROUTE .MEDSUPPLY Qty: 180 RF: 3 allopurinol 300 mg tablet 300 mg PO DAILY Qty: 90 RF: 1 Hold Instructions: In patient now furosemide 40 mg tablet 40 mg PO DAILY PRN (Reason: edema) Qty: 90 RF: 3 (DME) lancets [OneTouch UltraSoft Lancets] [facility] See Dose Instructions .ROUTE .MEDSUPPLY Qty: 50 RF: 0 Discontinued glipizide 10 mg tablet 10 mg PO BID Qty: 180 RF: 3 naproxen 500 mg tablet 500 mg PO BID PRN (Reason: pain) Qty: 180 RF: 1 indomethacin 50 mg capsule 50 mg PO DAILY PRN (Reason: GOUT) Qty: 90 RF: 3 losartan-hydrochlorothiazide 100-25 mg tablet 1 tab PO DAILY Qty: 90 RF: 3 pioglitazone 30 mg tablet 30 mg PO DAILY Qty: 90 RF: 3 tramadol 50 mg tablet 50 mg PO Q4H PRN (Reason: pain) Qty: 84 RF: 0 Discharge Orders: Discharge Order (Routine); Ordered 07/14/20 Ordered By: Jessica Gross Admission Data Admit Date/Time: 07/02/20 21:49 Attending Provider: Jessica Gross Admit Provider: Pablo Mar Primary Care Provider: Eber Kiran Other Providers: Silvano Little ; Daniel Tadeo ; Joel Israel ; Jd Hope I. 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
[2020-07-14] MEDS: HYDROmorphone INJ 0.5 MG/0.5 ML SYR IV PRN (13:55)
== END 2020-07-14 19:03 | DRG 853 ==
LOC: ED 16:37 → OR 18:38 → SUATTDRO 21:49 → 1E 21:49 → 3N 07-11 15:25

== ENCOUNTER 2020-07-17 01:18 | Inpatient (IN) ==
[2020-07-17] MEDS ORDERED: oxyCODONE HCL IR 5 MG TAB (IMMEDIATE RELEASE) PO STA (01:29)
[2020-07-17] MEDS ORDERED: SODIUM CHLORIDE 0.9% 1000ML 1,000 ML IV SCH (02:30)
[2020-07-17] MEDS ORDERED: MEROPENEM 500 MG in SYRINGE 0 ML IV STA (02:38)
[2020-07-17] MEDS ORDERED: MEROPENEM CONSULT ACITVE PRN ×2 (02:38→04:30)
[2020-07-17] MEDS ORDERED: DAPTOmycin 500 MG in SYRINGE 0 ML IV ONE (02:44)
[2020-07-17 02:51] LABS: Basophils # (auto) 0.03 K/uL (0-0.2); Basophils % (auto) 0.4 %; Eosinophils # (auto) 0.26 K/uL (0-0.5); Eosinophils % (auto) 3.2 %; Hematocrit (blood only) 33.6 % (42-52); Hemoglobin 10.9 g/dL (14.0-18.0); Immature Granulocytes # (auto) 0.03 K/uL (0.00-0.02); Immature Granulocytes % (auto) 0.4 %; Lymphocytes # (auto) 2.34 K/uL (1.2-3.4); Lymphocytes % (auto) 28.4 %; Mean Corpuscular Hemoglobin 29.4 pg (25-34); Mean Corpuscular Hgb Conc 32.4 g/dL (32-36); Mean Corpuscular Volume 90.6 fL (80-100); Mean Platelet Volume 9.6 fL (7.4-10.4); Monocytes # (auto) 0.57 K/uL (0.11-0.59); Monocytes % (auto) 6.9 %; Neutrophils # (auto) 5.02 K/uL (1.4-6.5); Neutrophils % (auto) 60.7 %; Platelet Count 406 K/uL (130-400); RDW Coefficient of Variation 14.1 % (11.5-14.5); RDW Standard Deviation 46.7 fL (36.4-46.3); Red Blood Count 3.71 M/uL (4.7-6.1); White Blood Count 8.25 K/uL (4.8-10.8)
[2020-07-17 03:10] LABS: Albumin Level 2.5 gm/dl (3.4-5.0); BUN Creatinine Ratio 14.2 (10-20); Calcium 8.3 mg/dl (8.5-10.1); Creatinine Clr Calc Pharmacy 111.4 ml/min; Est GFR (African American) 112.7; Est GFR (Non-African American) 97.2; Potassium 3.9 mmol/L (3.5-5.1)
[2020-07-17 03:13] LABS: Albumin Globulin Ratio 0.6 (0.9-2); Bilirubin,Total 0.3 mg/dl (0.2-1); Globulin 3.9 gm/dl (2.5-4.0); Total Protein 6.4 gm/dl (6.4-8.2)
--- NOTE | 2020-07-17 03:38 | History & Physical Report ---
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 07/02 - Excisional Debridement and washout of gangrene by Dr. Guy. 07/03 - Irrigation/Debridement and washout of necrotizing fasciitis and gangrene with reconstruction and placement of wound VAC - also by Dr. Guy. 07/05 - Scrotal Debridement and Washout with Complex closure and creation of dartos pouch with flap from right hemiscrotum. Change of Wound Vac - Dr. Guy. 07/08 - Washout, Debridement, Reconstruction, and Wound Vac Exchange Groin Area - Dr. Guy. 07/12 - Wound Vac Exchange Wound Vac exchange attempted today, staff was unable to obtain seal on the wound vac. Wound vac then became contaminated with stool and urine. Patient afebrile, HD stable, non-toxic in appearance. Pain is well controlled. 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 Near baseline renal function -Avoid nephrotoxic agents -Monitor BUN/Cr/Electrolytes and UOP Present on Admission?: Yes (3) Diabetes mellitus: Chronic. YW=535 today. Last ResM2G=4.2 on 07/03/20. His glipizide and pioglitazone was discontinued during his last hospital stay. -Continue Lantus 15u BID -Hold Metformin -ISS -Goal blood sugar 100 - 140 while inpatient -Advance diet to CC when able Present on Admission?: Yes (4) Dyslipidemia: Chronic -Continue Niacin Present on Admission?: Yes (5) Gout, joint: Chronic, stable without acute flare -Continue Allopurinol 300mg po daily Present on Admission?: Yes (6) Hypertension: Chronic. BP mildly elevated at present at 153/108 -Continue Amlodipine 5mg po qHS -Continue Metoprolol 50mg po BID -Hold Losartan for possible surgery tomorrow - may resume postoperatively Present on Admission?: Yes (7) Obstructive sleep apnea: Chronic. Stable -Patient may use home CPAP qHS Present on Admission?: Yes (8) Goodpastures syndrome: Chronic with CKD as above -Monitor renal function -Avoid nephrotoxins F/E/N - NSS at 125mL/hr, electrolytes WNL, NPO Ppx - Low risk for DVT Code - Full, patient states he is not fully decided on code status yet. Encouraged him to discuss with Dispo - Admit to medical History of Present Illness Chief Complaint: wound vac malfunction Primary Care Provider: Eber Kiran MD Mr. Fragoso is a pleasant 50yo C male with prolonged and complicated hospitalization from 07/02 - 07/14 for Ted's gangrene s/p multiple debridement, washouts, wound vac placement. Patient was discharged to [facility] on Linezolid, Flagyl, Wound Vac in place on 07/14/20. He reports doing quite well with rehabilitation, was able to ambulate, dress himself, etc. Patient had a wound vac exchange yesterday which was complicated by inability to achieve a seal. Patient had the wound vac off for hours. He was on the bedpan for appx 45 minutes during that time causing the wound vac to become contaminated with stool and urine. Patient was sent to [facility] from [facility] for management of wound vac. He has no acute complaints at present. He is frustrated with being back in the hospital. ER Course: NSS x 1L, Meropenem 500mg, Dapto 500mg, Oxycodone 10mg Allergies Allergy/AdvReac Type Severity Reaction Status Date / Time amoxicillin [From Augmentin] Allergy Severe Anaphylaxis Verified 07/17/20 02:07 clavulanic acid Allergy Severe Anaphylaxis Verified 07/17/20 02:07 [From Augmentin] Home Medications Home Medications Medication Instructions Recorded Confirmed Type lancets #50 ea 05/12/19 04/01/20 History furosemide 40 mg tablet 40 mg PO DAILY PRN #90 tab 06/30/19 07/17/20 Rx metformin 1,000 mg tablet 1,000 mg PO BID #180 tab 09/01/19 07/17/20 Rx niacin 1,000 mg tablet,extended 1,000 mg PO DAILY #90 tab 09/01/19 07/17/20 Rx release 24 hr blood sugar diagnostic #180 ea 06/28/20 Rx allopurinol 300 mg tablet 300 mg PO DAILY #90 tab 07/06/20 07/17/20 Rx L.acidop,dov,lac,rha-B.lac,paris 2 cap PO DAILY #60 cap 07/14/20 07/17/20 Rx [Advanced Probiotic] amlodipine [Norvasc] 5 mg PO HS #30 tab 07/14/20 07/17/20 Rx ascorbic acid (vitamin C) [Vitamin 500 mg PO QAM #30 tab 07/14/20 07/17/20 Rx C] cholecalciferol (vitamin D3) 2,000 unit PO QAM #60 cap 07/14/20 07/17/20 Rx insulin glargine [Lantus Solostar 15 unit SC BID #3 ml 07/14/20 07/17/20 Rx U-100 Insulin] linezolid 600 mg PO BID 8 Days #16 tab 07/14/20 07/17/20 Rx losartan 100 mg PO DAILY #30 tab 07/14/20 07/17/20 Rx metoprolol tartrate 50 mg PO BID #60 tab 07/14/20 07/17/20 Rx metronidazole 500 mg PO TID 8 Days #24 tab 07/14/20 07/17/20 Rx kfbbgxpcdjjp-nyzx-fgozf acid 1 tab PO QAM #30 tab 07/14/20 07/17/20 Rx [Certavite-Antioxidant] nystatin 5 ml PO QID 7 Days #140 ml 07/14/20 07/17/20 Rx oxycodone-acetaminophen [Percocet] 1 tab PO Q4H PRN #10 tab 07/14/20 07/17/20 Rx sennosides-docusate sodium 1 tab PO QAM #30 tab 07/14/20 07/17/20 Rx [Senokot-S] triamcinolone acetonide 1 applic TOPICAL BID #30 g 07/14/20 07/17/20 Rx zinc sulfate [Orazinc] 220 mg PO QAM #30 cap 07/14/20 07/17/20 Rx Past Med/Surg History Medical History (Updated 07/17/20 @ 03:22 by Darline Hope DO) Back pain Blurry vision, right eye Chronic kidney disease Current smoker Diabetes mellitus Dyslipidemia 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 Goodpastures syndrome Gout, joint Hypertension Left lumbosacral radiculopathy Necrotizing fasciitis Obstructive sleep apnea Sepsis Surgical History History of orchiectomy Social History Smoking Status: Current some day smoker Tobacco Type: Cigarettes Hx Alcohol Use: No Hx Substance Use: No Preferred Language: Colombian Communication Ability: Unable 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 Beliefs That Will Affect Care: None Current Living Situation: Significant Other Feels Safe at Home: Yes Assistive Devices: CPAP Review of Systems Review of Systems: All systems reviewed & are unremarkable except as noted in HPI & below Physical Exam Physical Exam: General: patient resting comfortably, NAD, non-toxic in appearance, AA&O x 4, nasal CPAP in place HEENT: NC/AT, PERRL, EOMI, anicteric sclera, conjunctiva without injection, external ear normal to inspection and nontender, nares patent, moist mucus membranes, dentition intact, no oropharyngeal lesions, neck supple, trachea midline, no LAD, no thyromegaly, no JVD Heart: +S1/S2, regular, no m/r/g Lungs: equal air entry bilaterally, no rales/rhonchi/wheezes Abd: +BS, soft, NT/ND, no masses/organomegaly/ascites - +testicular edema, erythema, dressing in place Ext: warm, 2+ pulses in UE/LE bilaterally, no clubbing/cyanosis or edema Neuro: nonfocal, patient AA&O x 4, speech intact, no facial droop, moving all extremities on command with equal strength 5/5 Results & Data Results & Data ([facility]) Vital Signs (Past 12 Hours) Vital Signs Temp Pulse Pulse Resp BP BP Pulse Ox 07/17/20 03:00 69 20 143/94 H 97 07/17/20 01:29 37.1 C 70 18 153/108 H 98 Diagnostic Findings Lab Results 07/17/20 07/17/20 07/17/20 Range/Units 02:40 02:40 03:10 WBC 8.25 (4.8-10.8) K/uL RBC 3.71 L (4.7-6.1) M/uL Hgb 10.9 L (14.0-18.0) g/dL Hct 33.6 L (42-52) % MCV 90.6 (80-100) fL MCH 29.4 (25-34) pg MCHC 32.4 (32-36) g/dL RDW Std Deviation 46.7 H (36.4-46.3) fL RDW Coeff of Sara 14.1 (11.5-14.5) % Plt Count 406 H (130-400) K/uL MPV 9.6 (7.4-10.4) fL Immature Gran % (Auto) 0.4 % Neut % (Auto) 60.7 % Lymph % (Auto) 28.4 % [place] % (Auto) 6.9 % Eos % (Auto) 3.2 % Baso % (Auto) 0.4 % Neut # (Auto) 5.02 (1.4-6.5) K/uL Lymph # (Auto) 2.34 (1.2-3.4) K/uL [place] # (Auto) 0.57 (0.11-0.59) K/uL Eos # (Auto) 0.26 (0-0.5) K/uL Baso # (Auto) 0.03 (0-0.2) K/uL Immature Gran # (Auto) 0.03 H (0.00-0.02) K/uL Sodium 140 (136-145) mmol/L Potassium 3.9 (3.5-5.1) mmol/L Chloride 106 (98-107) mmol/L Carbon Dioxide 30 (21-32) mmol/L Anion Gap 4.0 (3-11) BUN 13 (7-18) mg/dl Creatinine 0.91 (0.6-1.4) mg/dl Est Cr Clr Drug Dosing 111.4 ml/min Est GFR ( Amer) 112.7 Est GFR (Non-Af Amer) 97.2 BUN/Creatinine Ratio 14.2 (10-20) Glucose 118 H (70-99) mg/dl Calcium 8.3 L (8.5-10.1) mg/dl Total Bilirubin 0.3 (0.2-1) mg/dl AST 18 (15-37) U/L ALT 25 (12-78) U/L Alkaline Phosphatase 121 H (45-117) U/L Total Protein 6.4 (6.4-8.2) gm/dl Albumin 2.5 L (3.4-5.0) gm/dl Globulin 3.9 (2.5-4.0) gm/dl Albumin/Globulin Ratio 0.6 L (0.9-2) COVID-19 Eval [facility] Code Status & VTE Plan Code Status Full PG Care Time/CCT Total # of Minutes Spent Total Time Spent with Patient: Total time spent is greater than 50% in coordination of care (as documented) at patient's floor/unit and/or counseling patient: Coding Level of Care Code 29099 Initial Inpt Care Lvl 3 Diagnoses Scrotal infection N49.2 Chronic kidney disease N18.9 Diabetes mellitus E11.9; Z79.4 Diabetes mellitus type: type 2 Diabetes mellitus chcf insulin use: with chcf use Diabetes mellitus complication status: without complication Dyslipidemia E78.5 Gout, joint M10.9 Hypertension I10 Hypertension type: essential hypertension Obstructive sleep apnea G47.33 Goodpastures syndrome M31.0 (1) Diabetes mellitus Diabetes mellitus type: type 2 Diabetes mellitus chcf insulin use: with chcf use Diabetes mellitus complication status: without complication Qualified Code(s): E11.9 - Type 2 diabetes mellitus without complications; 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
[2020-07-17] MEDS ORDERED: GLUCOSE 10 TABS/TUBE PO PRN (04:30)
[2020-07-17] MEDS ORDERED: ONDANSETRON INJ 2 MG/ML 2 ML VIAL IV PRN (04:30)
[2020-07-17] MEDS ORDERED: ACETAMINOPHEN 325 MG TAB PO PRN (04:30)
[2020-07-17] MEDS ORDERED: GLUCOSE 40% GEL 15 GM TUBE PO PRN (04:30)
[2020-07-17] MEDS ORDERED: CARBOHYDRATES FOR HYPOGLYCEMIA PO PRN (04:30)
[2020-07-17] MEDS ORDERED: DEXTROSE 50% 50 ML SYRINGE IV PRN (04:30)
[2020-07-17] MEDS ORDERED: GLUCAGON FOR INJ 1 MG VIAL SQ PRN (04:30)
[2020-07-17] MEDS: oxyCODONE/ACETAMINOPHEN 5mg/325mg TAB PO PRN ×3 (04:56→21:05)
[2020-07-17] MEDS: LACTATED RINGER'S 1,000 ML IV SCH ×2 (04:58→13:23)
[2020-07-17] MEDS: INSULIN ASPART 100 UNITS/ML 3 ML PEN SC SCH ×4 (05:46→21:07)
[2020-07-17] MEDS: DOCUSATE SODIUM/SENNA 50/8.6MG TAB PO SCH (08:43)
[2020-07-17] MEDS: MEROPENEM 500 MG in SYRINGE 0 ML IV SCH ×3 (08:44→21:17)
[2020-07-17] MEDS: ADVANCED PROBIOTIC 1250 MG CAPSULE PO SCH (08:44)
[2020-07-17] MEDS: ZINC SULFATE 220 MG CAPSULE PO SCH (08:44)
[2020-07-17] MEDS: NYSTATIN SUSP 500,000 U/5 ML UDC PO SCH ×4 (08:44→21:25)
[2020-07-17] MEDS: ASCORBIC ACID 500 MG TAB PO SCH (08:45)
[2020-07-17] MEDS: NIACIN 500 MG TAB PO SCH (08:45)
[2020-07-17] MEDS: CHOLECALCIFEROL 1,000 UNITS 25 MCG TAB PO SCH (08:45)
[2020-07-17] MEDS: allopurinoL 300 MG TAB PO SCH (08:45)
[2020-07-17] MEDS: METOPROLOL TARTRATE 50 MG TAB PO SCH ×2 (08:45→21:06)
[2020-07-17] MEDS: TRIAMCINOLONE ACET 0.1% CR 15 GM TUBE TOP SCH ×2 (08:56→22:35)
[2020-07-17] MEDS: INSULIN GLARGINE SOLOSTAR 100 UNITS/ML 3 ML PEN SC SCH ×2 (09:55→21:01)
--- NOTE | 2020-07-17 12:35 | Urology Consultation ---
Date of Consultation July 17, 2020 Assessment & Plan (1) Scrotal infection: 50-year-old patient who presented with Ted's gangrene approximately 2 weeks ago who was in a rehab facility. Had failure of the patient's vacuum device and ended up with significant fecal contamination. Patient was increasing his activity and overall tolerating diet and improving overall. Is in a significantly deconditioned state and is somewhat lacking mobility due to significant wound which is in the midst of healing and management. Patient was moderately frustrated due to the step back. Patient had considerable surgical invention including procedures as listed below: 07/02 - Excisional Debridement and washout of gangrene by Dr. Guy. 07/03 - Irrigation/Debridement and washout of necrotizing fasciitis and gangrene with reconstruction and placement of wound VAC - also by Dr. Guy. 07/05 - Scrotal Debridement and Washout with Complex closure and creation of dartos pouch with flap from right hemiscrotum. Change of Wound Vac - Dr. Guy. 07/08 - Washout, Debridement, Reconstruction, and Wound Vac Exchange Groin Area - Dr. Guy. 07/12 - Wound Vac Exchange Discussed options for with patient. Discussed possible washout debridement and other intervention. Also discussed option for local wound care with wet-to-dry dressings and management from a local conservative measure. Wound is currently gently packed with wet-to-dry dressings. No considerable issues or problems. Did discuss with patient long course for full healing with this. Discussed difficulty with wound vacs in the groin region. Patient was frustrated overall with the situation but did discuss optimism and future management with issues. Patient is very hesitant to undergo another surgical washout and debridement. At this point he is afebrile and has been tolerating well. Is on broad-spectrum antibiotics however these likely can be deescalated. Discussed options including monitoring management. Discussed local wound care with washout at bedside. Plan for regular dressing changes 2-4 times per day. Will utilize damp dressing such as Kerlix in the larger wound and 4 x 4's in the lower wound with plans to allow them to dry and removed. Recommend having nursing flush wound with saline with these change. Continue to monitor. If patient develops worsening issues or starts to develop issues concerning the wound may need to consider surgical washout and possible debridement. Otherwise we will continue to monitor managed locally with conservative wound care dressings. We will need to reassess and consider further plans for management. Patient does need long-term plans for management of wound. He is interested at time of discharge to having the ability to do wound care at home with family. We will need to coordinate this and see if it will be possible and feasible. Otherwise we will plan for continued supportive care in the hospital. Patient has no considerable family history of necrotizing fasciitis or other issues. Patient complicated history was reviewed and summarized above. And available imaging was reviewed interpreted by myself. History of Present Illness Attending Physician: Jessica Gross MD History of Present Illness Patient with history of foreign years who was discharged few days ago to a rehab center. Patient had contamination of his VAC and failure due to leak of wound VAC. Patient was readmitted due to concerns for possible wound infection. Patient had been drastically improving with ambulation and activity. Had trouble with the last VAC change at the facility. Patient was somewhat frustrated because of this. Has been eating well without major issues. Had been improving overall. Was not having major issues or concerns. Is not experiencing fevers or chills. Has been tolerating wet-to-dry dressings with nursing thus far. Allergies Allergy/AdvReac Type Severity Reaction Status Date / Time amoxicillin [From Augmentin] Allergy Severe Anaphylaxis Verified 07/17/20 02:07 clavulanic acid Allergy Severe Anaphylaxis Verified 07/17/20 02:07 [From Augmentin] Home Medications Home Medications Medication Instructions Recorded Confirmed Type lancets #50 ea 05/12/19 04/01/20 History furosemide 40 mg tablet 40 mg PO DAILY PRN #90 tab 06/30/19 07/17/20 Rx metformin 1,000 mg tablet 1,000 mg PO BID #180 tab 09/01/19 07/17/20 Rx niacin 1,000 mg tablet,extended 1,000 mg PO DAILY #90 tab 09/01/19 07/17/20 Rx release 24 hr blood sugar diagnostic #180 ea 06/28/20 Rx allopurinol 300 mg tablet 300 mg PO DAILY #90 tab 07/06/20 07/17/20 Rx L.acidop,dvo,lac,rha-B.lac,paris 2 cap PO DAILY #60 cap 07/14/20 07/17/20 Rx [Advanced Probiotic] amlodipine [Norvasc] 5 mg PO HS #30 tab 07/14/20 07/17/20 Rx ascorbic acid (vitamin C) [Vitamin 500 mg PO QAM #30 tab 07/14/20 07/17/20 Rx C] cholecalciferol (vitamin D3) 2,000 unit PO QAM #60 cap 07/14/20 07/17/20 Rx insulin glargine [Lantus Solostar 15 unit SC BID #3 ml 07/14/20 07/17/20 Rx U-100 Insulin] linezolid 600 mg PO BID 8 Days #16 tab 07/14/20 07/17/20 Rx losartan 100 mg PO DAILY #30 tab 07/14/20 07/17/20 Rx metoprolol tartrate 50 mg PO BID #60 tab 07/14/20 07/17/20 Rx metronidazole 500 mg PO TID 8 Days #24 tab 07/14/20 07/17/20 Rx qdnplpvbiacu-lcvf-obqvg acid 1 tab PO QAM #30 tab 07/14/20 07/17/20 Rx [Certavite-Antioxidant] nystatin 5 ml PO QID 7 Days #140 ml 07/14/20 07/17/20 Rx oxycodone-acetaminophen [Percocet] 1 tab PO Q4H PRN #10 tab 07/14/20 07/17/20 Rx sennosides-docusate sodium 1 tab PO QAM #30 tab 07/14/20 07/17/20 Rx [Senokot-S] triamcinolone acetonide 1 applic TOPICAL BID #30 g 07/14/20 07/17/20 Rx zinc sulfate [Orazinc] 220 mg PO QAM #30 cap 07/14/20 07/17/20 Rx Patient History Medical History Back pain Blurry vision, right eye Chronic kidney disease Current smoker Diabetes mellitus Dyslipidemia 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 Goodpastures syndrome Gout, joint Hypertension Left lumbosacral radiculopathy Necrotizing fasciitis Obstructive sleep apnea Sepsis Surgical History History of orchiectomy Social History Smoking Status: Current every day smoker Tobacco Type: Cigarettes Second Hand Exposure: No; Hx Alcohol Use: No Hx Substance Use: No Preferred Language: Amharic Communication Ability: Effective 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 Deconditioned. chronic Medical issues. Obese HEENT: Normocephalic. Inspection normal. Cranial Nerves 2-12 Grossly intact with some hearing issues. Normal inspection of face. Normal inspection of neck. Psychologic: Normal affect. Baseline issues with memory. Respiratory: Nonlabored. No use of accessory muscles. No tachypnea or dyspnea. Cardiovascular: No tachycardia Skin: [place] and Dry. No rashes or visible lesions. Extremities/Lymphatics: Minor Mobility issues due to deconditioned state and major surgery of groin Abdomen: Obese and moderately distended. No rebound or guarding. : Dressings in place with damp to dry dressings in large left inguinal wound. Results & Data ([facility]) Vital Signs (Past 12 Hours) Vital Signs Temp Pulse Pulse Resp BP BP Pulse Ox 07/17/20 07:14 36.7 C 63 20 154/91 H 94 07/17/20 05:37 147/95 H 07/17/20 04:20 36.9 C 71 20 160/102 H 96 07/17/20 03:00 69 20 143/94 H 97 07/17/20 01:29 37.1 C 70 18 153/108 H 98 PG Care Time/CCT Total # of Minutes Spent Total Time Spent with Patient: Total time spent is greater than 50% in coordination of care (as documented) at patient's floor/unit and/or counseling patient: Coding Level of Care Code 14683 Inpt Consult Level 5 Diagnoses Scrotal infection N49.2
[2020-07-17] MEDS ORDERED: Nursing to Pharmacy Communication SCH (16:30)
[2020-07-17] MEDS: amLODIPine BESYLATE 5 MG TAB PO SCH (21:06)
--- NOTE | 2020-07-17 23:29 | Emergency Department Note ---
History of Present Illness General Chief complaint: Pain (Generalized) Stated complaint: INTRACTABLE PAIN Time Seen by Provider: 07/17/20 01:24 History of Present Illness Maximum Pain Intensity: 4 This is a 50-year-old male presenting to the emergency department for evaluation of wound VAC complication. 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 This underwent multiple surgical procedures and extended ER stay with broad-spectrum antibiotics. After a nearly 2-week hospital stay he was discharged to [facility] for rehabilitation. As part of his healing he does have a wound VAC applied to the left groin. Evidently around 6 PM, roughly 7-1/2 hours prior to arrival, the rehabilitation hospital attempted to replace the wound VAC dressing. They were not able to get an appropriate seal around the wound VAC, and evidently manipulated the area for several hours without success. After some time the patient needed to use the bathroom, and because of his deconditioned physical status they placed him on a bedpan. The patient states that he use the bedpan without difficulty, but he remained on it for between 30 and 45 minutes before they took him off the bedpan. They continued to attempt wound VAC closure, but were unable to do this, thus sending the patient to the ER for evaluation. The patient himself is frustrated that he is back in the hospital. He rates his current discomfort a 3/10. He has not had recent fevers or chills and overall feels like he is doing much better than his initial visit. Home Medications Home Medications Medication Instructions Recorded Confirmed Type lancets #50 ea 05/12/19 04/01/20 History furosemide 40 mg tablet 40 mg PO DAILY PRN #90 tab 06/30/19 07/17/20 Rx metformin 1,000 mg tablet 1,000 mg PO BID #180 tab 09/01/19 07/17/20 Rx niacin 1,000 mg tablet,extended 1,000 mg PO DAILY #90 tab 09/01/19 07/17/20 Rx release 24 hr blood sugar diagnostic #180 ea 06/28/20 Rx allopurinol 300 mg tablet 300 mg PO DAILY #90 tab 07/06/20 07/17/20 Rx L.acidop,dov,lac,rha-B.lac,paris 2 cap PO DAILY #60 cap 07/14/20 07/17/20 Rx [Advanced Probiotic] amlodipine [Norvasc] 5 mg PO HS #30 tab 07/14/20 07/17/20 Rx ascorbic acid (vitamin C) [Vitamin 500 mg PO QAM #30 tab 07/14/20 07/17/20 Rx C] cholecalciferol (vitamin D3) 2,000 unit PO QAM #60 cap 07/14/20 07/17/20 Rx insulin glargine [Lantus Solostar 15 unit SC BID #3 ml 07/14/20 07/17/20 Rx U-100 Insulin] linezolid 600 mg PO BID 8 Days #16 tab 07/14/20 07/17/20 Rx losartan 100 mg PO DAILY #30 tab 07/14/20 07/17/20 Rx metoprolol tartrate 50 mg PO BID #60 tab 07/14/20 07/17/20 Rx metronidazole 500 mg PO TID 8 Days #24 tab 07/14/20 07/17/20 Rx agkdkkmearex-uqnt-nxujp acid 1 tab PO QAM #30 tab 07/14/20 07/17/20 Rx [Certavite-Antioxidant] nystatin 5 ml PO QID 7 Days #140 ml 07/14/20 07/17/20 Rx oxycodone-acetaminophen [Percocet] 1 tab PO Q4H PRN #10 tab 07/14/20 07/17/20 Rx sennosides-docusate sodium 1 tab PO QAM #30 tab 07/14/20 07/17/20 Rx [Senokot-S] triamcinolone acetonide 1 applic TOPICAL BID #30 g 07/14/20 07/17/20 Rx zinc sulfate [Orazinc] 220 mg PO QAM #30 cap 07/14/20 07/17/20 Rx Allergies Allergy/AdvReac Type Severity Reaction Status Date / Time amoxicillin [From Augmentin] Allergy Severe Anaphylaxis Verified 07/17/20 02:07 clavulanic acid Allergy Severe Anaphylaxis Verified 07/17/20 02:07 [From Augmentin] Past Med/Surg History Medical History Back pain Blurry vision, right eye Chronic kidney disease Current smoker Diabetes mellitus Dyslipidemia 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 Goodpastures syndrome Gout, joint Hypertension Left lumbosacral radiculopathy Necrotizing fasciitis Obstructive sleep apnea Sepsis Surgical History History of orchiectomy Social History Smoking Status: Current every day smoker Tobacco Type: Cigarettes Second Hand Exposure: No; Hx Alcohol Use: No Hx Substance Use: No Preferred Language: Luxembourgish Communication Ability: Effective Hearing Care Professional Required: No Beliefs That Will Affect Care: None Current Living Situation: Spouse Current Living Situation Comment: Lives with Girlfriend Feels Safe at Home: Yes Assistive Devices: CPAP Review of Systems A total of 10 systems reviewed and were otherwise negative Physical Exam Vital Signs Vital Signs - 24 hr 07/17/20 01:29 07/17/20 03:00 Temperature 37.1 C Temperature Source Oral Pulse Rate 70 Pulse Rate [Finger] 69 Pulse Rhythm Regular Pulse Rhythm [Finger] Regular Pulse Strength Normal Respiratory Rate 18 20 Respiratory Effort / Characteristics Non-Labored Spontaneous Non-Labored Spontaneous Respiratory Depth Normal Normal Respiratory Pattern Regular Regular Blood Pressure 153/108 H Blood Pressure [Right Arm] 143/94 H Blood Pressure Mean 123 Blood Pressure Mean [Right Arm] 110 Blood Pressure Position Lying Blood Pressure Position [Right Arm] Lying Pulse Oximetry 98 97 Oxygen Delivery Method Room Air Room Air Sepsis Recent Fever Within 48 Hours No Sepsis New/Unexplained Change in Mental Status No Sepsis Action Taken by Nursing No Action Required VITALS: Vitals are noted on the nurse's note and reviewed by myself. Vital signs stable. GENERAL: Well-developed, well-nourished, white male, who is in no acute distress and resting comfortably. Patient is cooperative with the examination. HEAD: Normocephalic atraumatic. HEART: Regular rate and rhythm without murmurs gallops or rubs. LUNGS: Clear to auscultation bilaterally without wheezes, rales or rhonchi. No retractions or accessory muscle use. ABDOMEN: Positive normal bowel sounds x 4. Soft, nontender, without masses or organomegaly. No guarding or rebound tenderness. GROIN: Wound VAC is in place left groin MUSCULOSKELETAL: No muscle atrophy, erythema, or edema noted. Full range of motion in all extremities. NEURO: Patient was alert and oriented to person place and time. CN II through XII grossly intact. Course Administered Medications Allopurinol (Allopurinol 300 Mg Tab) 300 mg PO DAILY [facility] Stop: 08/16/20 08:59 Last Admin: 07/17/20 08:45 Dose: 300 mg Documented by: [id number] Amlodipine Besylate (Amlodipine Besylate 5 Mg Tab) 5 mg PO HS [facility] Stop: 08/16/20 20:59 Last Admin: 07/17/20 21:06 Dose: 5 mg Documented by: [id number] Ascorbic Acid (Ascorbic Acid 500 Mg Tab) 500 mg PO QAM [facility] Stop: 08/16/20 08:59 Last Admin: 07/17/20 08:45 Dose: 500 mg Documented by: [id number] Meropenem 500 mg/ Syringe 10 mls @ 2 mls/min IV Q6H [facility]; Protocol Stop: 07/24/20 07:59 Last Admin: 07/17/20 21:17 Dose: 2 mls/min Documented by: [id number] Admin: 07/17/20 13:22 Dose: 2 mls/min Documented by: [id number] Admin: 07/17/20 08:44 Dose: 2 mls/min Documented by: [id number] Insulin Aspart (Insulin Aspart 100 Units/Ml 3 Ml Pen) 0 units SC ACHS [facility] Stop: 08/16/20 05:59 Last Admin: 07/17/20 21:07 Dose: 5 units Documented by: [id number] Cosigned by: [id number] Admin: 07/17/20 18:13 Dose: 14 units Documented by: [id number] Cosigned by: [id number] Insulin Glargine (Insulin Glargine Solostar 100 Units/Ml 3 Ml Pen) 15 units SC BID [facility] Stop: 08/16/20 08:59 Last Admin: 07/17/20 21:01 Dose: 15 units Documented by: [id number] Cosigned by: [id number] Admin: 07/17/20 09:55 Dose: 8 units Documented by: [id number] Cosigned by: [id number] Lactobacillus Acidoph/Casei/Rhamnos (Advanced Probiotic 1250 Mg Capsule) 2 cap PO DAILY [facility] Stop: 08/16/20 08:59 Last Admin: 07/17/20 08:44 Dose: 2 cap Documented by: [id number] Metoprolol Tartrate (Metoprolol Tartrate 50 Mg Tab) 50 mg PO BID [facility] Stop: 08/16/20 08:59 Last Admin: 07/17/20 21:06 Dose: 50 mg Documented by: [id number] Admin: 07/17/20 08:45 Dose: 50 mg Documented by: [id number] Niacin (Niacin 500 Mg Tab) 1,000 mg PO DAILY [facility] Stop: 08/16/20 08:59 Last Admin: 07/17/20 08:45 Dose: 1,000 mg Documented by: [id number] Nystatin (Nystatin Susp 500,000 U/5 Ml Udc) 5 ml PO QID [facility] Stop: 07/27/20 08:59 Last Admin: 07/17/20 21:25 Dose: Not Given Documented by: [id number] Admin: 07/17/20 17:51 Dose: Not Given Documented by: [id number] Admin: 07/17/20 12:12 Dose: Not Given Documented by: [id number] Admin: 07/17/20 08:44 Dose: 5 ml Documented by: [id number] Oxycodone/Acetaminophen (Oxycodone/Acetaminophen 5mg/325mg Tab) 1 tab PO Q4H PRN PRN Reason: pain Stop: 07/31/20 04:29 Last Admin: 07/17/20 21:05 Dose: 1 tab Documented by: [id number] Admin: 07/17/20 08:44 Dose: 1 tab Documented by: [id number] Admin: 07/17/20 04:56 Dose: 1 tab Documented by: [id number] Senna/Docusate Sodium (Docusate Sodium/Senna 50/8.6mg Tab) 1 tab PO QAM [facility] Stop: 08/16/20 08:59 Last Admin: 07/17/20 08:43 Dose: Not Given Documented by: [id number] Triamcinolone Acetonide (Triamcinolone Acet 0.1% Cr 15 Gm Tube) 1 appln TOP BID [facility] Stop: 08/16/20 08:59 Last Admin: 07/17/20 22:35 Dose: Not Given Documented by: [id number] Admin: 07/17/20 08:56 Dose: Not Given Documented by: [id number] Vitamin D (Cholecalciferol 1,000 Units 25 Mcg Tab) 2,000 units PO QAM [facility] Stop: 08/16/20 08:59 Last Admin: 07/17/20 08:45 Dose: 2,000 units Documented by: [id number] Zinc Sulfate (Zinc Sulfate 220 Mg Capsule) 220 mg PO QAM [facility] Stop: 08/16/20 08:59 Last Admin: 07/17/20 08:44 Dose: 220 mg Documented by: [id number] Discontinued Medications Sodium Chloride (Nss 1000ml) 1,000 mls @ 125 mls/hr IV .Q8H [facility] Stop: 08/16/20 02:29 Last Infusion: 07/17/20 04:42 Dose: 0 mls/hr Documented by: [id number] Admin: 07/17/20 03:13 Dose: 125 mls/hr Documented by: [id number] Meropenem 500 mg/ Syringe 10 mls @ 2 mls/min IV NOW STA; Protocol Stop: 07/17/20 02:42 Last Admin: 07/17/20 03:10 Dose: 2 mls/min Documented by: [id number] Daptomycin 500 mg/ Syringe 10 mls @ 5 mls/min IV NOW ONE; Protocol Stop: 07/17/20 02:45 Last Admin: 07/17/20 03:08 Dose: 5 mls/min Documented by: [id number] Lactated Ringer's (Lr) 1,000 mls @ 125 mls/hr IV .Q8H [facility] Stop: 07/17/20 20:29 Last Infusion: 07/17/20 22:36 Dose: 0 mls/hr Documented by: [id number] Admin: 07/17/20 13:23 Dose: 125 mls/hr Documented by: [id number] Infusion: 07/17/20 12:58 Dose: 125 mls/hr Documented by: [id number] Admin: 07/17/20 04:58 Dose: 125 mls/hr Documented by: [id number] Insulin Aspart (Insulin Aspart 100 Units/Ml 3 Ml Pen) 0 units SC Q6 [facility] Stop: 08/16/20 05:59 Last Admin: 07/17/20 13:21 Dose: 3 units Documented by: [id number] Cosigned by: [id number] Admin: 07/17/20 05:46 Dose: Not Given Documented by: [id number] Cosigned by: [id number] Oxycodone HCl (Oxycodone Hcl Ir 5 Mg Tab (Immediate Release)) 10 mg PO NOW STA Stop: 07/17/20 01:30 Last Admin: 07/17/20 01:54 Dose: 10 mg Documented by: [id number] Medical Decision Making Differential Diagnosis Differential diagnosis includes: Etiologies such as cellulitis, abscess, osteomyelitis, MRSA infection, DVT, necrotizing fasciitis, dermatitis, drug eruption, as well as others were entertained Laboratory Data Result diagrams: 07/17/20 02:40 07/17/20 02:40 Lab Results 07/17/20 07/17/20 07/17/20 Range/Units 02:40 02:40 03:10 WBC 8.25 (4.8-10.8) K/uL RBC 3.71 L (4.7-6.1) M/uL Hgb 10.9 L (14.0-18.0) g/dL Hct 33.6 L (42-52) % MCV 90.6 (80-100) fL MCH 29.4 (25-34) pg MCHC 32.4 (32-36) g/dL RDW Std Deviation 46.7 H (36.4-46.3) fL RDW Coeff of Sara 14.1 (11.5-14.5) % Plt Count 406 H (130-400) K/uL MPV 9.6 (7.4-10.4) fL Immature Gran % (Auto) 0.4 % Neut % (Auto) 60.7 % Lymph % (Auto) 28.4 % [place] % (Auto) 6.9 % Eos % (Auto) 3.2 % Baso % (Auto) 0.4 % Neut # (Auto) 5.02 (1.4-6.5) K/uL Lymph # (Auto) 2.34 (1.2-3.4) K/uL [place] # (Auto) 0.57 (0.11-0.59) K/uL Eos # (Auto) 0.26 (0-0.5) K/uL Baso # (Auto) 0.03 (0-0.2) K/uL Immature Gran # (Auto) 0.03 H (0.00-0.02) K/uL Sodium 140 (136-145) mmol/L Potassium 3.9 (3.5-5.1) mmol/L Chloride 106 (98-107) mmol/L Carbon Dioxide 30 (21-32) mmol/L Anion Gap 4.0 (3-11) BUN 13 (7-18) mg/dl Creatinine 0.91 (0.6-1.4) mg/dl Est Cr Clr Drug Dosing 111.4 ml/min Est GFR ( Amer) 112.7 Est GFR (Non-Af Amer) 97.2 BUN/Creatinine Ratio 14.2 (10-20) Glucose 118 H (70-99) mg/dl Calcium 8.3 L (8.5-10.1) mg/dl Total Bilirubin 0.3 (0.2-1) mg/dl AST 18 (15-37) U/L ALT 25 (12-78) U/L Alkaline Phosphatase 121 H (45-117) U/L Total Protein 6.4 (6.4-8.2) gm/dl Albumin 2.5 L (3.4-5.0) gm/dl Globulin 3.9 (2.5-4.0) gm/dl Albumin/Globulin Ratio 0.6 L (0.9-2) COVID[facility]19 [facility] SARS-CoV-2, RNA, NAAT (NEGATIVE) 07/17/20 Range/Units 03:10 WBC (4.8-10.8) K/uL RBC (4.7-6.1) M/uL Hgb (14.0-18.0) g/dL Hct (42-52) % MCV (80-100) fL MCH (25-34) pg MCHC (32-36) g/dL RDW Std Deviation (36.4-46.3) fL RDW Coeff of Sara (11.5-14.5) % Plt Count (130-400) K/uL MPV (7.4-10.4) fL Immature Gran % (Auto) % Neut % (Auto) % Lymph % (Auto) % [place] % (Auto) % Eos % (Auto) % Baso % (Auto) % Neut # (Auto) (1.4-6.5) K/uL Lymph # (Auto) (1.2-3.4) K/uL [place] # (Auto) (0.11-0.59) K/uL Eos # (Auto) (0-0.5) K/uL Baso # (Auto) (0-0.2) K/uL Immature Gran # (Auto) (0.00-0.02) K/uL Sodium (136-145) mmol/L Potassium (3.5-5.1) mmol/L Chloride (98-107) mmol/L Carbon Dioxide (21-32) mmol/L Anion Gap (3-11) BUN (7-18) mg/dl Creatinine (0.6-1.4) mg/dl Est Cr Clr Drug Dosing ml/min Est GFR ( Amer) Est GFR (Non-Af Amer) BUN/Creatinine Ratio (10-20) Glucose (70-99) mg/dl Calcium (8.5-10.1) mg/dl Total Bilirubin (0.2-1) mg/dl AST (15-37) U/L ALT (12-78) U/L Alkaline Phosphatase (45-117) U/L Total Protein (6.4-8.2) gm/dl Albumin (3.4-5.0) gm/dl Globulin (2.5-4.0) gm/dl Albumin/Globulin Ratio (0.9-2) COVID-19 Eval Order SARS-CoV-2, RNA, NAAT NEGATIVE (NEGATIVE) MDM Narrative Physical exam and history were performed. Nursing notes, EMR, and Medication List were personally reviewed. Patient appears to have been sent from [facility] essentially for a wound VAC placement. Charge nurse did speak with [facility], who are adamant they sent the patient for his intractable left-sided groin pain, despite the patient being very comfortable and self reporting a pain of 3/10. The patient was given 10 mg oral oxycodone here in the ER. The emergency department does not have wound VAC trained nursing, and we were able to identify a trained nurse from the floor who was kind enough to evaluate the wound VAC here in the ER setting. Unfortunately the wound VAC nurse states they are unable to change the VAC. The failed seal and utilization of a bedpan caused stool product to be drawn up into the wound, causing it to be contaminated with fecal material. Because of the contaminated wound I did discuss the case with the patient's surgeon, Dr. Guy, who does recommend discontinuation of the wound VAC as well as wet-to-dry dressings. I discussed the case with pharmacy and with their input we will put the patient on daptomycin and imipenem for coverage. The case was discussed with the on-call hospitalist who agreed to evaluate the patient in the ER. Please see their dictation for further patient course, plan, and disposition. The chart was completed utilizing [employer] Speech Voice Recognition Software. Grammatical errors, random word insertions, pronoun errors, and incomplete sentences are an occasional consequence of this system due to software limitations, ambient noise, and hardware issues. Any formal questions or concerns about the content, text, or information contained within the body of this dictation should be directly addressed to the provider for clarification. . Impression & Plan Scrotal infection, Unspecified contamination of patient during medical care, Other complications of procedures, not elsewhere classified, initial encounter Discharge Plan Visit Data Chief Complaint: Pain (Generalized) Stated Complaint: INTRACTABLE PAIN ED Provider: Kellie Ladd ED Midlevel Provider: Prosper Magaña Discharge Problem: Scrotal infection, Unspecified contamination of patient during medical care, Other complications of procedures, not elsewhere classified, initial encounter Patient Disposition: Admitted As Inpatient Discharge Instructions Interventions: ED Discharge Assessment Last Done: 07/17/20 03:51
--- NOTE | 2020-07-17 23:35 | History & Physical Bridge Note ---
Date of Service July 17, 2020 History & Physical Bridge Note I have examined the patient, reviewed the History & Physical and in the interval since the performance of the History & Physical I have noted the following changes of clinical significance: Patient doing well today. I discussed his care with the urologist who recommends wet-to-dry dressings and a possible washout and replacement of wound VAC along with plastic surgery evaluation on Sunday. Patient reports he is feeling much better now that he is back in the hospital where he feels confident in the care he gets. Denies chest pain or shortness of breath, no nausea or vomiting. He is eating well. Vitals reviewed Gen: AAOx3, NAD, obese HEENT: Anicteric sclerae, EOMI CV: RRR no mgr nl S1S2 Pulm: CTAB no wcr Abd: +BS soft NT ND no masses or hernias, left side of perineum with dressing in place not removed, penis with mild swelling in his right scrotum with mild swelling, Enriquez catheter in place Ext: No edema, 2+ DP pulses Skin: No rashes, warm/dry Neuro: Full strength throughout 50-year-old male with history of Ted's gangrene status post multiple surgical washouts with wound VAC placement, now returns with dysfunction of wound VAC and accidental contamination of wound with stool Continue wet-to-dry dressings daily as per urology to keep fibrinous tissue from building up and keep it clean Continue IV antibiotics as ordered on admission with daptomycin and meropenem Continue pain control Otherwise medications as ordered on admission DC IV fluids
[2020-07-18] MEDS: MEROPENEM 500 MG in SYRINGE 0 ML IV SCH ×4 (01:41→20:11)
[2020-07-18] MEDS: DAPTOmycin 500 MG in SYRINGE 0 ML IV SCH (04:36)
[2020-07-18 08:17] LABS: Basophils # (auto) 0.02 K/uL (0-0.2); Basophils % (auto) 0.3 %; Eosinophils # (auto) 0.19 K/uL (0-0.5); Eosinophils % (auto) 2.9 %; Hematocrit (blood only) 35.4 % (42-52); Hemoglobin 11.4 g/dL (14.0-18.0); Immature Granulocytes # (auto) 0.01 K/uL (0.00-0.02); Immature Granulocytes % (auto) 0.2 %; Lymphocytes # (auto) 1.81 K/uL (1.2-3.4); Mean Corpuscular Hemoglobin 29.5 pg (25-34); Mean Corpuscular Hgb Conc 32.2 g/dL (32-36); Mean Corpuscular Volume 91.5 fL (80-100); Monocytes # (auto) 0.42 K/uL (0.11-0.59); Monocytes % (auto) 6.5 %; Neutrophils # (auto) 4.02 K/uL (1.4-6.5); Neutrophils % (auto) 62.1 %; Platelet Count 361 K/uL (130-400); RDW Coefficient of Variation 14.5 % (11.5-14.5); RDW Standard Deviation 48.3 fL (36.4-46.3); Red Blood Count 3.87 M/uL (4.7-6.1); White Blood Count 6.47 K/uL (4.8-10.8)
[2020-07-18 08:43] LABS: BUN Creatinine Ratio 15.5 (10-20); Calcium 8.5 mg/dl (8.5-10.1); Creatinine Clr Calc Pharmacy 123.7 ml/min; Est GFR (African American) 118.7; Est GFR (Non-African American) 102.4; Potassium 3.8 mmol/L (3.5-5.1)
[2020-07-18] MEDS: TRIAMCINOLONE ACET 0.1% CR 15 GM TUBE TOP SCH ×2 (08:58→20:40)
[2020-07-18] MEDS: INSULIN GLARGINE SOLOSTAR 100 UNITS/ML 3 ML PEN SC SCH ×2 (08:59→20:55)
[2020-07-18] MEDS: CHOLECALCIFEROL 1,000 UNITS 25 MCG TAB PO SCH (09:00)
[2020-07-18] MEDS: INSULIN ASPART 100 UNITS/ML 3 ML PEN SC SCH ×4 (09:00→20:56)
[2020-07-18] MEDS: allopurinoL 300 MG TAB PO SCH (09:00)
[2020-07-18] MEDS: METOPROLOL TARTRATE 50 MG TAB PO SCH ×2 (09:00→20:15)
[2020-07-18] MEDS: ZINC SULFATE 220 MG CAPSULE PO SCH (09:00)
[2020-07-18] MEDS: ADVANCED PROBIOTIC 1250 MG CAPSULE PO SCH (09:00)
[2020-07-18] MEDS: NIACIN 500 MG TAB PO SCH (09:00)
[2020-07-18] MEDS: ASCORBIC ACID 500 MG TAB PO SCH (09:00)
[2020-07-18] MEDS: NYSTATIN SUSP 500,000 U/5 ML UDC PO SCH ×4 (09:01→20:40)
[2020-07-18] MEDS: DOCUSATE SODIUM/SENNA 50/8.6MG TAB PO SCH (09:03)
--- NOTE | 2020-07-18 13:04 | Urology Progress Note ---
Date of Service July 18, 2020 Assessment & Plan (1) Scrotal infection: (2) Wound of groin: Patient has been tolerating wet-to-dry dressings without major issue bother. Has been having bedside washout. No major issues or concerns. Patient is very motivated to be discharged home after this admission. Is currently tolerating antibiotics and supportive care. Discussed options. Patient's family is at bedside and feels they will be able to manage a good deal of his wound care issues at home. Discussed need for close monitoring during admission. We will continue to monitor wound over time. Plan will be to have patient wash in the shower tonight with warm soapy water at his next dressing change. Plan will be to then clean out wound and gently irrigate with saline. We will then place wet-to-dry dressings again. We will plan to monitor this over time. Tomorrow we will have wound care nurses assess and see if patient would require wound VAC placement versus continuing with wet-to-dry dressings. We will also await wound care and plastics assessment of wound to see current healing process and plans for further management. At this point no plans for further debridement. We will continue to monitor. Will make patient n.p.o. at midnight in case any changes or issues that require surgical intervention otherwise we will continue with supportive care Admission and Anticipated Discharge Date Admission Date: July 17, 2020 Subjective Patient admitted from rehab due to issues related to wound from a large debridement of Ted's gangrene. Patient is afebrile. Has been undergoing supportive care with oral medications, IV medications, IV fluids, and oral intake. Is doing better without considerable increase in pain or major issues. Has not developed severe vomiting or other issues. Has not experienced fever or chills. Has been tolerating oral medications. Is tolerating fluids. Wound has been doing well. Has been having 2-3 times a day per day wet-to-dry dressing changes with gentle washouts with saline. Does have occasional burning and irritation of the wound. No severe episodes or major changes. Patient has been doing minimal transfer. Does need some assistance. Is eating lunch without major issues today. Review of Systems Review of Systems: All systems reviewed & are unremarkable except as noted in HPI & below Physical Exam Physical Exam: General: Alert in no acute distress. HEENT: Normocephalic Atraumatic. Inspection normal. Cranial Nerves 2-12 Grossly intact. Normal inspection of face. Normal inspection of neck. Psychologic: Normal affect. Respiratory: Nonlabored. No use of accessory muscles. No tachypnea or dyspnea. Cardiovascular: No tachycardia Skin: [place] and Dry. No rashes or visible lesions. Extremities/Lymphatics: No edema Abdomen: Obese and moderately distended. No rebound or guarding. : Wet-to-dry dressings and large left-sided wound. Results & Data ([facility]) Vital Signs (Past 12 Hours) Vital Signs Temp Pulse Resp BP Pulse Ox 07/18/20 07:02 36.8 C 67 17 151/87 H 96 PG Care Time/CCT Total # of Minutes Spent Total Time Spent with Patient: Total time spent is greater than 50% in coordination of care (as documented) at patient's floor/unit and/or counseling patient: Coding Level of Care Code 15934 Subseq Hosp Care Lvl 3 Diagnoses Scrotal infection N49.2 Wound of groin S31.109A
--- NOTE | 2020-07-18 20:02 | Hospitalist Progress Note ---
Date of Service July 18, 2020 Assessment & Plan (1) Scrotal infection: Patient recently admitted with Ted's gangrene. 07/02 - Excisional Debridement and washout of gangrene by Dr. Guy. 07/03 - Irrigation/Debridement and washout of necrotizing fasciitis and gangrene with reconstruction and placement of wound VAC - also by Dr. Guy. 07/05 - Scrotal Debridement and Washout with Complex closure and creation of dartos pouch with flap from right hemiscrotum. Change of Wound Vac - Dr. Guy. 07/08 - Washout, Debridement, Reconstruction, and Wound Vac Exchange Groin Area - Dr. Guy. 07/12 - Wound Vac Exchange Wound Vac exchange attempted at the rehab facility on the day of admission, staff was unable to obtain seal on the wound vac. Wound vac then became contaminated with stool and urine and he was sent here. Patient afebrile, HD stable, non-toxic in appearance. Pain is well controlled. He was assessed by nursing in the ER Was on Linezolid and Flagyl outpatient based on previous bacteria and sensitivities Admitted as urology would like to continue to do wet-to-dry dressings and then a possible washout in the operating room with either replacement of wound VAC or continued wet-to-dry dressings N.p.o. 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 Near baseline renal function -Avoid nephrotoxic agents -Monitor BUN/Cr/Electrolytes and UOP (3) Diabetes mellitus: Chronic. With hyperglycemia here last EspE5A=6.2 on 07/03/20. His glipizide and pioglitazone was discontinued during his last hospital stay. -Increase Lantus to 17u BID and tighten down sliding scale today -Hold Metformin -Goal blood sugar 100 - 140 while inpatient (4) Dyslipidemia: Chronic -Continue Niacin (5) Gout, joint: Chronic, stable without acute flare -Continue Allopurinol 300mg po daily (6) Hypertension: Chronic. Blood pressures -Continue Amlodipine 5mg po qHS -Continue Metoprolol 50mg po BID -Okay to resume losartan 100 mg daily in the morning given elevated blood pressures (7) Obstructive sleep apnea: Chronic. Stable -Patient may use home CPAP qHS (8) Dermatitis: On the legs, appears perhaps to be psoriasis versus eczema? Continue triamcinolone cream Follow (9) Current smoker: Has not smoked since prior to last admission Encouraged continued cessation after discharge (10) Morbid obesity with BMI of 40.0-44.9, adult: BMI 44.0 Needs encouragement for weight loss after discharge (11) Goodpastures syndrome: Chronic with CKD as above -Monitor renal function -Avoid nephrotoxins Ppx -recommend starting Lovenox if no surgical washout tomorrow Code - Full, patient states he is not fully decided on code status yet. Encouraged him to discuss with significant other Dispo -continued stay on medical/surgical floor Admission and Anticipated Discharge Date Admission Date: July 17, 2020 Subjective Patient feeling well. He has some pain in the groin, perhaps more than he admits to he says. Otherwise denies chest pain or shortness of breath. He does not feel ready to take a shower as suggested by Dr. Guy today. Review of Systems Review of Systems: All systems reviewed & are unremarkable except as noted in HPI & below Physical Exam Constitutional: WD/WN, vitals as above + obese Eyes: + anicteric sclerae Neck: trachea midline, no thyromegaly Respiratory: normal respiratory effort, lungs clear to auscultation Cardiovascular: RRR, no murmur, no edema Chest (Breasts): Chest: normal inspection of chest Gastrointestinal (Abdomen): normal bowel sounds, soft, nontender, no hepatosplenomegaly (Obese) Musculoskeletal: Extremities: extremities normal to inspection; no cyanosis and no clubbing Skin: + rash (Eczematous rash mild salmon-colored rash with white flaky skin on legs and knees bilaterally) Neurologic: moves all extremities and awake; no focal motor deficits Psychiatric: A+Ox3, euthymic affect Lymphatic: no lymphedema Results & Data Results & Data ([facility]) Vital Signs (Past 12 Hours) Vital Signs Temp Pulse Resp BP Pulse Ox 07/18/20 15:30 36.7 C 72 18 168/84 H 98 Laboratory Results 07/18/20 07/18/20 07/18/20 Range/Units 21:45 20:27 20:24 WBC (4.8-10.8) K/uL RBC (4.7-6.1) M/uL Hgb (14.0-18.0) g/dL Hct (42-52) % MCV (80-100) fL MCH (25-34) pg MCHC (32-36) g/dL RDW Std Deviation (36.4-46.3) fL RDW Coeff of Sara (11.5-14.5) % Plt Count (130-400) K/uL MPV (7.4-10.4) fL Immature Gran % (Auto) % Neut % (Auto) % Lymph % (Auto) % [place] % (Auto) % Eos % (Auto) % Baso % (Auto) % Neut # (Auto) (1.4-6.5) K/uL Lymph # (Auto) (1.2-3.4) K/uL [place] # (Auto) (0.11-0.59) K/uL Eos # (Auto) (0-0.5) K/uL Baso # (Auto) (0-0.2) K/uL Immature Gran # (Auto) (0.00-0.02) K/uL Sodium (136-145) mmol/L Potassium (3.5-5.1) mmol/L Chloride (98-107) mmol/L Carbon Dioxide (21-32) mmol/L Anion Gap (3-11) BUN (7-18) mg/dl Creatinine (0.6-1.4) mg/dl Est Cr Clr Drug Dosing ml/min Est GFR ( Amer) Est GFR (Non-Af Amer) BUN/Creatinine Ratio (10-20) Glucose (70-99) mg/dl POC Glucose 246 H 318 H* 321 H* (70-99) mg/dl Calcium (8.5-10.1) mg/dl 07/18/20 07/18/20 07/18/20 Range/Units 17:25 12:21 08:10 WBC (4.8-10.8) K/uL RBC (4.7-6.1) M/uL Hgb (14.0-18.0) g/dL Hct (42-52) % MCV (80-100) fL MCH (25-34) pg MCHC (32-36) g/dL RDW Std Deviation (36.4-46.3) fL RDW Coeff of Sara (11.5-14.5) % Plt Count (130-400) K/uL MPV (7.4-10.4) fL Immature Gran % (Auto) % Neut % (Auto) % Lymph % (Auto) % [place] % (Auto) % Eos % (Auto) % Baso % (Auto) % Neut # (Auto) (1.4-6.5) K/uL Lymph # (Auto) (1.2-3.4) K/uL [place] # (Auto) (0.11-0.59) K/uL Eos # (Auto) (0-0.5) K/uL Baso # (Auto) (0-0.2) K/uL Immature Gran # (Auto) (0.00-0.02) K/uL Sodium (136-145) mmol/L Potassium (3.5-5.1) mmol/L Chloride (98-107) mmol/L Carbon Dioxide (21-32) mmol/L Anion Gap (3-11) BUN (7-18) mg/dl Creatinine (0.6-1.4) mg/dl Est Cr Clr Drug Dosing ml/min Est GFR ( Amer) Est GFR (Non-Af Amer) BUN/Creatinine Ratio (10-20) Glucose (70-99) mg/dl POC Glucose 295 H 164 H 170 H (70-99) mg/dl Calcium (8.5-10.1) mg/dl 07/18/20 07/18/20 Range/Units 07:33 07:33 WBC 6.47 (4.8-10.8) K/uL RBC 3.87 L (4.7-6.1) M/uL Hgb 11.4 L (14.0-18.0) g/dL Hct 35.4 L (42-52) % MCV 91.5 (80-100) fL MCH 29.5 (25-34) pg MCHC 32.2 (32-36) g/dL RDW Std Deviation 48.3 H (36.4-46.3) fL RDW Coeff of Sara 14.5 (11.5-14.5) % Plt Count 361 (130-400) K/uL MPV 10.0 (7.4-10.4) fL Immature Gran % (Auto) 0.2 % Neut % (Auto) 62.1 % Lymph % (Auto) 28.0 % [place] % (Auto) 6.5 % Eos % (Auto) 2.9 % Baso % (Auto) 0.3 % Neut # (Auto) 4.02 (1.4-6.5) K/uL Lymph # (Auto) 1.81 (1.2-3.4) K/uL [place] # (Auto) 0.42 (0.11-0.59) K/uL Eos # (Auto) 0.19 (0-0.5) K/uL Baso # (Auto) 0.02 (0-0.2) K/uL Immature Gran # (Auto) 0.01 (0.00-0.02) K/uL Sodium 139 (136-145) mmol/L Potassium 3.8 (3.5-5.1) mmol/L Chloride 106 (98-107) mmol/L Carbon Dioxide 29 (21-32) mmol/L Anion Gap 4.0 (3-11) BUN 13 (7-18) mg/dl Creatinine 0.82 (0.6-1.4) mg/dl Est Cr Clr Drug Dosing 123.7 ml/min Est GFR ( Amer) 118.7 Est GFR (Non-Af Amer) 102.4 BUN/Creatinine Ratio 15.5 (10-20) Glucose 171 H (70-99) mg/dl POC Glucose (70-99) mg/dl Calcium 8.5 (8.5-10.1) mg/dl PG Care Time/CCT Total # of Minutes Spent Total Time Spent with Patient: Total time spent is greater than 50% in coordination of care (as documented) at patient's floor/unit and/or counseling patient: Coding Level of Care Code 83845 Subseq Hosp Care Lvl 2 Diagnoses Scrotal infection N49.2 Chronic kidney disease N18.9 Diabetes mellitus E11.9; Z79.4 Diabetes mellitus complication status: without complication 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 use Diabetes mellitus type: type 2 Dyslipidemia E78.5 Gout, joint M10.9 Hypertension I10 Hypertension type: essential hypertension Obstructive sleep apnea G47.33 Dermatitis L30.9 Current smoker F17.200 Morbid obesity with BMI of 40.0-44.9, adult E66.01; Z68.41 Goodpastures syndrome M31.0 (1) Diabetes mellitus Diabetes mellitus complication status: without complication 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
[2020-07-18] MEDS: oxyCODONE/ACETAMINOPHEN 5mg/325mg TAB PO PRN (20:11)
[2020-07-18] MEDS: amLODIPine BESYLATE 5 MG TAB PO SCH (20:15)
[2020-07-19] MEDS: MEROPENEM 500 MG in SYRINGE 0 ML IV SCH ×4 (01:19→21:10)
[2020-07-19] MEDS: oxyCODONE/ACETAMINOPHEN 5mg/325mg TAB PO PRN ×4 (03:12→23:24)
[2020-07-19] MEDS: DAPTOmycin 500 MG in SYRINGE 0 ML IV SCH (05:35)
[2020-07-19 06:08] LABS: Basophils # (auto) 0.02 K/uL (0-0.2); Basophils % (auto) 0.3 %; Eosinophils # (auto) 0.34 K/uL (0-0.5); Eosinophils % (auto) 4.5 %; Hematocrit (blood only) 34.9 % (42-52); Hemoglobin 11.2 g/dL (14.0-18.0); Immature Granulocytes # (auto) 0.02 K/uL (0.00-0.02); Immature Granulocytes % (auto) 0.3 %; Lymphocytes # (auto) 1.79 K/uL (1.2-3.4); Lymphocytes % (auto) 23.7 %; Mean Corpuscular Hemoglobin 29.6 pg (25-34); Mean Corpuscular Hgb Conc 32.1 g/dL (32-36); Mean Corpuscular Volume 92.1 fL (80-100); Mean Platelet Volume 9.6 fL (7.4-10.4); Monocytes # (auto) 0.54 K/uL (0.11-0.59); Monocytes % (auto) 7.1 %; Neutrophils # (auto) 4.85 K/uL (1.4-6.5); Neutrophils % (auto) 64.1 %; Platelet Count 338 K/uL (130-400); RDW Coefficient of Variation 14.5 % (11.5-14.5); RDW Standard Deviation 48.8 fL (36.4-46.3); Red Blood Count 3.79 M/uL (4.7-6.1); White Blood Count 7.56 K/uL (4.8-10.8)
[2020-07-19 06:37] LABS: BUN Creatinine Ratio 14.6 (10-20); Calcium 8.2 mg/dl (8.5-10.1); Creatinine Clr Calc Pharmacy 123.7 ml/min; Est GFR (African American) 118.7; Est GFR (Non-African American) 102.4; Potassium 4.1 mmol/L (3.5-5.1)
[2020-07-19] MEDS: TRIAMCINOLONE ACET 0.1% CR 15 GM TUBE TOP SCH ×2 (08:23→21:23)
[2020-07-19] MEDS: NIACIN 500 MG TAB PO SCH (08:39)
[2020-07-19] MEDS: allopurinoL 300 MG TAB PO SCH (08:40)
[2020-07-19] MEDS: ZINC SULFATE 220 MG CAPSULE PO SCH (08:40)
[2020-07-19] MEDS: ADVANCED PROBIOTIC 1250 MG CAPSULE PO SCH (08:40)
[2020-07-19] MEDS: ASCORBIC ACID 500 MG TAB PO SCH (08:40)
[2020-07-19] MEDS: METOPROLOL TARTRATE 50 MG TAB PO SCH ×2 (08:40→21:20)
[2020-07-19] MEDS: LOSARTAN POTASSIUM 50 MG TAB PO SCH (08:40)
[2020-07-19] MEDS: CHOLECALCIFEROL 1,000 UNITS 25 MCG TAB PO SCH (08:40)
[2020-07-19] MEDS: DOCUSATE SODIUM/SENNA 50/8.6MG TAB PO SCH (08:40)
[2020-07-19] MEDS: NYSTATIN SUSP 500,000 U/5 ML UDC PO SCH ×2 (08:44→12:23)
[2020-07-19] MEDS ORDERED: INSULIN GLARGINE SOLOSTAR 100 UNITS/ML 3 ML PEN SC ONE (09:45)
[2020-07-19] MEDS: INSULIN GLARGINE SOLOSTAR 100 UNITS/ML 3 ML PEN SC SCH ×2 (10:02→21:25)
[2020-07-19] MEDS: INSULIN ASPART 100 UNITS/ML 3 ML PEN SC SCH ×4 (10:03→21:24)
--- NOTE | 2020-07-19 10:58 | Surgery Consultation ---
Date of Consultation July 19, 2020 Assessment & Plan (1) Wound of groin: Wound dressings changed today with wound care nurse. Will pack wound with aquacel ag due to excessive moisture. We will plan to treat surrounding skin with Nystatin powder due to yeast infection, and recommend starting patient on PO Diflucan. Wound vac is not plausible at this time due to yeast infection, but could be of benefit in the future with resolution of rash. Patient was seen today with Dr. Ozuna. (2) Yeast dermatitis: Supervising Physician Co-Signing Physician Notes Patient seen and examined with Dalia Haider PA-C and Lyla Lovett at bedside. Wound with peripheral candidiasis, some slough. Not ready for grafting yet due to wound depth, slough, yeast. VAC cannot be resumed yet due to yeast. Recommend Diflucan, nystatin powder and aquacel ag to the wound to absorb moisture. Will follow. History of Present Illness Attending Physician: Colt is being seen today in consultation regarding Ted's gangrene. He was consulted on 07/05 with history below: He presented to the ED on 07/02/2020 with concerns of an abscess in his left groin area. 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 He has comorbidities of DM, Goodpastures syndrome, TONIE, tobacco use and obesity. The patient was emergently taken to the OR with urology for immediate debridement, washout and wound care. His surgeries are as noted below: 07/02 - Excisional Debridement and washout of gangrene by Dr. Guy. 07/03 - Irrigation/Debridement and washout of necrotizing fasciitis and gangrene with reconstruction and placement of wound VAC - also by Dr. Guy. 07/05 - Scrotal Debridement and Washout with Complex closure and creation of dartos pouch with flap from right hemiscrotum. Change of Wound Vac - Dr. Guy. 07/08 - Washout, Debridement, Reconstruction, and Wound Vac Exchange Groin Area - Dr. Guy. 07/12 - Wound Vac Exchange Wound Vac exchange attempted at the rehab facility on the day of admission, staff was unable to obtain seal on the wound vac. Wound vac then became contaminated with stool and urine and he was sent here. He currently has wet-dry packing in place. He is anxious to return home. Allergies Allergy/AdvReac Type Severity Reaction Status Date / Time amoxicillin [From Augmentin] Allergy Severe Anaphylaxis Verified 07/17/20 02:07 clavulanic acid Allergy Severe Anaphylaxis Verified 07/17/20 02:07 [From Augmentin] Home Medications Home Medications Medication Instructions Recorded Confirmed Type lancets #50 ea 05/12/19 04/01/20 History furosemide 40 mg tablet 40 mg PO DAILY PRN #90 tab 06/30/19 07/17/20 Rx metformin 1,000 mg tablet 1,000 mg PO BID #180 tab 09/01/19 07/17/20 Rx niacin 1,000 mg tablet,extended 1,000 mg PO DAILY #90 tab 09/01/19 07/17/20 Rx release 24 hr blood sugar diagnostic #180 ea 06/28/20 Rx allopurinol 300 mg tablet 300 mg PO DAILY #90 tab 07/06/20 07/17/20 Rx L.acidop,dov,lac,rha-B.lac,paris 2 cap PO DAILY #60 cap 07/14/20 07/17/20 Rx [Advanced Probiotic] amlodipine [Norvasc] 5 mg PO HS #30 tab 07/14/20 07/17/20 Rx ascorbic acid (vitamin C) [Vitamin 500 mg PO QAM #30 tab 07/14/20 07/17/20 Rx C] cholecalciferol (vitamin D3) 2,000 unit PO QAM #60 cap 07/14/20 07/17/20 Rx insulin glargine [Lantus Solostar 15 unit SC BID #3 ml 07/14/20 07/17/20 Rx U-100 Insulin] linezolid 600 mg PO BID 8 Days #16 tab 07/14/20 07/17/20 Rx losartan 100 mg PO DAILY #30 tab 07/14/20 07/17/20 Rx metoprolol tartrate 50 mg PO BID #60 tab 07/14/20 07/17/20 Rx metronidazole 500 mg PO TID 8 Days #24 tab 07/14/20 07/17/20 Rx xpbecxtmtrcx-xqcq-eerkn acid 1 tab PO QAM #30 tab 07/14/20 07/17/20 Rx [Certavite-Antioxidant] nystatin 5 ml PO QID 7 Days #140 ml 07/14/20 07/17/20 Rx oxycodone-acetaminophen [Percocet] 1 tab PO Q4H PRN #10 tab 07/14/20 07/17/20 Rx sennosides-docusate sodium 1 tab PO QAM #30 tab 07/14/20 07/17/20 Rx [Senokot-S] triamcinolone acetonide 1 applic TOPICAL BID #30 g 07/14/20 07/17/20 Rx zinc sulfate [Orazinc] 220 mg PO QAM #30 cap 07/14/20 07/17/20 Rx Patient History Medical History Back pain Blurry vision, right eye Chronic kidney disease Current smoker Diabetes mellitus Dyslipidemia 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 Goodpastures syndrome Gout, joint Hypertension Left lumbosacral radiculopathy Necrotizing fasciitis Obstructive sleep apnea Sepsis Surgical History History of orchiectomy Social History Smoking Status: Current every day smoker Tobacco Type: Cigarettes Second Hand Exposure: No; Hx Alcohol Use: No Hx Substance Use: No Preferred Language: Occitan Communication Ability: Effective Direct Support Professional Required: No Beliefs That Will Affect Care: None Current Living Situation: Spouse Current Living Situation Comment: Lives with Girlfriend Feels Safe at Home: Yes Assistive Devices: CPAP Review of Systems Review of Systems: All systems reviewed & are unremarkable except as noted in HPI & below Physical Exam Constitutional: WD/WN, vitals as above Skin: dressings left groin removed with wound care nurse. +serous fluid on dressings. evidence of good granulation tissue that is filling in. inferior portion of wound remains closed with sutures and intact. there is significant yeast infection of surrounding soft tissue and moisture of wound. Psychiatric: A+Ox3, euthymic affect Results & Data ([facility]) Vital Signs (Past 12 Hours) Vital Signs Temp Pulse Resp BP Pulse Ox 07/19/20 07:01 36.7 C 66 18 169/99 H 97 07/19/20 02:30 171/97 H 07/18/20 23:00 36.9 C 71 16 171/94 H 98 PG Care Time/CCT Total # of Minutes Spent Total Time Spent with Patient: Total time spent is greater than 50% in coordination of care (as documented) at patient's floor/unit and/or counseling patient: Coding Level of Care Code 60217 Initial Inpt Care Lvl 2 Diagnoses Wound of groin S31.109A Yeast dermatitis B37.2
--- NOTE | 2020-07-19 11:47 | Urology Progress Note ---
Date of Service July 19, 2020 Assessment & Plan (1) Wound of groin: (2) Scrotal infection: 50yo M with recent admission for Ted's gangrene who is s/p Excisional debridement and reconstruction -Reviewed plan of care with Dr. Guy -No acute intervention planned at this time -OK to give diet back -Continue broad spectrum antibiotic coverage -Continue pain control -Appreciate plastic surgery and wound care consultation and recommendations -Will arrange outpatient follow-up with Urology service -Thank you for allowing us to participate in the acute care of Mr. Fragoso. Please reconsult us with additional questions, concerns or changes in patient status. Admission and Anticipated Discharge Date Admission Date: July 17, 2020 Subjective Patient examined at bedside this AM Awake, resting in bed on arrival Denies fevers or chills Some pain/discomfort - Managed with PO pain medication Currently with wet to dry dressing in place to L groin Enriquez catheter intact, patent, draining clear yellow urine NPO since midnight Anxious to go home Chart Review: Afebrile WBC 7.56 Cr 0.82 Hgb 11.2 Review of Systems Constitutional: as per Subjective / HPI Gastrointestinal: as per Subjective / HPI Genitourinary: + as per Subjective / HPI Physical Exam Constitutional: cooperative; no acute distress Respiratory: normal respiratory effort and able to speak in complete sentences Gastrointestinal (Abdomen): Inspection/Auscultation: abdomen normal to inspection; abdomen not distended Musculoskeletal: Head/Neck/Chest: normocephalic Skin: Dressing C/D/I to L groin area Neurologic: awake; not confused Psychiatric: Orientation: alert, oriented x 3 and cooperative Genitourinary: Enriquez catheter intact/patent, draining clear, yellow urine Results & Data ([facility]) Vital Signs (Past 12 Hours) Vital Signs Temp Pulse Resp BP Pulse Ox 07/19/20 07:01 36.7 C 66 18 169/99 H 97 07/19/20 02:30 171/97 H PG Care Time/CCT Total # of Minutes Spent Total Time Spent with Patient: Total time spent is greater than 50% in coordination of care (as documented) at patient's floor/unit and/or counseling patient: Coding Level of Care Code 86696 Subseq Hosp Care Lvl 2 Diagnoses Wound of groin S31.109A Scrotal infection N49.2
[2020-07-19] MEDS ORDERED: INSULIN ASPART 100 UNITS/ML 3 ML PEN SC SCH (12:00)
[2020-07-19] MEDS ORDERED: NYSTATIN POWDER 15GM BTL EXT PRN (12:32)
--- NOTE | 2020-07-19 13:34 | Hospitalist Progress Note ---
Date of Service July 19, 2020 Assessment & Plan (1) Scrotal infection: Patient recently admitted with Ted's gangrene. 07/02 - Excisional Debridement and washout of gangrene by Dr. Guy. 07/03 - Irrigation/Debridement and washout of necrotizing fasciitis and gangrene with reconstruction and placement of wound VAC - also by Dr. Guy. 07/05 - Scrotal Debridement and Washout with Complex closure and creation of dartos pouch with flap from right hemiscrotum. Change of Wound Vac - Dr. Guy. 07/08 - Washout, Debridement, Reconstruction, and Wound Vac Exchange Groin Area - Dr. Guy. 07/12 - Wound Vac Exchange Wound Vac exchange attempted at the rehab facility on the day of admission, staff was unable to obtain seal on the wound vac. Wound vac then became contaminated with stool and urine and he was sent here. Patient afebrile, HD stable, non-toxic in appearance. Pain is well controlled. He was assessed by nursing in the ER Was on Linezolid and Flagyl outpatient based on previous bacteria and sensitivities Admitted as urology would like to continue to do wet-to-dry dressings and then a possible washout in the operating room with either replacement of wound VAC or continued wet-to-dry dressings -Continue to apply wet to dry dressings 2-3 times a day -Continue broad spectrum antibiotic coverage with Meropenem and Daptomycin for now given new contamination with stool prior to admission. Will add fluconazole per plastic surgery recommendation for surrounding yeast infection, discussed dosing with pharmacy. 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 Near baseline renal function -Avoid nephrotoxic agents -Monitor BUN/Cr/Electrolytes and UOP (3) Diabetes mellitus: Chronic. With hyperglycemia here last BcxS8M=2.2 on 07/03/20. His glipizide and pioglitazone was discontinued during his last hospital stay. -Increase Lantus to 17u BID and tighten down sliding scale today -Hold Metformin -Pharmacy glycemic management (4) Dyslipidemia: Chronic -Continue Niacin (5) Gout, joint: Chronic, stable without acute flare -Continue Allopurinol 300mg po daily (6) Hypertension: Chronic. Blood pressures -Continue Amlodipine 5mg po qHS -Continue Metoprolol 50mg po BID -Continue Losartan (7) Obstructive sleep apnea: Chronic. Stable -Patient may use home CPAP qHS (8) Dermatitis: On the legs, appears perhaps to be psoriasis versus eczema? Continue triamcinolone cream Wound care (9) Current smoker: Has not smoked since prior to last admission Encouraged continued cessation after discharge (10) Morbid obesity with BMI of 40.0-44.9, adult: BMI 44.0 Needs encouragement for weight loss after discharge (11) Goodpastures syndrome: Chronic with CKD as above -Monitor renal function -Avoid nephrotoxins Ppx - enoxaparin Code - Full Admission and Anticipated Discharge Date Admission Date: July 17, 2020 Subjective Mr. Fragoso is feeling comfortable. No complaints. ROS Constitutional: no chills, aches, sweats or fever Respiratory: no sob,cough, sputum, or wheezing Cardiac: no chest pain, palpitations, edema, orthopnea or lightheadedness GI: no abdominal pain, nausea, vomiting, diarrhea or constipation : no dysuria or hesitancy Extremities: no joint pain or weakness Skin: no rash All other systems reviewed and negative Physical Exam Physical Exam: General: no distress Eyes: normal inspection, PERLL Respiratory: chest non tender, clear to auscultation, normal breath sounds, no respiratory distress, no accessory muscle use Cardiac: regular rate and rhythm, no rub or gallop, no murmur, no edema, no jvd GI/: active bowel sounds, no abd pain or tenderness, soft, non distended Extremities: normal range of motion, normal strength, non tender Neuro/Psych: alert and oriented x 3, normal mood and affect Skin: normal color, dry Results & Data Results & Data ([facility]) Vital Signs (Past 12 Hours) Vital Signs Temp Pulse Resp BP Pulse Ox 07/19/20 07:01 36.7 C 66 18 169/99 H 97 07/19/20 02:30 171/97 H PG Care Time/CCT Total # of Minutes Spent Total Time Spent with Patient: Total time spent is greater than 50% in coordination of care (as documented) at patient's floor/unit and/or counseling patient: Coding Level of Care Code 38231 Subseq Hosp Care Lvl 3 Diagnoses Scrotal infection N49.2 Chronic kidney disease N18.9 Diabetes mellitus E11.9; Z79.4 Diabetes mellitus type: type 2 Diabetes mellitus nursing home insulin use: with hr coordinator use Diabetes mellitus complication status: without complication Dyslipidemia E78.5 Gout, joint M10.9 Hypertension I10 Hypertension type: essential hypertension Obstructive sleep apnea G47.33 Dermatitis L30.9 Current smoker F17.200 Morbid obesity with BMI of 40.0-44.9, adult E66.01; Z68.41 Goodpastures syndrome M31.0 (1) Diabetes mellitus Diabetes mellitus type: type 2 Diabetes mellitus nursing home insulin use: with hr coordinator use Diabetes mellitus complication status: without complication Qualified Code(s): E11.9 - Type 2 diabetes mellitus without complications; Z79.4 - detention (current) use of insulin (2) Hypertension Hypertension type: essential hypertension Qualified Code(s): I10 - Essential (primary) hypertension
[2020-07-19] MEDS ORDERED: PHARMACY GLYCEMIC MGMT CONSULT PRN (13:41)
[2020-07-19] MEDS: NYSTATIN POWDER 15GM BTL EXT SCH ×3 (13:49→21:22)
[2020-07-19] MEDS: FLUCONAZOLE 200 MG/100 ML BAG IV SCH ×4 (14:07→17:24)
--- NOTE | 2020-07-19 14:07 | Pharmacy Report ---
Glycemic Control Consultation - Date of Service July 19, 2020 - Scope Scope: Glycemic Pharmacist consulted for glycemic control and to write orders per [facility] inpatient glycemic control protocol. - Objective Weight: 116.3 kg Accuchecks BSG (last 24hrs): 07/18/20 07/18/20 07/18/20 17:25 20:24 20:27 Glucose POC Glucose 295 H 321 H* 318 H* 07/18/20 07/19/20 07/19/20 21:45 05:20 06:07 Glucose 136 H POC Glucose 246 H 156 H 07/19/20 12:15 Glucose POC Glucose 138 H Laboratory Data (last 24hrs): 07/19/20 05:20 Potassium 4.1 Carbon Dioxide 30 Anion Gap 3.0 Creatinine 0.82 Est Cr Clr Drug Dosing 123.7 - Recent Pertinent Medications Outpatient Anti-diabetic Regimen: * Lantus 15 units SC BID + Metformin 1000 mg PO BIDM * A1c = 8.2% (07/03/2020) The patient is currently receiving: * Basal insulin: Lantus 17 units every 12 hours * Correctional Insulin: Novolog Correction per scale ACHS Goal Range: Low 100 mg/dL - High 140 mg/dL Correction Factor: 15 mg/dL/unit * Prandial insulin: Per carb ratio of 1 unit per 8 grams CHO consumed Risk Factors for Insulin Resistance: * Infection: * Daptomycin + Meropenem * Diet: * T2DM - Assessment & Plan Assessment & Plan: ASSESSMENT: * 50 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 Recently admitted at [facility] for same issue and will utilize that admission data to help guide glycemic management for this admission. * Colt received 83 units of insulin yesterday * 32 units basal + 51 units bolus * BSGs were: 300-284-216-246 mg/dL - uncontrolled * Fasting BSG was 156 mg/dL this AM. Patient was NPO at this time but a diet has since been ordered. His AM dose was reduced to 12 units this morning. I will resume home dosing of 15 units Lantus BID starting this evening. * Will tighten CR to reflect weight and stress of three. PLAN FOR INPATIENT GLYCEMIC CONTROL: * Holding outpatient oral diabetes medications * Basal insulin * Lantus 15 units SQ BID * Bolus insulin * NovoLog per scale ACHS or Q6hrs while NPO * Goal Range: Low 110 mg/dL - High 140 mg/dL * Correction Factor: 15 mg/dL/unit * Nutritional / Prandial insulin per carb ratio of 1 unit per 5 grams CHO consumed * Please note that the plan above was derived based on current level of insulin resistance and hospital stress. These recommendations are appropriate for inpatient admission only. Plan of care upon discharge will need to be reassessed to avoid potential outpatient hypo/hyperglycemia. Thank you.
[2020-07-19] MEDS: amLODIPine BESYLATE 5 MG TAB PO SCH (21:21)
[2020-07-20] MEDS: DAPTOmycin 500 MG in SYRINGE 0 ML IV SCH (03:39)
[2020-07-20] MEDS: MEROPENEM 500 MG in SYRINGE 0 ML IV SCH ×4 (03:39→21:41)
[2020-07-20 06:05] LABS: Hematocrit (blood only) 35.7 % (42-52); Hemoglobin 11.4 g/dL (14.0-18.0); Mean Corpuscular Hemoglobin 29.3 pg (25-34); Mean Corpuscular Hgb Conc 31.9 g/dL (32-36); Mean Corpuscular Volume 91.8 fL (80-100); Mean Platelet Volume 9.9 fL (7.4-10.4); Platelet Count 375 K/uL (130-400); RDW Coefficient of Variation 14.6 % (11.5-14.5); RDW Standard Deviation 48.6 fL (36.4-46.3); Red Blood Count 3.89 M/uL (4.7-6.1); White Blood Count 8.96 K/uL (4.8-10.8)
[2020-07-20] MEDS: oxyCODONE/ACETAMINOPHEN 5mg/325mg TAB PO PRN ×3 (06:13→21:31)
[2020-07-20 06:33] LABS: Albumin Level 2.6 gm/dl (3.4-5.0); BUN Creatinine Ratio 14.5 (10-20); Calcium 8.7 mg/dl (8.5-10.1); Creatinine Clr Calc Pharmacy 122.2 ml/min; Est GFR (African American) 118.1; Est GFR (Non-African American) 101.9; Potassium 4.1 mmol/L (3.5-5.1)
[2020-07-20 06:36] LABS: Albumin Globulin Ratio 0.7 (0.9-2); Bilirubin,Total 0.3 mg/dl (0.2-1); Globulin 3.9 gm/dl (2.5-4.0); Total Protein 6.5 gm/dl (6.4-8.2)
[2020-07-20] MEDS: CHOLECALCIFEROL 1,000 UNITS 25 MCG TAB PO SCH (09:38)
[2020-07-20] MEDS: ASCORBIC ACID 500 MG TAB PO SCH (09:38)
[2020-07-20] MEDS: allopurinoL 300 MG TAB PO SCH (09:38)
[2020-07-20] MEDS: LOSARTAN POTASSIUM 50 MG TAB PO SCH (09:38)
[2020-07-20] MEDS: DOCUSATE SODIUM/SENNA 50/8.6MG TAB PO SCH (09:38)
[2020-07-20] MEDS: ZINC SULFATE 220 MG CAPSULE PO SCH (09:38)
[2020-07-20] MEDS: ADVANCED PROBIOTIC 1250 MG CAPSULE PO SCH (09:38)
[2020-07-20] MEDS: NIACIN 500 MG TAB PO SCH (09:38)
[2020-07-20] MEDS: METOPROLOL TARTRATE 50 MG TAB PO SCH ×2 (09:39→21:53)
[2020-07-20] MEDS: INSULIN ASPART 100 UNITS/ML 3 ML PEN SC SCH ×4 (09:42→22:02)
[2020-07-20] MEDS: INSULIN GLARGINE SOLOSTAR 100 UNITS/ML 3 ML PEN SC SCH ×2 (09:43→22:03)
[2020-07-20] MEDS: TRIAMCINOLONE ACET 0.1% CR 15 GM TUBE TOP SCH ×2 (11:36→22:08)
[2020-07-20] MEDS: NYSTATIN POWDER 15GM BTL EXT SCH ×4 (11:36→22:09)
[2020-07-20] MEDS: ENOXAPARIN INJ 40 MG/0.4 ML SYR SQ SCH (11:36)
--- NOTE | 2020-07-20 12:37 | Hospitalist Progress Note ---
Date of Service July 20, 2020 Assessment & Plan (1) Scrotal infection: Patient recently admitted with Ted's gangrene. 07/02 - Excisional Debridement and washout of gangrene by Dr. Guy. 07/03 - Irrigation/Debridement and washout of necrotizing fasciitis and gangrene with reconstruction and placement of wound VAC - also by Dr. Guy. 07/05 - Scrotal Debridement and Washout with Complex closure and creation of dartos pouch with flap from right hemiscrotum. Change of Wound Vac - Dr. Guy. 07/08 - Washout, Debridement, Reconstruction, and Wound Vac Exchange Groin Area - Dr. Guy. 07/12 - Wound Vac Exchange Wound Vac exchange attempted at the rehab facility on the day of admission, staff was unable to obtain seal on the wound vac. Wound vac then became contaminated with stool and urine and he was sent here. Patient afebrile, HD stable, non-toxic in appearance. Pain is well controlled. He was assessed by nursing in the ER Was on Linezolid and Flagyl outpatient based on previous bacteria and sensitivities -Continue to apply wet to dry dressings 2-3 times a day -Continue broad spectrum antibiotic coverage with Meropenem and Daptomycin for now given new contamination with stool prior to admission. Continue fluconazole per plastic surgery recommendation for surrounding yeast infection, discussed dosing with pharmacy and will give systemic dosing given proximity of infection to open wound. Continue Nystatin powder -Wound vac cannot be placed as of yet due to yeast infection. 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 Near baseline renal function -Avoid nephrotoxic agents -Monitor BUN/Cr/Electrolytes and UOP (3) Diabetes mellitus: Chronic. With hyperglycemia here last XswY6H=5.2 on 07/03/20. His glipizide and pioglitazone was discontinued during his last hospital stay. -Hold Metformin -Pharmacy glycemic management (4) Dyslipidemia: Chronic -Continue Niacin (5) Gout, joint: Chronic, stable without acute flare -Continue Allopurinol 300mg po daily (6) Hypertension: Chronic. Blood pressures -Continue Amlodipine 5mg po qHS -Continue Metoprolol 50mg po BID -Continue Losartan (7) Obstructive sleep apnea: Chronic. Stable -Patient may use home CPAP qHS (8) Dermatitis: On the legs, appears perhaps to be psoriasis versus eczema? Continue triamcinolone cream Wound care (9) Current smoker: Has not smoked since prior to last admission Encouraged continued cessation after discharge (10) Morbid obesity with BMI of 40.0-44.9, adult: BMI 44.0 Needs encouragement for weight loss after discharge (11) Goodpastures syndrome: Chronic with CKD as above -Monitor renal function -Avoid nephrotoxins Ppx - enoxaparin Code - Full Admission and Anticipated Discharge Date Admission Date: July 17, 2020 Subjective Mr. Fragoso has no complaints, pain well controlled. ROS Constitutional: no chills, aches, sweats or fever Respiratory: no sob,cough, sputum, or wheezing Cardiac: no chest pain, palpitations, edema, orthopnea or lightheadedness GI: no abdominal pain, nausea, vomiting, diarrhea or constipation : no dysuria or hesitancy Extremities: no joint pain or weakness Skin: no rash All other systems reviewed and negative Physical Exam Physical Exam: General: no distress Eyes: normal inspection, PERLL Respiratory: chest non tender, clear to auscultation, normal breath sounds, no respiratory distress, no accessory muscle use Cardiac: regular rate and rhythm, no rub or gallop, no murmur, no edema, no jvd GI/: active bowel sounds, no abd pain or tenderness, soft, non distended Extremities: normal range of motion, normal strength, non tender Neuro/Psych: alert and oriented x 3, normal mood and affect Skin: normal color, dry Results & Data Results & Data (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 use: with halfway use Diabetes mellitus complication status: without complication Dyslipidemia E78.5 Gout, joint M10.9 Hypertension I10 Hypertension type: essential hypertension Obstructive sleep apnea G47.33 Dermatitis L30.9 Current smoker F17.200 Morbid obesity with BMI of 40.0-44.9, adult E66.01; Z68.41 Goodpastures syndrome M31.0 (1) Diabetes mellitus Diabetes mellitus type: type 2 Diabetes mellitus halfway insulin use: with halfway use Diabetes mellitus complication status: without complication Qualified Code(s): E11.9 - Type 2 diabetes mellitus without complications; Z79.4 - long-term (current) use of insulin (2) Hypertension Hypertension type: essential hypertension Qualified Code(s): I10 - Essential (primary) hypertension
[2020-07-20] MEDS: FLUCONAZOLE 200 MG/100 ML BAG IV SCH ×2 (13:45→14:43)
[2020-07-20] MEDS: amLODIPine BESYLATE 5 MG TAB PO SCH (21:53)
[2020-07-21] MEDS: MEROPENEM 500 MG in SYRINGE 0 ML IV SCH ×4 (03:02→20:40)
[2020-07-21] MEDS: DAPTOmycin 500 MG in SYRINGE 0 ML IV SCH (03:02)
[2020-07-21] MEDS: oxyCODONE/ACETAMINOPHEN 5mg/325mg TAB PO PRN ×3 (04:56→20:39)
--- NOTE | 2020-07-21 05:55 | Electrocardiogram Report ---
Test Reason : Blood Pressure : / mmHG Vent. Rate : 069 BPM Atrial Rate : 069 BPM P-R Int : 156 ms QRS Dur : 082 ms QT Int : 396 ms P-R-T Axes : 039 045 067 degrees QTc Int : 424 ms Normal sinus rhythm Low voltage QRS Borderline ECG When compared with ECG of 02-JUL-2020 17:08, Vent. rate has decreased BY 45 BPM Confirmed by Pablo Katz ([id number]) on 07/21/2020 5:54:36 AM Referred By: [facility] Confirmed By:Pablo Katz
[2020-07-21] MEDS: TRIAMCINOLONE ACET 0.1% CR 15 GM TUBE TOP SCH ×2 (07:40→20:50)
[2020-07-21] MEDS: NYSTATIN POWDER 15GM BTL EXT SCH ×4 (07:40→20:50)
--- NOTE | 2020-07-21 09:11 | Urology Progress Note ---
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 Denies major complaints. no fevers/chills/rigors Physical Exam Physical Exam: wound without purulence or significant drainage some surround erythema, but modest and without major concerns for expanding infection at present Constitutional: well developed and well nourished Respiratory: no respiratory distress Cardiovascular: Extremities: no pedal edema Gastrointestinal (Abdomen): Inspection/Auscultation: abdomen normal to inspection Results & Data ([facility]) Vital Signs (Past 12 Hours) Vital Signs Temp Pulse Pulse Resp BP Pulse Ox 07/21/20 07:41 36.6 C 65 18 153/80 H 96 07/20/20 23:49 36.5 C 69 16 166/96 H 97 07/20/20 21:51 72 165/93 H PG Care Time/CCT Total # of Minutes Spent Total Time Spent with Patient: Total time spent is greater than 50% in coordination of care (as documented) at patient's floor/unit and/or counseling patient: Coding Level of Care Code 03287 Subseq Hosp Care Lvl 2 Diagnoses Fourniers gangrene N49.3
[2020-07-21 09:14] LABS: Hematocrit (blood only) 37.2 % (42-52); Hemoglobin 11.8 g/dL (14.0-18.0); Mean Corpuscular Hemoglobin 29.1 pg (25-34); Mean Corpuscular Hgb Conc 31.7 g/dL (32-36); Mean Corpuscular Volume 91.6 fL (80-100); Mean Platelet Volume 9.8 fL (7.4-10.4); Platelet Count 339 K/uL (130-400); RDW Coefficient of Variation 14.6 % (11.5-14.5); RDW Standard Deviation 49.3 fL (36.4-46.3); Red Blood Count 4.06 M/uL (4.7-6.1); White Blood Count 7.75 K/uL (4.8-10.8)
[2020-07-21] MEDS: METOPROLOL TARTRATE 50 MG TAB PO SCH ×2 (09:18→20:39)
[2020-07-21] MEDS: ENOXAPARIN INJ 40 MG/0.4 ML SYR SQ SCH (09:19)
[2020-07-21] MEDS: NIACIN 500 MG TAB PO SCH (09:19)
[2020-07-21] MEDS: ZINC SULFATE 220 MG CAPSULE PO SCH (09:19)
[2020-07-21] MEDS: LOSARTAN POTASSIUM 50 MG TAB PO SCH (09:19)
[2020-07-21] MEDS: CHOLECALCIFEROL 1,000 UNITS 25 MCG TAB PO SCH (09:19)
[2020-07-21] MEDS: ADVANCED PROBIOTIC 1250 MG CAPSULE PO SCH (09:19)
[2020-07-21] MEDS: allopurinoL 300 MG TAB PO SCH (09:19)
[2020-07-21] MEDS: DOCUSATE SODIUM/SENNA 50/8.6MG TAB PO SCH (09:19)
[2020-07-21] MEDS: ASCORBIC ACID 500 MG TAB PO SCH (09:19)
[2020-07-21] MEDS: INSULIN ASPART 100 UNITS/ML 3 ML PEN SC SCH ×4 (09:23→21:51)
[2020-07-21] MEDS: INSULIN GLARGINE SOLOSTAR 100 UNITS/ML 3 ML PEN SC SCH ×2 (09:23→21:51)
[2020-07-21 09:43] LABS: Albumin Level 2.7 gm/dl (3.4-5.0); BUN Creatinine Ratio 16.4 (10-20); Calcium 8.9 mg/dl (8.5-10.1); Creatinine Clr Calc Pharmacy 122.2 ml/min; Est GFR (African American) 118.1; Est GFR (Non-African American) 101.9; Potassium 4.1 mmol/L (3.5-5.1)
[2020-07-21 09:46] LABS: Albumin Globulin Ratio 0.7 (0.9-2); Bilirubin,Total 0.3 mg/dl (0.2-1); Total Protein 6.7 gm/dl (6.4-8.2)
--- NOTE | 2020-07-21 10:38 | Pharmacy Report ---
Pharmacy Glycemic Short Note 2 - Date of Service July 21, 2020 - Glycemic Short BSG Results (Last 24 hours): OUTPATIENT ANTIDIABETIC REGIMEN: * Lantus 15 units SC BID + Metformin 1000 mg PO BIDM * A1c = 8.2% (07/03/2020) ASSESSMENT: 07/21: * Colt received a total of 64 units of insulin yesterday * 30 units basal + 34 units bolus * BSGs were [phone] mg/dL * Fasting BSG this AM was slightly elevated at 166 mg/dL * Will not make any changes in basal regimen as of yet. Continue to trend fasting BSGs. 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 Recently admitted at [facility] for same issue and will utilize that admission data to help guide glycemic management for this admission. * Colt received 83 units of insulin yesterday * 32 units basal + 51 units bolus * BSGs were: [phone] mg/dL - uncontrolled * Fasting BSG was 156 mg/dL this AM. Patient was NPO at this time but a diet has since been ordered. His AM dose was reduced to 12 units this morning. I will resume home dosing of 15 units Lantus BID starting this evening. * Will tighten CR to reflect weight and stress of three. PLAN FOR INPATIENT GLYCEMIC CONTROL: * Hold outpatient oral diabetes medications * Basal insulin * Lantus 15 units SQ BID * Bolus insulin * NovoLog per scale ACHS or Q6hrs while NPO * Goal Range: Low 110 mg/dL - High 140 mg/dL * Correction Factor: 15 mg/dL/unit * Nutritional / Prandial insulin per carb ratio of 1 unit per 5 grams CHO consumed PLAN FOR DISCHARGE: * A1c = 8.2%. Goal A1c would be < 7% given patient's age and comorbidities. Tighter glycemic control would also help with wound healing and infection prevention. * Changes to insulin regimen will be made closer to discharge...
[2020-07-21] MEDS: FLUCONAZOLE 200 MG/100 ML BAG IV SCH ×2 (13:27→14:34)
--- NOTE | 2020-07-21 17:12 | Hospitalist Progress Note ---
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 07/02 - Excisional Debridement and washout of gangrene by Dr. Guy. 07/03 - Irrigation/Debridement and washout of necrotizing fasciitis and gangrene with reconstruction and placement of wound VAC - also by Dr. Guy. 07/05 - Scrotal Debridement and Washout with Complex closure and creation of dartos pouch with flap from right hemiscrotum. Change of Wound Vac - Dr. Guy. 07/08 - Washout, Debridement, Reconstruction, and Wound Vac Exchange Groin Area - Dr. Guy. 07/12 - Wound Vac Exchange Wound Vac exchange attempted at the rehab facility on the day of admission, staff was unable to obtain seal on the wound vac. Wound vac then became contaminated with stool and urine and he was sent here. Patient afebrile, HD stable, non-toxic in appearance. Pain is well controlled. He was assessed by nursing in the ER Was on Linezolid and Flagyl outpatient based on previous bacteria and sensitivities -Continue to apply wet to dry dressings 2-3 times a day -Continue broad spectrum antibiotic coverage with Meropenem and Daptomycin for now given new contamination with stool prior to admission. Continue fluconazole per plastic surgery recommendation for surrounding yeast infection, discussed dosing with pharmacy and will give systemic dosing given proximity of infection to open wound. Continue Nystatin powder -Wound vac cannot be placed as of yet due to yeast infection. -Appreciate urology, plastic surgery consultation - per urology, patient should probably be transferred to tertiary care for continuation of treatment of his wound. They will arrange for outpatient follow up likely with [facility] once a discharge plan can be arranged. May need to send patient home with wet to dry dressings rather than wound vac to accommodate his wish not to be in a facility. 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 At baseline renal function -Avoid nephrotoxic agents -Monitor BUN/Cr/Electrolytes and UOP (3) Diabetes mellitus: Chronic. With hyperglycemia here last ChwD6Q=1.2 on 07/03/20. His glipizide and pioglitazone was discontinued during his last hospital stay. -Hold Metformin -Pharmacy glycemic management Per show host/hostess - if plan is for him to return home instead of rehab/SNF, speech and hearing director will need to check Lantus coverage/costs. He will also need instruction on insulin pen use before discharge (4) Dyslipidemia: Chronic -Continue Niacin (5) Gout, joint: Chronic, stable without acute flare -Continue Allopurinol 300mg po daily (6) Hypertension: Chronic. Blood pressures -Continue Amlodipine 5mg po qHS -Continue Metoprolol 50mg po BID -Continue Losartan (7) Obstructive sleep apnea: Chronic. Stable -Patient may use home CPAP qHS (8) Dermatitis: On the legs, appears perhaps to be psoriasis versus eczema? Continue triamcinolone cream Wound care (9) Current smoker: Has not smoked since prior to last admission Encouraged continued cessation after discharge (10) Morbid obesity with BMI of 40.0-44.9, adult: BMI 44.0 Needs encouragement for weight loss after discharge (11) Goodpastures syndrome: Chronic with CKD as above -Monitor renal function -Avoid nephrotoxins Ppx - enoxaparin Code - Full Admission and Anticipated Discharge Date Admission Date: July 17, 2020 Subjective Last evening Mr. Fragoso was very frustrated with his situation and wanting to go home. This morning he was in better spirits though still feeling frustrated with the length of time of his recovery. He is very concerned about having to spend any time in a facility following this admission and would like to go home instead. ROS Constitutional: no chills, aches, sweats or fever Respiratory: no sob,cough, sputum, or wheezing Cardiac: no chest pain, palpitations, edema, orthopnea or lightheadedness GI: no abdominal pain, nausea, vomiting, diarrhea or constipation : no dysuria or hesitancy Extremities: no joint pain or weakness Skin: no rash All other systems reviewed and negative Physical Exam Physical Exam: General: no distress Eyes: normal inspection, PERLL Respiratory: chest non tender, clear to auscultation, normal breath sounds, no respiratory distress, no accessory muscle use Cardiac: regular rate and rhythm, no rub or gallop, no murmur, no edema, no jvd GI/: active bowel sounds, no abd pain or tenderness, soft, non distended Extremities: normal range of motion, normal strength, non tender Neuro/Psych: alert and oriented x 3, normal mood and affect Skin: normal color, dry Results & Data Results & Data ([facility]) Vital Signs (Past 12 Hours) Vital Signs Temp Pulse Resp BP Pulse Ox 07/21/20 15:56 37 C 70 18 145/86 H 97 07/21/20 07:41 36.6 C 65 18 153/80 H 96 PG Care Time/CCT Total # of Minutes Spent Total Time Spent with Patient: Total time spent is greater than 50% in coordination of care (as documented) at patient's floor/unit and/or counseling patient: Coding Level of Care Code 57035 Subseq Hosp Care Lvl 3 Diagnoses Scrotal infection N49.2 Chronic kidney disease N18.9 Diabetes mellitus E11.9; Z79.4 Diabetes mellitus type: type 2 Diabetes mellitus exterminator insulin use: with detention use Diabetes mellitus complication status: without complication Dyslipidemia E78.5 Gout, joint M10.9 Hypertension I10 Hypertension type: essential hypertension Obstructive sleep apnea G47.33 Dermatitis L30.9 Current smoker F17.200 Morbid obesity with BMI of 40.0-44.9, adult E66.01; Z68.41 Goodpastures syndrome M31.0 (1) Diabetes mellitus Diabetes mellitus type: type 2 Diabetes mellitus exterminator insulin use: with detention use Diabetes mellitus complication status: without complication Qualified Code(s): E11.9 - Type 2 diabetes mellitus without complications; Z79.4 - alf (current) use of insulin (2) Hypertension Hypertension type: essential hypertension Qualified Code(s): I10 - Essential (primary) hypertension
[2020-07-21] MEDS: amLODIPine BESYLATE 5 MG TAB PO SCH (20:39)
[2020-07-22] MEDS: DAPTOmycin 500 MG in SYRINGE 0 ML IV SCH (02:48)
[2020-07-22] MEDS: MEROPENEM 500 MG in SYRINGE 0 ML IV SCH ×2 (02:48→07:55)
[2020-07-22] MEDS: oxyCODONE/ACETAMINOPHEN 5mg/325mg TAB PO PRN ×3 (04:32→16:03)
[2020-07-22 07:28] LABS: Hematocrit (blood only) 37.1 % (42-52); Hemoglobin 11.8 g/dL (14.0-18.0); Mean Corpuscular Hemoglobin 29.3 pg (25-34); Mean Corpuscular Hgb Conc 31.8 g/dL (32-36); Mean Corpuscular Volume 92.1 fL (80-100); Mean Platelet Volume 9.8 fL (7.4-10.4); Platelet Count 325 K/uL (130-400); RDW Coefficient of Variation 14.7 % (11.5-14.5); RDW Standard Deviation 49.3 fL (36.4-46.3); Red Blood Count 4.03 M/uL (4.7-6.1); White Blood Count 7.32 K/uL (4.8-10.8)
[2020-07-22 07:57] LABS: Albumin Globulin Ratio 0.7 (0.9-2); Albumin Level 2.8 gm/dl (3.4-5.0); BUN Creatinine Ratio 18.7 (10-20); Bilirubin,Total 0.3 mg/dl (0.2-1); Calcium 9.4 mg/dl (8.5-10.1); Creatinine Clr Calc Pharmacy 115.2 ml/min; Est GFR (African American) 115.3; Est GFR (Non-African American) 99.5; Globulin 4.3 gm/dl (2.5-4.0); Potassium 4.9 mmol/L (3.5-5.1); Total Protein 7.1 gm/dl (6.4-8.2)
[2020-07-22] MEDS: METOPROLOL TARTRATE 50 MG TAB PO SCH (08:45)
[2020-07-22] MEDS: NIACIN 500 MG TAB PO SCH (08:46)
[2020-07-22] MEDS: allopurinoL 300 MG TAB PO SCH (08:46)
[2020-07-22] MEDS: LOSARTAN POTASSIUM 50 MG TAB PO SCH (08:46)
[2020-07-22] MEDS: CHOLECALCIFEROL 1,000 UNITS 25 MCG TAB PO SCH (08:47)
[2020-07-22] MEDS: ASCORBIC ACID 500 MG TAB PO SCH (08:47)
[2020-07-22] MEDS: DOCUSATE SODIUM/SENNA 50/8.6MG TAB PO SCH (08:47)
[2020-07-22] MEDS: ZINC SULFATE 220 MG CAPSULE PO SCH (08:47)
[2020-07-22] MEDS: ENOXAPARIN INJ 40 MG/0.4 ML SYR SQ SCH (08:48)
[2020-07-22] MEDS: ADVANCED PROBIOTIC 1250 MG CAPSULE PO SCH (08:48)
[2020-07-22] MEDS: INSULIN ASPART 100 UNITS/ML 3 ML PEN SC SCH ×2 (08:51→12:37)
[2020-07-22] MEDS: INSULIN GLARGINE SOLOSTAR 100 UNITS/ML 3 ML PEN SC SCH (08:52)
[2020-07-22] MEDS: TRIAMCINOLONE ACET 0.1% CR 15 GM TUBE TOP SCH (08:53)
[2020-07-22] MEDS: NYSTATIN POWDER 15GM BTL EXT SCH ×2 (08:54→13:16)
[2020-07-22] MEDS ORDERED: LINEZOLID CONSULT ACTIVE PRN (09:24)
--- NOTE | 2020-07-22 13:36 | Discharge Summary ---
Date of Service July 22, 2020 Admission HPI Per Admitting Provider Mr. Fragoso is a pleasant 50yo C male with prolonged and complicated hospitalization from 07/02 - 07/14 for Ted's gangrene s/p multiple debridement, washouts, wound vac placement. Patient was discharged to [facility] on Linezolid, Flagyl, Wound Vac in place on 07/14/20. He reports doing quite well with rehabilitation, was able to ambulate, dress himself, etc. Patient had a wound vac exchange yesterday which was complicated by inability to achieve a seal. Patient had the wound vac off for hours. He was on the bedpan for appx 45 minutes during that time causing the wound vac to become contaminated with stool and urine. Patient was sent to [facility] from [facility] for management of wound vac. He has no acute complaints at present. He is frustrated with being back in the hospital. ER Course: NSS x 1L, Meropenem 500mg, Dapto 500mg, Oxycodone 10mg Principal Diagnosis Scrotal infection Discharge Exam Constitutional WD/WN, vitals as above Respiratory normal respiratory effort, lungs clear to auscultation Cardiovascular RRR, no murmur, no edema Gastrointestinal (Abdomen) normal bowel sounds, soft, nontender, no hepatosplenomegaly Musculoskeletal no cyanosis or clubbing, extremities motor strength 5/5 Skin open surgical wound covered with aquacel, receding fungal infection surrounding Neurologic moves all extremities and awake Psychiatric A+Ox3, euthymic affect Discharge Data Allergies Allergy/AdvReac Type Severity Reaction Status Date / Time amoxicillin [From Augmentin] Allergy Severe Anaphylaxis Verified 07/17/20 02:07 clavulanic acid Allergy Severe Anaphylaxis Verified 07/17/20 02:07 [From Augmentin] Consultations 07/17/20 02:45 ED Decision to Admit Stat 07/17/20 04:30 Consult Case Management - Discharge Planning Routine Consult Urology Routine 07/19/20 09:40 Consult Plastic Surgery Routine Hospital Course (1) Scrotal infection: Patient recently admitted with Ted's gangrene. 07/02 - Excisional Debridement and washout of gangrene by Dr. Guy. 07/03 - Irrigation/Debridement and washout of necrotizing fasciitis and gangrene with reconstruction and placement of wound VAC - also by Dr. Guy. 07/05 - Scrotal Debridement and Washout with Complex closure and creation of dartos pouch with flap from right hemiscrotum. Change of Wound Vac - Dr. Guy. 07/08 - Washout, Debridement, Reconstruction, and Wound Vac Exchange Groin Area - Dr. Guy. 07/12 - Wound Vac Exchange Wound Vac exchange attempted at the rehab facility on the day of admission, staff was unable to obtain seal on the wound vac. Wound vac then became contaminated with stool and urine and he was sent here. Patient afebrile, HD stable, non-toxic in appearance. Pain is well controlled. He was assessed by nursing in the ER Was on Linezolid and Flagyl outpatient based on previous bacteria and sensitivities -Bbroad spectrum antibiotic coverage with Meropenem and Daptomycin while inpatient given new contamination with stool prior to admission. Fluconazole per plastic surgery recommendation for surrounding yeast infection, discussed dosing with pharmacy and will give systemic dosing given proximity of infection to open wound. Continue Nystatin powder. No QTc prolongation on EKG. LFTs did not cross over on the computer so called lab to read them off to me - no elevation in transaminases. -Appreciate urology, plastic surgery consultation -Pain control with Percocet PRN -Continue Vitamin C, D and Zinc supplementation for wound healing -Continue probiotics -Discussed patient with both plastic surgery and urology concerning discharge. Patient is adamant that he go home and does not want to go to a facility. I did clearly discuss with him and his significant other that I felt he was at greater chance of re-infection/sepsis if he went home rather than going to a facility and that this could result in a set back to healing or even . He verbalized understanding but was sure he wanted to go home. He did consent to having home health come in. The wound center can only accommodate seeing him 1x per week. His significant other was given wound teaching by wound care and a script for Aquacel for home was given. He will go home on Flagyl and Linezolid as well as po fluconazole for 2 weeks. He will need to have follow up blood work in a week. Dr. Chris will organize follow up with [place] urology outpatient. 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 At baseline renal function -Avoid nephrotoxic agents -Monitor BUN/Cr/Electrolytes and UOP (3) Diabetes mellitus: Chronic. With hyperglycemia here last HitF2V=6.2 on 07/03/20. His glipizide and pioglitazone was discontinued during his last hospital stay. Patient was started on 30 units of insulin glargine daily with metformin. 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 Blood pressures -Continue Amlodipine 5mg po qHS -Continue Metoprolol 50mg po BID -Continue Losartan (7) Obstructive sleep apnea: Chronic. Stable -Patient may use home CPAP qHS (8) Dermatitis: On the legs, appears perhaps to be psoriasis versus eczema? Continue triamcinolone cream (9) Current smoker: Has not smoked since prior to last admission Encouraged continued cessation after discharge (10) Morbid obesity with BMI of 40.0-44.9, adult: BMI 44.0 Needs encouragement for weight loss after discharge (11) Goodpastures syndrome: Chronic with CKD as above -Monitor renal function -Avoid nephrotoxins Ppx - enoxaparin Code - Full Total Time Total Time Spent Total Time Spent (In Minutes): greater than 30 minutes Discharge Plan Discharge Items Patient Disposition: Home - Home Health Services Reason For Visit: WOUND VAC MALFUNCTION Discharge Diagnosis: Wound vac malfunction Activity: Resume your previous activity Non-emergency contact: Primary Care Provider Call non-emergency contact if: you have any medication questions Follow-up/Referrals: Eber Kiran MD [Primary Care Provider] - 08/06/20 3:45 pm (follow up one week ) Alejandro Prajapati DO [Physician] - 07/29/20 1:00 pm (A follow up appt. has been made for you at the wound center for Jul.29 at 1:00pm.) Diet: Carb Consistent or DM2 Ambulatory Orders: Basic Metabolic Panel (Routine) Timeframe: 1 Week Location: Determined by Patient Ordered By: Maryana Rehman Complete Blood Count with Diff (Routine) Timeframe: 1 Week Location: Determined by Patient Ordered By: Maryana Rehman Hepatic Function (Liver) Panel (Routine) Timeframe: 1 Week Location: Determined by Patient Ordered By: Maryana Barksdale Attending Provider Instructions: (1) Scrotal infection: Recently admitted with Ted's gangrene. - You will continue on Linezolid every twelve hours and Flagyl every 8 hours. You will also need to take 400 mg (2 tablets) daily of fluconazole. You will need to have your labs checked in one week. These results will go to Dr. Kiran. Please follow up with him. - You will continue with daily and as needed Aquacel dressing changes and follow up with the wound care center once a week. You should take your prescription for Aquacel to your pharmacy today because it takes a few days for this to come in. - You will follow up with surgeons in [place] per urology. Please call Dr. Chris's office if you have not heard anything by the middle of next week - You will keep the Enriquez catheter for the time being. You can discuss how long it should remain at your [place] follow up. -Continue Vitamin C, D and Zinc supplementation for wound healing -Continue probiotics (2) Diabetes mellitus: -Continue Metformin -You will go home with a new prescription for insulin glargine which you will take 30 units per day. Please check your blood sugars twice per day, once before meals or bed and first thing in the morning. Keep a log to take with you to your next doctor's appointment (3) Dermatitis: Continue triamcinolone cream twice per day until your follow up with Dr. Kiran Pending Studies at Discharge: No Stand-Alone Forms: [facility], Smoking Cessation Medications and DC Order Prescriptions: New metronidazole 500 mg Tablet 500 mg PO TID Qty: 42 RF: 0 linezolid 600 mg Tablet 600 mg PO BID Qty: 28 RF: 0 nystatin [Nystop] 100,000 unit/gram Powder 1 applic EXT QID Qty: 1 RF: 1 fluconazole [Diflucan] 200 mg tablet 400 mg PO DAILY Qty: 28 RF: 0 amlodipine [Norvasc] 5 mg Tablet 5 mg PO HS Qty: 30 RF: 0 ascorbic acid (vitamin C) [Vitamin C] 500 mg Tablet 500 mg PO QAM Qty: 30 RF: 0 metoprolol tartrate 50 mg Tablet 50 mg PO BID Qty: 60 RF: 0 losartan 100 mg tablet 100 mg PO DAILY Qty: 30 RF: 0 cholecalciferol (vitamin D3) 25 mcg (1,000 unit) Capsule 2,000 unit PO QAM Qty: 60 RF: 0 zinc sulfate [Orazinc] 220 (50) mg Capsule 220 mg PO QAM Qty: 30 RF: 0 Certavite-Antioxidant 18-400 mg-mcg Tablet 1 tab PO QAM Qty: 30 RF: 0 Advanced Probiotic 625 mg (10 billion cell) Capsule 2 cap PO DAILY Qty: 60 RF: 0 Continued metformin 1,000 mg tablet 1,000 mg PO BID Qty: 180 RF: 3 niacin 1,000 mg tablet extended release 24 hr 1,000 mg PO DAILY Qty: 90 RF: 3 (DME) OneTouch Ultra Blue Test Strip Strip See Dose Instructions .ROUTE .MEDSUPPLY Qty: 180 RF: 3 allopurinol 300 mg tablet 300 mg PO DAILY Qty: 90 RF: 1 Hold Instructions: In patient now furosemide 40 mg tablet 40 mg PO DAILY PRN (Reason: edema) Qty: 90 RF: 3 (DME) lancets [OneTouch UltraSoft Lancets] misc See Dose Instructions .ROUTE .MEDSUPPLY Qty: 50 RF: 0 sennosides-docusate sodium [Senokot-S] 8.6-50 mg Tablet 1 tab PO QAM Qty: 30 RF: 0 triamcinolone acetonide 0.1 % cream 1 applic topical BID Qty: 30 RF: 0 Changed Lantus Solostar U-100 Insulin 100 unit/mL (3 mL) Insulin Pen 30 unit SC DAILY Qty: 3 RF: 0 oxycodone-acetaminophen [Percocet] 5-325 mg Tablet 1 tab PO Q6H PRN (Reason: pain) Qty: 15 RF: 0 Discontinued nystatin 100,000 unit/mL Suspension 5 ml PO QID 7 Days Qty: 140 RF: 0 linezolid 600 mg tablet 600 mg PO BID 8 Days Qty: 16 RF: 0 metronidazole 500 mg tablet 500 mg PO TID 8 Days Qty: 24 RF: 0 Discharge Orders: Discharge Order (Routine); Ordered 07/22/20 Ordered By: Maryana Ortiz/Other Patient Handouts: Hypoglycemia (Low Blood Sugar), Insulin How to Use and Where to Inject, Types of Insulin, Healthy Meals for Diabetes, Discharge Instructions Using ..., ED Using an Injection Pen Admission Data Admit Date/Time: 07/17/20 03:19 Attending Provider: Renan Juarez Admit Provider: Darline Hope Primary Care Provider: Eber Kiran Other Providers: Logan Guy ; Darline Hope ; Soledad Ozuna Other Interventions: Discharge Summary Assessment (RN) Last Done: 07/22/20 13:21 Supervising Physician Co-Signing Physician Notes Patient seen and examined on the day of discharge. I agree with the discharge summary by Maryana LAURENT. I have reviewed the chart including labs, imaging and plans for discharge. patient feeling well on the day of discharge, he is excited to go home we discussed the plan of going home with wet to dry dressings, oral antibiotics, follow up with urology and referral to [place] for reconstructive surgical evaluation - Fornier's gangrene with multiple debridement by urology wound infection: continue Flagyl, Linezolid and Diflucan wet to dry dressings, follow up with wound clinic once a week at this point a wound vac cannot be placed due to fungal infection of the surrounding skin will get a referral to [place] reconstructive surgery for their recommendations as outpatient explained to patient and his family that this will take months to a year to heal will require wound vac, likely a skin graft explained that he will need to be patient and will need to comply with instructions and restrictions Coding Level of Care Code D/C Day Management >30 mins Diagnoses Scrotal infection N49.2 Chronic kidney disease N18.9 Diabetes mellitus E11.9; Z79.4 Diabetes mellitus complication status: without complication Diabetes mellitus half-way insulin use: with half-way use Diabetes mellitus type: type 2 Dyslipidemia E78.5 Gout, joint M10.9 Hypertension I10 Hypertension type: essential hypertension Obstructive sleep apnea G47.33 Dermatitis L30.9 Current smoker F17.200 Morbid obesity with BMI of 40.0-44.9, adult E66.01; Z68.41 Goodpastures syndrome M31.0
[2020-07-22] MEDS: FLUCONAZOLE 200 MG/100 ML BAG IV SCH ×2 (13:44→14:34)
[2020-07-22] MEDS ORDERED: metroNIDAZOLE 500 MG TAB PO SCH (14:00)
[2020-07-22] MEDS ORDERED: LINEZOLID 600 MG TAB PO SCH (21:00)
--- NOTE | 2020-07-23 05:30 | Electrocardiogram Report ---
Test Reason : Blood Pressure : / mmHG Vent. Rate : 075 BPM Atrial Rate : 075 BPM P-R Int : 156 ms QRS Dur : 084 ms QT Int : 390 ms P-R-T Axes : 049 -75 078 degrees QTc Int : 435 ms Normal sinus rhythm Left axis deviation Abnormal ECG When compared with ECG of 20-JUL-2020 06:47, QRS axis Shifted left Confirmed by Pablo Katz ([id number]) on 07/23/2020 5:30:31 AM Referred By: [facility] Confirmed By:Pablo Katz
== END 2020-07-22 16:46 | disposition home health service (06) | DRG 728 ==
LOC: ED 01:18 → SUATTDRO 03:19 → 3W 03:19